=== PATIENT | male | born 1960 ===

== ENCOUNTER 2020-06-15 14:14 | Outpatient (REF) | payer OTHER, SELFPAY | END 2020-06-15 14:15 | disposition home or self-care (01) | LOC: HO.LNP 14:14 | PROVIDERS: Visit Provider Nurse Practitioner Family | DX: Z20.828 Contact with and (suspected) exposure to other viral communicable diseases (principal) | CPT/HCPCS: U0003 ==

== ENCOUNTER 2020-06-27 09:23 | Outpatient (REF) | payer OTHER, SELFPAY | END 2020-06-27 09:24 | disposition home or self-care (01) | LOC: HO.HMGCLDS 09:23 | PROVIDERS: PCP Internal Medicine; Visit Provider Internal Medicine | DX: Z20.828 Contact with and (suspected) exposure to other viral communicable diseases (principal) | CPT/HCPCS: C9803; U0003 ==

== ENCOUNTER 2020-07-15 12:21 | Outpatient (REF) | payer OTHER, SELFPAY ==
--- NOTE | 2020-07-15 12:25 | XR_ITS ---
EXAMINATION: XR CHEST CLINICAL INFORMATION: Short of breath. Exposure the wires. COMPARISON: None TECHNIQUE: 2 views of the chest were obtained. FINDINGS: No significant abnormality is noted involving the heart, lungs, mediastinum, bony thorax or soft tissues. XR/XR chest 2V IMPRESSION: Unremarkable chest examination.
== END 2020-07-15 12:22 | disposition home or self-care (01) ==
LOC: HO.HMGCX 12:21
PROVIDERS: PCP Internal Medicine; Visit Provider Hospitalist
DX: Z20.828 Contact with and (suspected) exposure to other viral communicable diseases (principal)
CPT/HCPCS: 71046; U0003

== ENCOUNTER 2022-10-08 14:17 | Emergency (ER) | payer OTHER, SELFPAY ==
--- NOTE | ~2022-10-08 | XR_ITS ---
EXAMINATION: XR HAND, LEFT CLINICAL INFORMATION: Trauma, bleeding at the left first finger COMPARISON: None TECHNIQUE: PA, lateral, and oblique views of the left hand. FINDINGS: There appears to be a previous amputation of the distal aspect of distal phalanx of the first finger. No acute bony fracture seen. Mild narrowing of the left first MTP joint. There is no opaque foreign body. The remaining metacarpals appear to be intact. The carpus is unremarkable. No erosive process. XR/XR hand LT min 3V IMPRESSION: 1. No acute process. 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 2. Mild narrowing of the left first MTP joint.
[2022-10-08 14:24] VITALS: BP 173/101; PULSE 106; RESP 20; TEMP 37.1; O2SAT 95; BMI 31.7
--- NOTE | 2022-10-08 14:27 | ED.WOUNDLAC ---
HPI - Wound/Laceration General Chief Complaint: Skin/Abscess/Foreign Body Stated Complaint: Thumb lac Related Data Home Medications Medication Instructions Recorded Confirmed albuterol sulfate 2.5 mg/3 mL mg inhalation Q4H PRN wheezing 06/15/20 07/15/20 (0.083 %) solution for nebulization albuterol sulfate 90 mcg/actuation 1 puff inhalation Q4H PRN wheezing 06/15/20 07/15/20 aerosol inhaler amlodipine 5 mg tablet 5 mg PO DAILY 06/15/20 07/15/20 aspirin 81 mg tablet,delayed 81 mg PO DAILY 06/15/20 07/15/20 release evolocumab 140 mg/mL subcutaneous mg subcut 06/15/20 07/15/20 syringe ezetimibe 10 mg tablet 10 mg PO DAILY 06/15/20 07/15/20 flu vac [id number] 36mos up(PF) 60 ml IM 06/15/20 07/15/20 mcg (15 mcg x4)/0.5 mL IM syringe fluticasone furoate 100 0 inh inhalation DIRECTED 06/15/20 07/15/20 mcg/actuation blister powder for inhalation ibuprofen 400 mg tablet 400 mg PO Q8H PRN pain 06/15/20 07/15/20 levothyroxine 150 mcg tablet 150 mcg PO 6XW 06/15/20 07/15/20 lisinopril 5 mg tablet 5 mg PO DAILY 06/15/20 07/15/20 metformin 500 mg tablet 500 mg PO BID 06/15/20 07/15/20 ondansetron 4 mg disintegrating 4 mg PO Q8H PRN nausea 06/15/20 07/15/20 tablet phenazopyridine 100 mg tablet 100 mg PO TID 06/15/20 07/15/20 pramipexole 1.5 mg tablet 1.5 mg PO DAILY 06/15/20 07/15/20 prednisone 20 mg tablet 20 mg PO BID 06/15/20 07/15/20 tamsulosin 0.4 mg capsule 0.4 mg PO DAILY 06/15/20 07/15/20 Previous Rx's Medication Instructions Recorded prednisone 20 mg tablet 20 mg PO .COMPLEX #18 tabs 07/15/20 Allergies Allergy/AdvReac Type Severity Reaction Status Date / Time Zqnqmzd-ENO-MdY Reductase Allergy Unknown INCREASED Unverified 04/21/20 16:54 Inhibitor LFTS [KQLZPAC-SMX-PYR REDUCTASE INHIBITOR] Statin Allergy Unknown Uncoded 08/04/19 00:00 Physical Exam Vital Signs: Vital Signs: Last Vital Signs Temp 98.7 F 10/08/22 14:24 Pulse 106 H 10/08/22 14:24 Resp 20 10/08/22 14:24 BP 173/101 H 10/08/22 14:24 Pulse Ox 95 10/08/22 14:24 O2 Del Method 10/08/22 14:24 BMI result Body Mass Index 31.7 Course Course Course Narrative: RME - Discharge Plan Discharge Prescriptions: No Action aspirin 81 mg tablet,delayed release (DR/EC) 81 mg PO DAILY pramipexole 1.5 mg tablet 1.5 mg PO DAILY Repatha Syringe 140 mg/mL syringe subcut amlodipine 5 mg tablet 5 mg PO DAILY Afluria Qd 2019-(3yr up)(PF) 60 mcg (15 mcg x 4)/0.5 mL syringe IM lisinopril 5 mg tablet 5 mg PO DAILY metformin 500 mg tablet 500 mg PO BID levothyroxine 150 mcg tablet 150 mcg PO 6XW ezetimibe 10 mg tablet 10 mg PO DAILY prednisone 20 mg tablet 20 mg PO BID Arnuity Ellipta 100 mcg/actuation blister with device 0 inh inhalation DIRECTED ondansetron 4 mg tablet,disintegrating 4 mg PO Q8H PRN (Reason: nausea) albuterol sulfate 90 mcg/actuation HFA aerosol inhaler 1 puff inhalation Q4H PRN (Reason: wheezing) albuterol sulfate 2.5 mg /3 mL (0.083 %) solution for nebulization inhalation Q4H PRN (Reason: wheezing) phenazopyridine 100 mg tablet 100 mg PO TID ibuprofen 400 mg tablet 400 mg PO Q8H PRN (Reason: pain) tamsulosin 0.4 mg capsule 0.4 mg PO DAILY prednisone 20 mg tablet 20 mg PO .COMPLEX Qty: 18 0RF Rx Instructions: 20 mg PO 3 p.o. daily for 3 days followed by 2 p.o. daily for 3 days followed by 1 p.o. daily for 3 days;
[2022-10-08] MEDS: Diphth,Pertus(ACell),Tet Adult 0.5 ML SYRINGE IM (15:14)
--- NOTE | 2022-10-08 17:23 | ED_ITS ---
HPI - General Adult General Chief complaint: Skin/Abscess/Foreign Body Stated complaint: Thumb lac Time Seen by Provider: 10/08/22 15:57 Source: patient Mode of arrival: ambulatory Limitations: no limitations History of Present Illness HPI narrative: 61 yold male presents to the ED for left hand laceration near thumb. [place] states he was cutting with a chisel to cut wood and he cut himself by accident and there was plenty of blood. patient states he has complete range of motion of thumb and has feeling. Related Data Home Medications Medication Instructions Recorded Confirmed albuterol sulfate 2.5 mg/3 mL mg inhalation Q4H PRN wheezing 06/15/20 07/15/20 (0.083 %) solution for nebulization albuterol sulfate 90 mcg/actuation 1 puff inhalation Q4H PRN wheezing 06/15/20 07/15/20 aerosol inhaler amlodipine 5 mg tablet 5 mg PO DAILY 06/15/20 07/15/20 aspirin 81 mg tablet,delayed 81 mg PO DAILY 06/15/20 07/15/20 release evolocumab 140 mg/mL subcutaneous mg subcut 06/15/20 07/15/20 syringe ezetimibe 10 mg tablet 10 mg PO DAILY 06/15/20 07/15/20 flu vac [id number] 36mos up(PF) 60 ml IM 06/15/20 07/15/20 mcg (15 mcg x4)/0.5 mL IM syringe fluticasone furoate 100 0 inh inhalation DIRECTED 06/15/20 07/15/20 mcg/actuation blister powder for inhalation ibuprofen 400 mg tablet 400 mg PO Q8H PRN pain 06/15/20 07/15/20 levothyroxine 150 mcg tablet 150 mcg PO 6XW 06/15/20 07/15/20 lisinopril 5 mg tablet 5 mg PO DAILY 06/15/20 07/15/20 metformin 500 mg tablet 500 mg PO BID 06/15/20 07/15/20 ondansetron 4 mg disintegrating 4 mg PO Q8H PRN nausea 06/15/20 07/15/20 tablet phenazopyridine 100 mg tablet 100 mg PO TID 06/15/20 07/15/20 pramipexole 1.5 mg tablet 1.5 mg PO DAILY 06/15/20 07/15/20 prednisone 20 mg tablet 20 mg PO BID 06/15/20 07/15/20 tamsulosin 0.4 mg capsule 0.4 mg PO DAILY 06/15/20 07/15/20 Previous Rx's Medication Instructions Recorded prednisone 20 mg tablet 20 mg PO .COMPLEX #18 tabs 07/15/20 cephalexin 500 mg capsule 500 mg PO QID 7 days #28 caps 10/08/22 Allergies Allergy/AdvReac Type Severity Reaction Status Date / Time Ohrujyv-UBC-CwE Reductase Allergy Unknown INCREASED Unverified 04/21/20 16:54 Inhibitor LFTS [VGQDBSO-PVK-MQE REDUCTASE INHIBITOR] Statin Allergy Unknown Uncoded 08/04/19 00:00 Review of Systems Review of Systems: Left hand laceration Yes all other systems are reviewed and are negative [facility] Social History Social History Advance Directives: No Advance Directives Information Provided: Yes Physical Exam ED Vital Signs: Vital Signs - 24 hr 10/08/22 14:24 Temperature 98.7 F Pulse Rate 106 H Respiratory Rate 20 Blood Pressure 173/101 H Pulse Oximetry 95 Oxygen Delivery Method Room Air BMI result Body Mass Index 31.7 Const General: cooperative, healthy appearing, comfortable, no acute distress, well developed and alert Orientation/consciousness: oriented to person, oriented to place, oriented to time and patient oriented x3 HENMT Head: Yes normal to inspection, Yes No palpable skull fracture present, Yes normocephalic, Yes atraumatic and No abrasion Eyes General: appearance normal, both eyes and all related structures Neck Neck: Yes normal visual inspection, Yes full ROM, Yes no lymphadenopathy, Yes no meningeal signs, Yes trachea midline, Yes supple, No anterior neck swelling and No tender Chest Chest palpation & inspection: normal inspection of the chest and normal p alpation of entire chest wall Resp Effort & Inspection: normal respiratory effort and able to speak in complete sentences Auscultation: clear to auscultation bilaterally Cardio Jugular venous distension: no JVD Heart sounds: S1 normal heart sound present and S2 normal heart sound present GI Inspection: Yes normal to inspection and No abdominal wall ecchymosis Palpation (GI): Soft to palpation, not firm, nontender, no guarding and not rigid General: No CVA tenderness and Yes no CVA tenderness Back/Spine/Pelvis Back: no CVA tenderness, No CVA tenderness and No back tenderness Skin General skin exam: no rashes or lesions noted and elasticity normal Neuro General: oriented to person, oriented to place, oriented to time, patient oriented x3, gait normal, tone normal, moves all extremities, Normal light touch and pain sensation, no meningeal signs, no focal motor deficits, CN's II-XI intact bilaterally, normal sensation to monofilament and deep tendon reflexes 2+ bilaterally Extrem General: Yes normal to inspection and Yes full ROM Hand/finger images: 1. Positive for laceration his active bleeding. Patient has complete range of motion of thumb and feeling. Rest of fingers also complete range of motion and neuro exam intact. All fingers neuro/motor/vascular exam intact. Rest of extremity normal and motor/neuro/vascular exam intact. Negative for tendon or nerve injury. Psych Appearance: grossly normal, well kempt and not disheveled Course Course Course Narrative: Patient has laceration of thumb. X-ray ordered. Tdap ordered. Reevaluation(s) Reevaluation #1: X-ray normal. Wound cleaned with sterile saline and Betadine iodine. Anesthetized with 8 mL of 2% lidocaine. History nylon suture used. Six sutures were placed. Patient will be discharged with antibiotics due to history of diabetes to prevent infection Time: 17:30 Medications Administered Discontinued Medications Generic Name Dose Route Start Last Admin Trade Name Freq PRN Reason Stop Dose Admin Diphtheria/Tetanus/Acell Pertussis 0.5 ml 10/08/22 14:27 10/08/22 15:14 Diphth,Pertus(Acell),Tet Adult 0.5 Ml Syringe IM 10/08/22 14:28 0.5 ml .ONCE ONE Administration Lidocaine HCl 2 ml 10/08/22 16:04 10/08/22 16:13 Lidocaine Hcl 2% 2 Ml Vial INFILTRATI 10/08/22 16:05 2 ml ONCE ONE Administration Lidocaine HCl 2 ml 10/08/22 16:04 10/08/22 16:13 Lidocaine Hcl 2% 2 Ml Vial INFILTRATI 10/08/22 16:05 2 ml ONCE ONE Administration Lidocaine HCl 2 ml 10/08/22 16:04 10/08/22 16:13 Lidocaine Hcl 2% 2 Ml Vial INFILTRATI 10/08/22 16:05 2 ml ONCE ONE Administration Lidocaine HCl 2 ml 10/08/22 16:04 10/08/22 16:13 Lidocaine Hcl 2% 2 Ml Vial INFILTRATI 10/08/22 16:05 2 ml ONCE ONE Administration Lidocaine HCl 2 ml 10/08/22 16:04 10/08/22 16:13 Lidocaine Hcl 2% 2 Ml Vial INFILTRATI 10/08/22 16:05 2 ml ONCE ONE Administration Medical Decision Making Medical Decision Making MDM Narrative: 61-year-old male with left thumb laceration. Negative for signs of tendon or nerve injury. X-ray ordered. Differential Diagnosis Differential Diagnoses: The differential diagnosis associated with the presentation includes (Laceration. Fracture) Independent Interpretation I performed an independent interpretation of an: Plain X-Ray Radiology Impression Discussion of test interpretation with radiology: I have reviewed the radiologist's reading. Prescription Management I considered prescription management with: Antibiotic Chronic Conditions Patient?s care impacted by: Diabetes Discharge Plan Discharge Clinical Impression: Laceration of hand Patient Disposition: Home, Self-Care Instructions: Laceration (ED) Additional Instructions: Keep laceration dried the 1st 48 hours. Return to the ED in 10 days for suture removal. Return to the ED immediately for any pus discharge, foul odor, redness, swelling, fever, chills, inability to move thumb, and inability to move rest of fingers, or any other concerning symptoms. Prescriptions: New cephalexin 500 mg capsule 500 mg PO QID 7 Days Qty: 28 0RF No Action aspirin 81 mg tablet,delayed release (DR/EC) 81 mg PO DAILY pramipexole 1.5 mg tablet 1.5 mg PO DAILY Repatha Syringe 140 mg/mL syringe subcut amlodipine 5 mg tablet 5 mg PO DAILY Afluria Qd 2019-(3yr up)(PF) 60 mcg (15 mcg x 4)/0.5 mL syringe IM lisinopril 5 mg tablet 5 mg PO DAILY metformin 500 mg tablet 500 mg PO BID levothyroxine 150 mcg tablet 150 mcg PO 6XW ezetimibe 10 mg tablet 10 mg PO DAILY prednisone 20 mg tablet 20 mg PO BID Arnuity Ellipta 100 mcg/actuation blister with device 0 inh inhalation DIRECTED ondansetron 4 mg tablet,disintegrating 4 mg PO Q8H PRN (Reason: nausea) albuterol sulfate 90 mcg/actuation HFA aerosol inhaler 1 puff inhalation Q4H PRN (Reason: wheezing) albuterol sulfate 2.5 mg /3 mL (0.083 %) solution for nebulization inhalation Q4H PRN (Reason: wheezing) phenazopyridine 100 mg tablet 100 mg PO TID ibuprofen 400 mg tablet 400 mg PO Q8H PRN (Reason: pain) tamsulosin 0.4 mg capsule 0.4 mg PO DAILY prednisone 20 mg tablet 20 mg PO .COMPLEX Qty: 18 0RF Rx Instructions: 20 mg PO 3 p.o. daily for 3 days followed by 2 p.o. daily for 3 days followed by 1 p.o. daily for 3 days; Stand Alone Forms: Work/School Release Interventions: ED Discharge Assessment Last Done: 10/08/22 17:50 Discharge Date/Time: 10/08/22 17:51 Print Language: Luxembourgish
== END 2022-10-08 17:51 | disposition home or self-care (01) ==
PROVIDERS: Emergency Provider Emergency Medicine; PCP Internal Medicine
DX: S61.412A Laceration without foreign body of left hand, initial encounter (principal); W27.0XXA Contact with workbench tool, initial encounter; Y93.89 Activity, other specified; Y92.9 Unspecified place or not applicable; Y99.9 Unspecified external cause status
CPT/HCPCS: 12001; 73130; 90471; 90715; 99282; 99283; 99284

== ENCOUNTER 2023-03-12 13:02 | Outpatient (AMB) | payer OTHER, SELFPAY ==
--- NOTE | 2023-03-12 13:08 | A.OFFVIS_ITS ---
Intake Vital Signs 03/12/23 13:09 Height 5 ft 9 in Weight 215 lb 8 oz BMI 31.8 BP 122/88 Blood Pressure Location Rt brachial Position Sitting Pulse 92 Pulse Source Pulse Oximeter Pulse Oximetry (%) 97 Oxygen Delivery Method Room Air Intake Visit Reasons: -ENP-NARCOLEPSY - Confirmed Intake Note: Patient presents for new patient evaluation. Patient states I'm not staying awake during the daytime,when Im driving it's a challenge, my memory is poor and I've been feeling lethargic and have no energy at all. Allergies Ughlhtj-VJL-SwJ Reductase Inhibitor [RUUAIPM-NAC-JCI REDUCTASE INHIBITOR] Allergy (Unknown, Unverified 03/12/23 13:13) INCREASED LFTS Statin Allergy (Unknown, Uncoded 03/12/23 13:13) Unknown HPI HPI Comments History of Present Illness Details 62 y/o male patient presents for new in-person visit for sleep consultation. Pt reports difficulty breathing through his nose. He had hx of deviated septum, had surgery twice, and turbinate reduction surgery twice, too. He also evaluated by combat information center officer and treated, but not helpful. He still has difficulty breathing through his nose, his nasal valve collapsed when he breathe. He sleeps on the recliner to breath better. Pt was also diagnosed with FREDY, and tried CPAP three times, but not tolerated. Pt reports difficulty staying sleep, he only can sleep 3 -5 hours with excessive daytime sleepiness. He gained over 45 lb and the symptoms has been worsened over the last year. He states that driving is challenging due to excessive sleepiness, needs energy drink. He can fall asleep very easily. Pt has restless legs syndorme and is on pramipexole 1.5 mg daily. The last ferritine level was 108 (Sep, 2021) Sleep questionnaire: Have you ever been diagnosed with a sleep disorder? No. Have you ever had a sleep study in the past? Yes. Have you ever been treated for a sleep disorder? Yes, CPAP but not tolerated. Do you take medications for a sleep disorder? mirtazapine two weeks ago. Do you snore? Yes. Do you wake up gasping at night? Yes. Do you have episodes of apneas? Yes. If yes, are they witnessed? Yes. Do you have episodes of nocturnal chest pain or dyspnea? Yes. Do you have difficulty initiating sleep? No. Do you have difficulty maintaining sleep? Yes. Do you wake up tired? Yes. Do you have headaches upon awakening? Sometimes. Do you wake up with dry mouth or throat? Yes. Do you have GERD? No. Do you have nocturia? Yes. Do you have nocturnal leg cramps? No. Do you have symptoms of restless legs? Yes. Do you act out your dreams? No. Sleep hygiene questionnaire: What is your usual sleep routine? 6-7 pm taking a nap, for 1-3 hours and wakes up. Do you take naps? Yes. Is your sleep environment cool, dark, and quiet? Yes. Do you exercise? No. Do you take caffeine or other stimulants? If he needs to drive, he drinks energy drink. Do you use electronics in bed? Yes. What is your work schedule? N/A. Hypersomnolence questionnaire: Do you have daytime tiredness or fatigue? Yes. Do you easily fall asleep when inactive? Yes. Have you ever had episodes of sudden weakness? No. Have you ever had episodes of sudden weakness associated with strong emotions? No. PFSH Medical History (Updated 03/12/23 @ 14:06 by Brittny Reilly CNP) History of deviated nasal septum Surgical History (Updated 03/12/23 @ 13:18 by KIRSTIE Koo) H/O elbow surgery H/O sinus surgery History of knee surgery History of placement of ear tubes Hx of shoulder surgery Hx of tonsillectomy S/p bilateral carpal tunnel release Family History Sister Breast cancer Heart disease Kidney disease Father Aneurysm Heart disease Sister Lupus Addisons disease Social History (Updated 03/12/23 @ 13:21 by KIRSTIE Koo) Alcohol intake: current Patient Tobacco Use Status: Never used Tobacco Review of Systems Const All systems reviewed & are unremarkable except as noted in HPI and below ENT Reports Normal hearing present Neuro Reports Normal hearing present Physical Exam Vital Signs: Last Vital Signs Pulse 92 03/12/23 13:09 BP 122/88 03/12/23 13:09 Pulse Ox 97 03/12/23 13:09 Oxygen Delivery Method Room Air 03/12/23 13:09 BMI result Body Mass Index 31.8 Const General: cooperative and tired appearing Nutritional Appearance: overweight Orientation/consciousness: patient oriented x3 Neck Neck: Yes full ROM and Yes supple Resp Effort & Inspection: normal respiratory effort and able to speak in complete sentences Neuro General: patient oriented x3, gait normal and moves all extremities Cranial nerves: Yes Normal facial strength present, Yes Midline tongue present, Yes Symmetric palate elevation present, Yes Normal hearing present, Yes Ability to bilaterally rotate head present and Yes Ability to bilaterally elevate shoulders present Cognition (Neuro): normal cognition Gait exam (Neuro): Normal gait present Motor exam (neuro): 5/5 motor strength present throughout, Pronator motor funct ion not present and no tremor noted Psych Appearance: grossly normal Mental Status: mental status grossly normal Affect: normal affect Assessment & Plan Assessment & Plan (1) Restless legs syndrome: Code(s): G25.81 - Restless legs syndrome (2) Excessive daytime sleepiness: Code(s): G47.19 - Other hypersomnia (3) 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 Will f/u with pt after study to discuss results and appropriate treatment options. Consider to refer for Insp[facility]. Refer patient to ENT for nasal collapse evaluation. Pt to call with any worsening concerns or questions. Consider to refer for [facility]. Orders: Orders RT PSG in-lab sleep study 03/12/23 G25.81 - Restless legs syndrome, G47.19 - Other hypersomnia, G47.33 - Obstructive sleep apnea (adult) (pediatric), I25.10 - Atherosclerotic heart disease of [place] coronary artery without angina pectoris, M95.0 - Acquired deformity of nose, R68.89 - Other general symptoms and signs, Z87.09 - Personal history of other diseases of the respiratory system Referrals Ear/Nose/Throat Referral G25.81 - Restless legs syndrome, G47.19 - Other hypersomnia, G47.33 - Obstructive sleep apnea (adult) (pediatric), R68.89 - Other general symptoms and signs, Z87.09 - Personal history of other diseases of the respiratory system Medications: Discontinued prednisone Discontinued Reason: Patient no longer taking 20 mg PO 3 p.o. daily for 3 days followed by 2 p.o. daily for 3 days followed by 1 p.o. daily for 3 days; 18 tabs 0RF Coding Level of Care Code New Pt Level 4 (87905) Diagnoses Restless legs syndrome G25.81 Excessive daytime sleepiness G47.19 Nasal alar collapse M95.0 Nasal airway abnormality R68.89 FREDY (obstructive sleep apnea) G47.33
[2023-03-12 13:09] VITALS: BP 122/88; PULSE 92; O2SAT 97; BMI 31.8
== END 2023-03-12 14:12 | disposition home or self-care (01) ==
LOC: HO.HSMC 13:02
PROVIDERS: PCP Internal Medicine; Visit Provider Nurse Practitioner Family
DX: G25.81 Restless legs syndrome (principal); G47.19 Other hypersomnia; M95.0 Acquired deformity of nose; R68.89 Other general symptoms and signs; G47.33 Obstructive sleep apnea (adult) (pediatric)
CPT/HCPCS: 99204

== ENCOUNTER → 2023-03-12 13:02 | Outpatient (BNVA) | payer OTHER, SELFPAY | PROVIDERS: PCP Internal Medicine; Visit Provider Nurse Practitioner Family ==

== ENCOUNTER → 2023-04-01 19:30 | Outpatient (REF) | payer OTHER, SELFPAY | LOC: HO.SL 19:30 | PROVIDERS: PCP Internal Medicine; Visit Provider Nurse Practitioner Family | DX: G47.33 Obstructive sleep apnea (adult) (pediatric) (principal); G25.81 Restless legs syndrome; G47.19 Other hypersomnia | CPT/HCPCS: 95810 ==

== ENCOUNTER → 2023-04-01 23:00 | Outpatient (BNV) | payer OTHER, SELFPAY | PROVIDERS: PCP Internal Medicine; Visit Provider Psychiatry & Neurology Neurology | DX: G47.33 Obstructive sleep apnea (adult) (pediatric) (principal) | CPT/HCPCS: 95810 ==

== ENCOUNTER 2023-06-11 09:25 | Outpatient (AMB) | payer OTHER, SELFPAY ==
--- NOTE | 2023-06-11 09:28 | MHC.OFFVIS ---
Intake Vital Signs 06/11/23 09:34 Height 5 ft 9 in Weight 220 lb BMI 32.5 BP 140/80 H Blood Pressure Location Rt brachial Position Sitting Pulse 78 Pulse Source Pulse Oximeter Pulse Oximetry (%) 97 Oxygen Delivery Method Room Air Intake Visit Reasons: 3 mnts f/u for sleep - LVM Intake Note: F/U for sleep, patient is asking to be referred to the [facility] Denture Processor Required: No Allergies Lmeqest-DHI-VzU Reductase Inhibitor [COWDSRT-GJJ-AYT REDUCTASE INHIBITOR] Allergy (Unknown, Unverified 06/11/23 09:29) INCREASED LFTS Statin Allergy (Unknown, Uncoded 06/11/23 09:29) Unknown HPI HPI Comments History of Present Illness Details 62 y/o male patient presents for follow up of sleep study. Pt had a split sleep study done. The baseline portion of the sleep study was significant for a severe degree of sleep apnea. The AHI was 35/hr and oxygen devyn was 81%. Pt was trialed on CPAP 4 and 6 but patient unable to tolerate CPAP titration study and the study was discontinued. Pt reports difficulty breathing through his nose. He had hx of deviated septum, had surgery twice, and turbinate reduction surgery twice, too. He also evaluated by waterproofer helper and treated, but not helpful. He still has difficulty breathing through his nose, his nasal valve collapsed when he breathe. He sleeps on the recliner to breath better. Pt continue to endorse very difficulty staying sleep, and excessive daytime sleepiness. He wakes up almost every 2 hrs. He is not sure he wakes up because of difficulty breathing or other reasons. He is on mirtazapine for sleep. He does not drive anymore due to excessive daytime sleepiness. Pt reports bilateral sciatica problem, tired physical therapy but pain has worsened. [facility] Medical History History of deviated nasal septum Surgical History Hx of tonsillectomy S/p bilateral carpal tunnel release History of knee surgery H/O elbow surgery Hx of shoulder surgery H/O sinus surgery History of placement of ear tubes Family History Sister Breast cancer Heart disease Kidney disease Father Aneurysm Heart disease Sister Lupus Addisons disease Social History (Updated 06/11/23 @ 09:34 by Laila Gu [facility]) Alcohol intake: current Patient Tobacco Use Status: Never used Tobacco Use of substances other than those prescribed or required for medical reasons: No Review of Systems Const All systems reviewed & are unremarkable except as noted in HPI and below ENT Reports Normal hearing present Neuro Reports Normal hearing present Physical Exam Vital Signs: Last Vital Signs Pulse 78 06/11/23 09:34 BP 140/80 H 06/11/23 09:34 Pulse Ox 97 06/11/23 09:34 Oxygen Delivery Method Room Air 06/11/23 09:34 BMI result Body Mass Index 32.5 Const General: cooperative and tired appearing Nutritional Appearance: overweight Orientation/consciousness: patient oriented x3 Neck Neck: Yes full ROM and Yes supple Resp Effort & Inspection: normal respiratory effort and able to speak in complete sentences Neuro General: patient oriented x3, gait normal and moves all extremities Cranial nerves: Yes Normal facial strength present, Yes Midline tongue present, Yes Symmetric palate elevation present, Yes Normal hearing present, Yes Ability to bilaterally rotate head present and Yes Ability to bilaterally elevate shoulders present Cognition (Neuro): normal cognition Gait exam (Neuro): Normal gait present Motor exam (neuro): 5/5 motor strength present throughout, Pronator motor function not present and no tremor noted Psych Appearance: grossly normal Mental Status: mental status grossly normal Affect: normal affect Assessment & Plan Assessment & Plan (1) Restless legs syndrome: Code(s): G25.81 - Restless legs syndrome (2) Excessive daytime sleepiness: Code(s): G47.19 - Other hypersomnia (3) 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 Code(s): G47.33 - Obstructive sleep apnea (adult) (pediatric) Plan Refer patient for [facility] consultation and ENT evaluation. Pt did not tolerate CPAP and having difficulty breathing. Orders: Referrals Ear/Nose/Throat Referral G47.33 - Obstructive sleep apnea (adult) (pediatric), M95.0 - Acquired deformity of nose, Z87.09 - Personal history of other diseases of the respiratory system Coding Level of Care Code Est Pt Level 3 (01220) Diagnoses Restless legs syndrome G25.81 Excessive daytime sleepiness G47.19 Nasal alar collapse M95.0 Nasal airway abnormality R68.89 FREDY (obstructive sleep apnea) G47.33
[2023-06-11 09:34] VITALS: BP 140/80; PULSE 78; O2SAT 97; BMI 32.5
== END 2023-06-11 09:55 | disposition home or self-care (01) ==
PROVIDERS: PCP Internal Medicine; Visit Provider Nurse Practitioner Family
DX: G25.81 Restless legs syndrome (principal); G47.19 Other hypersomnia; M95.0 Acquired deformity of nose; R68.89 Other general symptoms and signs; G47.33 Obstructive sleep apnea (adult) (pediatric)
CPT/HCPCS: 99213

== ENCOUNTER → 2023-06-11 09:25 | Outpatient (BNVA) | payer OTHER, SELFPAY | PROVIDERS: PCP Internal Medicine; Visit Provider Nurse Practitioner Family ==

== ENCOUNTER 2024-06-25 10:48 | Outpatient (AMB) | payer MEDICARE, SELFPAY ==
--- NOTE | 2024-06-25 11:01 | A.OFFVIS_ITS ---
Vital Signs 06/25/24 11:01 Height 5 ft 9 in Intake Visit Reasons: [facility] activation Intake Note: Patient presents for inspire activation Allergies Gnkwwhr-WMR-JoS Reductase Inhibitor [SOIXNMS-PAE-JHF REDUCTASE INHIBITOR] Allergy (Unknown, Unverified 06/25/24 11:02) INCREASED LFTS Statin Allergy (Unknown, Uncoded 06/25/24 11:02) Unknown Medication List - Last Reconciled 06/25/24 by Parisa Carlson MD amlodipine 5 mg PO DAILY aspirin 81 mg PO DAILY cephalexin 500 mg PO QID 7 days cyclobenzaprine 10 mg PO TID evolocumab mg subcut ezetimibe 10 mg PO DAILY flu vac [id number] 36mos up(PF) mL IM fluticasone furoate 100 mcg/actuation 0 inhalations inhalation DIRECTED glipizide 5 mg PO DAILY ibuprofen 400 mg PO Q8H PRN levothyroxine 150 mcg PO 6XW lisinopril 5 mg PO DAILY meloxicam 7.5 mg PO DAILY metformin 500 mg PO BID multivitamin 1 tab PO DAILY ondansetron 4 mg PO Q8H PRN oxycodone-acetaminophen 5-325 mg tabs PO phenazopyridine 100 mg PO TID pramipexole 1.5 mg PO DAILY pramipexole ER 3 mg PO DAILY pregabalin 150 mg PO BEDTIME tamsulosin 0.4 mg PO DAILY HPI Comments Details: 63 y/o male patient comes for [facility]PIRE activation . He had implantation on may 21 202404/2023-The baseline portion of the sleep study was significant for a severe degree of sleep apnea. The AHI was 35/hr and oxygen devyn was 81%. Pt was trialed on CPAP 4 and 6 but patient unable to tolerate CPAP titration study and the study was discontinued. He denies any discomfort now. Post surgery he had some discomfort while yawning. [facility] Medical History History of deviated nasal septum Surgical History (Updated 06/25/24 @ 11:28 by Parisa Carlson MD) S/P insertion of hypoglossal nerve stimulator Hx of tonsillectomy S/p bilateral carpal tunnel release History of knee surgery H/O elbow surgery Hx of shoulder surgery H/O sinus surgery History of placement of ear tubes Family History Sister Breast cancer Heart disease Kidney disease Father Aneurysm Heart disease Sister Lupus Addisons disease Social History Alcohol intake: current Patient Tobacco Use Status: Never used Tobacco Review of Systems ENT Reports Normal hearing present Neuro Reports Normal hearing present Physical Exam Const General: cooperative and tired appearing Nutritional Appearance: overweight Orientation/consciousness: patient oriented x3 Neck Neck: Yes full ROM and Yes supple Resp Effort & Inspection: normal respiratory effort and able to speak in complete sentences Neuro Other: Tongue exam , scars- normal . No evidence of infection General: patient oriented x3, gait normal and moves all extremities Cranial nerves: Yes Normal facial strength present, Yes Midline tongue present, Yes Symmetric palate elevation present, Yes Normal hearing present, Yes Ability to bilaterally rotate head present and Yes Ability to bilaterally elevate shoulders present Cognition (Neuro): normal cognition Gait exam (Neuro): Normal gait present Motor exam (neuro): no tremor noted Psych Appearance: grossly normal Mental Status: mental status grossly normal Affect: normal affect Assessment & Plan Assessment & Plan (1) FREDY (obstructive sleep apnea): Comment: Severe degree of sleep apnea and not tolerated CPAP. Code(s): G47.33 - Obstructive sleep apnea (adult) (pediatric) Category: Medical (2) S/P insertion of hypoglossal nerve stimulator: Comment: INSPIRE 05/21/2024 Code(s): Z96.82 - Presence of neurostimulator Category: Surgical Plan Discussed sleep hygiene in detail Instructions on use of his remote was given with written instructions. Stimulation settings today - Lower limit 0.5 Upper limit 1.5 V functional level 0.7 sensation level 0.5V Start delay 60min pause time 15 minutes Therapy duration 8 hrs Medications: New alirocumab (Praluent Pen) 75 mg subcut Q2W semaglutide (Ozempic) for 4 weeks 0.25 mg subcut QWEEK Discontinued cephalexin Discontinued Reason: Patient no longer taking 500 mg PO QID 7 days 28 caps 0RF Coding Level of Care Code Est Pt Level 3 (58165) [facility] Program cplx 4 or more Diagnoses FREDY (obstructive sleep apnea) G47.33 S/P insertion of hypoglossal nerve stimulator Z96.82
== END 2024-06-25 12:23 | disposition home or self-care (01) ==
PROVIDERS: PCP Internal Medicine; Visit Provider Psychiatry & Neurology Neurology
DX: G47.33 Obstructive sleep apnea (adult) (pediatric) (principal); Z96.82 Presence of neurostimulator
CPT/HCPCS: 95977; 99213

== ENCOUNTER → 2024-06-25 10:48 | Outpatient (BNVA) | payer MEDICARE, SELFPAY | PROVIDERS: PCP Internal Medicine; Visit Provider Psychiatry & Neurology Neurology | DX: Z46.2 Encounter for fitting and adjustment of other devices related to nervous system and special senses (principal); G47.33 Obstructive sleep apnea (adult) (pediatric); Z96.82 Presence of neurostimulator | CPT/HCPCS: 95977; 99212 ==

== ENCOUNTER 2024-08-12 10:47 | Outpatient (AMB) | payer MEDICARE, SELFPAY ==
[2024-08-12 10:52] VITALS: BP 140/82; PULSE 71; O2SAT 97; BMI 31.6
--- NOTE | 2024-08-12 10:52 | A.OFFVIS_ITS ---
Vital Signs 08/12/24 10:52 Height 5 ft 9 in Weight 214 lb BMI 31.6 BP 140/82 H Blood Pressure Location Lt brachial Position Sitting Pulse 71 Pulse Source Pulse Oximeter Pulse Oximetry (%) 97 Oxygen Delivery Method Room Air Intake Visit Reasons: Follow Up [facility] [employer] Farmer Required: No Accompanied by: Self / Same As Patient Allergies Gweghmv-FGM-RnC Reductase Inhibitor [QTQEVXC-IXT-XWK REDUCTASE INHIBITOR] Allergy (Unknown, Verified 08/12/24 10:56) INCREASED LFTS Statin Allergy (Unknown, Uncoded 06/25/24 11:02) Unknown Medication List - Last Reconciled 08/12/24 by Parisa Carlson MD alirocumab (Praluent Pen) 75 mg subcut Q2W amlodipine 5 mg PO DAILY ezetimibe 10 mg PO DAILY flu vac [id number] 36mos up(PF) mL IM levothyroxine 150 mcg PO 6XW lisinopril 5 mg PO DAILY metformin 500 mg PO BID multivitamin 1 tab PO DAILY pramipexole ER 3 mg PO DAILY pramipexole ER 3.75 mg PO BEDTIME pregabalin 150 mg PO BEDTIME semaglutide (Ozempic) 0.25 mg subcut QWEEK Do you need a note to return to daycare/school/sports/work: No HPI Comments Details: 63 y/o male patient comes for follow up.. He had INSPIRE implantation on may 21 2024.He denies any difficulty with INSpire .Usage hrs abour 5 and he was able to increase to 1.3V He wants to shorten the lag time to 30 min 04/2023-The baseline portion of the sleep study was significant for a severe degree of sleep apnea. The AHI was 35/hr and oxygen devyn was 81%. Pt was trialed on CPAP 4 and 6 but patient unable to tolerate CPAP titration study and the study was discontinued. He denies any discomfort now. [facility] Medical History History of deviated nasal septum Surgical History S/P insertion of hypoglossal nerve stimulator Hx of tonsillectomy S/p bilateral carpal tunnel release History of knee surgery H/O elbow surgery Hx of shoulder surgery H/O sinus surgery History of placement of ear tubes Family History Sister Breast cancer Heart disease Kidney disease Father Aneurysm Heart disease Sister Lupus Addisons disease Social History Alcohol intake: current Patient Tobacco Use Status: Never used Tobacco Review of Systems ENT Reports Normal hearing present Neuro Reports Normal hearing present Physical Exam Vital Signs: Last Vital Signs Pulse 71 08/12/24 10:52 BP 140/82 H 08/12/24 10:52 Pulse Ox 97 08/12/24 10:52 Oxygen Delivery Method Room Air 08/12/24 10:52 BMI result Body Mass Index 31.6 Const General: cooperative and tired appearing Nutritional Appearance: overweight Orientation/consciousness: patient oriented x3 Neck Neck: Yes full ROM and Yes supple Resp Effort & Inspection: normal respiratory effort and able to speak in complete sentences Neuro Other: Tongue exam , scars- normal . No evidence of infection General: patient oriented x3, gait normal and moves all extremities Cranial nerves: Yes Normal facial strength present, Yes Midline tongue present, Yes Symmetric palate elevation present, Yes Normal hearing present, Yes Ability to bilaterally rotate head present and Yes Ability to bilaterally elevate shoulders present Cognition (Neuro): normal cognition Gait exam (Neuro): Normal gait present Motor exam (neuro): no tremor noted Psych Appearance: grossly normal Mental Status: mental status grossly normal Affect: normal affect Assessment & Plan Assessment & Plan (1) FREDY (obstructive sleep apnea): Comment: Severe degree of sleep apnea and not tolerated CPAP. Code(s): G47.33 - Obstructive sleep apnea (adult) (pediatric) Category: Medical (2) S/P insertion of hypoglossal nerve stimulator: Comment: INSPIRE 05/21/2024 Code(s): Z96.82 - Presence of neurostimulator Category: Surgical Plan Discussed sleep hygiene in detail Instructions on use of his remote was given with written instructions. Stimulation settings today - Lower limit 1.1- Upper limit 2.1 V functional level 0.7 sensation level 0.5V Start delay 30min pause time 15 minutes Therapy duration 8 hrs Pramipexole dose was increased to 3.75 mg qhs Medications: New pramipexole ER 3.75 mg PO BEDTIME 30 tabs 6RF Coding Level of Care Code Est Pt Level 2 (47622) [facility] Program cplx 4 or more Diagnoses FREDY (obstructive sleep apnea) G47.33 S/P insertion of hypoglossal nerve stimulator Z96.82
== END 2024-08-12 11:44 | disposition home or self-care (01) ==
PROVIDERS: PCP Internal Medicine; Visit Provider Psychiatry & Neurology Neurology
DX: Z45.42 Encounter for adjustment and management of neurostimulator (principal); G47.33 Obstructive sleep apnea (adult) (pediatric); Z96.82 Presence of neurostimulator
CPT/HCPCS: 95977; 99212

== ENCOUNTER → 2024-08-12 10:47 | Outpatient (BNVA) | payer MEDICARE, SELFPAY | PROVIDERS: PCP Internal Medicine; Visit Provider Psychiatry & Neurology Neurology | DX: G47.33 Obstructive sleep apnea (adult) (pediatric) (principal); Z96.82 Presence of neurostimulator | CPT/HCPCS: 95977; 99212 ==

== ENCOUNTER 2024-09-23 10:18 | Outpatient (AMB) | payer MEDICARE, SELFPAY ==
--- NOTE | 2024-09-23 10:21 | A.OFFVIS_ITS ---
Vital Signs 09/23/24 10:22 Height 5 ft 9 in Weight 216 lb BMI 31.9 BP 130/78 Blood Pressure Location Rt brachial Position Sitting Pulse 74 Pulse Source Pulse Oximeter Pulse Oximetry (%) 98 Oxygen Delivery Method Room Air Intake Visit Reasons: 4-6 Wk follow up Intake Note: patient following up FREDY. patient has an inspire implant Allergies Njyfyuu-VUX-HjN Reductase Inhibitor [MVYCGQO-UWT-TQK REDUCTASE INHIBITOR] Allergy (Unknown, Verified 09/23/24 10:27) INCREASED LFTS Statin Allergy (Unknown, Uncoded 09/23/24 10:27) Unknown HPI Comments Details: 63 y/o male patient comes for follow up.. He had INSPIRE implantation on Jun 25 2024 He denies any difficulty with INSpire .He was able to increase to 2.1 but was uncomfortable so decreased to 1.9 Usage hrs 5 hrs He also has knee pain and that is affecting his sleep. 04/2023-The baseline portion of the sleep study was significant for a severe degree of sleep apnea. The AHI was 35/hr and oxygen devyn was 81%. Pt was trialed on CPAP 4 and 6 but patient unable to tolerate CPAP titration study and the study was discontinued. He denies any discomfort now. [facility] Medical History History of deviated nasal septum Surgical History S/P insertion of hypoglossal nerve stimulator Hx of tonsillectomy S/p bilateral carpal tunnel release History of knee surgery H/O elbow surgery Hx of shoulder surgery H/O sinus surgery History of placement of ear tubes Family History Sister Breast cancer Heart disease Kidney disease Father Aneurysm Heart disease Sister Lupus Addisons disease Social History Alcohol intake: current Patient Tobacco Use Status: Never used Tobacco Review of Systems ENT Reports Normal hearing present Neuro Reports Normal hearing present Physical Exam Vital Signs: Last Vital Signs Pulse 74 09/23/24 10:22 BP 130/78 09/23/24 10:22 Pulse Ox 98 09/23/24 10:22 Oxygen Delivery Method Room Air 02/19/25 10:22 BMI result Body Mass Index 31.9 Const General: cooperative and tired appearing Nutritional Appearance: overweight Orientation/consciousness: patient oriented x3 Neck Neck: Yes full ROM and Yes supple Resp Effort & Inspection: normal respiratory effort and able to speak in complete sentences Neuro Other: Tongue exam , scars- normal . No evidence of infection General: patient oriented x3, gait normal and moves all extremities Cranial nerves: Yes Normal facial strength present, Yes Midline tongue present, Yes Symmetric palate elevation present, Yes Normal hearing present, Yes Ability to bilaterally rotate head present and Yes Ability to bilaterally elevate shoulders present Cognition (Neuro): normal cognition Gait exam (Neuro): Normal gait present Motor exam (neuro): no tremor noted Psych Appearance: grossly normal Mental Status: mental status grossly normal Affect: normal affect Assessment & Plan Assessment & Plan (1) FREDY (obstructive sleep apnea): Comment: Severe degree of sleep apnea and not tolerated CPAP. Code(s): G47.33 - Obstructive sleep apnea (adult) (pediatric) Category: Medical (2) S/P insertion of hypoglossal nerve stimulator: Comment: INSPIRE 05/21/2024 Code(s): Z96.82 - Presence of neurostimulator Category: Surgical Plan Discussed sleep hygiene in detail Decrease stim to 1.7 V Instructions on use of his remote was given with written instructions. Stimulation settings today - Lower limit 1.1- Upper limit 2.1 V functional level 0.7 sensation level 0.5V Start delay 30min pause time 15 minutes Therapy duration 8 hrs Pramipexole dose was increased to 3.75 mg qhs Coding Level of Care Code Est Pt Level 4 (15966) [facility] Program cplx 4 or more Diagnoses FREDY (obstructive sleep apnea) G47.33 S/P insertion of hypoglossal nerve stimulator Z96.82
[2024-09-23 10:22] VITALS: BP 130/78; PULSE 74; O2SAT 98; BMI 31.9
--- OUTSIDE RECORDS SUMMARY | 2024-09-23 10:54 | XMS_ITS | Encounter Summary ---
Author Organization [facility] Address [address] [place] [address] Care Team Providers Care Pelletizer Name Role Phone Aidan Dorantes MD Primary Care Provider Unavail able Maximino Campbell MD Primary Care Provider [phone] Aidan Dorantes MD Unavailable Unavailable Aidan Dorantes MD Unavailable Unavailable Eamon Gentile MD Unavailable Unavailable Rahat Matta NP Unavailable [phone] Esther Ramon MD Unavailable [phone] Haley Huang PA-C Unavailable [phone] Aidan Joseph PA-C Unavailable [phone] Reason for Visit * Reason Comments E-prescribe Rx Request Encounter Details Date Type Department Care Team Description 12/20/2014 Refill Adult Medicine [address] [id number] Aidan Dorantes MD E-prescribe Rx Request Social History Tobacco Use Types Packs/Day Years Used Date Smoking Tobacco: Never Smokeless Tobacco: Never Alcohol Use Standard Drinks/Week Comments Yes 0 (1 standard drink = 0.6 oz pur e alcohol) rare Sex Assigned at Date Recorded Not on file Job Start Date Occupation Industry Not on file Not on file Not on file documented as of this encounter Miscellaneous Notes * Telephone Encounter - Mavis Leonardo - 12/20/2014 1:05 PM EDT Patient would like script to be: E-PRESCRIBED/FAXED TO PHARMACY WHEN WAS THE PATIENT'S LAST APPOINTMENT IN ADULT MEDICINE? 11-09-2014 WHEN WAS THE LAST TIME THE PATIENT SAW THEIR PCP? 05-31-2014 Does patient have an upcoming appointment? No-unable to reach left [facility] to call for appointment due to refill request. Appt due next available with dr dorantes (THE MEDICATION REQUESTED IS ON THE MED LIST ABOVE) All of the medications requested were on the CURRENT MEDS list Did you check the Pharmacy information above?: YES Patient wants: 30 -day supply Is this a mail order prescription request ? NO Patients current insurance carrier is: Payor: [employer] / Plan: INDEMNIMeograph $0 Loop App [id number] / Product Type: INDEMNIMeograph documented in this encounter Plan of Treatment Not on file documented as of this encounter Visit Diagnoses Not on filedocumented in this encounter Care Teams Pelletizer Relationship Specialty Start Date End Date Aidan Dorantes MD PCP - General 06/26/14 02/28/20 Maximino Campbell MD [address] [place] [id number] PCP - General Internal Medicine 02/29/20 Aidan Dorantes MD 06/26/14 02/28/20 Aidan Dorantes MD 02/29/20 Eamon Gentile MD Pre Parole Counseling Aide Cardiovascular Disease 05/17/21 Rahat Matta NP Nurse Practitioner Cardiology 11/28/21 Esther Ramon MD [address] [address] Specialist Neurosurgery 06/07/22 Haley Huang PA-C [address] [address] Specialist Neurosurgery 01/11/23 Aidan Joseph PA-C [address] [address] Specialist Neurosurgery 01/11/23 documented as of this encounter
--- OUTSIDE RECORDS SUMMARY | 2024-09-23 10:54 | XMS_ITS | Encounter Summary ---
Author Organization [facility] Address [address] [place] [address] Care Team Providers Care Patient Consumer Marketer Name Role Phone Aidan Dorantes MD Primary Care Provider Unavail able Aidan Dorantes MD Primary Care Provider Unavail able Maximino Campbell MD Primary Care Provider [phone] Aidan Dorantes MD Unavailable Unavailable Aidan Dorantes MD Unavailable Unavailable Eamon Gentile MD Unavailable Unavailable Rahat Matta NP Unavailable [phone] Esther Ramon MD Unavailable [phone] Haley Huang PA-C Unavailable [phone] Aidan Joseph PA-C Unavailable [phone] Encounter Details Date Type Department Care Team Description 06/09/2014 Website Admin Report Medical Records [address] [place] [address] José Miguel Gates MD Social History Tobacco Use Types Packs/Day Years Used Date Smoking Tobacco: Never Smokeless Tobacco: Never Alcohol Use Standard Drinks/Week Comments Yes 0 (1 standard drink = 0.6 oz pur e alcohol) rare Sex Assigned at Date Recorded Not on file Job Start Date Occupation Industry Not on file Not on file Not on file documented as of this encounter Plan of Treatment Not on file documented as of this encounter Visit Diagnoses Not on filedocumented in this encounter Care Teams Patient Consumer Marketer Relationship Specialty Start Date End Date Aidan Dorantes MD PCP - General 09/24/03 06/25/14 Aidan Dorantes MD PCP - General 06/26/14 02/28/20 Maximino Campbell MD [address] [place] [address] PCP - General Internal Medicine 02/29/20 Aidan Doratnes MD 06/26/14 02/28/20 Aidan Dorantes MD 02/29/20 Eamon Gentile MD [address] [place] [address] Turkish Line Attendant Cardiovascular Disease 05/17/21 Rahat Matta NP [address] [place] [address] Nurse Practitioner Cardiology 11/28/21 Esther Ramon MD [address] [address] Specialist Neurosurgery 06/07/22 Haley Huang PA-C [address] [address] Specialist Neurosurgery 01/11/23 Aidan Joseph PA-C [address] [address] Specialist Neurosurgery 01/11/23 documented as of this encounter
--- OUTSIDE RECORDS SUMMARY | 2024-09-23 10:54 | XMS_ITS | Encounter Summary ---
Author Organization [facility] Address [address] [place] [address] Care Team Providers Care Seam Finisher Name Role Phone Aidan Dorantes MD Primary Care Provider Unavail able Maximino Campbell MD Primary Care Provider [phone] Aidan Dorantes MD Unavailable Unavailable Aidan Dorantes MD Unavailable Unavailable Eamon Gentile MD Unavailable Unavailable Rahat Matta NP Unavailable [phone] Esther Ramon MD Unavailable [phone] Haley Huang PA-C Unavailable [phone] Aidan Joseph PA-C Unavailable [phone] Reason for Visit * Reason Onset Date Comments Faxed Order 08/12/2015 Encounter Details Date Type Department Care Team Description 08/12/2015 Telephone Adult Medicine [address] [phone] Aidan Dorantes MD Faxed Order Social History Tobacco Use Types Packs/Day Years [...] encounter Miscellaneous Notes * Telephone Encounter - Leonora Herrera - 08/12/2015 3:06 PM EST Faxed order from [facility] for 's signature Fax to [phone] documented in this encounter Plan of Treatment Not on file documented as of this encounter Visit Diagnoses Not on filedocumented in this encounter Care Teams Seam Finisher Relationship Specialty Start Date End Date Aidan Dorantes MD PCP - General 06/26/14 02/28/20 Maximino Campbell MD [address] [place] [address] PCP - General Internal Medicine 02/29/20 Aidan Dorantes MD 06/26/14 02/28/20 Aidan Dorantes MD 02/29/20 Eamon Gentile MD Soil Technologist Cardiovascular Disease 05/17/21 Rahat Matta NP Nurse Practitioner Cardiology 11/28/21 Esther Ramon MD [address] [address] Specialist Neurosurgery 06/07/22 Haley Huang PA-C [address] [address] Specialist Neurosurgery 01/11/23 Aidan Joseph PA-C [address] [address] Specialist Neurosurgery 01/11/23 documented as of this encounter
--- OUTSIDE RECORDS SUMMARY | 2024-09-23 10:54 | XMS_ITS | Encounter Summary ---
Author Organization [facility] Address [address] [place] [address] Care Team Providers Care Pattern Finisher Name Role Phone Aidan Dorantes MD Primary Care Provider Unavail able Aidan Dorantes MD Primary Care Provider Unavail able Maximino Campbell MD Primary Care Provider [phone] Aidan Dorantes MD Unavailable Unavailable Aidan Dorantes MD Unavailable Unavailable Eamon Gentile MD Unavailable Unavailable Rahat Matta NP Unavailable [phone] Esther Ramon MD Unavailable [phone] Haley Huang PA-C Unavailable [phone] Aidan Joseph PA-C Unavailable [phone] Encounter Details Date Type Department Care Team Description 03/08/2014 Hospital Medical Records [address] [place] [address] Scout Miller Social History Tobacco Use Types Packs/Day Years Used Date Smoking Tobacco: Never Passive Smoke Exposure: Past Smokeless Tobacco: Never Alcohol Use Standard Drinks/Week Comments Not Currently 0 (1 standard drink = 0.6 oz pur e alcohol) rare, 6 pack per year Sex Assigned at Date Recorded Not on file Job Start Date Occupation Industry Not on file Not on file Not on file documented as of this encounter Plan of Treatment Not on file documented as of this encounter Visit Diagnoses Not on filedocumented in this encounter Care Teams Pattern Finisher Relationship Specialty Start Date End Date Aidan Dorantes MD PCP - General 09/24/03 06/25/14 Aidan Dorantes MD PCP - General 06/26/14 02/28/20 Maximino Campbell MD [address] [place] [address] PCP - General Internal Medicine 02/29/20 Aidan Dorantes MD 06/26/14 02/28/20 Aidan Dorantes MD 02/29/20 Eamon Gentile MD [address] [place] [address] Hosted Services Analyst Cardiovascular Disease 05/17/21 Rahat Matta NP [address] [place] [address] Nurse Practitioner Cardiology 11/28/21 Esther Ramon MD [address] [address] Specialist Neurosurgery 06/07/22 Haley Huang PA-C [address] [address] Specialist Neurosurgery 01/11/23 Aidan Joseph PA-C [address] [address] Specialist Neurosurgery 01/11/23 documented as of this encounter
--- OUTSIDE RECORDS SUMMARY | 2024-09-23 10:54 | XMS_ITS | Encounter Summary ---
Author Organization [facility] Address [address] [place] [address] Care Team Providers Care Auxiliary Plant Operator Name Role Phone Aidan Dorantes MD Primary Care Provider Unavail able Maximino Campbell MD Primary Care Provider [phone] Aidan Dorantes MD Unavailable Unavailable Aidan Dorantes MD Unavailable Unavailable Eamon Gentile MD Unavailable Unavailable Rahat Matta NP Unavailable [phone] Esther Ramon MD Unavailable [phone] Haley Huang PA-C Unavailable [phone] Aidan Joseph PA-C Unavailable [phone] Encounter Details Date Type Department Care Team Description 03/07/2015 Fighter Pilot Report Medical Records [address] [place] [address] Debra Guardado MD Social History Tobacco Use Types Packs/Day [...] on filedocumented in this encounter Care Teams Auxiliary Plant Operator Relationship Specialty Start Date End Date Aidan Dorantes MD PCP - General 06/26/14 02/28/20 Maximino Campbell MD [address] [place] [address] [phone] PCP - General Internal Medicine 02/29/20 Aidan Dorantes MD 06/26/14 02/28/20 Aidan Dorantes MD 02/29/20 Eamon Gentile MD Priming Mixture Carrier Cardiovascular Disease 05/17/21 Rahat Matta NP Nurse Practitioner Cardiology 11/28/21 Esther Ramon MD [address] [id number] Specialist Neurosurgery 06/07/22 Haley Huang PA-C [address] [address] Specialist Neurosurgery 01/11/23 Aidan Joseph PA-C [address] [address] Specialist Neurosurgery 01/11/23 documented as of this encounter
--- OUTSIDE RECORDS SUMMARY | 2024-09-23 10:54 | XMS_ITS | Encounter Summary ---
Author Organization [facility] Address [address] [place] [address] Care Team Providers Care Teletype Mechanic Name Role Phone Aidan Dorantes MD Primary Care Provider Unavail able Maximino Campbell MD Primary Care Provider [phone] Aidan Dorantes MD Unavailable Unavailable Aidan Dorantes MD Unavailable Unavailable Eamon Gentile MD Unavailable Unavailable Rahat Matta NP Unavailable [phone] Esther Ramon MD Unavailable [phone] Haley Huang PA-C Unavailable [phone] Aidan Joseph PA-C Unavailable [phone] Encounter Details Date Type Department Care Team Description 03/15/2015 Photolith Operator Report Medical Records [address] [place] [address] Social History Tobacco Use Types Packs/Day Years [...] on filedocumented in this encounter Care Teams Teletype Mechanic Relationship Specialty Start Date End Date Aidan Dorantes MD PCP - General 06/26/14 02/28/20 Maximino Campbell MD [address] [place] [address] PCP - General Internal Medicine 02/29/20 Aidan Dorantes MD 06/26/14 02/28/20 Aidan Dorantes MD 02/29/20 Eamon Gentile MD Granite Sandblaster Apprentice Cardiovascular Disease 05/17/21 Rahat Matta NP Nurse Practitioner Cardiology 11/28/21 Esther Ramon MD [address] [address] Specialist Neurosurgery 06/07/22 Haley Huang PA-C [address] [address] Specialist Neurosurgery 01/11/23 Aidan Joseph PA-C [address] [address] Specialist Neurosurgery 01/11/23 documented as of this encounter
--- OUTSIDE RECORDS SUMMARY | 2024-09-23 10:54 | XMS_ITS | Encounter Summary ---
Author Organization [facility] Address [address] [place] [address] Care Team Providers Care Camera Mechanic Name Role Phone Aidan Dorantes MD Primary Care Provider Unavail able Maximino Campbell MD Primary Care Provider [phone] Aidan Dorantes MD Unavailable Unavailable Aidan Dorantes MD Unavailable Unavailable Eamon Gentile MD Unavailable Unavailable Rahat Matta NP Unavailable Esther Ramon MD Unavailable [phone] Haley Huang PA-C Unavailable [phone] Aidan Joseph PA-C Unavailable [phone] Encounter Details Date Type Department Care Team Description 07/08/2014 Registered Travel Nurse Report Medical Records [address] [place] [address] Social History Tobacco Use Types Packs/Day Years [...] on filedocumented in this encounter Care Teams Camera Mechanic Relationship Specialty Start Date End Date Aidan Dorantes MD PCP - General 06/26/14 02/28/20 Maximino Campbell MD [address] [place] [address] PCP - General Internal Medicine 02/29/20 Aidan Doranets MD 06/26/14 02/28/20 Aidan Dorantes MD 02/29/20 Eamon Gentile MD Ball Warper Tender Cardiovascular Disease 05/17/21 Rahat Matta NP Nurse Practitioner Cardiology 11/28/21 Esther Ramon MD [address] [address] Specialist Neurosurgery 06/07/22 Haley Huang PA-C [address] [address] Specialist Neurosurgery 01/11/23 Aidan Joseph PA-C [address] [address] Specialist Neurosurgery 01/11/23 documented as of this encounter
--- OUTSIDE RECORDS SUMMARY | 2024-09-23 10:54 | XMS_ITS | Encounter Summary ---
Author Organization [facility] Address [address] [place] [address] Care Team Providers Care Customer Success Representative Name Role Phone Aidan Dorantes MD Primary Care Provider Unavail able Maximino Campbell MD Primary Care Provider [phone] Aidan Dorantes MD Unavailable Unavailable Aidan Dorantes MD Unavailable Unavailable Eamon Gentile MD Unavailable Unavailable Rahat Matta NP Unavailable [phone] Esther Ramon MD Unavailable [phone] Haley Huang PA-C Unavailable Aidan Joseph PA-C Unavailable [phone] Encounter Details Date Type Department Care Team Description 10/07/2014 Hospital Medical Records [address] [place] [address] Dommalapati, Jim Social History Tobacco Use Types Packs/Day Years [...] on filedocumented in this encounter Care Teams Customer Success Representative Relationship Specialty Start Date End Date Aidan Dorantes MD PCP - General 06/26/14 02/28/20 Maximino Campbell MD [address] [place] [address] PCP - General Internal Medicine 02/29/20 Aidan Dorantes MD 06/26/14 02/28/20 Aidan Dorantes MD 02/29/20 aEmon Gentile MD Opening Machine Cleaner Cardiovascular Disease 05/17/21 Rahat Matta NP Nurse Practitioner Cardiology 11/28/21 Esther Ramon MD 175 [facility] [address] [place] [address] Specialist Neurosurgery 06/07/22 Haley Huang PA-C 175 [facility] [address] [place] [address] Specialist Neurosurgery 01/11/23 Aidan Joseph PA-C 175 [facility] [address] [place] [address] Specialist Neurosurgery 01/11/23 documented as of this encounter
--- OUTSIDE RECORDS SUMMARY | 2024-09-23 10:54 | XMS_ITS | Encounter Summary ---
Author Organization [facility] Address [address] [place] [address] Care Team Providers Care Benzene Worker Name Role Phone Aidan Dorantes MD Primary Care Provider Unavail able Maximino Campbell MD Primary Care Provider [phone] Aidan Dorantes MD Unavailable Unavailable Aidan Dorantes MD Unavailable Unavailable Eamon Gentile MD Unavailable Unavailable Rahat Matta NP Unavailable Esther Ramon MD Unavailable [phone] Haley Huang PA-C Unavailable [phone] Aidan Joseph PA-C Unavailable Encounter Details Date Type Department Care Team Description 12/11/2019 Telephone Adult Medicine [address] [phone] Kenzie De León FNP [address] [place] [address] [phone] Social History Tobacco Use Types Packs/Day Years [...] encounter Miscellaneous Notes * Telephone Encounter - ZINA Constantino - 12/11/2019 8:49 AM EDT I called patient this morning. He did not answer. I was unable to leave a voice message. I will tryagain later. I did leave a MyChart message with a brief summary of the results and plan. If he calls back and I am not working, have him look at my my chart message. I ordered an EMG and I could sendhim to physical therapy for his neck if he decides. The EMG will be done external at a neurology office. ZINA Constantino documented in this encounter Plan of Treatment Not on file documented as of this encounter Visit Diagnoses Not on filedocumented in this encounter Care Teams Benzene Worker Relationship Specialty Start Date End Date Aidan Dorantes MD PCP - General 06/26/14 02/28/20 Maximino Campbell MD [address] [place] [address] PCP - General Internal Medicine 02/29/20 Aidan Dorantes MD 06/26/14 02/28/20 Aidan Dorantes MD 02/29/20 Eamon Gentile MD Developmental Psychologist Cardiovascular Disease 05/17/21 Rahat Matta NP Nurse Practitioner Cardiology 11/28/21 Esther Ramon MD [address] [address] Specialist Neurosurgery 06/07/22 Haley Huang PA-C [address] [address] Specialist Neurosurgery 01/11/23 Aidan Joseph PA-C [address] [address] Specialist Neurosurgery 01/11/23 documented as of this encounter
--- OUTSIDE RECORDS SUMMARY | 2024-09-23 10:54 | XMS_ITS | Encounter Summary ---
Author Organization [facility] Address [address] [place] [address] Care Team Providers Care Sonogram Technician Name Role Phone Aidan Dorantes MD Primary Care Provider Unavail able Maximino Campbell MD Primary Care Provider [phone] Aidan Dorantes MD Unavailable Unavailable Aidan Dorantes MD Unavailable Unavailable Eamon Gentile MD Unavailable Unavailable Rahat Matta NP Unavailable [phone] Esther Ramon MD Unavailable [phone] Haley Huang PA-C Unavailable [phone] Aidan Joseph PA-C Unavailable Reason for Visit * Reason Comments E-prescribe Rx Request Encounter Details Date Type Department Care Team Description 12/16/2019 Refill Pulmonology [address] [place], [place] [phone] Arturo Cantor MD 175 [facility] [address] [place] [address] E-prescribe Rx Request Social History Tobacco Use [...] documented as of this encounter Visit Diagnoses Diagnosis FREDY on CPAP Obstructive sleep apnea (adult) (pediatric) PND (post-nasal drip) Postnasal drip History of bronchitis Personal history of other diseases of respiratory system Scarring of lung Abnormality of lung on CXR documented in this encounter Care Teams Sonogram Technician Relationship Specialty Start Date End Date Aidan Dorantes MD PCP - General 06/26/14 02/28/20 Maximino Campbell MD [address] [place] [address] PCP - General Internal Medicine 02/29/20 Aidan Dorantes MD 06/26/14 02/28/20 Aidan Dorantes MD 02/29/20 Eamon Gentile MD Outside Plant Field Engineer Cardiovascular Disease 05/17/21 Rahat Matta NP Nurse Practitioner Cardiology 11/28/21 Esther Ramon MD [address] [address] Specialist Neurosurgery 06/07/22 Haley Huang PA-C [address] [address] Specialist Neurosurgery 01/11/23 Aidan Joseph PA-C [address] [address] Specialist Neurosurgery 01/11/23 documented as of this encounter
--- OUTSIDE RECORDS SUMMARY | 2024-09-23 10:54 | XMS_ITS | Encounter Summary ---
Author Organization [facility] Address [address] [place] [address] Care Team Providers Care Television Repair Teacher Name Role Phone Aidan Dorantes MD Primary Care Provider Unavail able Maximino Campbell MD Primary Care Provider [phone] Aidan Dorantes MD Unavailable Unavailable Aidan Dorantes MD Unavailable Unavailable Eamon Gentile MD Unavailable Unavailable Rahat Matta NP Unavailable [phone] Esther Ramon MD Unavailable [phone] Haley Huang PA-C Unavailable [phone] Aidan Joseph PA-C Unavailable [phone] Reason for Visit * Reason Onset Date Comments APPOINTMENT 07/09/2014 Encounter Details Date Type Department Care Team Description 07/09/2014 Telephone Adult [address] [phone] Aidan Dorantes MD APPOINTMENT Social History Tobacco Use Types Packs/Day Years [...] encounter Miscellaneous Notes * Telephone Encounter - Adriana Mejia - 07/09/2014 8:56 AM EST LMOM for patient to call [facility] - Needs 6 month (November) Thyroid f/u with Aidan Dorantes. documented in this encounter Plan of Treatment Not on file documented as of this encounter Visit Diagnoses Not on filedocumented in this encounter Care Teams Television Repair Teacher Relationship Specialty Start Date End Date Aidan Dorantes MD PCP - General 06/26/14 02/28/20 Maximino Campbell MD [address] [place] [address] PCP - General Internal Medicine 02/29/20 Aidan Dorantes MD 06/26/14 02/28/20 Aidan Dorantes MD 02/29/[address] Cutter Cardiovascular Disease 05/17/21 Rahat Matta NP Nurse Practitioner Cardiology 11/28/21 Esther Ramon MD [address] [address] Specialist Neurosurgery 06/07/22 Haley Huang PA-C [address] [address] Specialist Neurosurgery 01/11/23 Aidan Joseph PA-C [address] [address] Specialist Neurosurgery 01/11/23 documented as of this encounter
--- OUTSIDE RECORDS SUMMARY | 2024-09-23 10:54 | XMS_ITS | Encounter Summary ---
Author Organization [facility] Address [address] [place] [address] Care Team Providers Care Health Sanitarian Name Role Phone Aidan Dorantes MD Primary Care Provider Unavail able Maximino Campbell MD Primary Care Provider [phone] Aidan Dorantes MD Unavailable Unavailable Aidan Dorantes MD Unavailable Unavailable Eamon Gentile MD Unavailable Unavailable Rahat Matta NP Unavailable [phone] Esther Ramon MD Unavailable [phone] Haley Huang PA-C Unavailable [phone] Aidan Joseph PA-C Unavailable [phone] Encounter Details Date Type Department Care Team Description 05/24/2015 Industrial Relations Manager Report Medical Records [address] [place] [id number] Social History Tobacco Use Types Packs/Day Years [...] on filedocumented in this encounter Care Teams Health Sanitarian Relationship Specialty Start Date End Date Aidan Dorantes MD PCP - General 06/26/14 02/28/20 Maximino Campbell MD [address] [place] [address] PCP - General Internal Medicine 02/29/20 Aidan Dorantes MD 06/26/14 02/28/20 Aidan Dorantes MD 02/29/20 Eamon Gentile MD Sexual Health Physician Cardiovascular Disease 05/17/21 Rahat Matta NP Nurse Practitioner Cardiology 11/28/21 Esther Ramon MD [address] [address] Specialist Neurosurgery 06/07/22 Haley Huang PA-C [address] [address] Specialist Neurosurgery 01/11/23 Aidan Joseph PA-C [address] [address] Specialist Neurosurgery 01/11/23 documented as of this encounter
--- OUTSIDE RECORDS SUMMARY | 2024-09-23 10:54 | XMS_ITS | Encounter Summary ---
Author Organization [facility] Address [address] [place] [address] Care Team Providers Care Certified Green Building Engineer Name Role Phone Aidan Dorantes MD Primary Care Provider Unavail able Maximino Campbell MD Primary Care Provider [phone] Aidan Dorantes MD Unavailable Unavailable Aidan Dorantes MD Unavailable Unavailable Eamon Gentile MD Unavailable Unavailable Rahat Matta NP Unavailable [phone] Esther Ramon MD Unavailable [phone] Haley Huang PA-C Unavailable [phone] Aidan Joseph PA-C Unavailable [phone] Encounter Details Date Type Department Care Team Description 2014 Model Making Supervisor Report Medical Records [address] [place] [address] Debra Guardado MD Social History Tobacco Use [...] on filedocumented in this encounter Care Teams Certified Green Building Engineer Relationship Specialty Start Date End Date Aidan Dorantes MD PCP - General 06/26/14 02/28/20 Maximino Campbell MD [address] [place] [address] [id number] PCP - General Internal Medicine 02/29/20 Aidan Dorantes MD 06/26/14 02/28/20 Aidan Dorantes MD 02/29/20 Eamon Gentile MD Steam Table Worker Cardiovascular Disease 05/17/21 Rahat Matta NP Nurse Practitioner Cardiology 11/28/21 Esther Ramon MD [address] [id number] Specialist Neurosurgery 06/07/22 Haley Huang PA-C [address] [address] Specialist Neurosurgery 01/11/23 Aidan Joseph PA-C [address] [address] Specialist Neurosurgery 01/11/23 documented as of this encounter
--- OUTSIDE RECORDS SUMMARY | 2024-09-23 10:54 | XMS_ITS | Encounter Summary ---
Author Organization [facility] Address [address] [place] [address] Care Team Providers Care Train Controller Name Role Phone Aidan Dorantes MD Primary Care Provider Unavail able Maximino Campbell MD Primary Care Provider [phone] Aidan Dorantes MD Unavailable Unavailable Aidan Dorantes MD Unavailable Unavailable Eamon Gentile MD Unavailable Unavailable Rahat Matta NP Unavailable [phone] Esther Ramon MD Unavailable [phone] Haley Huang PA-C Unavailable [phone] Aidan Joseph PA-C Unavailable [phone] Encounter Details Date Type Department Care Team Description 10/20/2014 Labor Relations Manager Report Medical Records [address] [place] [id number] Debra Guardado MD Social History Tobacco Use [...] on filedocumented in this encounter Care Teams Train Controller Relationship Specialty Start Date End Date Aidan Dorantes MD PCP - General 06/26/14 02/28/20 Maximino Campbell MD [address] [place] [address] [phone] PCP - General Internal Medicine 02/29/20 Aidan Dorantes MD 06/26/14 02/28/20 Aidan Dorantes MD 02/29/20 Eamon Gentile MD Aircraft Maintenance Technician Cardiovascular Disease 05/17/21 Rahat Matta NP Nurse Practitioner Cardiology 11/28/21 Esther Ramon MD [address] [id number] Specialist Neurosurgery 06/07/22 Haley Huang PA-C [address] [address] Specialist Neurosurgery 01/11/23 Aidan Joseph PA-C [address] [address] Specialist Neurosurgery 01/11/23 documented as of this encounter
--- OUTSIDE RECORDS SUMMARY | 2024-09-23 10:54 | XMS_ITS | Encounter Summary ---
Author Organization [facility] Address [address] [place] [address] Care Team Providers Care Hydration Plant Operator Name Role Phone Aidan Dorantes MD Primary Care Provider Unavail able Maximino Campbell MD Primary Care Provider [phone] Aidan Dorantes MD Unavailable Unavailable Aidan Dorantes MD Unavailable Unavailable Eamon Gentile MD Unavailable Unavailable Rahat Matta NP Unavailable [phone] Esther Ramon MD Unavailable [phone] Haley Huang PA-C Unavailable [phone] Aidan Joseph PA-C Unavailable [phone] Encounter Details Date Type Department Care Team Description 10/27/2015 Release of Information Medical Records [address] [place] [address] Abstract, Provider Social History Tobacco Use Types Packs/Day Years [...] on filedocumented in this encounter Care Teams Hydration Plant Operator Relationship Specialty Start Date End Date Aidan Dorantes MD PCP - General 06/26/14 02/28/20 Maximino Campbell MD [address] [place] [address] PCP - General Internal Medicine 02/29/20 Aidan Dorantes MD 06/26/14 02/28/20 Aidan Dorantes MD 02/29/20 Eamon Gentile MD Phlebotomy Instructor Cardiovascular Disease 05/17/21 Rahat Matta NP Nurse Practitioner Cardiology 11/28/21 Esther Ramon MD [address] [id number] Specialist Neurosurgery 06/07/22 Haley Huang PA-C [address] [address] Specialist Neurosurgery 01/11/23 Aidan Joseph PA-C [address] [address] Specialist Neurosurgery 01/11/23 documented as of this encounter
--- OUTSIDE RECORDS SUMMARY | 2024-09-23 10:54 | XMS_ITS | Encounter Summary ---
Author Organization [facility] Address [address] [place] [address] Care Team Providers Care Package Handler Name Role Phone Aidan Dorantes MD Primary Care Provider Unavail able Aidan Dorantes MD Primary Care Provider Unavail able Maximino Campbell MD Primary Care Provider [phone] Aidan Dorantes MD Unavailable Unavailable Aidan Dorantes MD Unavailable Unavailable Eamon Gentile MD Unavailable Unavailable Rahat Matta NP Unavailable [phone] Esther Ramon MD Unavailable [phone] Haley Huang PA-C Unavailable [phone] Aidan Joseph PA-C Unavailable [phone] Encounter Details Date Type Department Care Team Description 05/27/2014 Machine Cell Tuber Report Medical Records [address] [place] [address] Social History Tobacco Use Types Packs/Day Years [...] on filedocumented in this encounter Care Teams Package Handler Relationship Specialty Start Date End Date Aidan Dorantes MD PCP - General 09/24/03 06/25/14 Aidan Dorantes MD PCP - General 06/26/14 02/28/20 Maximino Campbell MD [address] [place] [address] PCP - General Internal Medicine 02/29/20 Aidan Dorantes MD 06/26/14 02/28/20 Aidan Dorantes MD 02/29/20 Eamon Gentile MD [address] [place] [address] Title Processor Cardiovascular Disease 05/17/21 Rahat Matta NP [address] [place] [address] Nurse Practitioner Cardiology 11/28/21 Esther Ramon MD [address] [address] Specialist Neurosurgery 06/07/22 Haley Huang PA-C [address] [address] Specialist Neurosurgery 01/11/23 Aidan Joseph PA-C [address] [address] Specialist Neurosurgery 01/11/23 documented as of this encounter
--- OUTSIDE RECORDS SUMMARY | 2024-09-23 10:54 | XMS_ITS | Encounter Summary ---
Author Organization [facility] Address [address] [place] [address] Care Team Providers Care Student Union Consultant Name Role Phone Aidan Dorantes MD Primary Care Provider Unavail able Maximino Campbell MD Primary Care Provider [phone] Aidan Dorantes MD Unavailable Unavailable Aidan Dorantes MD Unavailable Unavailable Eamon Gentile MD Unavailable Unavailable aRhat Matta NP Unavailable [phone] Esther Ramon MD Unavailable [phone] Haley Huang PA-C Unavailable [phone] Aidan Joseph PA-C Unavailable [phone] Encounter Details Date Type Department Care Team Description 06/23/2015 Welding Process Specialist Report Medical Records [address] [place] [id number] Debra Guardado MD Social History Tobacco Use [...] on filedocumented in this encounter Care Teams Student Union Consultant Relationship Specialty Start Date End Date Aidan Dorantes MD PCP - General 06/26/14 02/28/20 Maximino Campbell MD [address] [place] [address] [phone] PCP - General Internal Medicine 02/29/20 Aidan Dorantes MD 06/26/14 02/28/20 Aidan Dorantes MD 02/29/[address] Manager Cardiovascular Disease 05/17/21 Rahat Matta NP Nurse Practitioner Cardiology 11/28/21 Esther Ramon MD [address] [phone] Specialist Neurosurgery 06/07/22 Haley Huang PA-C [address] [address] Specialist Neurosurgery 01/11/23 Aidan Joseph PA-C [address] [address] Specialist Neurosurgery 01/11/23 documented as of this encounter
--- OUTSIDE RECORDS SUMMARY | 2024-09-23 10:54 | XMS_ITS | Encounter Summary ---
Author Organization [facility] Address [address] [place] [address] Care Team Providers Care Mold Stacker Name Role Phone Aidan Dorantes MD Primary Care Provider Unavail able Maximino Campbell MD Primary Care Provider [phone] Aidan Dorantes MD Unavailable Unavailable Aidan Dorantes MD Unavailable Unavailable Eamon Gentile MD Unavailable Unavailable Rahat Matta NP Unavailable [phone] Esther Ramon MD Unavailable [phone] Haley Huang PA-C Unavailable [phone] Aidan Joseph PA-C Unavailable Encounter Details Date Type Department Care Team Description 07/08/2015 Media Technician Report Medical Records [address] [place] [address] Abstract, Provider Social History Tobacco Use Types [...] on filedocumented in this encounter Care Teams Mold Stacker Relationship Specialty Start Date End Date Aidan Dorantes MD PCP - General 06/26/14 02/28/20 Maximino Campbell MD [address] [place] [address] [phone] PCP - General Internal Medicine 02/29/20 Aidan Dorantes MD 06/26/14 02/28/20 Aidan Dorantes MD 02/29/20 Eamon Gentile MD Physical Medicine Specialist Cardiovascular Disease 05/17/21 Rahat Matta NP Nurse Practitioner Cardiology 11/28/21 Esther Ramon MD [address] [address] Specialist Neurosurgery 06/07/22 aHley Huang PA-C [address] [address] Specialist Neurosurgery 01/11/23 Aidan Joseph PA-C [address] [address] Specialist Neurosurgery 01/11/23 documented as of this encounter
--- OUTSIDE RECORDS SUMMARY | 2024-09-23 10:54 | XMS_ITS | Encounter Summary ---
Author Organization [facility] Address [address] [place] [address] Care Team Providers Care Sugarcane Planter Name Role Phone Aidan Dorantes MD Primary Care Provider Unavail able Maximino Campbell MD Primary Care Provider Aidan Dorantes MD Unavailable Unavailable Aidan Dorantes MD Unavailable Unavailable Eamon Gentile MD Unavailable Unavailable Rahat Matta NP Unavailable Esther Ramon MD Unavailable [phone] Haley Huang-C Unavailable [phone] Aidan Joseph PA-C Unavailable Reason for Referral * Radiology Services (Routine) - Closed Specialty Diagnoses / Procedures Referred By Contolivier t Referred To Contact Radiology Diagnoses Cervical stenosis of spine Procedures MRI OF CERVICAL SPINE NO CONTRAST Delilah Larson MD [address] [place] [address] [place] [address] Mri/[address] [address] Referral ID Status Reason Start Date Expiration Date Visits Re quested Visits Authorized [id number] Closed 12/24/2019 06/20/2020 1 1 Encounter Details Date Type Department Care Team Description 12/24/2019 Telephone Physiatry - [address] [phone] Delilah Larson MD [address] [place] [address] [place] [address] Social History Tobacco Use Types Packs/Day Years [...] encounter Miscellaneous Notes * Telephone Encounter - Delilah Larson MD - 12/24/2019 1:36 PM EDT Ordered thanks * Telephone Encounter - Flower Henderson M.A. - 12/24/2019 1:32 PM EDT I spoke with Estivenwendy and she said that it does not have a time frame. You can reorder it now. * Telephone Encounter - Delilah Larson MD - 12/24/2019 1:16 PM EDT I need to reorder the MRI cspine that was denied by insurance. Can you find out if the denial had put a date to when I can reorder? It was an order from Radha De León NP. thanks documented in this encounter Plan of Treatment Not on file documented as of this encounter Results * MRI OF CERVICAL SPINE NO CONTRAST (01/05/2020 9:00 AM EDT) 01/05/2020 2:20 PM EDT Impressions [facility] - 01/05/2020 2:30 PM EDT IMPRESSION: Multilevel cervical spondylosis as detailed in the body of the report most severely involving the C5-6 and C6-7 levels. Narrative [facility] - 01/05/2020 2:30 PM EDT NONCONTRAST CERVICAL SPINE MRI: HISTORY: Neck pain with radicular symptoms, spinal stenosis COMPARISON: 12/07/2019 cervical spine series TECHNIQUE: Multiplanar, multisequence scans were obtained through the cervical spine without intravenous contrast using Department protocol 1.5 Cecilia magnet. Cervicomedullary junction appears normal. ??Cervical vertebral bodies are normal in height and signal intensity. ??Degenerative disc space narrowing C4-5 through C7-T1 levels. ??Through Cervical spinal cord appears normal. ??No extraspinal pathology is identified. C2-3: Bilateral facet arthropathy with mild bilateral foraminal stenosis left greater than right. ??No central stenosis. C3-4: Uncovertebral spurring and severe facet arthropathy causing severe left foraminal narrowing. ??Mild right neural foraminal stenosis. ??Small midline disc protrusion effacing the anterior thecal sac without cord deformity. ??No central stenosis. C4-5: Broad-based midline osteophytic ridge effacing the anterior thecal sac without cord deformity. ??Bilateral lateral recess narrowing. ??Uncovertebral spurring and facet hypertrophy causing moderate right and severe left foraminal stenosis. ??Mild central stenosis. C5-6: Broad-based osteophytic ridge effacing the anterior thecal sac causing mild deformity of the anterior cord surface with mild central stenosis. ??Bilateral uncovertebral spurring causing moderate bilateral foraminal stenosis right greater than left. C6-7: Midline osteophytic ridge effacing the anterior thecal sac causing slight deformity of the anterior cord surface. ??No significant central stenosis. ??Uncovertebral spurring and facet hypertrophy causing severe right and moderate left foraminal stenosis. C7-T1: Small midline disc protrusion without mass effect on adjacent neural structures. ?? Moderate bilateral foraminal stenosis. Procedure Note Nayan Cruz MD - 01/05/2020 NONCONTRAST CERVICAL SPINE MRI: HISTORY: Neck pain with radicular symptoms, spinal stenosis COMPARISON: 12/07/2019 cervical spine series TECHNIQUE: Multiplanar, multisequence scans were obtained through thecervical spine without intravenous contrast using Department protocol 1.5 Cecilia magnet. Cervicomedullary junction appears normal. Cervical vertebral bodies arenormal in height and signal intensity. Degenerative disc space narrowing C4-5 through C7-S6mxylwm. Through Cervical spinal cord appears normal. No extraspinal pathology isidentified. C2-3: Bilateral facet arthropathy with mild bilateral foraminal stenosisleft greater than right. No central stenosis. C3-4: Uncovertebral spurring and severe facet arthropathy causing severeleft foraminal narrowing. Mild right neural foraminal stenosis. Small midline discprotrusion effacing the anterior thecal sac without cord deformity. No central stenosis. C4-5: Broad-based midline osteophytic ridge effacing the anterior thecalsac without cord deformity. Bilateral lateral recess narrowing. Uncovertebral spurringand facet hypertrophy causing moderate right and severe left foraminal stenosis. Mild centralstenosis. C5-6: Broad-based osteophytic ridge effacing the anterior thecal saccausing mild deformity of the anterior cord surface with mild central stenosis. Bilateraluncovertebral spurring causing moderate bilateral foraminal stenosis right greater than left. C6-7: Midline osteophytic ridge effacing the anterior thecal sac causingslight deformity of the anterior cord surface. No significant central stenosis.Uncovertebral spurring and facet hypertrophy causing severe right and moderate left foraminal stenosis. C7-T1: Small midline disc protrusion without mass effect on adjacentneural structures. Moderate bilateral foraminal stenosis. IMPRESSION IMPRESSION: Multilevel cervical spondylosis as detailed in the body of thereport most severely involving the C5-6 and C6-7 levels. Delilah Larson MD MRI [facility] OTHER EXTERNAL documented in this encounter Visit Diagnoses Diagnosis Cervical stenosis of spine- Primary Spinal stenosis in cervical region Cervical radiculitis Brachial neuritis or radiculitis nos Cervical stenosis of spine Spinal stenosis in cervical region documented in this encounter Care Teams Sugarcane Planter Relationship Specialty Start Date End Date Aidan Dorantes MD PCP - General 06/26/14 02/28/20 Maximino Campbell MD [address] [place] [address] PCP - General Internal Medicine 02/29/20 Aidan Dorantes MD 06/26/14 02/28/20 Aidan Dorantes MD 02/29/20 Eamon Gentile MD Surgery Teacher Cardiovascular Disease 05/17/21 Rahat Matta NP Nurse Practitioner Cardiology 11/28/21 Esther Ramon MD [address] [address] Specialist Neurosurgery 06/07/22 Haley Huang PA-C [address] [address] Specialist Neurosurgery 01/11/23 Aidan Joseph PA-C [address] [address] Specialist Neurosurgery 01/11/23 documented as of this encounter
--- OUTSIDE RECORDS SUMMARY | 2024-09-23 10:54 | XMS_ITS | Encounter Summary ---
Author Organization [facility] Address [address] [place] [address] Care Team Providers Care Hand Silvering Supervisor Name Role Phone Aidan Dorantes MD Primary Care Provider Unavail able Maximino Campbell MD Primary Care Provider [phone] Aidan Dorantes MD Unavailable Unavailable Aidan Dorantes MD Unavailable Unavailable Eamon Gentile MD Unavailable Unavailable Rahat Matta NP Unavailable [phone] Esther Ramon MD Unavailable [phone] Haley Huang PA-C Unavailable Aidan Joseph PA-C Unavailable Encounter Details Date Type Department Care Team Description 11/16/2019 Pt. Non Urgent Medic al Question Medicine/Pediatrics - [address] [id number] Orlando Miranda NP Social History Tobacco Use Types Packs/Day Years Used Date Smoking Tobacco: Never Smokeless Tobacco: Never Alcohol Use Standard Drinks/Week Comments Yes 0 (1 standard drink = 0.6 oz pur e alcohol) rare, 6 pack per year Sex Assigned at Date Recorded Not on file Job Start Date Occupation Industry Not on file Not on file Not on file documented as of this encounter Progress Notes * Orlando Miranda NP - 11/16/2019 12:09 PM EDT Called patient. Discussed symptoms. Letter written. documented in this encounter Miscellaneous Notes * Telephone Encounter - Domitila Tony M.A. - 11/16/2019 11:16 AM EDTFrom: Quentin Grossman To: Orlando Miranda NP Sent: 11/16/2019 8:07 AM EDT Subject: Doctors note & Information This is Javiantonieta Chauncey I visited you in [place] on 11/02/19 just to let you know my symptoms are still the same dry coughing, wheezing, no energy not getting any worse or better still using inhaler and tylenol no temp. 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 Question we had this conversation about how long to wait before calling to get checked again if it continues it has been about 2 weeks from last visit and 2 weeks before that was seen at [facility] 10/18/19 do I continue waiting this out from home? documented in this encounter Plan of Treatment Not on file documented as of this encounter Visit Diagnoses Not on filedocumented in this encounter Care Teams Hand Silvering Supervisor Relationship Specialty Start Date End Date Aidan Dorantes MD PCP - General 06/26/14 02/28/20 Maximino Campbell MD [address] [place] [address] PCP - General Internal Medicine 02/29/20 Aidan Dorantes MD 06/26/14 02/28/20 Aidan Dorantes MD 02/29/20 Eamon Gentile MD Knife Sharpener Cardiovascular Disease 05/17/21 Rahat Matta NP Nurse Practitioner Cardiology 11/28/21 Esther Ramon MD 175 [facility] [address] [place] [address] Specialist Neurosurgery 06/07/22 Haley Huang PA-C [address] [address] Specialist Neurosurgery 01/11/23 Aidan Joseph PA-C 175 [facility] [address] [place] [address] Specialist Neurosurgery 01/11/23 documented as of this encounter
--- OUTSIDE RECORDS SUMMARY | 2024-09-23 10:55 | XMS_ITS | Encounter Summary ---
Author Organization [facility] Address [address] [place] [address] Care Team Providers Care Java Manager Name Role Phone Aidan Dorantes MD Primary Care Provider Unavail able Maximino Campbell MD Primary Care Provider [phone] Aidan Dorantes MD Unavailable Unavailable Aidan Dorantes MD Unavailable Unavailable Eamon Gentile MD Unavailable Unavailable Rahat Matta NP Unavailable [phone] Esther Ramon MD Unavailable [phone] Haley Huang PA-C Unavailable [phone] Aidan Joseph PA-C Unavailable [phone] Encounter Details Date Type Department Care Team Description 09/27/2018 Pt. Non Urgent Medic al Question Adult Medicine [address] [address] Aidan Dorantes MD Social History Tobacco Use Types Packs/Day [...] as of this encounter Progress Notes * Michelle Morrison PA-C - 09/29/2018 9:46 AM EST Addressed at visit today. Michelle Morrison PA-C * Bree Munson M.A. - 09/29/2018 7:45 AM ESTFrom: Quentin Grossman To: Aidan Dorantes MD Sent: 09/27/2018 9:23 AM EST Subject: Levothyroxine Dosage Dr. Dorantes will you check my TSH levels on record I'm all over the chart and I gained a lot of wait and feel terrible. My dosage went from 150 to 175 then back to 150. I'm coming in to see Dr. Morrison 09/29/18 @ 08:30 am for prescription refills could you order up blood work to see what is going on. Please let me know what you will be doing it's hard to get appointment with you but I'll try again. Quentin Grossman documented in this encounter Plan of Treatment Not on file documented as of this encounter Visit Diagnoses Not on filedocumented in this encounter Care Teams Java Manager Relationship Specialty Start Date End Date Aidan Dorantes MD PCP - General 06/26/14 02/28/20 Maximino Campbell MD [address] [place] [address] PCP - General Internal Medicine 02/29/20 Aidan Dorantes MD 06/26/14 02/28/20 Aidan Dorantes MD 02/29/20 Eamon Gentile MD Civil Preparedness Coordinator Cardiovascular Disease 05/17/21 Rahat Matta NP Nurse Practitioner Cardiology 11/28/21 Esther Ramon MD [address] [address] Specialist Neurosurgery 06/07/22 Haley Huang PA-C [address] [address] Specialist Neurosurgery 01/11/23 Aidan Joseph PA-C [address] [address] Specialist Neurosurgery 01/11/23 documented as of this encounter
--- OUTSIDE RECORDS SUMMARY | 2024-09-23 10:55 | XMS_ITS | Encounter Summary ---
Author Organization [facility] Address [address] [place] [address] Care Team Providers Care Wind Farm Operations Manager Name Role Phone Maximino Campbell MD Primary Care Provider [phone] Aidan Dorantes MD Unavailable Unavailable Eamon Gentile MD Unavailable Unavailable Rahat Matta NP Unavailable [phone] Esther Ramon MD Unavailable [phone] Haley Huang PA-C Unavailable [phone] Aidan JosephC Unavailable Reason for Visit * Reason Onset Date Comments Medication 09/11/2023 Encounter Details Date Type Department Care Team Description 09/11/2023 Telephone Adult Medicine [address] [phone] Maixmino Campbell MD [address] [place] [address] [phone] Medication Social History Tobacco Use Types Packs/Day Years [...] encounter Miscellaneous Notes * Telephone Encounter - Marcos Barragan - 09/11/2023 11:46 AM EST Estelita from [employer] is calling to ask if we can send the remainder of this medicationto [facility]. Their fax number is [phone]. documented in this encounter Plan of Treatment Not on file documented as of this encounter Visit Diagnoses Not on filedocumented in this encounter Care Teams Wind Farm Operations Manager Relationship Specialty Start Date End Date Maximino Campbell MD [address] [place] [address] PCP - General Internal Medicine 02/29/20 Aidan Dorantes MD [address] [place] [address] 02/29/20 Eamon Gentile MD [address] [place], [place] [phone] Licensed Nuclear Operator Cardiovascular Disease 05/17/21 Rahat Matta NP [address] [place] [address] Nurse Practitioner Cardiology 11/28/21 Esther Ramon MD [address] [address] Specialist Neurosurgery 06/07/22 Haley Huang PA-C [address] [address] Specialist Neurosurgery 01/11/23 Aidan Joseph PA-C [address] [address] Specialist Neurosurgery 01/11/23 documented as of this encounter
--- OUTSIDE RECORDS SUMMARY | 2024-09-23 10:55 | XMS_ITS | Encounter Summary ---
Author Organization [facility] Address [address] [place] [address] Care Team Providers Care Octave Board Assembler Name Role Phone Maximino Campbell MD Primary Care Provider [phone] Aidan Dorantes MD Unavailable Unavailable Eamon Gentile MD Unavailable Unavailable Rahat Matta NP Unavailable [phone] Esther Ramon MD Unavailable [phone] Haley Huang PA-C Unavailable [phone] Aidan Joseph PA-C Unavailable [phone] Encounter Details Date Type Department Care Team Description 09/02/2023 [facility] Medical Records [address] [place] [address] Social History Tobacco Use Types Packs/Day Years [...] on file documented as of this encounter Procedures Procedure Name Priority Date/Time Associated Diagnosis Comments OUTSIDE EKG Routine 09/03/2023 OUTSIDE LAB Routine 09/03/[address] Routine 09/02/[address] Routine 09/02/2023 OUTSIDE PLAIN FILM Routine 09/02/2023 documented in this encounter Results * OUTSIDE LAB (09/03/2023) Provider Abstract LAB * OUTSIDE EKG (09/03/2023) Provider Abstract CARDIOLOGY * OUTSIDE CT (09/02/2023) Provider Abstract RADIOLOGY * OUTSIDE CT (09/02/2023) Provider Abstract RADIOLOGY * OUTSIDE PLAIN FILM (09/02/2023) Provider Abstract RADIOLOGY documented in this encounter Visit Diagnoses Not on filedocumented in this encounter Care Teams Octave Board Assembler Relationship Specialty Start Date End Date Maximino Campbell MD [address] [place] [address] PCP - General Internal Medicine 02/29/20 Aidan Dorantes MD [address] [place] [address] 02/29/20 Eamon Gentile MD [address] [place], [place] [phone] Prosthetics Assistant Cardiovascular Disease 05/17/21 Rahat Matta NP [address] [place] [address] Nurse Practitioner Cardiology 11/28/21 Esther Ramon MD [address] [address] Specialist Neurosurgery 06/07/22 Haley Huang PA-C [address] [address] Specialist Neurosurgery 01/11/23 Aidan Joseph PA-C [address] [address] Specialist Neurosurgery 01/11/23 documented as of this encounter
--- OUTSIDE RECORDS SUMMARY | 2024-09-23 10:55 | XMS_ITS | Encounter Summary ---
Author Organization [facility] Address [address] [place] [address] Care Team Providers Care Lithoplate Maker Name Role Phone Maximino Campbell MD Primary Care Provider [phone] Aidan Dorantes MD Unavailable Unavailable Eamon Gentile MD Unavailable Unavailable Rahat Matta NP Unavailable [phone] Esther Ramon MD Unavailable [phone] Haley Huang PA-C Unavailable [phone] Aidan JosephC Unavailable Encounter Details Date Type Department Care Team Description 08/23/2021 Pt. Non Urgent Medical Question Adult Medicine [address] [phone] Maximino Campbell MD [address] [place] [address] [phone] Social History Tobacco Use Types Packs/Day Years [...] on filedocumented in this encounter Care Teams Lithoplate Maker Relationship Specialty Start Date End Date Maximino Campbell MD [address] [place] [address] [phone] PCP - General Internal Medicine 02/29/20 Aidan Dorantes MD [address] [place] [address] 02/29/20 Eamon Gentile MD [address] [place] [address] Clerical Assistant Cardiovascular Disease 05/17/21 Rahat Matta NP [address] [place] [address] Nurse Practitioner Cardiology 11/28/21 Esther Ramon MD [address] [address] Specialist Neurosurgery 06/07/22 Haley Huang PA-C [address] [address] Specialist Neurosurgery 01/11/23 Aidan Joseph PA-C [address] [address] Specialist Neurosurgery 01/11/23 documented as of this encounter
--- OUTSIDE RECORDS SUMMARY | 2024-09-23 10:55 | XMS_ITS | Encounter Summary ---
Author Organization [facility] Address [address] [place] [address] Care Team Providers Care Cheese Cook Name Role Phone Maximino Campbell MD Primary Care Provider [phone] Aidan Dorantes MD Unavailable Unavailable Eamon Gentile MD Unavailable Unavailable Rahat Matta NP Unavailable [phone] Esther Ramon MD Unavailable [phone] Haley HuangC Unavailable [phone] Aidan Joseph PA-C Unavailable [phone] Encounter Details Date Type Department Care Team Description 09/02/2023 Pt. Non Urgent Medical Question Cardio [facility] [address] [facility] [address] [place] [address] Rahat Matta NP [address] [place] [address] [phone] Social History Tobacco Use Types Packs/Day Years [...] on filedocumented in this encounter Care Teams Cheese Cook Relationship Specialty Start Date End Date Maximino Campbell MD [address] [place] [address] PCP - General Internal Medicine 02/29/20 Aidan Dorantes MD [address] [place] [address] 02/29/20 Eamon Gentile MD [address] [place] [address] Oyster Opener Cardiovascular Disease 05/17/21 Rahat Matta NP [address] [place] [address] Nurse Practitioner Cardiology 11/28/21 Esther Ramon MD [address] [address] Specialist Neurosurgery 06/07/22 Haley Huang PA-C [address] [address] Specialist Neurosurgery 01/11/23 Aidan Joseph PA-C [address] [address] Specialist Neurosurgery 01/11/23 documented as of this encounter
--- OUTSIDE RECORDS SUMMARY | 2024-09-23 10:55 | XMS_ITS | Encounter Summary ---
Author Organization [facility] Address [address] [place] [address] Care Team Providers Care Ball Assembler Name Role Phone Maximino Campbell MD Primary Care Provider [phone] Aidan Dorantes MD Unavailable Unavailable Eamon Gentile MD Unavailable Unavailable Rahat Matta NP Unavailable [phone] Esther Ramon MD Unavailable [phone] Haley Huang PA-C Unavailable [phone] Aidan Joseph PA-C Unavailable [phone] Encounter Details Date Type Department Care Team Description 04/25/2021 Hospital Medical Records [address] [place] [address] Social History Tobacco Use Types Packs/Day Years [...] on filedocumented in this encounter Care Teams Ball Assembler Relationship Specialty Start Date End Date Maximino Campbell MD [address] [place] [address] PCP - General Internal Medicine 02/29/20 Aidan Dorantes MD [address] [place] [address] 02/29/20 Eamon Gentile MD [address] [place] [address] Casing Tier Cardiovascular Disease 05/17/21 Rahat Matta NP [address] [place] [address] Nurse Practitioner Cardiology 11/28/21 Esther Ramon MD [address] [address] Specialist Neurosurgery 06/07/22 Haley Huang PA-C [address] [address] Specialist Neurosurgery 01/11/23 Aidan Joseph PA-C [address] [address] Specialist Neurosurgery 01/11/23 documented as of this encounter
--- OUTSIDE RECORDS SUMMARY | 2024-09-23 10:55 | XMS_ITS | Encounter Summary ---
Author Organization [facility] Address [address] [place] [address] Care Team Providers Care Coring Machine Operator Name Role Phone Maximino Campbell MD Primary Care Provider [phone] Aidan Dorantes MD Unavailable Unavailable Eamon Gentile MD Unavailable Unavailable Rahat Matta NP Unavailable [phone] Esther Ramon MD Unavailable [phone] Haley Huang PA-C Unavailable Aidan Joseph PA-C Unavailable [phone] Reason for Visit * Reason Onset Date Comments Medication 12/19/2023 Encounter Details Date Type Department Care Team Description 12/19/2023 Refill Gastroenterology - [place] 175 [facility] [address] [place] [address] Nehemias Carbajal MD 175 [facility] [address] [place], [place] [phone] Medication Social History Tobacco Use Types Packs/Day [...] on filedocumented in this encounter Care Teams Coring Machine Operator Relationship Specialty Start Date End Date Maximino Campbell MD [address] [place] [address] PCP - General Internal Medicine 02/29/20 Aidan Dorantes MD [address] [place] [address] 02/29/20 Eamon Gentile MD [address] [place] [address] Fountain Clerk Cardiovascular Disease 05/17/21 Rahat Matta NP [address] [place] [address] Nurse Practitioner Cardiology 11/28/21 Esther Ramon MD [address] [address] Specialist Neurosurgery 06/07/22 Haley Huang PA-C [address] [address] Specialist Neurosurgery 01/11/23 Aidan Joseph PA-C [address] [address] Specialist Neurosurgery 01/11/23 documented as of this encounter
--- OUTSIDE RECORDS SUMMARY | 2024-09-23 10:55 | XMS_ITS | Encounter Summary ---
Author Organization [facility] Address [address] [place] [address] Care Team Providers Care Cashier Checker Name Role Phone Aidan Dorantes MD Primary Care Provider Unavail able Maximino Campbell MD Primary Care Provider [phone] Aidan Dorantes MD Unavailable Unavailable Aidan Dorantes MD Unavailable Unavailable Eamon Gentile MD Unavailable Unavailable Rahat Matta NP Unavailable Esther Ramon MD Unavailable [phone] Haley Huang PA-C Unavailable Aidan Joseph PA-C Unavailable Encounter Details Date Type Department Care Team Description 10/02/2018 Pt. Non Urgent Medical Question Adult Medicine [address] [phone] Michelle Morrison PA-C [address] [place] [address] [id number] Social History Tobacco Use Types Packs/Day Years [...] Progress Notes * Michelle Morrison PA-C - 10/08/2018 3:42 PM EST I called patient's pharmacy and spoke with pharmacist; he has only been filling lisinopril 5 mg daily, prescribed exclusively by cardiology. ?? It is unclear why lisinopril 2.5 mg daily has been prescribed by adult medicine. ?? Therefore, I canceled all 2.5 mg tablets and patient should continue with lisinopril 5 mg daily, asdirected by cardiology team. ?? Michelle Morrison PA-C * Michelle Morrison PA-C - 10/07/2018 10:53 AM EST Lets get office notes from Dr. Starr and ask patient if he is taking BOTH prescriptions of Lisinopril. Given the number of refills he was given by cardiology - he should have plenty of refills - and it should not be prescribed by adult medicine. Michelle Morrison PA-C * Michelle Morrison PA-C - 10/02/2018 8:21 AM EST Images from the original note were not included. Looking at the chart - It appears patient has never been prescribed Lisinopril 5 mg daily. Michelle Morrison PA-C * Bree Munson M.A. - 10/02/2018 7:38 AM ESTFrom: Quentin Grossman To: Michelle Morrison PA-C Sent: 10/02/2018 5:40 AM EST Subject: Why changed Lisinopril medication strength ? I picked up my medications at [facility] on [address] and the Lisinopril was reduced to 2.5 from 5mg did you reduce the strength. I told the pharmacy to hold on and I would check to see if you reduced it, if you didn't could you call in for 5mg or if you did reduce Lisinopril please let me know and why. I'm going to wait for your answer before I go back and sweet pickled fruit maker medication. Javi Grossman documented in this encounter Plan of Treatment Not on file documented as of this encounter Visit Diagnoses Not on filedocumented in this encounter Care Teams Cashier Checker Relationship Specialty Start Date End Date Aidan Dorantes MD PCP - General 06/26/14 02/28/20 Maximino Campbell MD [address] [place] [address] PCP - General Internal Medicine 02/29/20 Aidan Dorantes MD 06/26/14 02/28/20 Aidan Dorantes MD 02/29/20 Eamon Gentile MD Brine Tank Separator Operator Cardiovascular Disease 05/17/21 Rahat Matta NP Nurse Practitioner Cardiology 11/28/21 Esther Ramon MD [address] [address] Specialist Neurosurgery 06/07/22 Haley Huang PA-C [address] [address] Specialist Neurosurgery 01/11/23 Aidan Joseph PA-C [address] [address] Specialist Neurosurgery 01/11/23 documented as of this encounter
--- OUTSIDE RECORDS SUMMARY | 2024-09-23 10:55 | XMS_ITS | Encounter Summary ---
Author Organization [facility] Address [address] [place] [address] Care Team Providers Care Web Site Designer Name Role Phone Aidan Dorantes MD Primary Care Provider Unavail able Maximino Campbell MD Primary Care Provider Aidan Dorantes MD Unavailable Unavailable Aidan Dorantes MD Unavailable Unavailable Eamon Gentile MD Unavailable Unavailable Rahat Matta NP Unavailable [phone] Esther Ramon MD Unavailable [phone] Haley Huang PA-C Unavailable [phone] Aidan Joseph PA-C Unavailable Encounter Details Date Type Department Care Team Description 07/31/2018 Brand Ambassador Promotional Model Report Medical Records [address] [place] [address] Scout Miller Social History Tobacco Use Types [...] on filedocumented in this encounter Care Teams Web Site Designer Relationship Specialty Start Date End Date Aidan Dorantes MD PCP - General 06/26/14 02/28/20 Maximino Campbell MD [address] [place] [address] [phone] PCP - General Internal Medicine 02/29/20 Aidan Dorantes MD 06/26/14 02/28/20 Aidan Dorantes MD 02/29/20 Eamon Gentile MD Dye Worker Cardiovascular Disease 05/17/21 Rahat Matta NP Nurse Practitioner Cardiology 11/28/21 Esther Ramon MD [address] [phone] Specialist Neurosurgery 06/07/22 Haley Huang PA-C [address] [address] Specialist Neurosurgery 01/11/23 Aidan Joseph PA-C 175 [facility] [address] [place] [address] Specialist Neurosurgery 01/11/23 documented as of this encounter
--- OUTSIDE RECORDS SUMMARY | 2024-09-23 10:55 | XMS_ITS | Data Portability ---
Author Organization [place] [facility] Address [address] [place] [address] Assessment Encounter Date Assessment Date Assessment LastModified by Organization Details LastModified Time 05/29/2024 05/29/2024 Patient is healing well from his inspire placement. His wound looks appropriate, clean, dry, intact. Shaving with electric razor is recommended for another few weeks. He will follow-up with sleep center for his activation and follow-up with us as needed [email or web address] Not available 05/29/2024 10:18:02 Plan of Treatment Reminders Order Date Submit Date Provider Last Modified By Organization Details Last Modified Time Details Appointments None record ed. Lab None record ed. Referral plasti c lisao n referr al 2023 024 [email or web address] Benito Verma MD M[facility], [address] [place] [address], [place], [address], 4 10:26:05 Procedures None record ed. Surgeries None record ed. Imaging CT, sinuse s, w/o contra st 2023 024 [email or web address] [facility], [address] [facility], [place], [address], 4 12:43:13 Medication Orders None record ed. Patient TargetsNo targets recorded. Patient InstructionsNo instructions recorded. 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 [facility] [address], [address], 12/20/2023 12:43:12 12/26/19 24 12/19/2023 CT, sinus es, w/o contr ast No observ ation record ed. [facility] [place] [address], [place], [address], 12/26/2023 07:48:55 03/25/20 24 04/01/2023 imagi ng/di agnos tic resul t No observ ation record ed. [email or web address] Not Available 05:01:25 03/25/20 24 04/01/2023 imagi ng/di agnos tic resul t No observ ation record ed. [email or web address] Not Available 05:01:32 Result Notes None recorded. Problems Name Problem SNOMED Code Status Onset Date Resolution Date Notes Provider Name and Address Organization Details Recorded Time Nasal congestio n 89622470 Active 2022 Nasal congestion ; Note: Date Diagnosed: 07/19/2023 9:31 AM (R09.81) Not Available [facility] 4 02:59:45 Body mass index 30+ - obesity 463984794 Active 2022 Body mass index [BMI] 31.0-31.9, adult; Note: Date Diagnosed: 07/22/2023 6:26 AM (Z68.31) MITA CAMARA MD [address] [place] [address], [place], [address] , [place] - [facility] 4 13:17:06 Obstructi ve sleep apnea syndrome 70775727 Active 2022 Obstructiv e sleep apnea (adult) (pediatric ); Note: Date Diagnosed: 07/19/2023 9:31 AM (G47.33) MITA CAMARA MD [address] [place] [address], [place], [address] , [facility] - [facility] 4 13:17:10 Obesity 473140375 Active 2022 Other obesity; Note: Date Diagnosed: 07/19/2023 9:31 AM (E66.8) Not Available [facility] 4 02:59:44 Disorder of smell 815237127 Active 2022 Other disturbanc es of smell and taste; Note: Date Diagnosed: 07/19/2023 9:31 AM (R43.8) Not Available [facility] 4 02:59:48 Disorder of taste 347920479 Active 2022 Other disturbanc es of smell and taste; Note: Date Diagnosed: 07/19/2023 9:31 AM (R43.8) Not Available [facility] 4 02:59:48 Loss of sense of smell 79975979 Active 2023 KEAGAN ARTIS MD [address] [place] [address],[place] [address], [place], [address] , [facility] - [facility] 4 09:08:59 Chronic rhinitis 90836759 Active 2023 KEAGAN ARTIS MD [address] [place] [address],[place] [address], [place], [address] , [facility] - [facility] [place] 4 09:09:05 Disorder of the nose 25697448 Active 2023 KEAGAN ARTIS MD [address] [place] [address],[place] [address], [place], [address] , [facility] - [facility] [place] 4 09:09:24 Problem Notes None recorded. Procedures Surgical History Date Name Laterality Status Provider Name and Address Organization Details Recorded Time 05/21/20 24 Opn mpltj hpglsl nstm josefina pg completed MITA CAMARA MD [address] [facility],[place] [address], [place], [address], [facility] - [facility] [place] 05/21/2024 13:20:04 operation on nasal turbinate completed Jing Corcoran [place] - [facility] 12/20/2023 08:41:18 open reduction of nasal fracture completed Jing Corcoran [place] [facility] 12/20/2023 08:41:28 nasal septoplasty completed Jing Corcoran [place] [facility] 12/20/2023 08:41:37 Carpal tunnel surgery completed Jing Corcoran [place] - [facility] 12/20/2023 08:41:44 Remove tonsils and adenoids completed Jing Corcoran [place] [facility] 12/20/2023 08:41:53 procedure on shoulder completed Jing Corcoran [place] - [facility] 12/20/2023 08:42:08 procedure on elbow completed Jing Corcoran [place] - [facility] 12/20/2023 08:42:17 Imaging Results Imaging Date Name Status LastModified by [facility] Details LastModified Time 12/20/2023 CT, sinuses, w/o contrast completed [facility] [address], [address], 12/20/2023 12:43:12 12/19/2023 CT, sinuses, w/o contrast completed [facility] [address], [address], 12/26/2023 07:48:55 04/01/2023 imaging/diagn ostic result completed Information not available 03/25/2024 05:01:25 04/01/2023 imaging/diagn ostic result completed Information not available 03/25/2024 05:01:32 Procedure Notes None recorded. Medical Equipment None Reported. Allergies Allergen ID Allergen Name Allergen Category Reaction Reaction Severity Criticality Documentation Date Start Date Code Code System Note Provider Name and Address Organization Details Recorded Time 487141 Product containin g 3-hydroxy -3-methyl glutaryl- coenzyme A reductase inhibitor (product) medicatio n other Not available Not available 12/17/2023 41934 009 SNOMED React ion: Unkno wn; Not Available [facility] 01:25:24 Medications Name Sig Start Date Stop Date Status Note LastModified by Organization Details LastModified Time metformin 500 mg tablet TAKE 1 TABLET BY MOUTH TWICE A DAY WITH MEALS active Not Available Not Available No t Available doxycycli ne hyclate 100 mg capsule by mouth 12/19 completed Not Available Not Available Not Available prednison e 20 mg tablet 12/19 completed Not Available Not Available Not Available Lantus U-100 Insulin 100 unit/mL subcutane ous solution active Not Available Not Available Not Available amlodipin e 5 mg tablet TAKE 1 TABLET BY MOUTH TWICE A DAY active Not Available Not Available No t Available meloxicam 7.5 mg tablet active Medicati on ID: [id number] B rand Name: meloxica m Send Method: E-Prescr ibed Sub s Allowed: subs OK Medic ationGen ericName : meloxica m Not Available Not Available Not Available oxycodone -acetamin ophen 5 mg-325 mg tablet active Medicati on ID: [id number] B rand Name: oxycodon e-acetam inophen Send Method: E-Prescr ibed Sub s Allowed: subs OK Medic ationGen ericName : oxycodon e-acetam inophen Not Available Not Available Not Available benzonata te 100 mg capsule 12/19 completed Not Available Not Available Not Available cephalexi n 500 mg capsule TAKE 1 CAPSULE BY MOUTH EVERY 6 HOURS FOR 7 DAYS active Not Available Not Available No t Available clotrimaz ole-betam ethasone 1 %-0.05 % topical cream 12/19 completed Not Available Not Available Not Available levothyro xine 150 mcg tablet TAKE 1 TABLET BY MOUTH EVERY DAY active Not Available Not Available No t Available gabapenti n 300 mg capsule TAKE 1 CAPSULE BY MOUTH TWICE A DAY active Not Available Not Available No t Available lisinopri l 5 mg tablet TAKE 1 TABLET BY MOUTH EVERY DAY active Not Available Not Available No t Available mirtazapi ne 15 mg tablet active Medicati on ID: [id number] B rand Name: mirtazap ine Send Method: E-Prescr ibed Sub s Allowed: subs OK Medic ationGen ericName : mirtazap ine Not Available Not Available Not Available albuterol sulfate HFA 90 mcg/actua tion aerosol inhaler active Not Available Not Available Not Available fluticaso ne propionat e 50 mcg/actua tion nasal spray,wil pension 2 puff once a day 2023 active Medicati on ID: [id number] D uration Value: 30 Brand Name: fluticas one propiona te Send Method: E-Prescr ibed Sub s Allowed: subs OK Medic ationGen ericName : fluticas one propiona te Not Available Not Available Not Available pramipexo le 1.5 mg tablet TAKE 1 TABLET BY MOUTH TWICE A DAY active Not Available Not Available No t Available glipizide 5 mg tablet 12/19 completed Medicati on ID: [id number] B rand Name: glipizid e Send Method: E-Prescr ibed Sub s Allowed: subs OK Medic ationGen ericName : glipizid e Medica tion ID: [id number] B rand Name: glipizid e Send Method: E-Prescr ibed Sub s Allowed: subs OK Medic ationGen ericName : glipizid e Not Available Not Available Not Available naproxen 500 mg tablet active Not Available Not Available Not Available oxycodone 5 mg tablet TAKE 1 TABLET EVERY 4 HOURS BY ORAL ROUTE NEEDED FOR 5 DAYS, FOR MOD PAIN. active Not Available Not Available No t Available ezetimibe 10 mg tablet TAKE 1 TABLET BY MOUTH EVERY DAY active Not Available Not Available No t Available pregabali n 150 mg capsule TAKE 1 CAPSULE BY MOUTH TWICE A DAY active Not Available Not Available No t Available pramipexo le ER 3 mg tablet,ex tended release 24 hr active Medicati on ID: [id number] B rand Name: pramipex ole Send Method: E-Prescr ibed Sub s Allowed: subs OK Medic ationGen ericName : pramipex ole Not Available Not Available Not Available Praluent Pen 75 mg/mL subcutane ous pen injector INJECT 1 ML INTO THE SKIN EVERY 14 DAYS active Not Available Not Available No t Available Ozempic 0.25 mg or 0.5 mg (2 mg/3 mL) subcutane ous pen injector INJECT 0.25MG INTO THE SKIN ONE TIME PER WEEK active Not Available Not Available No t Available Vitals Date Recorded Body height Body mass index (BMI) Body weight Provider Name and Address Organization Details Last Updated DateTime 05/29/2024 175.26 cm 31 kg/m2 66330.4 g Meg Zarate [place] - [facility] [place] 05/29/2024 10:02:06 Social History None recorded. Functional Status None recorded. Mental Status None recorded. Family History Nothing Reported. Medical History Condition Response High Cholesterol Y Past Encounters Encounter ID Performer Location Encounter Start Date Encounter Closed Date Diagnosis/Indication Diagnosis SNOMED-CT Code Diagnosis ICD10 Code Diagnosis Note [id number] KEAGAN ARTIS MD [facility] [address] [address] 12/20/2023 08:18:13 12/20/2023 09:15:36 Loss of sense of smell 78102857 R43.0 No significan t sinus disease Post antrostomy /septo and turb reduction Chronic rhinitis 3440084 6 J31.0 Disorder of the nose 894 [address] Verma for nasal valve procedure. Neg [place] scan [id number] MITA CAMARA MD [facility] [address] [address] 05/29/2024 09:24:56 05/29/2024 10:16:13 Obstructive sleep apnea syndrome 90811470 G47.33 Health Concerns Section Related Observation LastModified by Organization Detai ls LastModified Time None Recorded Concern Status LastModified by Organization Details LastModified Time None Recorded Advance Directives Directive None Recorded Payers Encounter Date Sequence Insurance Name Policy Number Policy Mistry Covered Member ID Mistry Member ID Guarantor Name 12/20/2023 1 [facility] [id number] Quentin Grossman [id number] Quentin Grossman 05/29/2024 2 [place] [id number] Quentin Grossman Jr [id number] Quentin Grossman 05/29/2024 1 [place] [employer] Quentin Grossman Jr [id number] Quentin Grossman Notes Date Note Type Note Provider Name and Address Organization Details Recorded Time text/html Multiple nasal surgeries. Still notes alar collapse and naso obstruction. Difficulty tolerating Breathe Right strips Has poor dentition and doesn't think he can tolerate mandibular device for FREDY--Saw Dr Foley for DISEReports chronic ear disease and long hx of loss of smell/taste. 2 weeks of doxycycline and trial of FP nasal. No change in sense of smell KEAGAN HERNANDEZ MD [address] [facility],[place] [address], [place], [address], [facility] - [facility] [place] 12/20/2023 12:43:28 4 text/html Patient of Dr HernandezOSASplit night [facility] [place] 04/01/23BMI 31AHI 34.7central & mixed - non recordedCPAP trial - intolerant of mask and CPAP 05/21/24 INSPIRE placementfeels some right face tenderness MITA CAMARA MD [address] [facility],[place] [address], [place], [address], [facility] - [facility] 05/29/2024 10:18:30
--- OUTSIDE RECORDS SUMMARY | 2024-09-23 10:55 | XMS_ITS | Encounter Summary ---
Author Organization [facility] Address [address] [place] [address] Care Team Providers Care Car Whacker Name Role Phone Maximino Campbell MD Primary Care Provider [phone] Aidan Dorantes MD Unavailable Unavailable Eamon Gentile MD Unavailable Unavailable Rahat Matta NP Unavailable [phone] Esther Ramon MD Unavailable [phone] Haley Huang-C Unavailable [phone] Aidan Joseph PA-C Unavailable Encounter Details Date Type Department Care Team Description 02/11/2024 Pt. Non Urgent Medical Question Cardio [facility] [address] [facility] [address] [place] [address] Rahat Matta NP [address] [place] [address] [phone] Social History Tobacco Use Types Packs/Day Years [...] on filedocumented in this encounter Care Teams Car Whacker Relationship Specialty Start Date End Date Maximino Campbell MD [address] [place] [address] PCP - General Internal Medicine 02/29/20 Aidan Dorantes MD [address] [place] [address] 02/29/20 Eamon Gentile MD [address] [place] [address] Blood Bank Technologist Cardiovascular Disease 05/17/21 Rahat Matta NP [address] [place] [address] Nurse Practitioner Cardiology 11/28/21 Esther Ramon MD [address] [address] Specialist Neurosurgery 06/07/22 Haley Huang PA-C [address] [address] Specialist Neurosurgery 01/11/23 Aidan Joseph PA-C [address] [address] Specialist Neurosurgery 01/11/23 documented as of this encounter
--- OUTSIDE RECORDS SUMMARY | 2024-09-23 10:55 | XMS_ITS | Encounter Summary ---
Author Organization [facility] Address [address] [place] [address] Care Team Providers Care Medicine Man Name Role Phone Maximino Campbell MD Primary Care Provider [phone] Aidan Dorantes MD Unavailable Unavailable Eamon Gentile MD Unavailable Unavailable Rahat Matta NP Unavailable [phone] Esther Ramon MD Unavailable [phone] Haley Huang PA-C Unavailable [phone] Aidan Joseph PA-C Unavailable Encounter Details Date Type Department Care Team Description 04/17/2023 SCAN Medical Records [address] [place] [address] Abstract, Provider Social History Tobacco Use Types [...] Name Priority Date/Time Associated Diagnosis Comments OUTSIDE CT Routine 04/17/2023 documented in this encounter Results * OUTSIDE CT (04/17/2023) Provider Default RADIOLOGY documented in this encounter Visit Diagnoses Not on filedocumented in this encounter Care Teams Medicine Man Relationship Specialty Start Date End Date Maximino Campbell MD [address] [place] [address] PCP - General Internal Medicine 02/29/20 Aidan Dorantes MD [address] [place] [address] 02/29/20 Eamon Gentile MD [address] [place] [address] Internal Combustion Engineer Cardiovascular Disease 05/17/21 Rahat Matta NP [address] [place] [address] Nurse Practitioner Cardiology 11/28/21 Esther Ramon MD [address] [address] Specialist Neurosurgery 06/07/22 Haley Huang PA-C [address] [address] Specialist Neurosurgery 01/11/23 Aidan Joseph PA-C [address] [address] Specialist Neurosurgery 01/11/23 documented as of this encounter
--- OUTSIDE RECORDS SUMMARY | 2024-09-23 10:55 | XMS_ITS | Encounter Summary ---
Author Organization [facility] Address [address] [place] [address] Care Team Providers Care Art Therapy Specialist Name Role Phone Maximino Campbell MD Primary Care Provider [phone] Aidan Dorantes MD Unavailable Unavailable Eamon Gentile MD Unavailable Unavailable Rahat Matta NP Unavailable [phone] Esther Ramon MD Unavailable [phone] Haley Huang PA-C Unavailable Aidan Joseph PA-C Unavailable Encounter Details Date Type Department Care Team Description 05/14/2023 Orders Only [facility] Neurosurgery [place] [employer] [address] [phone] Aidan Joseph PA-C [address] [id number] Bilateral sacroiliitis (HCC) Social History Tobacco Use Types Packs/Day Years Used Date Smoking Tobacco: Never Passive Smoke Exposure: Past Smokeless Tobacco: Never Alcohol Use Standard Drinks/Week Comments Not Currently 0 (1 standard drink = 0.6 oz pur e alcohol) rare, 6 pack per year Sex Assigned at Date Recorded Not on file Job Start Date Occupation Industry Not on file Not on file Not on file COVID-19 Exposure Response Date Recorded In the last 10 days, have yo u been in contact with someone who was confirmed or suspected to have Coronavirus/COVID-19? No / Unsure 05/13/2023 10:26 AM EDT documented as of this encounter Plan of Treatment Not on file documented as of this encounter Procedures Procedure Name Priority Date/Time Associated Diagnosis Comments UT INJECT SI JOINT ARTHRGRPHY&/ANES/STEROID W/KEYSHAWN Routine 05/14/2023 Bilateral sacroiliitis (HCC) documented in this encounter Results * UT INJECT SI JOINT ARTHRGRPHY&/ANES/STEROID W/KEYSHAWN (05/14/2023) 05/14/2023 Aidan Joseph PA-C PERFORMABLES documented in this encounter Visit Diagnoses Diagnosis Bilateral sacroiliitis (HCC) documented in this encounter Care Teams Art Therapy Specialist Relationship Specialty Start Date End Date Maximino Campbell MD [address] [place] [address] PCP - General Internal Medicine 02/29/20 Aidan Dorantes MD [address] [place] [address] 02/29/20 Eamon Gentile MD [address] [place] [address] Ballast Cleaning Machine Operator Cardiovascular Disease 05/17/21 Rahat Matta NP [address] [place] [address] Nurse Practitioner Cardiology 11/28/21 Esther Ramon MD [address] [address] Specialist Neurosurgery 06/07/22 Haley Huang PA-C [address] [address] Specialist Neurosurgery 01/11/23 Aidan Joseph PA-C [address] [address] Specialist Neurosurgery 01/11/23 documented as of this encounter
--- OUTSIDE RECORDS SUMMARY | 2024-09-23 10:55 | XMS_ITS | Encounter Summary ---
Author Organization [facility] Address [address] [place] [address] Care Team Providers Care First Beater Name Role Phone Aidan Dorantes MD Primary Care Provider Unavail able Maximino Campbell MD Primary Care Provider [phone] Aidan Dorantes MD Unavailable Unavailable Aidan Dorantes MD Unavailable Unavailable Eamon Gentile MD Unavailable Unavailable Rahat Matta NP Unavailable Esther Ramon MD Unavailable [phone] Haley Huang PA-C Unavailable [phone] Aidan Joseph PA-C Unavailable [phone] Encounter Details Date Type Department Care Team Description 07/25/2016 Electric Range Servicer Report Medical Records [address] [place] [address] Eamon Gentile MD Social History Tobacco Use Types Packs/Day [...] on filedocumented in this encounter Care Teams First Beater Relationship Specialty Start Date End Date Aidan Dorantes MD PCP - General 06/26/14 02/28/20 Maximino Campbell MD [address] [place] [address] [phone] PCP - General Internal Medicine 02/29/20 Aidan Dorantes MD 06/26/14 02/28/20 Aidan Dorantes MD 02/29/20 Eamon Gentile MD Licensed Direct Entry Midwife Cardiovascular Disease 05/17/21 Rahat Matta NP Nurse Practitioner Cardiology 11/28/21 Esther Ramon MD 175 [facility] [address] [place] [address] [phone] Specialist Neurosurgery 06/07/22 Haley Huang PA-C [address] [address] Specialist Neurosurgery 01/11/23 Aidan Joseph PA-C 175 [facility] [address] [place] [address] Specialist Neurosurgery 01/11/23 documented as of this encounter
--- OUTSIDE RECORDS SUMMARY | 2024-09-23 10:55 | XMS_ITS | Encounter Summary ---
Author Organization [facility] Address [address] [place] [address] Care Team Providers Care Principal Consulting Engineer Name Role Phone Aidan Dorantes MD Primary Care Provider Unavail able Maximino Campbell MD Primary Care Provider [phone] Aidan Dorantes MD Unavailable Unavailable Aidan Dorantes MD Unavailable Unavailable Eamon Gentile MD Unavailable Unavailable Rahat Matta NP Unavailable [phone] Esther Ramon MD Unavailable [phone] Haley Huang PA-C Unavailable [phone] Aidan Joseph PA-C Unavailable [phone] Reason for Visit * Reason Onset Date Comments medication problems 09/29/2018 Encounter Details Date Type Department Care Team Description 09/29/[address] [phone] Aidan Dorantes MD medication problems Social History Tobacco Use Types Packs/Day Years [...] encounter Miscellaneous Notes * Telephone Encounter - Michelle Morrison PA-C - 09/29/2018 4:14 PM EST Call to patient - see TSH result note. Michelle Morrison PA-C * Telephone Encounter - Domitila Toyn M.A. - 09/29/2018 3:51 PM EST Arcenio Martinez was seen today. We filled levothyroxine 150 mcg tab. Pt states he is suppose to be on 175 mcg. Ishow that on 11/24/17 we changed him to the 150 mcg. What do you want the pt on? * Telephone Encounter - Carrie Moore - 09/29/2018 3:46 PM EST What is the name of the medication patient is having a problem with?: levothyroxine (SYNTHROID, LEVOTHROID) 150 MCG tablet What is the problem?: patient requests new rx: Pt says dose for levothyroxine is 175 mg, requests refills for 175 mg Is the patient calling about the problem? NO If the patient is not the caller who is[facility] Is this a NEW medication?: NO How long has the patient been taking this medication? months Who prescribed this medication for the patient? Aidan Dorantes Who is patients PCP?: Aidan Dorantes Payor: JOAN/ZEHRAO POS / Plan: PPO $0 [place] [id number] / Product Type: PPO [id number] documented in this encounter Plan of Treatment Not on file documented as of this encounter Visit Diagnoses Not on filedocumented in this encounter Care Teams Principal Consulting Engineer Relationship Specialty Start Date End Date Aidan Dorantes MD PCP - General 06/26/14 02/28/20 Maximino Campbell MD [address] [place] [address] PCP - General Internal Medicine 02/29/20 Aidan Dorantes MD 06/26/14 02/28/20 Aidan Dorantes MD 02/29/20 Eamon Gentile MD Sand Slinger Operator Cardiovascular Disease 05/17/21 Rahat Matta NP Nurse Practitioner Cardiology 11/28/21 Esther Ramon MD [address] [address] Specialist Neurosurgery 06/07/22 Haley Huang PA-C [address] [address] Specialist Neurosurgery 01/11/23 Aidan Joseph PA-C [address] [address] Specialist Neurosurgery 01/11/23 documented as of this encounter
--- OUTSIDE RECORDS SUMMARY | 2024-09-23 10:55 | XMS_ITS | Encounter Summary ---
Author Organization [facility] Address [address] [place] [address] Care Team Providers Care Senior Business Architect Name Role Phone Aidan Dorantes MD Primary Care Provider Unavail able Maxmiino Campbell MD Primary Care Provider [phone] Aidan Dorantes MD Unavailable Unavailable Aidan Dorantes MD Unavailable Unavailable Eamon Gentile MD Unavailable Unavailable Rahat Matta NP Unavailable [phone] Esther Ramon MD Unavailable [phone] Haley Huang PA-C Unavailable [phone] Aidan Joseph PA-C Unavailable [phone] Encounter Details Date Type Department Care Team Description 07/25/2016 Orders Only Adult Medicine [address] [phone] Aidan Dorantes MD Abnormal EKG (Primary Dx) Social History Tobacco Use Types Packs/Day Years [...] as of this encounter Visit Diagnoses Diagnosis Abnormal EKG- Primary Nonspecific abnormal electrocardiogram (ECG) (EKG) documented in this encounter Care Teams Senior Business Architect Relationship Specialty Start Date End Date Aidan Dorantes MD PCP - General 06/26/14 02/28/20 Maxmiino Campbell MD [address] [place] [address] PCP - General Internal Medicine 02/29/20 Aidan Dorantes MD 06/26/14 02/28/20 Aidan Dorantes MD 02/29/20 Eamon Gentile MD Barn Operator Cardiovascular Disease 05/17/21 Rahat Matta NP Nurse Practitioner Cardiology 11/28/21 Esther Ramon MD [address] [address] Specialist Neurosurgery 06/07/22 Haley Huang PA-C [address] [address] Specialist Neurosurgery 01/11/23 Aidan Joseph PA-C [address] [address] Specialist Neurosurgery 01/11/23 documented as of this encounter
--- OUTSIDE RECORDS SUMMARY | 2024-09-23 10:55 | XMS_ITS | Encounter Summary ---
Author Organization [facility] Address [address] [place] [address] Care Team Providers Care Concrete Hopper Operator Name Role Phone Maximino Campbell MD Primary Care Provider [phone] Aidan Dorantes MD Unavailable Unavailable Eamon Gentile MD Unavailable Unavailable Rahat Matta NP Unavailable [phone] Esther Ramon MD Unavailable [phone] Haley HuangC Unavailable [phone] Aidan Joseph PA-C Unavailable [phone] Encounter Details Date Type Department Care Team Description 05/01/2021 Hospital Medical Records [address] [place] [address] Cr Griffiths Social History Tobacco Use Types Packs/Day Years [...] on filedocumented in this encounter Care Teams Concrete Hopper Operator Relationship Specialty Start Date End Date Maximino Campbell MD [address] [place] [address] PCP - General Internal Medicine 02/29/20 Aidan Dorantes MD [address] [place], [place] [phone] 02/29/20 Eamon Gentile MD [address] [place] [address] Word Processor Cardiovascular Disease 05/17/21 Rahat Matta NP [address] [place] [address] Nurse Practitioner Cardiology 11/28/21 Esther Ramon MD [address] [address] Specialist Neurosurgery 06/07/22 Haley Huang PA-C [address] [address] Specialist Neurosurgery 01/11/23 Aidan Joseph PA-C [address] [address] Specialist Neurosurgery 01/11/23 documented as of this encounter
--- OUTSIDE RECORDS SUMMARY | 2024-09-23 10:55 | XMS_ITS | Encounter Summary ---
Author Organization [facility] Address [address] [place] [address] Care Team Providers Care Home Health Nurse Name Role Phone Maximino Campbell MD Primary Care Provider [phone] Aidan Dorantes MD Unavailable Unavailable Eamon Gentile MD Unavailable Unavailable Rahat Matta NP Unavailable [phone] Esther Ramon MD Unavailable [phone] Haley Huang-C Unavailable [phone] Aidan JosephC Unavailable Encounter Details Date Type Department Care Team Description 03/24/2024 Pt. Non Urgent Medical Question Adult Medicine [address] [phone] Maximino Campbell MD [address] [place] [address] [phone] Social History Tobacco Use Types Packs/Day Years [...] encounter Miscellaneous Notes * Telephone Encounter - Irasema Schultz L.P.N. - 03/24/2024 1:00 PM EDTFrom: Quentin Arcos Chauncey To: Isrrael Campbell Sent: 03/24/2024 12:37 PM EDT Subject: Ozempic I just talked to the insurance company about the cost of Ozempic and it was a lot of red tape so the cost I'm paying is good they said I would pear picker the 500 dollar bill every time we'll see how that turns out. Parminder Grossman documented in this encounter Plan of Treatment Not on file documented as of this encounter Visit Diagnoses Not on filedocumented in this encounter Care Teams Home Health Nurse Relationship Specialty Start Date End Date Maximino Campbell MD [address] [place] [address] PCP - General Internal Medicine 02/29/20 Aidan Dorantes MD [address] [place] [address] 02/29/20 Eamon Gentile MD [address] [place], [place] [phone] Training Engineer Cardiovascular Disease 05/17/21 Rahat Matta NP [address] [place] [address] Nurse Practitioner Cardiology 11/28/21 Esther Ramon MD [address] [address] Specialist Neurosurgery 06/07/22 Haley Huang PA-C [address] [address] Specialist Neurosurgery 01/11/23 Aidan Joseph PA-C [address] [address] Specialist Neurosurgery 01/11/23 documented as of this encounter
--- OUTSIDE RECORDS SUMMARY | 2024-09-23 10:55 | XMS_ITS | Encounter Summary ---
Author Organization [facility] Address [address] [place] [address] Care Team Providers Care Telephone Triage Nurse Name Role Phone Maximino Campbell MD Primary Care Provider [phone] Aidan Dorantes MD Unavailable Unavailable Eamon Gentile MD Unavailable Unavailable Rahat Matta NP Unavailable [phone] Esther Ramon MD Unavailable [phone] Haley HuangC Unavailable [phone] Aidan JosephC Unavailable [phone] Encounter Details Date Type Department Care Team Description 06/15/2020 Urban Anthropologist Report Medical Records [address] [place] [address] Abstract, Provider Social History Tobacco Use Types [...] on filedocumented in this encounter Care Teams Telephone Triage Nurse Relationship Specialty Start Date End Date Maximino Campbell MD [address] [place] [address] [phone] PCP - General Internal Medicine 02/29/20 Aidan Dorantes MD [address] [place] [address] 02/29/20 Eamon Gentile MD [address] [place] [address] Director Human Services Cardiovascular Disease 05/17/21 Rahat Matta NP [address] [place] [address] Nurse Practitioner Cardiology 11/28/21 Esther Ramon MD [address] [address] Specialist Neurosurgery 06/07/22 Haley Huang PA-C [address] [address] Specialist Neurosurgery 01/11/23 Aidan Joseph PA-C [address] [address] Specialist Neurosurgery 01/11/23 documented as of this encounter
--- OUTSIDE RECORDS SUMMARY | 2024-09-23 10:55 | XMS_ITS | Encounter Summary ---
Author Organization [facility] Address [address] [place] [address] Care Team Providers Care Repair Electric Motor Assembler Name Role Phone Aidan Dorantes MD Primary Care Provider Unavail able Maximino Campbell MD Primary Care Provider [phone] Aidan Dorantes MD Unavailable Unavailable Aidan Dorantes MD Unavailable Unavailable Eamon Gentile MD Unavailable Unavailable Rahat Matta NP Unavailable [phone] Esther Ramon MD Unavailable [phone] Haley Huang PA-C Unavailable [phone] Aidan Joseph PA-C Unavailable Encounter Details Date Type Department Care Team Description 07/26/2016 SCAN Medical Records [address] [place] [address] Abstract, Provider Social History Tobacco Use Types [...] on filedocumented in this encounter Care Teams Repair Electric Motor Assembler Relationship Specialty Start Date End Date Aidan Dorantes MD PCP - General 06/26/14 02/28/20 Maximino Campbell MD [address] [place] [address] [phone] PCP - General Internal Medicine 02/29/20 Aidan Dorantes MD 06/26/14 02/28/20 Aidan Dorantes MD 02/29/20 Eamon Gentile MD Internal Salesperson Cardiovascular Disease 05/17/21 Rahat Matta NP Nurse Practitioner Cardiology 11/28/21 Esther Ramon MD [address] [phone] Specialist Neurosurgery 06/07/22 Haley Huang PA-C [address] [address] Specialist Neurosurgery 01/11/23 Aidan Joseph PA-C [address] [address] Specialist Neurosurgery 01/11/23 documented as of this encounter
--- OUTSIDE RECORDS SUMMARY | 2024-09-23 10:55 | XMS_ITS | Encounter Summary ---
Author Organization [facility] Address [address] [place] [address] Care Team Providers Care Family Practitioner Name Role Phone Maximino Campbell MD Primary Care Provider [phone] Aidan Dorantes MD Unavailable Unavailable Eamon Gentile MD Unavailable Unavailable Rahat Matta NP Unavailable [phone] Esther Ramon MD Unavailable [phone] Haley Huang-C Unavailable Aidan Joseph PA-C Unavailable Encounter Details Date Type Department Care Team Description 02/27/2021 Pt. Non Urgent Medical Question Adult Medicine [address] [phone] Maximino Campbell MD [address] [place] [address] [phone] Social History Tobacco Use Types Packs/Day Years [...] as of this encounter Progress Notes * Carmella Vargas M.A. - 02/27/2021 10:09 AM EDT Roni msg sent documented in this encounter Miscellaneous Notes * Telephone Encounter - Carmella Vargas M.A. - 02/27/2021 9:58 AM EDTFrom: Quentin Grossman To: Isrrael Adrian Sent: 02/27/2021 5:26 AM EDT Subject: Renew medication Need appointment to get my medications refilled for [facility] MATILDA documented in this encounter Plan of Treatment Not on file documented as of this encounter Visit Diagnoses Not on filedocumented in this encounter Care Teams Family Practitioner Relationship Specialty Start Date End Date Maximino Campbell MD [address] [place] [address] PCP - General Internal Medicine 02/29/20 Aidan Dorantes MD [address] [place] [address] 02/29/20 Eamon Gentile MD [address] [place], [place] [phone] Refrigerator Cabinetmaker Cardiovascular Disease 05/17/21 Rahat Matta NP [address] [place] [address] Nurse Practitioner Cardiology 11/28/21 Esther Ramon MD [address] [address] Specialist Neurosurgery 06/07/22 Haley Huang PA-C [address] [address] Specialist Neurosurgery 01/11/23 Aidan Joseph PA-C [address] [address] Specialist Neurosurgery 01/11/23 documented as of this encounter
--- OUTSIDE RECORDS SUMMARY | 2024-09-23 10:55 | XMS_ITS | Encounter Summary ---
Author Organization [facility] Address [address] [place] [address] Care Team Providers Care Book Salesman Name Role Phone Aidan Dorantes MD Primary Care Provider Unavail able Maximino Campbell MD Primary Care Provider [phone] Aidan Dorantes MD Unavailable Unavailable Aidan Dorantes MD Unavailable Unavailable Eamon Gentile MD Unavailable Unavailable Rahat Matta NP Unavailable [phone] Esther Ramon MD Unavailable [phone] Haley Huang PA-C Unavailable [phone] Aidan Joseph PA-C Unavailable [phone] Encounter Details Date Type Department Care Team Description 10/06/2019 Cork Slabs Sawyer Report Medical Records [address] [place] [address] Eamon Gentile MD Social History Tobacco Use [...] on filedocumented in this encounter Care Teams Book Salesman Relationship Specialty Start Date End Date Aidan Dorantes MD PCP - General 06/26/14 02/28/20 Maximino Campbell MD [address] [place] [address] [phone] PCP - General Internal Medicine 02/29/20 Aidan Dorantes MD 06/26/14 02/28/20 Aidan Dorantes MD 02/29/20 Eamon Gentile MD Title Examiner Cardiovascular Disease 05/17/21 Rahat Matta NP Nurse Practitioner Cardiology 11/28/21 Esther Ramon MD 175 [facility] [address] [place] [address] [phone] Specialist Neurosurgery 06/07/22 Haley Huang PA-C [address] [address] Specialist Neurosurgery 01/11/23 Aidan Joseph PA-C 175 [facility] [address] [place] [address] Specialist Neurosurgery 01/11/23 documented as of this encounter
--- OUTSIDE RECORDS SUMMARY | 2024-09-23 10:55 | XMS_ITS | Encounter Summary ---
Author Organization [facility] Address [address] [place] [address] Care Team Providers Care Prefitter Doors Name Role Phone Maximino Campbell MD Primary Care Provider [phone] Aidan Dorantes MD Unavailable Unavailable Eamon Gentile MD Unavailable Unavailable Rahat Matta NP Unavailable [phone] Esther Ramon MD Unavailable [phone] Haley Huang PA-C Unavailable [phone] Aidan Joseph PA-C Unavailable [phone] Encounter Details Date Type Department Care Team Description 10/08/2023 SCAN Medical Records [address] [place] [address] [facility] Social History Tobacco Use Types Packs/Day Years [...] on filedocumented in this encounter Care Teams Prefitter Doors Relationship Specialty Start Date End Date Maximino Campbell MD [address] [place] [address] [phone] PCP - General Internal Medicine 02/29/20 Aidan Dorantes MD [address] [place], [place] [phone] 02/29/20 Eamon Gentile MD [address] [place] [address] Glove Machine Operator Cardiovascular Disease 05/17/21 Rahat Matta NP [address] [place] [address] Nurse Practitioner Cardiology 11/28/21 Esther Ramon MD [address] [address] Specialist Neurosurgery 06/07/22 Haley Huang PA-C [address] [address] Specialist Neurosurgery 01/11/23 Aidan Joseph PA-C [address] [address] Specialist Neurosurgery 01/11/23 documented as of this encounter
--- OUTSIDE RECORDS SUMMARY | 2024-09-23 10:55 | XMS_ITS | Encounter Summary ---
Author Organization [facility] Address [address] [place] [address] Care Team Providers Care Radiographer Cardiac Catheterization Name Role Phone Aidan Dorantes MD Primary Care Provider Unavail able Aidan Dorantes MD Primary Care Provider Unavail able Maximino Campbell MD Primary Care Provider [phone] Aidan Dorantes MD Unavailable Unavailable Aidan Dorantes MD Unavailable Unavailable Eamon Gentile MD Unavailable Unavailable Rahat Matta NP Unavailable [phone] Esther Ramon MD Unavailable [phone] Haley Huang PA-C Unavailable [phone] Aidan Joseph PA-C Unavailable [phone] Encounter Details Date Type Department Care Team Description 10/22/2006 Hospital Medical Records [address] [place] [address] Dean Arnold Social History Tobacco Use Types Packs/Day Years [...] on filedocumented in this encounter Care Teams Radiographer Cardiac Catheterization Relationship Specialty Start Date End Date Aidan Dorantes MD PCP - General 09/24/03 06/25/14 Aidan Dorantes MD PCP - General 06/26/14 02/28/20 Maximino Campbell MD [address] [place] [address] PCP - General Internal Medicine 02/29/20 Aidan Dorantes MD 06/26/14 02/28/20 Aidan Dorantes MD 02/29/20 Eamon Gentile MD [address] [place] [address] Knit Goods Press Hand Cardiovascular Disease 05/17/21 Rahat Matta NP [address] [place] [address] Nurse Practitioner Cardiology 11/28/21 Esther Ramon MD [address] [address] Specialist Neurosurgery 06/07/22 Haley Huang PA-C [address] [address] Specialist Neurosurgery 01/11/23 Aidan Joseph PA-C [address] [address] Specialist Neurosurgery 01/11/23 documented as of this encounter
--- OUTSIDE RECORDS SUMMARY | 2024-09-23 10:55 | XMS_ITS | Encounter Summary ---
Author Organization [facility] Address [address] [place] [address] Care Team Providers Care Correctional Sergeant Name Role Phone Maximino Campbell MD Primary Care Provider [phone] Aidan Dorantes MD Unavailable Unavailable Eamon Gentile MD Unavailable Unavailable Rahat Matta NP Unavailable [phone] Esther Ramon MD Unavailable [phone] Haley HuangC Unavailable Aidan Joseph PA-C Unavailable [phone] Reason for Visit * Reason Onset Date Comments DME Request 09/09/2020 Encounter Details Date Type Department Care Team Description 09/09/2020 Telephone Pulmonology [facility] [address] [facility] [address] [place] [address] Padmini Heard FNP [address] [place], [place] [id number] DME Request Social History Tobacco Use Types Packs/Day [...] Exposure Response Date Recorded In the last month, have you been in contact with someone who was confirmed or suspected to have Coronavirus / COVID-19? Unable to assess 09/09/2020 8:20 AM EST documented as of this encounter Miscellaneous Notes * Telephone Encounter - Apple Harper [place] - 09/13/2020 8:58 AM EST Spoke to the patient financial representative at [facility] and the will add the patient to [facility] now, also wanted me toinform you that the patient hasnt received any supplies since his original order in 2018. * Telephone Encounter - ZINA Tapia - 09/09/2020 9:54 AM EST Need to be linked for today's visit to his machine. Please call DME. documented in this encounter Plan of Treatment Not on file documented as of this encounter Visit Diagnoses Not on filedocumented in this encounter Care Teams Correctional Sergeant Relationship Specialty Start Date End Date Maximino Campbell MD [address] [place] [address] PCP - General Internal Medicine 02/29/20 Aidan Dorantes MD [address] [place] [address] 02/29/20 Eamon Gentile MD [address] [place], [place] [phone] Corn Shredder Cardiovascular Disease 05/17/21 Rahat Matta NP [address] [place] [address] Nurse Practitioner Cardiology 11/28/21 Esther Ramon MD [address] [address] Specialist Neurosurgery 06/07/22 Haley Huang PA-C [address] [address] Specialist Neurosurgery 01/11/23 Aidan Joseph PA-C [address] [address] Specialist Neurosurgery 01/11/23 documented as of this encounter
--- OUTSIDE RECORDS SUMMARY | 2024-09-23 10:55 | XMS_ITS | Encounter Summary ---
Author Organization [facility] Address [address] [place] [address] Care Team Providers Care Acid Maker Name Role Phone Maximino Campbell MD Primary Care Provider [phone] Aidan Dorantes MD Unavailable Unavailable Eamon Gentile MD Unavailable Unavailable Rahat Matta NP Unavailable [phone] Esther Ramon MD Unavailable [phone] Haley Huang PA-C Unavailable [phone] Aidan Joseph PA-C Unavailable [phone] Encounter Details Date Type Department Care Team Description 04/18/2023 Pt. Non Urgent Medical Question Cardio PVC [facility] [address] [facility] [address] [place] [address] Rahat Matta NP [address] [place] [address] [phone] Social History Tobacco Use Types Packs/Day Years [...] encounter Miscellaneous Notes * Telephone Encounter - Samanta Waite C.M.A. - 04/18/2023 11:42 AM EDTFrom: Quentin Arcos Chauncey To: Wally Matta Sent: 04/18/2023 11:40 AM EDT Subject: CT CORONARY CALCIUM SCORE WITHOUT IV CONTRAST How are the results on the CT? Quentin Grossman documented in this encounter Plan of Treatment Not on file documented as of this encounter Visit Diagnoses Not on filedocumented in this encounter Care Teams Acid Maker Relationship Specialty Start Date End Date Maximino Campbell MD [address] [place] [address] PCP - General Internal Medicine 02/29/20 Aidan Dorantes MD [address] [place] [address] 02/29/20 Eamon Gentile MD [address] [place] [address] Cost Report Clerk Cardiovascular Disease 05/17/21 Rahat Matta NP [address] [place] [address] Nurse Practitioner Cardiology 11/28/21 Esther Ramon MD [address] [address] Specialist Neurosurgery 06/07/22 Haley Huang PA-C [address] [address] Specialist Neurosurgery 01/11/23 Aidan Joseph PA-C [address] [address] Specialist Neurosurgery 01/11/23 documented as of this encounter
--- OUTSIDE RECORDS SUMMARY | 2024-09-23 10:55 | XMS_ITS | Encounter Summary ---
Author Organization [facility] Address [address] [place] [address] Care Team Providers Care Sales Superintendent Name Role Phone Maximino Campbell MD Primary Care Provider [phone] Aidan Dorantes MD Unavailable Unavailable Eamon Gentile MD Unavailable Unavailable Rahat Matta NP Unavailable [phone] Esther Ramon MD Unavailable [phone] Haley Huang-C Unavailable Aidan Joseph PA-C Unavailable Encounter Details Date Type Department Care Team Description 01/08/2024 Orders Only Medical Records [address] [place] [address] Nehemias Carbajal MD [address] [place] [address] [address] [place] [address] Social History Tobacco Use Types Packs/Day Years [...] Name Priority Date/Time Associated Diagnosis Comments OUTSIDE COLONOSCOPY Routine 01/02/2024 documented in this encounter Results * OUTSIDE COLONOSCOPY (01/02/2024) Nehemias Carbajal MD RADIOLOGY documented in this encounter Visit Diagnoses Not on filedocumented in this encounter Care Teams Sales Superintendent Relationship Specialty Start Date End Date Maximino Campbell MD [address] [place] [address] PCP - General Internal Medicine 02/29/20 Aidan Dorantes MD [address] [place] [address] 02/29/20 Eamon Gentile MD [address] [place], [place] [phone] Pipe Threader Cardiovascular Disease 05/17/21 Rahat Matta NP [address] [place] [address] Nurse Practitioner Cardiology 11/28/21 Esther Ramon MD [address] [address] Specialist Neurosurgery 06/07/22 Haley Huang PA-C [address] [address] Specialist Neurosurgery 01/11/23 Aidan Joseph PA-C [address] [address] Specialist Neurosurgery 01/11/23 documented as of this encounter
--- OUTSIDE RECORDS SUMMARY | 2024-09-23 10:55 | XMS_ITS | Encounter Summary ---
Author Organization [facility] Address [address] [place] [address] Care Team Providers Care Car Repair Supervisor Name Role Phone Maximino Campbell MD Primary Care Provider [phone] Aidan Dorantes MD Unavailable Unavailable Eamon Gentile MD Unavailable Unavailable Rahat Matta NP Unavailable [phone] Esther Ramon MD Unavailable [phone] Haley Huang PA-C Unavailable [phone] Aidan Joseph PA-C Unavailable [phone] Encounter Details Date Type Department Care Team Description 10/13/2020 Old Medical Records Medical Records [address] [place] [address] Abstract, Provider Social History Tobacco Use Types [...] or suspected to have Coronavirus / COVID-19? No / Unsure 10/12/2020 11:00 AM EST documented as of this encounter Plan of Treatment Not on file documented as of this encounter Visit Diagnoses Not on filedocumented in this encounter Care Teams Car Repair Supervisor Relationship Specialty Start Date End Date Maximino Campbell MD [address] [place] [address] PCP - General Internal Medicine 02/29/20 Aidan Dorantes MD [address] [place] [address] 02/29/20 Eaomn Gentile MD [address] [place] [address] Long Distance Operator Cardiovascular Disease 05/17/21 Rahat Matta NP [address] [place] [address] Nurse Practitioner Cardiology 11/28/21 Esther Ramon MD [address] [address] Specialist Neurosurgery 06/07/22 Haley Huang PA-C [address] [address] Specialist Neurosurgery 01/11/23 Aidan Joseph PA-C [address] [address] Specialist Neurosurgery 01/11/23 documented as of this encounter
--- OUTSIDE RECORDS SUMMARY | 2024-09-23 10:55 | XMS_ITS | Encounter Summary ---
Author Organization [facility] Address [address] [place] [address] Care Team Providers Care Advertising Space Clerk Name Role Phone Maximino Campbell MD Primary Care Provider [phone] Aidan Dorantes MD Unavailable Unavailable Eamon Gentile MD Unavailable Unavailable Rahat Matta NP Unavailable [phone] Esther Ramon MD Unavailable [phone] Haley Huang-C Unavailable Aidan Joseph PA-C Unavailable Encounter Details Date Type Department Care Team Description 08/22/2023 Pt. Non Urgent Medical Question Cardio PVC [facility] [address] [facility] [address] [place] [address] Rahat Matta NP [address] [place], [place] [phone] Social History Tobacco Use Types Packs/Day Years [...] encounter Miscellaneous Notes * Telephone Encounter - Melia Guajardojohn - 08/23/2023 1:49 PM EST Carotid Duplex report scanned into the chart, routed to PCP in Epic. I do not see where there is anMRI in the wrong place. Do you have the DOS so I can find it? Thanks. documented in this encounter Plan of Treatment Not on file documented as of this encounter Visit Diagnoses Not on filedocumented in this encounter Care Teams Advertising Space Clerk Relationship Specialty Start Date End Date Maximino Campbell MD [address] [place] [address] PCP - General Internal Medicine 02/29/20 Aidan Dorantes MD [address] [place] [address] 02/29/20 Eamon Gentile MD [address] [place] [address] Entertainer & Comic Cardiovascular Disease 05/17/21 Rahat Matta NP [address] [place] [address] Nurse Practitioner Cardiology 11/28/21 Esther Ramon MD [address] [address] Specialist Neurosurgery 06/07/22 Haley Huang PA-C [address] [address] Specialist Neurosurgery 01/11/23 Aidan Joseph PA-C [address] [address] Specialist Neurosurgery 01/11/23 documented as of this encounter
--- OUTSIDE RECORDS SUMMARY | 2024-09-23 10:55 | XMS_ITS | Encounter Summary ---
Author Organization [facility] Address [address] [place] [address] Care Team Providers Care Business Dean Name Role Phone Aidan Dorantes MD Primary Care Provider Unavail able Maximino Campbell MD Primary Care Provider [phone] Aidan Dorantes MD Unavailable Unavailable Aidan Dorantes MD Unavailable Unavailable Eamon Gentile MD Unavailable Unavailable Rahat Matta NP Unavailable [phone] Esther Ramon MD Unavailable [phone] Haley Huang PA-C Unavailable [phone] Aidan Joseph PA-C Unavailable Encounter Details Date Type Department Care Team Description 10/03/2016 Historic Sites Supervisor Report Medical Records [address] [place] [address] Abstract, Provider Social History Tobacco Use Types [...] on filedocumented in this encounter Care Teams Business Dean Relationship Specialty Start Date End Date Aidan Dorantes MD PCP - General 06/26/14 02/28/20 Maximino Campbell MD [address] [place] [phone] PCP - General Internal Medicine 02/29/20 Aidan Dorantes MD 06/26/14 02/28/20 Aidan Dorantes MD 02/29/20 Eamon Gentile MD Environmental Studies Department Chair Cardiovascular Disease 05/17/21 Rahat Matta NP Nurse Practitioner Cardiology 11/28/21 Esther Ramon MD [address] [phone] Specialist Neurosurgery 06/07/22 Haley Huang PA-C [address] [address] Specialist Neurosurgery 01/11/23 Aidan Joseph PA-C [address] [address] Specialist Neurosurgery 01/11/23 documented as of this encounter
--- OUTSIDE RECORDS SUMMARY | 2024-09-23 10:55 | XMS_ITS | Encounter Summary ---
Author Organization [facility] Address [address] [place] [address] Care Team Providers Care Tire Assembler Name Role Phone Aidan Dorantes MD Primary Care Provider Unavail able Aidan Dorantes MD Primary Care Provider Unavail able Maximino Campbell MD Primary Care Provider [phone] Aidan Dorantes MD Unavailable Unavailable Aidna Dorantes MD Unavailable Unavailable Eamon Gentile MD Unavailable Unavailable Rahat Matta NP Unavailable [phone] Esther Ramon MD Unavailable [phone] Haley Huang PA-C Unavailable [phone] Aidan Joseph PA-C Unavailable [phone] Encounter Details Date Type Department Care Team Description 06/11/2013 Supervisor Of Guidance And Testing Report Medical Records [address] [place] [address] José Miguel Gates MD Social History Tobacco [...] on filedocumented in this encounter Care Teams Tire Assembler Relationship Specialty Start Date End Date Aidan Dorantes MD PCP - General 09/24/03 06/25/14 Aidan Dorantes MD PCP - General 06/26/14 02/28/20 Maximino Campbell MD [address] [place] [address] PCP - General Internal Medicine 02/29/20 Aidan Dorantes MD 06/26/14 02/28/20 Aidan Dorantes MD 02/29/20 Eamon Gentile MD [address] [place] [address] Handbag Stitcher Cardiovascular Disease 05/17/21 Rahat Matta NP [address] [place] [address] Nurse Practitioner Cardiology 11/28/21 Esther Ramon MD [address] [address] Specialist Neurosurgery 06/07/22 Haley Huang PA-C [address] [address] Specialist Neurosurgery 01/11/23 Aidan Joseph PA-C [address] [address] Specialist Neurosurgery 01/11/23 documented as of this encounter
--- OUTSIDE RECORDS SUMMARY | 2024-09-23 10:55 | XMS_ITS | Encounter Summary ---
Author Organization [facility] Address [address] [place] [address] Care Team Providers Care Electronics Tester Name Role Phone Aidan Dorantes MD Primary Care Provider Unavail able Maximino Campbell MD Primary Care Provider [phone] Aidan Dorantes MD Unavailable Unavailable Aidan Dorantes MD Unavailable Unavailable Eamon Gentile MD Unavailable Unavailable Rahat Matta NP Unavailable [phone] Esther Ramon MD Unavailable [phone] Haley Huang PA-C Unavailable [phone] Aidan Joseph PA-C Unavailable [phone] Encounter Details Date Type Department Care Team Description 08/17/2019 Programs Director Report Medical Records [address] [place] [address] Social History Tobacco Use Types Packs/Day Years [...] on filedocumented in this encounter Care Teams Electronics Tester Relationship Specialty Start Date End Date Aidan Dorantes MD PCP - General 06/26/14 02/28/20 Maximino Campbell MD [address] [place] [address] PCP - General Internal Medicine 02/29/20 Aidan Dorantes MD 06/26/14 02/28/20 Aidan Dorantes MD 02/29/20 Eamon Gentile MD Structural Steel Erection Supervisor Cardiovascular Disease 05/17/21 Rahat Matta NP Nurse Practitioner Cardiology 11/28/21 Esther Ramon MD [address] [phone] Specialist Neurosurgery 06/07/22 Haley Huang PA-C [address] [address] Specialist Neurosurgery 01/11/23 Aidan Joseph PA-C [address] [address] Specialist Neurosurgery 01/11/23 documented as of this encounter
--- OUTSIDE RECORDS SUMMARY | 2024-09-23 10:55 | XMS_ITS | Encounter Summary ---
Author Organization [facility] Address [address] [place] [address] Care Team Providers Care Jumpbasting Lining Baster Name Role Phone Maximino Campbell MD Primary Care Provider [phone] Aidan Dorantes MD Unavailable Unavailable Eamon Gentile MD Unavailable Unavailable Rahat Matta NP Unavailable [phone] Esther Ramon MD Unavailable [phone] Haley Huang PA-C Unavailable [phone] Aidan Joseph PA-C Unavailable [phone] Encounter Details Date Type Department Care Team Description 10/07/2020 Old Medical Records Medical Records [address] [place] [address] Abstract, Provider Social History Tobacco Use Types [...] on filedocumented in this encounter Care Teams Jumpbasting Lining Baster Relationship Specialty Start Date End Date Maximino Campbell MD [address] [place] [address] [phone] PCP - General Internal Medicine 02/29/20 Aidan Dorantes MD [address] [place] [address] 02/29/20 Eamon Gentile MD [address] [place] [address] Mammal Control Agent Cardiovascular Disease 05/17/21 Rahat Matta NP [address] [place] [address] Nurse Practitioner Cardiology 11/28/21 Esther Ramon MD [address] [address] Specialist Neurosurgery 06/07/22 Haley Huang PA-C [address] [address] Specialist Neurosurgery 01/11/23 Aidan Joseph PA-C [address] [address] Specialist Neurosurgery 01/11/23 documented as of this encounter
--- OUTSIDE RECORDS SUMMARY | 2024-09-23 10:55 | XMS_ITS | Encounter Summary ---
Author Organization [facility] Address [address] [place] [address] Care Team Providers Care Senior Java Ui Developer Name Role Phone Maximino Campbell MD Primary Care Provider [phone] Aidan Dorantes MD Unavailable Unavailable Eamon Gentile MD Unavailable Unavailable Rahat Matta NP Unavailable [phone] Esther Ramon MD Unavailable [phone] Haley Huang PA-C Unavailable [phone] Aidan Joseph PA-C Unavailable Reason for Visit * Reason Comments E-prescribe Rx Request Encounter Details Date Type Department Care Team Description 10/22/2023 Refill Endocrinology - [address] [phone] Gaviota Valles PA-C [address] [place] [address] [phone] E-prescribe Rx Request Social History Tobacco Use [...] encounter Miscellaneous Notes * Telephone Encounter - Gaviota Valles PA-C - 10/23/2023 2:17 PM EDT Medication was discontinued 2 months ago by primary care * Telephone Encounter - Nicki Langley M.A. - 10/22/2023 9:35 AM EDT Gen 05/13/23 Lab Results Component Value Date HGBA1C 6.6 05/10/2023 MALBUR 29.6 10/29/2022 MALBCR 25.9 10/29/2022 CHOL 268 10/29/2022 LDL TNP 10/29/2022 HDL 40 10/29/2022 TRIG 730 10/29/2022 GLU 124 05/13/2023 CREAT 1.14 05/08/2023 documented in this encounter Plan of Treatment Not on file documented as of this encounter Visit Diagnoses Diagnosis Type 2 diabetes mellitus with diabetic nephropathy, without long-term current use of insulin (HCC) documented in this encounter Care Teams Senior Java Ui Developer Relationship Specialty Start Date End Date Maximino Campbell MD [address] [place] [address] PCP - General Internal Medicine 02/29/20 Aidan Dorantes MD [address] [place] [address] 02/29/20 Eamon Gentile MD [address] [place], [place] [phone] Psych Specialist Cardiovascular Disease 05/17/21 Rahat Matta NP [address] [place] [address] Nurse Practitioner Cardiology 11/28/21 Esther Ramon MD [address] [address] Specialist Neurosurgery 06/07/22 Haley Huang PA-C [address] [address] Specialist Neurosurgery 01/11/23 Aidan Joseph PA-C [address] [place] [address] Specialist Neurosurgery 01/11/23 documented as of this encounter
--- OUTSIDE RECORDS SUMMARY | 2024-09-23 10:55 | XMS_ITS | Encounter Summary ---
Author Organization [facility] Address [address] [place] [address] Care Team Providers Care Emr Specialist Name Role Phone Maximino Campbell MD Primary Care Provider [phone] Aidan Dorantes MD Unavailable Unavailable Eamon Gentile MD Unavailable Unavailable Rahat Matta NP Unavailable [phone] Esther Ramon MD Unavailable [phone] Haley Huang PA-C Unavailable Aidan Joseph PA-C Unavailable [phone] Encounter Details Date Type Department Care Team Description 04/30/2023 [facility] Medical [facility] Neurosurgery [place] [address] [address] Aidan Joseph PA-C [address] [phone] Social History Tobacco Use Types Packs/Day Years [...] on filedocumented in this encounter Care Teams Emr Specialist Relationship Specialty Start Date End Date Maximino Campbell MD [address] [place] [address] [place] [address] PCP - General Internal Medicine 02/29/20 Aidan Dorantes MD [address] [place] [address] 02/29/20 Eamon Gentile MD [address] [place] [address] Chief Of Staff Cardiovascular Disease 05/17/21 Rahat Matta NP [address] [place] [address] Nurse Practitioner Cardiology 11/28/21 Esther Ramon MD [address] [address] Specialist Neurosurgery 06/07/22 Haley Huang PA-C [address] [address] Specialist Neurosurgery 01/11/23 Aidan Joseph PA-C [address] [address] Specialist Neurosurgery 01/11/23 documented as of this encounter
--- OUTSIDE RECORDS SUMMARY | 2024-09-23 10:55 | XMS_ITS | Encounter Summary ---
Author Organization [facility] Address [address] [place] [address] Care Team Providers Care Lapidary Apprentice Name Role Phone Maximino Campbell MD Primary Care Provider [phone] Aidan Dorantes MD Unavailable Unavailable Eamon Gentile MD Unavailable Unavailable Rahat Matta NP Unavailable [phone] Esther Ramon MD Unavailable [phone] Haley Huang PA-C Unavailable [phone] Aidan JosephC Unavailable [phone] Encounter Details Date Type Department Care Team Description 02/08/2021 Pt. Non Urgent Medical Question Adult Medicine [address] [phone] Maximino Campbell MD [address] [place] [address] [phone] Social History Tobacco Use Types Packs/Day Years [...] on filedocumented in this encounter Care Teams Lapidary Apprentice Relationship Specialty Start Date End Date Maximino Campbell MD [address] [place] [address] [phone] PCP - General Internal Medicine 02/29/20 Aidan Dorantes MD [address] [place] [address] 02/29/20 Eamon Gentile MD [address] [place] [address] Reliability Engineer Cardiovascular Disease 05/17/21 Rahat Matta NP [address] [place] [address] Nurse Practitioner Cardiology 11/28/21 Esther Ramon MD [address] [address] Specialist Neurosurgery 06/07/22 Haley Huang PA-C [address] [address] Specialist Neurosurgery 01/11/23 Aidan Joseph PA-C [address] [address] Specialist Neurosurgery 01/11/23 documented as of this encounter
--- OUTSIDE RECORDS SUMMARY | 2024-09-23 10:55 | XMS_ITS | Encounter Summary ---
Author Organization [facility] Address [address] [place] [address] Care Team Providers Care Industrial Economics Teacher Name Role Phone Maximino Campbell MD Primary Care Provider [phone] Aidan Dorantes MD Unavailable Unavailable Eamon Gentile MD Unavailable Unavailable Rahat Matta NP Unavailable [phone] Esther Ramon MD Unavailable [phone] Haley Huang-C Unavailable [phone] Aidan Joseph PA-C Unavailable Encounter Details Date Type Department Care Team Description 08/10/2020 Pt. Non Urgent Medical Question Adult Medicine [address] [id number] Maximino Campbell MD [address] [place] [address] [id number] Social History Tobacco Use Types Packs/Day Years [...] have Coronavirus / COVID-19? No / Unsure 08/04/2020 3:23 PM EST documented as of this encounter Plan of Treatment Not on file documented as of this encounter Visit Diagnoses Not on filedocumented in this encounter Care Teams Industrial Economics Teacher Relationship Specialty Start Date End Date Maximino Campbell MD [address] [place] [address] PCP - General Internal Medicine 02/29/20 Aidan Dorantes MD [address] [place] [address] 02/29/20 Eamon Gentile MD [address] [place] [address] Cash Application Representative Cardiovascular Disease 05/17/21 Rahat Matta NP [address] [place] [address] Nurse Practitioner Cardiology 11/28/21 Esther Ramon MD [address] [address] Specialist Neurosurgery 06/07/22 Haley Huang PA-C [address] [address] Specialist Neurosurgery 01/11/23 Aidan Joseph PA-C [address] [address] Specialist Neurosurgery 01/11/23 documented as of this encounter
--- OUTSIDE RECORDS SUMMARY | 2024-09-23 10:55 | XMS_ITS | Encounter Summary ---
Author Organization [facility] Address [address] [place] [address] Care Team Providers Care Horticulture Professor Name Role Phone Maximino Campbell MD Primary Care Provider [phone] Aidan Dorantes MD Unavailable Unavailable Eamon Gentile MD Unavailable Unavailable Rahat Matta NP Unavailable [phone] Esther Ramon MD Unavailable [phone] Haley Huang PA-C Unavailable Aidan Joseph PA-C Unavailable Encounter Details Date Type Department Care Team Description 07/04/2023 Incoming Correspondence [facility] Neurosurgery [place] [address] [address] Aiadn Joseph PA-C [address] [address] Social History Tobacco Use Types Packs/Day Years [...] on filedocumented in this encounter Care Teams Horticulture Professor Relationship Specialty Start Date End Date Maximino Campbell MD [address] [place] [address] PCP - General Internal Medicine 02/29/20 Aidan Dorantes MD [address] [place] [address] 02/29/20 Eamon Gentile MD [address] [place] [address] Home School Coordinator Cardiovascular Disease 05/17/21 Rahat Matta NP [address] [place] [address] Nurse Practitioner Cardiology 11/28/21 Esther Ramon MD [address] [address] Specialist Neurosurgery 06/07/22 Haley Huang PA-C [address] [address] Specialist Neurosurgery 01/11/23 Aidan Joseph PA-C [address] [address] Specialist Neurosurgery 01/11/23 documented as of this encounter
--- OUTSIDE RECORDS SUMMARY | 2024-09-23 10:55 | XMS_ITS | Encounter Summary ---
Author Organization [facility] Address [address] [place] [address] Care Team Providers Care Leadite Heater Name Role Phone Aidan Dorantes MD Primary Care Provider Unavail able Maximino Campbell MD Primary Care Provider [phone] Aidan Dorantes MD Unavailable Unavailable Aidan Dorantes MD Unavailable Unavailable Eamon Gentile MD Unavailable Unavailable Rahat Matta NP Unavailable [phone] Esther Ramon MD Unavailable [phone] Haley Huang PA-C Unavailable Aidan Joseph PA-C Unavailable [phone] Reason for Visit * Reason Onset Date Comments Prior Authorization 08/03/2016 Encounter Details Date Type Department Care Team Description 08/03/2016 Telephone Cardiology - [address] [phone] Aidan Dorantes MD Prior Authorization Social History Tobacco Use Types Packs/Day Years [...] encounter Miscellaneous Notes * Telephone Encounter - Amelie Stevens - 08/03/2016 3:41 PM EST Echo booked for 08/24/16. * Telephone Encounter - Susy Reyez - 08/03/2016 3:15 PM EST Called [facility]- spoke with Alba Garland - no auth required * Telephone Encounter - Amelie Stevens - 08/03/2016 2:58 PM EST Does the echocardiogram require pre-auth? Thank you documented in this encounter Plan of Treatment Not on file documented as of this encounter Visit Diagnoses Not on filedocumented in this encounter Care Teams Leadite Heater Relationship Specialty Start Date End Date Aidan Dorantes MD PCP - General 06/26/14 02/28/20 Maximino Campbell MD [address] [place] [address] PCP - General Internal Medicine 02/29/20 Aidan Dorantes MD 06/26/14 02/28/20 Aidan Dorantes MD 02/29/20 Eamon Gentile MD [employer] Scientific Aid Cardiovascular Disease 05/17/21 Rahat Matta NP Nurse Practitioner Cardiology 11/28/21 Esther Ramon MD [address] [address] Specialist Neurosurgery 06/07/22 Haley Huang PA-C [address] [address] Specialist Neurosurgery 01/11/23 Aidan Joseph PA-C [address] [address] Specialist Neurosurgery 01/11/23 documented as of this encounter
--- OUTSIDE RECORDS SUMMARY | 2024-09-23 10:55 | XMS_ITS | Encounter Summary ---
Author Organization [facility] Address [address] [place] [address] Care Team Providers Care Inside Sales Advisor Name Role Phone Maximino Campbell MD Primary Care Provider [phone] Aidan Dorantes MD Unavailable Unavailable Eamon Gentile MD Unavailable Unavailable Rahat Matta NP Unavailable Esther Ramon MD Unavailable [phone] Haley Huang-C Unavailable [phone] Aidan Joseph PA-C Unavailable [phone] Encounter Details Date Type Department Care Team Description 06/11/2023 Automobile Carpets Molder Report Medical Records [address] [place] [address] Brittny Reilly NP Social History Tobacco Use Types Packs/Day [...] on filedocumented in this encounter Care Teams Inside Sales Advisor Relationship Specialty Start Date End Date Maximino Campbell MD [address] [place] [address] PCP - General Internal Medicine 02/29/20 Aidan Dorantes MD [address] [place] [address] 02/29/20 Eamon Gentile MD [address] [place] [address] Learning Center Coordinator Cardiovascular Disease 05/17/21 Rahat Matta NP [address] [place] [address] Nurse Practitioner Cardiology 11/28/21 Esther Ramon MD [address] [address] Specialist Neurosurgery 06/07/22 Haley Huang PA-C [address] [address] Specialist Neurosurgery 01/11/23 Aidan Joseph PA-C [address] [address] Specialist Neurosurgery 01/11/23 documented as of this encounter
--- OUTSIDE RECORDS SUMMARY | 2024-09-23 10:55 | XMS_ITS | Encounter Summary ---
Author Organization [facility] Address [address] [place] [address] Care Team Providers Care Talent Sourcer Name Role Phone Maximino Campbell MD Primary Care Provider [phone] Aidan Dorantes MD Unavailable Unavailable Eamon Gentile MD Unavailable Unavailable Rahat Matta NP Unavailable [phone] Esther Ramon MD Unavailable [phone] Haley HuangC Unavailable [phone] Aidan Joseph PA-C Unavailable [phone] Encounter Details Date Type Department Care Team Description 07/19/2023 Lining Caser Report Medical Records [address] [place] [address] Keagan Hidalgo MD Social History Tobacco Use Types Packs/Day [...] on filedocumented in this encounter Care Teams Talent Sourcer Relationship Specialty Start Date End Date Maximino Campbell MD [address] [place] [address] PCP - General Internal Medicine 02/29/20 Aidna Dorantes MD [address] [place], [place] [id number] 02/29/20 Eamon Gentile MD [address] [place] [address] Mail Distributor Cardiovascular Disease 05/17/21 Rahat Matta NP [address] [place] [address] Nurse Practitioner Cardiology 11/28/21 Esther Ramon MD [address] [address] Specialist Neurosurgery 06/07/22 Haley Huang PA-C [address] [address] Specialist Neurosurgery 01/11/23 Aidan Joseph PA-C [address] [address] Specialist Neurosurgery 01/11/23 documented as of this encounter
--- OUTSIDE RECORDS SUMMARY | 2024-09-23 10:56 | XMS_ITS | Encounter Summary ---
Author Organization [facility] Address [address] [place] [address] Care Team Providers Care Electricity Trader Name Role Phone Maximino Campbell MD Primary Care Provider [phone] Aidan Dorantes MD Unavailable Unavailable Eamon Gentile MD Unavailable Unavailable Rahat Matta NP Unavailable [phone] Esther Ramon MD Unavailable [phone] Haley Huang PA-C Unavailable Adian Joseph PA-C Unavailable Encounter Details Date Type Department Care Team Description 06/02/2024 [facility] 175 [facility] [address] [place] [address] Marvin Quan MD 175 [facility] [address] [place] [address] Social History Tobacco Use Types Packs/Day Years [...] on filedocumented in this encounter Care Teams Electricity Trader Relationship Specialty Start Date End Date Maximino Campbell MD [address] [place] [address] PCP - General Internal Medicine 02/29/20 Aidan Dorantes MD [address] [place] [address] 02/29/20 Eamon Gentile MD [address] [place] [address] Can Inspector Cardiovascular Disease 05/17/21 Rahat Matta NP [address] [place] [address] Nurse Practitioner Cardiology 11/28/21 Esther Ramon MD [address] [address] Specialist Neurosurgery 06/07/22 Haley Huang PA-C [address] [address] Specialist Neurosurgery 01/11/23 Aidan Joseph PA-C [address] [address] Specialist Neurosurgery 01/11/23 documented as of this encounter
--- OUTSIDE RECORDS SUMMARY | 2024-09-23 10:56 | XMS_ITS | Clinical Summary ---
Author Organization [address] [place] [address] Address [address] [place] [address] Phone Care Team Providers Care Steam Trap Man Name Role Phone Maximino Campbell MD Primary Care Provider [phone] Allergies Active Allergy Reactions Criticality Noted Date Comments Yryjmnq-Hbc-Yab Reductase Inhibitors 10/03/2015 Elevated LFTs Medications alirocumab (Praluent Pen) 75 mg/mL pen injector Inject 1 mL into the skin every 14 days. Active amLODIPine (NORVASC) 5 mg tablet Take 1 Tablet by mouth 2 times daily. Active levothyroxine (SYNTHROID, LEVOTHROID) 150 mcg tablet Take 1 tablet (150 mcg total) by mouth 5 (five) times a week. Active lisinopriL (PRINIVIL,ZEST RIL) 5 mg tablet Take 1 Tablet by mouth daily. Active metFORMIN (GLUCOPHAGE) 500 mg tablet Take 1 Tablet by mouth 2 times daily (with meals). Active pregabalin (LYRICA) 150 mg capsule Take 1 capsule (150 mg total) by mouth at bedtime. Active semaglutide (Ozempic) 0.25 mg or 0.5 mg(2 mg/1.5 mL) injection pen 0.25 mg every 7 (seven) days. Active pramipexole (MIRAPEX) 1.5 mg tablet Take 3.5 mg by mouth at bedtime. Take 1 Tablet by mouth 2 times daily for 360 days 025 Active ezetimibe (ZETIA) 10 mg tablet Take 1 tablet (10 mg total) by mouth 1 (one) time each day. 90 tablet 1 09/02/19 25 Active aspirin 81 mg EC tablet Take 1 tablet (81 mg total) by mouth 1 (one) time each day. Active ASPIRIN ORAL Take 81 mg by mouth daily. 025 Discontinued MULTIVITAMIN ORAL Take by mouth daily. 025 Discontinued ezetimibe (ZETIA) 10 mg tablet Take 1 Tablet by mouth daily. 025 Discontinued(Re order) Active Problems Problem Noted Date Diagnosed Date Stress fracture of left tibia 08/07/2024 Acute medial meniscus tear of left knee 08/07/19 25 Arthritis of left knee 08/07/2024 Known medical problems 05/12/2024 Overview (05/12/2024): AAA family hx Bilateral sacroiliitis 04/30/2023 Overview (05/12/2024): Last Assessment & Plan: Mr. Grossman went for SI joint injections in January. At his February appointment with Dr. Ramon, he indicated that he had good pain relief. Sometime over the summer, his pain returned. He is having a very difficult time with bilateral low back pain and radiation down the posterior proximal thighs. He also has some pain translating to the front of the pelvis. All the provocative tests were positive. We will send him for bilateral SI joint injections as well as physical therapy for the SI joints and I have given him a prescription for an SI belt. He will follow-up with us at the conclusion of the physical therapy if things have not improved. Low back pain due to bilateral sciatica 06/07/20 Overview (05/12/2024): Last Assessment & Plan: Mr. Grossman underwent bilateral SI joint injections through [facility] on 01/24/2023 and since then, has had relief of the symptoms radiating down his thighs. He still has transverse lumbosacral pain when leaning back and putting pressure on it with certain movements at work and activity. Review of the lumbar spine MRI at [facility] from 06/13/2022 shows very mild degenerative disc changes with mild desiccation at L3- 4 and L4-5 with facet arthropathy leading to mild central stenosis at L3-4. There is nothing here for which I would recommend surgery and we have agreed that he will continue his home exercise program including swimming and core strengthening with an additional focus towards weight loss at the abdomen. His exam was normal except that he prefers to stand. Thoracic compression fracture, closed, initial e ncounter 05/04/2022 Overview (05/12/2024): 04/26 fell, compression fx T 8, 9, 10 Last Assessment & Plan: I reviewed this in detail with Mr. Grossman and believe he is symptomatic from the low thoracic compression fractures. This causes pain radiating around his ribs and prevents him from taking full deep breaths. His injury was 2 months ago and if this persists, he is at risk for pneumonia. I am going to send him for a thoracic MRI to see if these are still acute and if they have progressed. We discussed the details, risks, benefits and anticipated postoperative course of T8, 9, 10 kyphoplasties and a brochure was given. He would like to proceed if he is deemed a good candidate based on the MRI. Carotid stenosis, bilateral 12/21/2021 Bradycardia 12/21/2021 CTS (carpal tunnel syndrome) 05/01/2021 Overview (05/12/2024): Right Cervical spondylolysis 12/11/2019 DDD (degenerative disc disease), lumbar 12/11/19 CPAP (continuous positive airway pressure) depen dence 08/20/2019 Nephrolithiasis 07/17/2019 Microalbuminuria 09/29/2018 FREDY on CPAP 10/29/2017 Overview (05/12/2024): [facility] Home Sleep Apnea Test: Date 10/06/2014; Wt 195#; BMI 29; AHI 11, Unclassified apneas 0; Obstructive apneas 9; Central apneas 0; Mixed apneas 0; hypopneas 49; average oxygen saturation 93% (lowest 88% without saturations <88% for 5% or more of study) - Obstructive Sleep Apnea - mild; mostly hypopneas; without sleep related hypoventilation by 2018 home sleep apnea test. Hypertension 09/17/2017 Obesity (BMI 30.0-34.9) 12/10/2016 Carotid stenosis 07/17/2016 Overview (05/12/2024): 50-69%, 07/17/2016 Type II diabetes mellitus with renal manifestati ons 06/29/2016 Depression 01/11/2014 Insomnia 01/11/2014 Fatty liver disease, nonalcoholic 04/07/2013 Mixed hyperlipidemia 02/08/2011 Diverticulitis of colon without hemorrhage 01/20 Overview (05/12/2024): Identified on CT scan examination. Hemorrhage of gastrointestinal tract 01/21/2008 Overview (05/12/2024): History of small volume rectal bleeding. Negative colonoscopy 03/06/2006, performed by Dr. Michael Salgado. IMO update IBS (irritable bowel syndrome) 01/02/2008 Restless legs syndrome (RLS) 12/20/2007 Hypothyroidism 07/06/2005 Encounters Date Type Department Care Team Description 08/07/2024 11:30 AM EST Consult Orthopedic Surgery - [place] [address] [place] [phone] Marvin Quan MD Stress fracture of left tibia with delayed healing, subsequent encounter (Primary Dx); Acute medial meniscus tear of left knee, subsequent encounter; Arthritis of left knee 07/06/2024 Telephone Adult Medicine [address] [phone] Maximino Campbell MD Forms/questionnaires from Last 3 Months Immunizations Name Administration Dates Next Due Influenza Quadravalent, MDCK , 0.5ml, preservative free (Flucelvax) 6mo and older 05/04/2022 Influenza trivalent, with pr eservative (Fluzone; Afluria) 6mo and older 08/11/2021,04/14/2020,05/18/2019,07/19 Pneumococcal polysaccharide 23 valent (Pneumovax 23) 2yo and older 11/15/2016 Td Tetanus diptheria (Tdvax) 7yo and older 09/07/2017 Tdap Tetanus diptheria acell ular pertussis (Boostrix; Adacel) 7yo and older 06/11/2007 Surgical History Surgery Date Site/Laterality Comments TONSILLECTOMY PROCEDURE: HISTORICAL TONSILLECTOMY OTHER SURGICAL HISTORY PROCEDURE: WI HEMORRHOIDECTOMY NTRNL & XTRNL 1 COLUMN/GROUP SINUS SURGERY PROCEDURE: WI UNLISTED PROCEDURE ACCESSORY SINUSES; COMMENT: times three CARPAL TUNNEL RELEASE 2005 PROCEDURE: HISTORICAL CARPAL TUNNEL REL; COMMENT: bilateral TYMPANOSTOMY TUBE PLACEMENT PROCEDURE: HISTORICAL PE TUBES COLONOSCOPY 10/03/2015 PROCEDURE: HISTORICAL COLONOSCOPY; COMMENT: 1 cm polyp and 3 small polyps-> tub. adenomas UPPER GASTROINTESTINAL ENDOSCOPY 07/12/2009 PROCEDURE: WI UPPER GI ENDOSCOPY PERFORMED; COMMENT: SB biopsy: Normal. Gastric biopsy mijnimal reactive changes (Hpylori-) COLONOSCOPY 03/06/2006 PROCEDURE: HISTORICAL COLONOSCOPY; COMMENT: Negative examination, [facility]ONOSCOPY 02/11/2019 PROCEDURE: HISTORICAL COLONOSCOPY; COMMENT: no polyps. OTHER SURGICAL HISTORY PROCEDURE: HISTORY OTHER; COMMENT: right elbow surgery, ulnar transposition, chronic neuropathy; multiple surgeries SHOULDER SURGERY 2007 PROCEDURE: HISTORICAL SHOULDER SURGERY KNEE SURGERY PROCEDURE: HISTORICAL KNEE SURGERY; COMMENT: x2, most recent 2017 THROAT SURGERY N/A Medical History Medical History Date Comments Other and unspecified hyperlipidemia DX:Other and unspecified hyperlipidemia Unspecified hypothyroidism DX:Un specified hypothyroidism Restless legs syndrome (RLS) 12/20/2007 DX: Restless legs syndrome (RLS) Diverticulosis of colon (wit hout mention of hemorrhage) 01/21/2008 DX:Diverticulosis of colon ( without mention of hemorrhage); COMMENT: Identified on CT scan examination. Hemorrhage of gastrointestin al tract, unspecified 01/21/2008 DX:Hemorrhage of gastrointes tinal tract, unspecified; COMMENT: History of small volume rectal bleeding. Negative colonoscopy 03/06/2006, performed by Dr. Michael Salgado. Historical Medical DX 11/12/2011 DX:AAA fam richelle hx Insomnia 01/11/2014 DX:Insomnia DM w/o complication type II, uncontrolled 06/29/2016 DX:DM w/o complication type II, uncontrolled Obese 12/10/2016 DX:Obese Hypertension 09/17/2017 DX:Hypertension History of colon polyps 10/12/2015 DX:Histo ry of colon polyps; COMMENT: Colonoscopy 10/03/15 -tubular adenomas Negative colonoscopy 02/11/2019, no colon cancer screening needed for 5 years. Sleep apnea Arthritis Family History Medical History Relation Name Comments Hyperlipidemia Father in f all Heart attack Mother 2010, kidney failure, breast cancer, DM, cholesterol Colon cancer Neg Hx Relation Name Status Comments Father (Age 80) Mother (Age 78) Social History Tobacco Use Types Packs/Day Years Used Date Smoking Tobacco: Never Smokeless Tobacco: Never Alcohol Use Standard Drinks/Week Comments Not Currently 0 (1 standard drink = 0.6 oz pur e alcohol) Sex and Gender Information Value Date Recorded Sex Assigned at Male 07/20/2024 10:34 AM EST Legal Sex Male 6:46 AM EST Gender Identity Male 07/20/2024 10:34 AM EST Sexual Orientation Not on file Obstetrics History Last Filed Vital Signs Vital Sign Reading Time Taken Comments Blood Pressure 126/74 06/22/2024 11:11 AM EST Pulse 76 06/22/2024 11:11 AM EST Temperature - - Respiratory Rate 16 06/22/2024 11:11 AM EST Oxygen Saturation - - Inhaled Oxygen Concentration - - Weight 97.5 kg (215 lb) 09/17/2024 12:00 PM EST Height 175.3 cm (5' 9 ) 09/17/2024 12:00 PM EST Body Mass Index 31.75 09/17/2024 12:00 PM EST Plan of Treatment Upcoming Encounters Date Type Department Care Team (Late st Contact Info) Description 10/06/2024 10:00 AM EST Consult Adult Medicine [address] [phone] Maximino Campbell MD [address] [place] [address] 10/22/2024 9:30 AM EDT Hospital Encounter [facility] [place] [address] [place] [phone] Marvin Quan MD [address] [place] [address] 10/22/2024 9:30 AM EDT - 10/22/2024 11:[address] [facility] OR [address] [place] [phone] Marvin Quan MD [address] [address] ARTHROSCOPY LEFT KNEE,percutaneous injection of the proximal medial tibia stress fracture under fluoroscopic guidance. [58640 (CPT??) +1 more] 10/29/2024 10:30 AM EDT Evaluation Outpatient Rehabilitation [address] [phone] Rivas Hook, PT 11/06/2024 11:30 AM EDT Office Visit Orthopedic Surgery - [place] [address] [phone] Kenzie Conner PA [address] [address] 12/16/2024 9:45 AM EDT Office Visit Adult Medicine [address] [phone] Maximino Campbell MD [address] [place] [address] 02/24/2025 9:00 AM EDT Office Visit Adult Medicine [address] [phone] Maximino Campbell MD [address] [place] [address] Scheduled Procedures Name Priority Associated Diagnoses Date/Ti me ARTHROSCOPY KNEE Stress fracture of left tibia with delayed healing, subsequent encounter Acute medial meniscus tear of left knee, subsequent encounter Arthritis of left knee 10/22/2024 9:30 AM EDT Health Maintenance Due Date Last Done Comments Diabetes: Annual Retina Eye Exam 12/22/1970 Pneumococcal Vaccine: 50+ Years (2 of 2 - PCV) 11/15/2017 11/15/2016 Pneumococcal Vaccine: Pediatrics (0 to 5 Years) and At-Risk Patients (6 to 64 Years) (2 of 2 - PCV) 11/15/2017 11/15/2016 RSV Immunization Patients 60+ Years Old (1 - Risk 60-74 years 1-dose series) 2019 HIV Screening 07/14/2022 Medicare Annual Wellness Visit 07/14/2022 Social Influencers of Health Screening 07/14/2022 COVID-19 Vaccine (4 - season) 2024 08/11/2021, 11/21/2020, 10/24/2020 Influenza Vaccine (#1) 2024 , 08/11/2021, 04/14/2020, Additional history exists Diabetes: Annual Foot Exam 05/13/2024 05/13/2023 Zoster Vaccines (2 of 2) 05/26/2024 03/31/2024 Diabetes: Blood Sugar Control Test (HGBA1C) 10/11/2024 04/13/2024, 04/13/2024 Depression Screening 04/13/2025 04/13/2024 Diabetes: Annual Urine Albumin-Creatinine Ratio (uACR) 04/13/2025 04/13/2024 Diabetes: Annual GFR (Glomerular Filtration Rate) 04/13/2025 04/13/2024, 04/13/2024 Hypertension/CHF/CAD Annual BMP Blood Test 04/13/2025 04/13/2024, 04/13/2024 Colorectal Cancer Screening: Colonoscopy 01/01/2029 01/02/2024 Cholesterol Screening (Lipid Panel) 04/13/2029 04/13/2024, 04/13/2024 DTaP,Tdap,and Td Vaccines (5 - Td or Tdap) 10/08/2032 10/08/2022, 06/05/2021, 09/07/2017, Additional history exists Hepatitis C Screening Completed 07/12/2009 HIB Vaccines Aged Out No longer eligi ble based on patient's age to complete this topic HPV Vaccines Aged Out No longer eligi ble based on patient's age to complete this topic Hepatitis A Vaccines Aged Out No long er eligible based on patient's age to complete this topic Hepatitis B Vaccines Aged Out No long er eligible based on patient's age to complete this topic IPV Vaccines Aged Out No longer eligi ble based on patient's age to complete this topic MMR Vaccines Aged Out No longer eligi ble based on patient's age to complete this topic Meningococcal ACWY Vaccine Aged Out N o longer eligible based on patient's age to complete this topic Meningococcal B Vacine Aged Out No lo nger eligible based on patient's age to complete this topic RSV Immunization Patients Under 20 months Aged Out No longer eligible based on patient's age to complete this topic Varicella Vaccines Aged Out No longer eligible based on patient's age to complete this topic Medical Devices Implanted Type Area Insulation Power Unit Tender Device Identifier Shelf Expiration Date Model / Serial / Lot Implants Implants N/A: Throat Procedures Procedure Name Priority Date/Time Associated Diagnosis Comments MR KNEE WO CONTRAST LEFT Routine 08/07/2024 3:14 PM EST EXTERNAL MRI REPORT Routine 07/20/2024 1 :45 PM EST DEPRESSION SCREENING Routine 04/13/2024 URINE ALBUMIN CREATININE RATIO Routine 04/13/2024 ANNUAL BMP BLOOD TEST Routine 04/13/2024 HEMOGLOBIN A1C Routine 04/13/2024 LIPID PANEL Routine 04/13/2024 COLONOSCOPY Routine 01/02/2024 DIABETES FOOT EXAM Routine 05/13/2023 HEPATITIS C SCREENING Routine 07/12/2009 from Last 3 Months or Most Recently Relevant to Health Maintenance Results * MR Knee wo Contrast Left (08/07/2024 3:14 PM EST) Anatomical Region Laterality Modality Lower Extremities, Knee Left Magnetic Resonance Historical Provider IMG MRI PROCEDURES Final Result * External MRI Report (07/20/2024 1:45 PM EST) Anatomical Region Laterality Modality Magnetic Resonan ce Historical Provider IMG MRI PROCEDURES Final Result * Urine Albumin Creatinine Ratio (04/13/2024) Urine Albumin Creatinine Ratio abstracted Historical Provider HEALTH MAINTENANCE Final Result * Annual BMP Blood Test (04/13/2024) Pathologist [facility] Annual BMP Blood Test abstracted Result [facility] Provider HEALTH MAINTENANCE Final Result * Depression Screening (04/13/2024) [facility] Depression Screening abstracted Result [facility] Provider HEALTH MAINTENANCE Final Result * Hemoglobin A1c (04/13/2024) [facility] Hemoglobin A1C 6.4 <=6.5 % Blood Venous blood specimen / Unknown Result [facility] Provider LAB BLOOD ORDERABLES Yun l Result * (ABNORMAL) Lipid panel (04/13/2024) [facility] LDL/HDL Ratio 3 0 - 4 Triglycerides 258(A) 0 - 150 mg/dL Cholesterol 141 0 - 200 mg/dL HDL 51 >=40 mg/dL LDL Cholesterol 39 0 - 100 mg/dL Blood Venous blood specimen / Unknown Result [facility] Provider LAB BLOOD ORDERABLES Yun l Result * Colonoscopy (01/02/2024) [facility] Colonoscopy no interpretation abstracted Anatomical Region Laterality Modality Other Result [facility] Provider HEALTH MAINTENANCE Final Result * Diabetes Foot Exam (05/13/2023) [facility] Diabetes: Annual Foot Exam abstracted Result [facility] Provider HEALTH MAINTENANCE Final Result * Hepatitis C Screening (07/12/2009) [facility] Hepatitis C Screening abstracted Result [facility] Provider HEALTH MAINTENANCE Final Result from Last 3 Months or Most Recently Relevant to Health Maintenance Insurance [facility] MEDICARE Care Teams Steam Trap Man Relationship Specialty Start Date End Date Maximino Campbell MD [address] [place] [address] PCP - General Internal Medicine 02/29/20
--- OUTSIDE RECORDS SUMMARY | 2024-09-23 10:56 | XMS_ITS | Encounter Summary ---
Author Organization [facility] Address [address] [place] [address] Care Team Providers Care Cellophaner Name Role Phone Aidan Dorantes MD Primary Care Provider Unavail able Maximino Campbell MD Primary Care Provider [phone] Aidan Dorantes MD Unavailable Unavailable Aidan Dorantes MD Unavailable Unavailable Eamon Gentile MD Unavailable Unavailable Rahat Matta NP Unavailable [phone] Esther Ramon MD Unavailable [phone] Haley Huang PA-C Unavailable [phone] Aidan Joseph PA-C Unavailable [phone] Encounter Details Date Type Department Care Team Description 06/30/2019 Hospital Medical Records [address] [place] [phone] Liliana Calderon Social History Tobacco Use Types Packs/Day Years [...] on filedocumented in this encounter Care Teams Cellophaner Relationship Specialty Start Date End Date Aidan Dorantes MD PCP - General 06/26/14 02/28/20 Maximino Campbell MD [address] [place] [address] PCP - General Internal Medicine 02/29/20 Aidan Dorantes MD 06/26/14 02/28/20 Aidan Dorantes MD 02/29/20 Eamon Gentile MD Dishroom Attendant Cardiovascular Disease 05/17/21 Rahat Matta NP Nurse Practitioner Cardiology 11/28/21 Esther Ramon MD 175 [facility] [address] [place] [address] Specialist Neurosurgery 06/07/22 Haley Huang PA-C [address] [address] Specialist Neurosurgery 01/11/23 Aidan Joseph PA-C 175 [facility] [address] [place] [address] Specialist Neurosurgery 01/11/23 documented as of this encounter
--- OUTSIDE RECORDS SUMMARY | 2024-09-23 10:56 | XMS_ITS | Encounter Summary ---
Author Organization [facility] Address [address] [place] [address] Care Team Providers Care Bank Secrecy Act Officer Name Role Phone Aidan Dorantes MD Primary Care Provider Unavail able Maximino Campbell MD Primary Care Provider [phone] Aidan Dorantes MD Unavailable Unavailable Adian Doratnes MD Unavailable Unavailable Eamon Gentile MD Unavailable Unavailable Rahat Matta NP Unavailable Esther Ramon MD Unavailable [phone] Haley Huang PA-C Unavailable [phone] Aidan Joseph PA-C Unavailable Encounter Details Date Type Department Care Team Description 03/13/2019 Orders Only Adult Medicine [facility] [address] [place] [phone] Michelle Morrison PA-C [address] [place] [address] [phone] Type 2 diabetes mellitus with microalbuminuria, without long-term current use of insulin (HCC) (Primary Dx); Essential hypertension Social History Tobacco Use Types Packs/Day Years [...] documented as of this encounter Results * BASIC METABOLIC PANEL (03/13/2019 10:14 AM EDT) GLUCOSE 94 70 - 100 mg/dL 03/13/2019 2:10 PM EDT [facility] Comment:Reference range appl icable to fasting specimens only Blood Urea Nitrogen 13 5 - 25 mg/dL 03/13/2019 2:10 PM EDT [facility] CREAT 1.07 0.7 - 1.3 mg/dL 03/13/2019 2:10 PM EDT [facility] GLOMERULAR FILTRATION RATE > 60 03/13/2019 2:10 PM EDT [facility] Comment: If patient is -Angolan, multiply result by 1.21 Chronic Kidney Disease: < 60 ml/min/1.73 square meters Kidney Failure: < 15 ml/min/1.73 square meters NA 140 133 - 145 mmol/L 03/13/2019 2:10 PM EDT [facility] K 4.5 3.5 - 5.5 mmol/L 03/13/2019 2:10 PM EDT [facility] 107 96 - 110 mmol/L 03/13/2019 2:10 PM EDT [facility] CARBON DIOXIDE (CO2) 27 21 - 32 mmol/L 03/13/2019 2:10 PM EDT [facility] ANION GAP 6 3 - 11 03/13/2019 2:10 PM EDT [facility] CALCIUM 9.2 8.5 - 10.5 mg/dL 03/13/2019 2:10 PM EDT [facility] 03/13/2019 10:1 4 AM EDT 03/13/2019 10:14 AM EDT Michelle Morrison PA-C LAB [facility] * HEMOGLOBIN A1C (03/13/2019 10:14 AM EDT) GLYCATED HEMOGLOBIN A1C 5.9 <6.5 % 03/13/2019 4:11 PM EDT [facility] ESTIMATED AVERAGE GLUCOSE 123 mg/dL 03/13/2019 4:11 PM EDT [facility] 03/13/2019 10:1 4 AM EDT 03/13/2019 10:14 AM EDT Michelle Morrison PA-C LAB [facility] documented in this encounter Visit Diagnoses Diagnosis Type 2 diabetes mellitus with microalbuminuria, without long-term current use of insulin (HCC)- Primary Essential hypertension Unspecified essential hypertension documented in this encounter Care Teams Bank Secrecy Act Officer Relationship Specialty Start Date End Date Aidan Dorantes MD PCP - General 06/26/14 02/28/20 Maximino Campbell MD [address] [place] [phone] PCP - General Internal Medicine 02/29/20 Aidan Dorantes MD 06/26/14 02/28/20 Aidan Dorantes MD 02/29/20 Eamon Gentile MD Sous Chef Cardiovascular Disease 05/17/21 Rahat Matta NP Nurse Practitioner Cardiology 11/28/21 Esther Ramon MD [address] [address] Specialist Neurosurgery 06/07/22 Haley Huang PA-C [address] [address] Specialist Neurosurgery 01/11/23 Aidan Joseph PA-C [address] [address] Specialist Neurosurgery 01/11/23 documented as of this encounter
--- OUTSIDE RECORDS SUMMARY | 2024-09-23 10:56 | XMS_ITS | Encounter Summary ---
Author Organization [facility] Address [address] [place] [address] Care Team Providers Care Swamper Name Role Phone Maximino Campbell MD Primary Care Provider [phone] Aidan Dorantes MD Unavailable Unavailable Eamon Gentile MD Unavailable Unavailable Rahat Matta NP Unavailable [phone] Esther Ramon MD Unavailable [phone] Haley Huang PA-C Unavailable [phone] Aidan Joseph PA-C Unavailable [phone] Encounter Details Date Type Department Care Team Description 01/25/2023 SCAN [facility] Medical [facility] Neurosurgery [place] [address] [address] Haley Huang PA-C [address] [phone] Social History Tobacco Use Types Packs/Day Years [...] suspected to have Coronavirus/COVID-19? No / Unsure 01/04/2023 2:50 PM EDT documented as of this encounter Plan of Treatment Not on file documented as of this encounter Visit Diagnoses Not on filedocumented in this encounter Care Teams Swamper Relationship Specialty Start Date End Date Maximino Campbell MD [address] [place] [phone] PCP - General Internal Medicine 02/29/20 Aidan Dorantes MD [address] [place] [address] 02/29/20 Eamon Gentile MD [address] [place] [address] Bacon Slicer Cardiovascular Disease 05/17/21 Rahat Matta NP [address] [place] [phone] Nurse Practitioner Cardiology 11/28/21 Esther Ramon MD [address] [address] Specialist Neurosurgery 06/07/22 Haley Huang PA-C [address] [address] Specialist Neurosurgery 01/11/23 Aidan Joseph PA-C [address] [address] Specialist Neurosurgery 01/11/23 documented as of this encounter
--- OUTSIDE RECORDS SUMMARY | 2024-09-23 10:56 | XMS_ITS | Encounter Summary ---
Author Organization [facility] Address [address] [place] [address] Care Team Providers Care Enterprise Systems Administrator Name Role Phone Maximino Campbell MD Primary Care Provider [phone] Aidan Dorantes MD Unavailable Unavailable Eamon Gentile MD Unavailable Unavailable Rahat Matta NP Unavailable [phone] Esther Ramon MD Unavailable [phone] Haley Huang PA-C Unavailable Aidan JosephC Unavailable Encounter Details Date Type Department Care Team Description 06/01/2024 Pt. Non Urgent Medical Question Adult Medicine [address] [phone] Maximino Campbell MD [address] [place] [address] [id number] Social History Tobacco Use Types Packs/Day Years [...] Telephone Encounter - Irasema Schultz L.P.N. - 06/01/2024 1:28 PM EDTFrom: Quentin Arcos Chauncey To: Isrrael Campbell Sent: 06/01/2024 12:17 PM EDT Subject: Diabetic Shoes & inserts Dr Campbell I went to see Dr Taurus Gonzalez for my feet and he wrote up a script for shoes & inserts. I need a note from you to [facility] located [address] [place] [address] saying you did a [facility] for my diabetes. I last seen you on May.26 they need a note from my primary (you) stating you seen me abou t diabetes. In the notes when I last seen you is what they wantbut you need to sign and send them so I can get the shoes. [facility] saidthey will be contacting you for the information they need just giving you a heads up. Quentin (Yumikop) Chauncey documented in this encounter Plan of Treatment Not on file documented as of this encounter Visit Diagnoses Not on filedocumented in this encounter Care Teams Enterprise Systems Administrator Relationship Specialty Start Date End Date Maximino Campbell MD [address] [place] [address] PCP - General Internal Medicine 02/29/20 Aidan Dorantes MD [address] [place] [address] 02/29/20 Eamon Gentile MD [address] [place] [address] Health Promotion Manager Cardiovascular Disease 05/17/21 Rahat Matta NP [address] [place] [address] Nurse Practitioner Cardiology 11/28/21 Esther Ramon MD [address] [place] [address] Specialist Neurosurgery 06/07/22 Haley Huang PA-C [address] [address] Specialist Neurosurgery 01/11/23 Aidan Joseph PA-C [address] [address] Specialist Neurosurgery 01/11/23 documented as of this encounter
--- OUTSIDE RECORDS SUMMARY | 2024-09-23 10:56 | XMS_ITS | Encounter Summary ---
Author Organization [facility] Address [address] [place] [address] Care Team Providers Care Inshore Undersea Warfare Officer Name Role Phone Maximino Campbell MD Primary Care Provider [phone] Aidan Dorantes MD Unavailable Unavailable Eamon Gentile MD Unavailable Unavailable Rahat Matta NP Unavailable [phone] Esther Ramon MD Unavailable [phone] Haley Huang PA-C Unavailable [phone] Aidan Joseph-C Unavailable Reason for Visit * Reason Onset Date Comments sleeping problems 11/28/2022 Hallucination 11/28/2022 Encounter Details Date Type Department Care Team Description 11/28/2022 Telephone Adult [address] [address] Maximino Campbell MD [address] [place] [address] sleeping problems; Hallucination Social History Tobacco Use Types Packs/Day Years [...] suspected to have Coronavirus/COVID-19? No / Unsure 11/16/2022 10:33 AM EDT documented as of this encounter Miscellaneous Notes * Telephone Encounter - Shirley Recinos R.N. - 11/28/2022 3:40 PM EDT I left a message for the patient to return my call. * Telephone Encounter - Trent Mahoney - 11/28/2022 3:23 PM EDT Symptoms patient is presenting: Sleeping problem, sleep walking, hallucination For ALL patients calling to schedule any appointment (routine, sick visit, follow up, consult, etc.) in the outpatient setting please ask the following questions: ?? Do you have fever of higher than 101, sore throat with difficulty swallowing or severe shortnessof breath? NO If YES to any of these above symptoms, send a message to triage and do not book. Red dot. If no, an audio or video visit should be booked. ?? Have you had close contact with someone with Coronavirus in the last 14 days? NO ?? Have you traveled abroad? NO ?? Have you traveled recently to another state outside of [place], [place], [place], [place], [place], [place], [place]? NO o If yes, did you quarantine for 14 days or have a negative covid test? NO If yes to any of the above, patient is not to be scheduled in office until after 14 day quarantine or negative covid test. If pain or injury related was it due to an accident at work or from a motor vehicle accident? NO If yes, gather 3rd libertarian insurance information Date of accident/Injury: How long has patient had these symptoms?: 6 month PCP: Maximino Campbell Payor: [employer] / Plan: HMO $30 CLAY 1500 / Product Type: HMO [id number] documented in this encounter Plan of Treatment Not on file documented as of this encounter Visit Diagnoses Not on filedocumented in this encounter Care Teams Inshore Undersea Warfare Officer Relationship Specialty Start Date End Date Maximino Campbell MD [address] [place] [address] PCP - General Internal Medicine 02/29/20 Aidan Dorantes MD [address] [place] [address] 02/29/20 Eamon Gentile MD [address] [place] [address] Brand Engineer Cardiovascular Disease 05/17/21 Rahat Matta NP [address] [place] [address] Nurse Practitioner Cardiology 11/28/21 Esther Ramon MD [address] [address] Specialist Neurosurgery 06/07/22 Haley Huang PA-C [address] [place] [address] Specialist Neurosurgery 01/11/23 Aidan Joseph PA-C [address] [place] [address] Specialist Neurosurgery 01/11/23 documented as of this encounter
--- OUTSIDE RECORDS SUMMARY | 2024-09-23 10:56 | XMS_ITS | Encounter Summary ---
Author Organization [facility] Address [address] [place] [address] Care Team Providers Care Technology Intern Name Role Phone Maximino Campbell MD Primary Care Provider Aidan Dorantes MD Unavailable Unavailable Eamon Gentile MD Unavailable Unavailable Rahat Matta NP Unavailable [phone] Esther Ramon MD Unavailable [phone] Haley Huang-C Unavailable [phone] Aidan Joseph PA-C Unavailable [phone] Encounter Details Date Type Department Care Team Description 10/02/2021 Hospital Medical Records [address] [place] [address] Delroy Tom MD Social History Tobacco Use Types Packs/Day [...] have Coronavirus / COVID-19? No / Unsure 10/02/2021 12:39 PM EST documented as of this encounter Plan of Treatment Not on file documented as of this encounter Procedures Procedure Name Priority Date/Time Associated Diagnosis Comments OUTSIDE LAB Routine 10/03/2021 OUTSIDE LAB Routine 10/03/2021 OUTSIDE EKG Routine 10/02/2021 OUTSIDE MRI/MRA Routine 10/02/[address] Routine 10/02/2021 documented in this encounter Results * OUTSIDE LAB (10/03/2021) Provider Default LAB * OUTSIDE LAB (10/03/2021) Provider Default LAB * OUTSIDE CT (10/02/2021) Provider Default RADIOLOGY * OUTSIDE MRI/MRA (10/02/2021) Provider Default RADIOLOGY * OUTSIDE EKG (10/02/2021) Provider Default CARDIOLOGY documented in this encounter Visit Diagnoses Not on filedocumented in this encounter Care Teams Technology Intern Relationship Specialty Start Date End Date Maximino Campbell MD [address] [place] [address] PCP - General Internal Medicine 02/29/20 Aidan Dorantes MD [address] [place] [address] 02/29/20 Eamon Gentile MD [address] [place], [place] [phone] Head Bucker Cardiovascular Disease 05/17/21 Rahat Matta NP [address] [place] [address] Nurse Practitioner Cardiology 11/28/21 Esther Ramon MD [address] [address] Specialist Neurosurgery 06/07/22 Haley Huang PA-C [address] [address] Specialist Neurosurgery 01/11/23 Aidan Joseph PA-C [address] [address] Specialist Neurosurgery 01/11/23 documented as of this encounter
--- OUTSIDE RECORDS SUMMARY | 2024-09-23 10:56 | XMS_ITS | Encounter Summary ---
Author Organization [facility] Address [address] [place] [address] Care Team Providers Care Cranberry Bog Supervisor Name Role Phone Maximino Campbell MD Primary Care Provider Aidan Dorantes MD Unavailable Unavailable Eamon Gentile MD Unavailable Unavailable Rahat Matta NP Unavailable [phone] Esther Ramon MD Unavailable [phone] Haley Huang PA-C Unavailable Aidan JosephC Unavailable [phone] Reason for Visit * Reason Onset Date Comments Jig Grinder Set Up Operator Feedback 10/23/2021 Dr. Carlson Encounter Details Date Type Department Care Team Description 10/23/2021 Pt. Non Urgent Medic al Question Medicine/Pediatrics - [address] [id number] Emmie Alberts MD Social History Tobacco Use Types Packs/Day [...] suspected to have Coronavirus/COVID-19? No / Unsure 10/25/2021 7:03 AM EDT documented as of this encounter Miscellaneous Notes * Telephone Encounter - Irasema Schultz L.P.N. - 10/23/2021 8:47 AM EDTFrom: Quentin Grossman To: Aaron Alberts Sent: 10/23/2021 12:25 AM EDT Subject: I have not received any response about seeing neurologist How are you making out about me seeing a neurologist my last appointment you were going to reach out to [facility] and try to find out about the neurologist who looked at me real quick before being discharged. You had mentioned about possibly a neurologist to see if the one from [facility] di d not w ork out. Seems like a run around just to get an appointment with someone that can help me in the right direction. I know you are trying to help me and I really do appreciate that but with everyone understaffed it makes it harder for getting help. I would like to switch over to you if it's possible I know quite a few doctors have left from [place] and I would feel comfortable seeing you. So if youcan help steer me in the right di rection about seeing neurologist I would be grateful. documented in this encounter Plan of Treatment Not on file documented as of this encounter Visit Diagnoses Not on filedocumented in this encounter Care Teams Cranberry Bog Supervisor Relationship Specialty Start Date End Date Maximino Campbell MD [address] [place] [address] PCP - General Internal Medicine 02/29/20 Aidan Dorantes MD [address] [place] [address] 02/29/20 Eamon Gentile MD [address] [place] [address] Employee Relations Consultant Cardiovascular Disease 05/17/21 Rahat Matta NP [address] [place] [address] Nurse Practitioner Cardiology 11/28/21 Esther Ramon MD [address] [place] [address] Specialist Neurosurgery 06/07/22 Haley Huang PA-C [address] [address] Specialist Neurosurgery 01/11/23 Aidan Joseph PA-C [address] [facility] [address] [place] [address] Specialist Neurosurgery 01/11/23 documented as of this encounter
--- OUTSIDE RECORDS SUMMARY | 2024-09-23 10:56 | XMS_ITS | Encounter Summary ---
Author Organization [facility] Address [address] [place] [address] Care Team Providers Care Computer Networking Instructor Adjunct Name Role Phone Aidan Dorantes MD Primary Care Provider Unavail able Maximino Campbell MD Primary Care Provider [phone] Aidan Dorantes MD Unavailable Unavailable Aidan Dorantes MD Unavailable Unavailable Eamon Gentile MD Unavailable Unavailable Rahat Matta NP Unavailable [phone] Esther Ramon MD Unavailable [phone] Haley Huang PA-C Unavailable [phone] Aidan Joseph PA-C Unavailable [phone] Reason for Visit * Reason Comments E-prescribe Rx Request Encounter Details Date Type Department Care Team Description 08/22/2017 Refill Adult Medicine [address] [phone] Pardeep Plasencia PA-C E-prescribe Rx Request Social History Tobacco Use [...] encounter Miscellaneous Notes * Telephone Encounter - Sukumar Acuna C.M.A. - 08/22/2017 11:28 AM EST Pharmacy requesting levothyroxine, pt is over due for f/u appt. Message left for patient to return my call. * Telephone Encounter - Serena Muñoz - 08/22/2017 11:26 AM EST Patient would like script to be: E-PRESCRIBED/FAXED TO PHARMACY WHEN WAS THE PATIENT'S LAST APPOINTMENT IN ADULT MEDICINE? 4.13.17 WHEN WAS THE LAST TIME THE PATIENT SAW THEIR PCP? Same as above Does patient have an upcoming appointment? Patient was sent a My Chart request to set up an appointment as they are due. (THE MEDICATION REQUESTED IS ON THE MED LIST ABOVE) All of the medications requested were on the CURRENT MEDS list Did you check the Pharmacy information above?: YES Patient wants: 90 -day supply Is this a mail order prescription request ? NO Patients current insurance carrier is: Payor: [employer] / Plan: INDEMNITY $0 [employer] [id number] / Product Type: INDEMNITY documented in this encounter Plan of Treatment Not on file documented as of this encounter Visit Diagnoses Diagnosis Hypothyroidism Unspecified hypothyroidism documented in this encounter Care Teams Computer Networking Instructor Adjunct Relationship Specialty Start Date End Date Aidan Dorantes MD PCP - General 06/26/14 02/28/20 Maximino Campbell MD [address] [place] [address] PCP - General Internal Medicine 02/29/20 Aidan Dorantes MD 06/26/14 02/28/20 Aidan Dorantes MD 02/29/20 Eamon Gentile MD Inbound Call Center Agent Cardiovascular Disease 05/17/21 Rahat Matta NP Nurse Practitioner Cardiology 11/28/21 Esther Ramon MD [address] [id number] Specialist Neurosurgery 06/07/22 Haley Huang PA-C [address] [address] Specialist Neurosurgery 01/11/23 Aidan Joseph PA-C 175 [facility] [address] [place] [address] Specialist Neurosurgery 01/11/23 documented as of this encounter
--- OUTSIDE RECORDS SUMMARY | 2024-09-23 10:56 | XMS_ITS | Encounter Summary ---
Author Organization [facility] Address [address] [place] [address] Care Team Providers Care Motor Runner Name Role Phone Aidan Dorantes MD Primary Care Provider Unavail able Maximino Campbell MD Primary Care Provider [phone] Aidan Dorantes MD Unavailable Unavailable Aidan Dorantes MD Unavailable Unavailable Eamon Gentile MD Unavailable Unavailable Rahat Matta NP Unavailable [phone] Esther Ramon MD Unavailable [phone] Haley Huang PA-C Unavailable [phone] Aidan Joseph PA-C Unavailable [phone] Encounter Details Date Type Department Care Team Description 12/11/2018 Hand Surgeon Report Medical Records [address] [place] [address] Juan Francisco Reid MD Social History Tobacco Use Types Packs/Day [...] on filedocumented in this encounter Care Teams Motor Runner Relationship Specialty Start Date End Date Aidan Dorantes MD PCP - General 06/26/14 02/28/20 Maximino Campbell MD [address] [place] [address] [phone] PCP - General Internal Medicine 02/29/20 Aidan Dorantes MD 06/26/14 02/28/20 Aidan Dorantes MD 02/29/20 Eamon Gentile MD Grain Drier Cardiovascular Disease 05/17/21 Rahat Matta NP Nurse Practitioner Cardiology 11/28/21 Esther Ramon MD [address] [phone] Specialist Neurosurgery 06/07/22 Haley Huang PA-C [address] [address] Specialist Neurosurgery 01/11/23 Aidan Joseph PA-C 175 [facility] [address] [place] [address] Specialist Neurosurgery 01/11/23 documented as of this encounter
--- OUTSIDE RECORDS SUMMARY | 2024-09-23 10:56 | XMS_ITS | Encounter Summary ---
Author Organization [facility] Address [address] [place] [address] Care Team Providers Care Studio Potter Name Role Phone Aidan Dorantes MD Primary Care Provider Unavail able Aidan Dorantes MD Primary Care Provider Unavail able Maximino Campbell MD Primary Care Provider Aidan Dorantes MD Unavailable Unavailable Aidan Dorantes MD Unavailable Unavailable Eamon Gentile MD Unavailable Unavailable Rahat Matta NP Unavailable [phone] Esther Ramon MD Unavailable [phone] Haley Haung PA-C Unavailable [phone] Aidan Joseph PA-C Unavailable [phone] Encounter Details Date Type Department Care Team Description 05/06/2012 Pt. Non Urgent Medic al Question Adult Medicine [address] [phone] Aidan Dorantes MD Social History Tobacco Use [...] as of this encounter Progress Notes * Winter Al L.P.N. - 05/07/2012 9:01 AM EDTFrom: QUENTIN GROSSMAN To: Aidan Dorantes MD Sent: Puma May 06, 2012 7:02 PM Subject: Thyroid Test No one contact me about the test levels. Compared to my history the levels look low. I would like someone to call me and discuss this. I have been feeling worse as time go's bye. Have no energy and feel like nodding out during the day. It's getting tougher bye the week. Do you want me to stop in and leave another blood sample. documented in this encounter Plan of Treatment Not on file documented as of this encounter Visit Diagnoses Not on filedocumented in this encounter Care Teams Studio Potter Relationship Specialty Start Date End Date Aidan Dorantes MD PCP - General 09/24/03 06/25/14 Aidan Dorantes MD PCP - General 06/26/14 02/28/20 Maximino Campbell MD [address] [place] [address] PCP - General Internal Medicine 02/29/20 Aidan Dorantes MD 06/26/14 02/28/20 Aidan Dorantes MD 02/29/20 Eamon Gentile MD [address] [place] [address] Senior Mechanical Design Engineer Cardiovascular Disease 05/17/21 Rahat Matta NP [address] [place] [address] Nurse Practitioner Cardiology 11/28/21 Esther Ramon MD [address] [place] [address] Specialist Neurosurgery 06/07/22 Haley Huang PA-C [address] [address] Specialist Neurosurgery 01/11/23 Aidan Joseph PA-C [address] [address] Specialist Neurosurgery 01/11/23 documented as of this encounter
--- OUTSIDE RECORDS SUMMARY | 2024-09-23 10:56 | XMS_ITS | Encounter Summary ---
Author Organization [facility] Address [address] [place] [address] Care Team Providers Care Plant Tour Guide Name Role Phone Maximino Campbell MD Primary Care Provider [phone] Aidan Dorantes MD Unavailable Unavailable Eamon Gentile MD Unavailable Unavailable Rahat Matta NP Unavailable [phone] Esther Ramon MD Unavailable [phone] Haley Huang PA-C Unavailable [phone] Aidan Joseph PA-C Unavailable [phone] Encounter Details Date Type Department Care Team Description 10/03/2021 Hospital Medical Records [address] [place] [address] [address] [facility] Social History Tobacco Use Types Packs/Day Years [...] on filedocumented in this encounter Care Teams Plant Tour Guide Relationship Specialty Start Date End Date Maximino Campbell MD [address] [place] [address] PCP - General Internal Medicine 02/29/20 Aidan Dorantes MD [address] [place] [address] 02/29/20 Eamon Gentile MD [address] [place] [address] Forest Fire Prevention Manager Cardiovascular Disease 05/17/21 Rahat Matta NP [address] [place] [address] Nurse Practitioner Cardiology 11/28/21 Esther Ramon MD [address] [address] Specialist Neurosurgery 06/07/22 Haley Huang PA-C [address] [address] Specialist Neurosurgery 01/11/23 Aidan Joseph PA-C [address] [address] Specialist Neurosurgery 01/11/23 documented as of this encounter
--- OUTSIDE RECORDS SUMMARY | 2024-09-23 10:56 | XMS_ITS | Encounter Summary ---
Author Organization [facility] Address [address] [place] [address] Care Team Providers Care Dredge Master Name Role Phone Maixmino Campbell MD Primary Care Provider [phone] Aidan Dorantes MD Unavailable Unavailable Eamon Gentile MD Unavailable Unavailable Rahat Matta NP Unavailable [phone] Esther Ramon MD Unavailable [phone] Haley Huang-C Unavailable [phone] Aidan Joseph PA-C Unavailable Reason for Visit * Reason Onset Date Comments DME Request 11/14/2021 Encounter Details Date Type Department Care Team Description 11/14/2021 Telephone Pulmonology [facility] [address] [facility] [address] [place] [address] Padmini Heard FNP [address] [place], [place] [id number] DME Request Social History Tobacco Use Types [...] encounter Miscellaneous Notes * Telephone Encounter - Bri Arreola - 11/14/2021 3:30 PM EDT Faxed order received from [facility]. Please review, sign, date and return. LALY-12/08/2020 NOV-left message to schedule documented in this encounter Plan of Treatment Not on file documented as of this encounter Visit Diagnoses Not on filedocumented in this encounter Care Teams Dredge Master Relationship Specialty Start Date End Date Maximino Campbell MD [address] [place] [address] PCP - General Internal Medicine 02/29/20 Aidan Dorantes MD [address] [place] [address] 02/29/20 Eamon Gentile MD [address] [place], [place] [phone] Pattern Chain Maker Supervisor Cardiovascular Disease 05/17/21 Rahat Matta NP [address] [place] [address] Nurse Practitioner Cardiology 11/28/21 Esther Ramon MD [address] [address] Specialist Neurosurgery 06/07/22 Haley Huang PA-C [address] [address] Specialist Neurosurgery 01/11/23 Aidan Joseph PA-C [address] [address] Specialist Neurosurgery 01/11/23 documented as of this encounter
--- OUTSIDE RECORDS SUMMARY | 2024-09-23 10:56 | XMS_ITS | Encounter Summary ---
Author Organization [facility] Address [address] [place] [address] Care Team Providers Care Washhouse Worker Name Role Phone Maximino Campbell MD Primary Care Provider [phone] Aidan Dorantes MD Unavailable Unavailable Eamon Gentile MD Unavailable Unavailable Rahat Matta NP Unavailable [phone] Esther Ramon MD Unavailable [phone] Haley Huang-C Unavailable [phone] Aidan Joseph PA-C Unavailable [phone] Encounter Details Date Type Department Care Team Description 02/14/2023 Delphi Developer Report Medical Records [address] [place] [address] Scout Miller Social History Tobacco Use Types [...] suspected to have Coronavirus/COVID-19? No / Unsure 02/07/2023 3:02 PM EDT documented as of this encounter Plan of Treatment Not on file documented as of this encounter Visit Diagnoses Not on filedocumented in this encounter Care Teams Washhouse Worker Relationship Specialty Start Date End Date Maximino Campbell MD [address] [place] [address] PCP - General Internal Medicine 02/29/20 Aidan Dorantes MD [address] [place] [address] 02/29/20 Eamon Gentile MD [address] [place] [address] Lens Coating Technician Cardiovascular Disease 05/17/21 Rahat Matta NP [address] [place] [address] Nurse Practitioner Cardiology 11/28/21 Esther Ramon MD [address] [address] Specialist Neurosurgery 06/07/22 Haley Huagn PA-C [address] [address] Specialist Neurosurgery 01/11/23 Aidan Joseph PA-C [address] [address] Specialist Neurosurgery 01/11/23 documented as of this encounter
--- OUTSIDE RECORDS SUMMARY | 2024-09-23 10:56 | XMS_ITS | Encounter Summary ---
Author Organization [facility] Address [address] [place] [address] Care Team Providers Care Clinic Lpn Name Role Phone Aidan Dorantes MD Primary Care Provider Unavail able Maximino Campbell MD Primary Care Provider Aidan Dorantes MD Unavailable Unavailable Aidan Dorantes MD Unavailable Unavailable Eamon Gentile MD Unavailable Unavailable Rahat Matta NP Unavailable [phone] Esther Ramon MD Unavailable [phone] Haley Huang PA-C Unavailable [phone] Aidan Joseph PA-C Unavailable [phone] Encounter Details Date Type Department Care Team Description 01/15/2019 Linotyper Report Medical Records [address] [place] [address] Eamon Gentile MD Social History Tobacco Use [...] on filedocumented in this encounter Care Teams Clinic Lpn Relationship Specialty Start Date End Date Aidan Dorantes MD PCP - General 06/26/14 02/28/20 Maximino Campbell MD [address] [place] [address] [id number] PCP - General Internal Medicine 02/29/20 Aidan Dorantes MD 06/26/14 02/28/20 Aidan Dorantes MD 02/29/20 Eamon Gentile MD Battery Test Engineer Cardiovascular Disease 05/17/21 Rahat Matta NP Nurse Practitioner Cardiology 11/28/21 Esther Ramon MD 175 [facility] [address] [place] [address] [id number] Specialist Neurosurgery 06/07/22 Haley Huang PA-C [address] [address] Specialist Neurosurgery 01/11/23 Aidan Joseph PA-C 175 [facility] [address] [place] [address] Specialist Neurosurgery 01/11/23 documented as of this encounter
--- OUTSIDE RECORDS SUMMARY | 2024-09-23 10:56 | XMS_ITS | Encounter Summary ---
Author Organization [facility] Address [address] [place] [address] Care Team Providers Care Hat Model Name Role Phone Aidan oDrantes MD Primary Care Provider Unavail able Maximino Campbell MD Primary Care Provider Aidan Dorantes MD Unavailable Unavailable Aidan Dorantes MD Unavailable Unavailable Eamon Gentile MD Unavailable Unavailable Rahat Matta NP Unavailable [phone] Esther Ramon MD Unavailable [phone] Haley Huang PA-C Unavailable [phone] Aidan Joseph PA-C Unavailable [phone] Encounter Details Date Type Department Care Team Description 09/25/2017 Orders Only Medical Records [address] [place] [address] Aidan Dorantes MD Social History Tobacco Use [...] Name Priority Date/Time Associated Diagnosis Comments OUTSIDE VASCULAR STUDY Routine 09/20/2017 documented in this encounter Results * OUTSIDE VASCULAR STUDY (09/20/2017) Aidan Dorantes MD CARDIOLOGY documented in this encounter Visit Diagnoses Not on filedocumented in this encounter Care Teams Hat Model Relationship Specialty Start Date End Date Aidan Dorantes MD PCP - General 06/26/14 02/28/20 Maximino Campbell MD [address] [place] [address] PCP - General Internal Medicine 02/29/20 Aidan Dorantes MD 06/26/14 02/28/20 Aidan Dorantes MD 02/29/20 Eamon Gentile MD Privacy Director Cardiovascular Disease 05/17/21 Rahat Matta NP Nurse Practitioner Cardiology 11/28/21 Esther Ramon MD [address] [address] Specialist Neurosurgery 06/07/22 Haley Huang PA-C [address] [address] Specialist Neurosurgery 01/11/23 Aidan Joseph PA-C 175 [facility] [address] [place] [address] Specialist Neurosurgery 01/11/23 documented as of this encounter
--- OUTSIDE RECORDS SUMMARY | 2024-09-23 10:56 | XMS_ITS | Encounter Summary ---
Author Organization [facility] Address [address] [place] [address] Care Team Providers Care Band Manager Name Role Phone Maximino Campbell MD Primary Care Provider [phone] Aidan Dorantes MD Unavailable Unavailable Eamon Gentile MD Unavailable Unavailable Rahat Matta NP Unavailable [phone] Esther Ramon MD Unavailable [phone] Haley Huang-C Unavailable Aidan Joseph PA-C Unavailable Encounter Details Date Type Department Care Team Description 10/03/2021 Hospital Medical Records [address] [place] [address] Venecia Rhodes, LAWN AND GARDEN TECHNICIAN [address] [address] Social History Tobacco Use Types Packs/Day Years [...] on filedocumented in this encounter Care Teams Band Manager Relationship Specialty Start Date End Date Maximino Campbell MD [address] [place] [address] PCP - General Internal Medicine 02/29/20 Aidan Dorantes MD [address] [place] [address] 02/29/20 Eamon Gentile MD [address] [place], [place] [id number] Tire Care Manager Cardiovascular Disease 05/17/21 Rahat Matta NP [address] [place] [address] Nurse Practitioner Cardiology 11/28/21 Esther Ramon MD [address] [address] Specialist Neurosurgery 06/07/22 Haley Huang PA-C [address] [address] Specialist Neurosurgery 01/11/23 Aidan Joseph PA-C [address] [address] Specialist Neurosurgery 01/11/23 documented as of this encounter
--- OUTSIDE RECORDS SUMMARY | 2024-09-23 10:56 | XMS_ITS | Clinical Summary ---
Author Organization [facility] Address [address] [place] [address] Care Team Providers Care Reproducer Name Role Phone Unavailable Primary Care Provider Unavailabl e Social History Tobacco Use Types Packs/Day Years Used Date Smoking Tobacco: Never Assessed Sex and Gender Information Value Date Recorded Sex Assigned at Not on file Gender Identity Not on file Sexual Orientation Not on file Job Start Date Occupation Industry Not on file Not on file Not on file Plan of Treatment Health Maintenance Due Date Last Done Comments Hepatitis C Screening 1959 Depression Screening 1971 Preventative Health Evaluation 12/22/1977 Colon Cancer Screening (Colonoscopy) 12/22/2004 Shingrix-Zoster Vaccine (1 of 2) 12/22/2009 DTap / Tdap / Td (2 - Td or Tdap) 06/11/2017 06/11/2007 COVID-19 Vaccine ( season) 2024 11/21/2020, 10/24/2020 Influenza Vaccine (#1) 2024 2, 08/11/2021, 04/14/2020, Additional history exists Pneumococcal Vaccine (2 of 2 - PCV) 12/22/2024 11/15/2016 RSV Adult > 60+ Yrs or (1 - 1-dose 75+ series) 12/22/2034 Pneumococcal Vaccine Aged Out 11/15/2016 No long er eligible based on patient's age to complete this topic Hepatitis B Vaccines Aged Out No long er eligible based on patient's age to complete this topic RSV Ped < 20 months Aged Out No longe r eligible based on patient's age to complete this topic
--- OUTSIDE RECORDS SUMMARY | 2024-09-23 10:56 | XMS_ITS | Encounter Summary ---
Author Organization [facility] Address [address] [place] [address] Care Team Providers Care Elect Equip Maint Eng Name Role Phone Aidan Dorantes MD Primary Care Provider Unavail able Maximino Campbell MD Primary Care Provider [phone] Aidan Dorantes MD Unavailable Unavailable Aidan Dorantes MD Unavailable Unavailable Eamon Gentile MD Unavailable Unavailable Rahat Matta NP Unavailable [phone] Esther Ramon MD Unavailable [phone] Haley Huang PA-C Unavailable [phone] Aidan Joseph PA-C Unavailable [phone] Encounter Details Date Type Department Care Team Description 04/12/2017 Simulation Engineer Report Medical Records [address] [place] [address] Jacey Lackey MD Social History Tobacco Use Types Packs/Day [...] on filedocumented in this encounter Care Teams Elect Equip Maint Eng Relationship Specialty Start Date End Date Aidan Dorantes MD PCP - General 06/26/14 02/28/20 Maximino Campbell MD [address] [place] [address] PCP - General Internal Medicine 02/29/20 Aidan Dorantes MD 06/26/14 02/28/20 Aidan Dorantes MD 02/29/20 Eamon Gentile MD Wool Spotter Cardiovascular Disease 05/17/21 Rahat Matta NP Nurse Practitioner Cardiology 11/28/21 Esther Ramon MD 175 [facility] [address] [place] [address] [phone] Specialist Neurosurgery 06/07/22 Haley Huang PA-C [address] [address] Specialist Neurosurgery 01/11/23 Aidan Joseph PA-C 175 [facility] [address] [place] [address] Specialist Neurosurgery 01/11/23 documented as of this encounter
--- OUTSIDE RECORDS SUMMARY | 2024-09-23 10:57 | XMS_ITS | Encounter Summary ---
Author Organization [facility] Address [address] [place] [address] Care Team Providers Care Tie Tape Machine Operator Name Role Phone Maximino Campbell MD Primary Care Provider [phone] Aidan Dorantes MD Unavailable Unavailable Eamon Gentile MD Unavailable Unavailable Rahat Matta NP Unavailable [phone] Esther Ramon MD Unavailable [phone] Haley Huang PA-C Unavailable [phone] Aidan Joseph PA-C Unavailable [phone] Encounter Details Date Type Department Care Team Description 06/13/2022 [facility] Medical Records [address] [place] [id number] [place] [address] Social History Tobacco Use Types Packs/Day Years [...] suspected to have Coronavirus/COVID-19? No / Unsure 05/25/2022 1:14 PM EDT documented as of this encounter Plan of Treatment Not on file documented as of this encounter Procedures Procedure Name Priority Date/Time Associated Diagnosis Comments OUTSIDE MRI/MRA Routine 06/13/2022 documented in this encounter Results * OUTSIDE MRI/MRA (06/13/2022) Provider Default RADIOLOGY documented in this encounter Visit Diagnoses Not on filedocumented in this encounter Care Teams Tie Tape Machine Operator Relationship Specialty Start Date End Date Maximino Campbell MD [address] [place] [address] PCP - General Internal Medicine 02/29/20 Aidan Dorantes MD [address] [place] [address] 02/29/20 Eamon Gentile MD [address] [place] [address] Appliance Servicer Cardiovascular Disease 05/17/21 Rahat Matta NP [address] [place] [address] Nurse Practitioner Cardiology 11/28/21 Esther Ramon MD [address] [address] Specialist Neurosurgery 06/07/22 Haley Huang PA-C [address] [address] Specialist Neurosurgery 01/11/23 Aidan Joseph PA-C [address] [address] Specialist Neurosurgery 01/11/23 documented as of this encounter
--- OUTSIDE RECORDS SUMMARY | 2024-09-23 10:57 | XMS_ITS | Encounter Summary ---
Author Organization [facility] Address [address] [place] [address] Care Team Providers Care Junior Systems Administrator Name Role Phone Aidan Dorantes MD Primary Care Provider Unavail able Maximino Campbell MD Primary Care Provider Aidan Dorantes MD Unavailable Unavailable Aidan Dorantes MD Unavailable Unavailable Eamon Gentile MD Unavailable Unavailable Rahat Matta NP Unavailable [phone] Esther Ramon MD Unavailable [phone] Haley Huang PA-C Unavailable Aidan Joseph PA-C Unavailable [phone] Reason for Referral * EXTERNAL (Routine) - Authorized/Booked Specialty Diagnoses / Procedures Referred By Contac t Referred To Contact Cardiology Diagnoses Bilateral carotid artery stenosis Procedures REFERRAL TO CARDIOLOGY Graciela Hummel PA-C [address] [place] [address] Juan Francisco Reid MD [address] [place] [address] Referral ID Status Reason Start Date Expiration Date V isits Requested Visits Authorized SEE NOTE Authorized/B ooked 10/23/2018 01/24/2019 1 1 Encounter Details Date Type Department Care Team Description 10/18/2018 Pt. Non Urgent Medical Question Cardiology - [address] [address] Graciela Hummel PA-C [address] [place] [address] Bilateral carotid artery stenosis (Primary Dx) Social History Tobacco Use Types [...] as of this encounter Progress Notes * Delaney Wellington L.P.N. - 10/20/2018 2:09 PM EDTFrom: Quentin Grossman To: Graciela Hummel PA-C Sent: 10/18/2018 9:47 AM EDT Subject: Juan Francisco Owens I checked my future medical insurance I will be switching over to ([employer]) Dr. Juan Francisco Lindo is onthe list. I will be coming in for my stress test 10/20 it is schedule with you we can talk more about it. Quentin Grossman documented in this encounter Plan of Treatment Not on file documented as of this encounter Visit Diagnoses Diagnosis Bilateral carotid artery stenosis- Primary Occlusion and stenosis of multiple and bilateral precerebral arteries without mention of cerebral infarction documented in this encounter Care Teams Junior Systems Administrator Relationship Specialty Start Date End Date Aidan Dorantes MD PCP - General 06/26/14 02/28/20 Maximino Campbell MD [address] [place] [address] PCP - General Internal Medicine 02/29/20 Aidan Dorantes MD 06/26/14 02/28/20 Aidan Dorantes MD 02/29/20 Eamon Gentile MD Cam Milling Machine Operator Cardiovascular Disease 05/17/21 Rahat Matta NP Nurse Practitioner Cardiology 11/28/21 Esther Ramon MD [address] [address] Specialist Neurosurgery 06/07/22 Haley Huang PA-C [address] [address] Specialist Neurosurgery 01/11/23 Aidan Joseph PA-C [address] [address] Specialist Neurosurgery 01/11/23 documented as of this encounter
--- OUTSIDE RECORDS SUMMARY | 2024-09-23 10:57 | XMS_ITS | Encounter Summary ---
Author Organization [facility] Address [address] [place] [address] Care Team Providers Care Almond Grinder Name Role Phone Aidan Dorantes MD Primary Care Provider Unavail able Maximino Campbell MD Primary Care Provider [phone] Aidan Dorantes MD Unavailable Unavailable Aidan Dorantes MD Unavailable Unavailable Eamon Gentile MD Unavailable Unavailable Rahat Matta NP Unavailable [phone] Esther Ramon MD Unavailable [phone] Haley Huang PA-C Unavailable [phone] Aidan Joseph PA-C Unavailable [phone] Encounter Details Date Type Department Care Team Description 11/11/2018 [facility] Medical Records [address] [place] [address] Lottie Tobar MD [address] [place] [address] Social History Tobacco Use Types Packs/Day Years [...] Name Priority Date/Time Associated Diagnosis Comments OUTSIDE NUCLEAR STRESS TEST Routine 11/11/2018 documented in this encounter Results * OUTSIDE NUCLEAR STRESS TEST (11/11/2018) Provider Default CARDIOLOGY documented in this encounter Visit Diagnoses Not on filedocumented in this encounter Care Teams Almond Grinder Relationship Specialty Start Date End Date Aidan Dorantes MD PCP - General 06/26/14 02/28/20 Maximino Campbell MD [address] [place] [address] PCP - General Internal Medicine 02/29/20 Aidan Dorantes MD 06/26/14 02/28/20 Aidan Dorantes MD 02/29/20 Eamon Gentile MD Arborist Climber Cardiovascular Disease 05/17/21 Rahat Matta NP Nurse Practitioner Cardiology 11/28/21 Esther Ramon MD [address] [address] Specialist Neurosurgery 06/07/22 Haley Huang PA-C [address] [address] Specialist Neurosurgery 01/11/23 Aidan Joseph PA-C [address] [address] Specialist Neurosurgery 01/11/23 documented as of this encounter
--- OUTSIDE RECORDS SUMMARY | 2024-09-23 10:57 | XMS_ITS | Encounter Summary ---
Author [facility] Address [address] [place] [address] Care Team Providers Care Application Consultant Name Role Phone Aidan Dorantes MD Primary Care Provider Unavail able Maximino Campbell MD Primary Care Provider [phone] Aidan Dorantes MD Unavailable Unavailable Aidan Dorantes MD Unavailable Unavailable Eamon Gentile MD Unavailable Unavailable Rahat Matta NP Unavailable [phone] Esther Ramon MD Unavailable [phone] Haley Huang PA-C Unavailable [phone] Aidan Joseph PA-C Unavailable [phone] Encounter Details Date Type Department Care Team Description 10/20/2018 [facility] Medical Records [address] [place] [address] Graciela Hummel PA-C [address] [place] [address] Social History Tobacco Use Types Packs/Day Years [...] Name Priority Date/Time Associated Diagnosis Comments OUTSIDE STRESS TEST Routine 10/20/2018 documented in this encounter Results * OUTSIDE STRESS TEST (10/20/2018) Provider Default CARDIOLOGY documented in this encounter Visit Diagnoses Not on filedocumented in this encounter Care Teams Application Consultant Relationship Specialty Start Date End Date Aidan Dorantes MD PCP - General 06/26/14 02/28/20 Maximino Campbell MD [address] [place] [address] PCP - General Internal Medicine 02/29/20 Aidan Dorantes MD 06/26/14 02/28/20 Aidan Dorantes MD 02/29/20 Eamon Gentile MD Mental Health Program Director Cardiovascular Disease 05/17/21 Rahat Matta NP Nurse Practitioner Cardiology 11/28/21 Esther Ramon MD [address] [address] Specialist Neurosurgery 06/07/22 Haley Huang PA-C [address] [address] Specialist Neurosurgery 01/11/23 Aidan Joseph PA-C [address] [address] Specialist Neurosurgery 01/11/23 documented as of this encounter
--- OUTSIDE RECORDS SUMMARY | 2024-09-23 10:57 | XMS_ITS | Encounter Summary ---
Author Organization [facility] Address [address] [place] [address] Care Team Providers Care Industrial Maintenance Repairer Helper Name Role Phone Maximino aCmpbell MD Primary Care Provider [phone] Aidan Dorantes MD Unavailable Unavailable Eamon Gentile MD Unavailable Unavailable Rahat Matta NP Unavailable [phone] Esther Ramon MD Unavailable [phone] Haley Huang PA-C Unavailable [phone] Aidan Joseph PA-C Unavailable Reason for Visit * Reason Onset Date Comments Medication 08/30/2022 Encounter Details Date Type Department Care Team Description 08/30/2022 Telephone Cardio [facility] [address] [place] [address] [address] [place] [id number] Eamon Gentile MD Medication Social History Tobacco Use Types Packs/Day [...] encounter Miscellaneous Notes * Telephone Encounter - Christie Oneal R.N. - 08/30/2022 11:33 AM EST Lvm for pt to return my call. * Telephone Encounter - Roscoe Urbina - 08/30/2022 11:14 AM EST Lorelei from [facility] pharmacy is calling from [phone], stating patient medication Repatha 140mg, auto injector under skin every two weeks is not contracted with their pharmacy and itspossible that a new prescription will have to be sent to a new pharmacy that take patients [facility] . documented in this encounter Plan of Treatment Not on file documented as of this encounter Visit Diagnoses Not on filedocumented in this encounter Care Teams Industrial Maintenance Repairer Helper Relationship Specialty Start Date End Date Maximino Campbell MD [address] [place] [address] PCP - General Internal Medicine 02/29/20 Aidan Dorantes MD [address] [place] [address] 02/29/20 Eamon Gentile MD [address] [place] [address] Cube Cutter Cardiovascular Disease 05/17/21 Rahat Matta NP [address] [place] [address] Nurse Practitioner Cardiology 11/28/21 Esther Ramon MD [address] [address] Specialist Neurosurgery 06/07/22 Haley Huang PA-C [address] [address] Specialist Neurosurgery 01/11/23 Aidan Joseph PA-C [address] [address] Specialist Neurosurgery 01/11/23 documented as of this encounter
--- OUTSIDE RECORDS SUMMARY | 2024-09-23 10:57 | XMS_ITS | Encounter Summary ---
Author Organization [facility] Address [address] [place] [address] Care Team Providers Care Admitting Supervisor Name Role Phone Aidan Dorantes MD Primary Care Provider Unavail able Maximino Campbell MD Primary Care Provider [phone] Aidan Dorantes MD Unavailable Unavailable Aidan Dorantes MD Unavailable Unavailable Eamon Gentile MD Unavailable Unavailable Rahat Matta NP Unavailable [phone] Esther Ramon MD Unavailable [phone] Haley Huang PA-C Unavailable [phone] Aidan Joseph PA-C Unavailable [phone] Encounter Details Date Type Department Care Team Description 10/06/2018 Orders Only Radiology - [address] [phone] Aidan Dorantes MD Social History Tobacco Use [...] on filedocumented in this encounter Care Teams Admitting Supervisor Relationship Specialty Start Date End Date Aidan Dorantes MD PCP - General 06/26/14 02/28/20 Maximino Campbell MD [address] [place] [address] [phone] PCP - General Internal Medicine 02/29/20 Aidan Dorantes MD 06/26/14 02/28/20 Aidan Dorantes MD 02/29/20 Eamon Gentile MD Raised Printer Cardiovascular Disease 05/17/21 Rahat Matta NP Nurse Practitioner Cardiology 11/28/21 Esther Ramon MD 175 [facility] [address] [place] [address] [id number] Specialist Neurosurgery 06/07/22 Haley Huang PA-C 175 [facility] [address] [place] [address] Specialist Neurosurgery 01/11/23 Aidan Joseph PA-C 175 [facility] [address] [place] [address] Specialist Neurosurgery 01/11/23 documented as of this encounter
--- OUTSIDE RECORDS SUMMARY | 2024-09-23 10:57 | XMS_ITS | Encounter Summary ---
Author Organization [facility] Address [address] [place] [address] Care Team Providers Care Project Structural Engineer Name Role Phone Maximino Campbell MD Primary Care Provider [phone] Aidan Dorantes MD Unavailable Unavailable Eamon Gentile MD Unavailable Unavailable Rahat Matta NP Unavailable [phone] Esther Ramon MD Unavailable [phone] Haley Huang PA-C Unavailable [phone] Aidan Joseph PA-C Unavailable Encounter Details Date Type Department Care Team Description 06/14/2022 Pt. Non Urgent Medical Question [facility] Neurosurgery [facility] [place] [address] [address] Esther Ramon MD [address] [address] Social History Tobacco Use Types Packs/Day [...] PM EDT documented as of this encounter Miscellaneous Notes * Telephone Encounter - Lora Huang - 06/15/2022 7:50 AM ESTFrom: Quentin Grossman To: Douglas Ramon Sent: 06/14/2022 7:11 PM EST Subject: MRI results Dr. Ramon did you have a chance to go over my MRI I had done the other night for my back? Waiting to see what the next step is If there is procedures to be done I would like to get it done in 2021 soI don't have to pay my deductible all over again, money is really tight due to the economy so we are trying to stay on top of our finanical situation. Thank you Quentin (Skip) Chauncey documented in this encounter Plan of Treatment Not on file documented as of this encounter Visit Diagnoses Not on filedocumented in this encounter Care Teams Project Structural Engineer Relationship Specialty Start Date End Date Maximino Campbell MD [address] [place] [address] PCP - General Internal Medicine 02/29/20 Aidan Dorantes MD [address] [place] [address] 02/29/20 Eamon Gentile MD [address] [place] [address] Theatre Instructor Cardiovascular Disease 05/17/21 Rahat Matta NP [address] [place] [address] Nurse Practitioner Cardiology 11/28/21 Esthre Ramon MD [address] [place] [address] Specialist Neurosurgery 06/07/22 Haley Huang PA-C [address] [address] Specialist Neurosurgery 01/11/23 Aidan Joseph PA-C [address] [address] Specialist Neurosurgery 01/11/23 documented as of this encounter
--- OUTSIDE RECORDS SUMMARY | 2024-09-23 10:57 | XMS_ITS | Encounter Summary ---
Author Organization [facility] Address [address] [place] [address] Care Team Providers Care Progressive Care Unit Registered Nurse Name Role Phone Maximino Campbell MD Primary Care Provider [phone] Aidan Dorantes MD Unavailable Unavailable Eamon Gentile MD Unavailable Unavailable Rahat Matta NP Unavailable [phone] Esther Ramon MD Unavailable [phone] Haley Huang PA-C Unavailable [phone] Aidan Joseph PA-C Unavailable [phone] Encounter Details Date Type Department Care Team Description 06/14/2022 Release of Information Medical Records [address] [place] [address] Abstract, Provider Social History Tobacco Use Types [...] on filedocumented in this encounter Care Teams Progressive Care Unit Registered Nurse Relationship Specialty Start Date End Date Maximino Campbell MD [address] [place] [address] PCP - General Internal Medicine 02/29/20 Aidan Dorantes MD [address] [place] [address] 02/29/20 Eamon Gentile MD [address] [place] [address] Senior Asset Manager Cardiovascular Disease 05/17/21 Rahat Matta NP [address] [place] [address] Nurse Practitioner Cardiology 11/28/21 Esther Ramon MD [address] [address] Specialist Neurosurgery 06/07/22 Haley Huang PA-C [address] [address] Specialist Neurosurgery 01/11/23 Aidan Joseph PA-C [address] [address] Specialist Neurosurgery 01/11/23 documented as of this encounter
--- OUTSIDE RECORDS SUMMARY | 2024-09-23 10:57 | XMS_ITS | Encounter Summary ---
Author Organization [facility] Address [address] [place] [address] Care Team Providers Care Academic Affairs Vice President Name Role Phone Maximino Campbell MD Primary Care Provider [phone] Aidan Dorantes MD Unavailable Unavailable Eamon Gentile MD Unavailable Unavailable Rahat Matta NP Unavailable [phone] Esther Ramon MD Unavailable [phone] Haley HuangC Unavailable [phone] Aidan Joseph PA-C Unavailable [phone] Encounter Details Date Type Department Care Team Description 04/10/2022 Ergonomics Technician Report Medical Records [address] [place] [address] Jay Costello Social History Tobacco Use Types Packs/Day Years Used Date Smoking Tobacco: Every Day Cigarettes Smokeless Tobacco: Never Alcohol Use Standard Drinks/Week [...] suspected to have Coronavirus/COVID-19? No / Unsure 03/26/2022 10:51 AM EDT documented as of this encounter Plan of Treatment Not on file documented as of this encounter Visit Diagnoses Not on filedocumented in this encounter Care Teams Academic Affairs Vice President Relationship Specialty Start Date End Date Maximino Campbell MD [address] [place] [address] PCP - General Internal Medicine 02/29/20 Aidan Dorantes MD [address] [place] [address] 02/29/20 Eamon Gentile MD [address] [place] [address] Bus Info Consultant Cardiovascular Disease 05/17/21 Rahat Matta NP [address] [place] [address] Nurse Practitioner Cardiology 11/28/21 Esther Ramon MD [address] [address] Specialist Neurosurgery 06/07/22 Haley Huang PA-C [address] [address] Specialist Neurosurgery 01/11/23 Aidan Joseph PA-C [address] [address] Specialist Neurosurgery 01/11/23 documented as of this encounter
== END 2024-09-23 10:54 | disposition home or self-care (01) ==
PROVIDERS: PCP Internal Medicine; Visit Provider Psychiatry & Neurology Neurology
DX: Z45.42 Encounter for adjustment and management of neurostimulator (principal); G47.33 Obstructive sleep apnea (adult) (pediatric); Z96.82 Presence of neurostimulator
CPT/HCPCS: 95977; 99214

== ENCOUNTER → 2024-09-23 10:18 | Outpatient (BNVA) | payer MEDICARE, SELFPAY | PROVIDERS: PCP Internal Medicine; Visit Provider Psychiatry & Neurology Neurology | DX: G47.33 Obstructive sleep apnea (adult) (pediatric) (principal); Z45.42 Encounter for adjustment and management of neurostimulator | CPT/HCPCS: 95977; 99212 ==

== ENCOUNTER 2024-11-26 09:25 | Outpatient (AMB) | payer MEDICARE, SELFPAY ==
[2024-11-26 09:26] VITALS: BMI 31.9
--- NOTE | 2024-11-26 09:26 | MHC.OFFVIS ---
Vital Signs 11/26/24 09:26 Height 5 ft 9 in Weight 216 lb BMI 31.9 Intake Visit Reasons: 4 mo follow up-Conf Intake Note: Patient following up sleep apnea. patient has stimulator Allergies Wwjpxvv-WZB-MiJ Reductase Inhibitor [FEODDMD-DAK-UYT REDUCTASE INHIBITOR] Allergy (Unknown, Verified 11/26/24 09:28) INCREASED LFTS Statin Allergy (Unknown, Uncoded 11/26/24 09:28) Unknown HPI Comments Details: 63 y/o male patient comes for follow up.. He had INSPIRE implantation on Jun 25 2024 He denies any difficulty with INSpire .He is doing well with 1.7 His sleep has improved and daytime sleepiness has improved. His recent visit with Cardiology- his BP was low and they are reducing his meds Usage hrs 5 hrs He also has knee pain and that is affecting his sleep. 04/2023-The baseline portion of the sleep study was significant for a severe degree of sleep apnea. The AHI was 35/hr and oxygen devyn was 81%. Pt was trialed on CPAP 4 and 6 but patient unable to tolerate CPAP titration study and the study was discontinued. He denies any discomfort now. [facility] Medical History History of deviated nasal septum Surgical History S/P insertion of hypoglossal nerve stimulator Hx of tonsillectomy S/p bilateral carpal tunnel release History of knee surgery H/O elbow surgery Hx of shoulder surgery H/O sinus surgery History of placement of ear tubes Family History Sister Breast cancer Heart disease Kidney disease Father Aneurysm Heart disease Sister Lupus Addisons disease Social History Alcohol intake: current Patient Tobacco Use Status: Never used Tobacco Review of Systems ENT Reports Normal hearing present Neuro Reports Normal hearing present Physical Exam Vital Signs: BMI result Body Mass Index 31.9 Const General: cooperative and tired appearing Nutritional Appearance: overweight Orientation/consciousness: patient oriented x3 Neck Neck: Yes full ROM and Yes supple Resp Effort & Inspection: normal respiratory effort and able to speak in complete sentences Neuro Other: Tongue exam , scars- normal . No evidence of infection General: patient oriented x3, gait normal and moves all extremities Cranial nerves: Yes Normal facial strength present, Yes Midline tongue present, Yes Symmetric palate elevation present, Yes Normal hearing present, Yes Ability to bilaterally rotate head present and Yes Ability to bilaterally elevate shoulders present Cognition (Neuro): normal cognition Gait exam (Neuro): Normal gait present Motor exam (neuro): no tremor noted Psych Appearance: grossly normal Mental Status: mental status grossly normal Affect: normal affect Assessment & Plan Assessment & Plan (1) FREDY (obstructive sleep apnea): Comment: Severe degree of sleep apnea and not tolerated CPAP. Code(s): G47.33 - Obstructive sleep apnea (adult) (pediatric) Category: Medical (2) S/P insertion of hypoglossal nerve stimulator: Comment: INSPIRE 05/21/2024 Code(s): Z96.82 - Presence of neurostimulator Category: Surgical Plan Discussed sleep hygiene in detail Stimulation at 1.7 Instructions on use of his remote was given with written instructions. Stimulation settings today - Lower limit 1.1- Upper limit 2.1 V functional level 0.7 sensation level 0.5V Start delay 30min pause time 15 minutes Therapy duration 8 hrs Pramipexole dose was increased to 3.75 mg qhs SLeep study for Inspire titration Orders: Orders RT PSG in-lab sleep study Today G47.33 - Obstructive sleep apnea (adult) (pediatric), Z96.82 - Presence of neurostimulator Coding Level of Care Code Est Pt Level 4 (59827) Inspire Program Smpl 3 or less Diagnoses FREDY (obstructive sleep apnea) G47.33 S/P insertion of hypoglossal nerve stimulator Z96.82
--- OUTSIDE RECORDS SUMMARY | 2024-11-26 10:20 | XMS_ITS | Encounter Summary ---
Author Organization [facility] Address [address] [place] [address] Care Team Providers Care Piece Goods Packer Name Role Phone Aidan Dorantes MD Primary Care Provider Unavail able Maximino Campbell MD Primary Care Provider [phone] Aidan Dorantes MD Unavailable Unavailable Aidan Dorantes MD Unavailable Unavailable Eamon Gentile MD Unavailable Unavailable Rahat Matta NP Unavailable Esther Ramon MD Unavailable [phone] Haley Huang PA-C Unavailable [phone] Aidan Joseph PA-C Unavailable [phone] Encounter Details Date Type Department Care Team Description 02/22/2016 Glass Technologist Report Medical Records [address] [place] [address] Rahat Matta NP [address] [place] [address] [id number] Social History Tobacco Use Types Packs/Day Years [...] on filedocumented in this encounter Care Teams Piece Goods Packer Relationship Specialty Start Date End Date Aidan Dorantes MD PCP - General 06/26/14 02/28/20 Maximino Campbell MD [address] [place] [address] PCP - General Internal Medicine 02/29/20 Aidan Dorantes MD 06/26/14 02/28/20 Aidan Dorantes MD 02/29/20 Eamon Gentile MD Weatherization Technician Cardiovascular Disease 05/17/21 Rahat Matta NP Nurse Practitioner Cardiology 11/28/21 Esther Ramon MD [address] [address] Specialist Neurosurgery 06/07/22 Haley Huang PA-C [address] [address] Specialist Neurosurgery 01/11/23 Aidan Joseph PA-C [address] [address] Specialist Neurosurgery 01/11/23 documented as of this encounter
--- OUTSIDE RECORDS SUMMARY | 2024-11-26 10:20 | XMS_ITS | Encounter Summary ---
Author Organization [facility] Address [address] [place] [address] Care Team Providers Care Echocardiologist Name Role Phone Aidan Dorantes MD Primary Care Provider Unavail able Maximino Campbell MD Primary Care Provider [phone] Aidan Dorantes MD Unavailable Unavailable Aidan Dorantes MD Unavailable Unavailable Eamon Gentile MD Unavailable Unavailable Rahat Matta NP Unavailable [phone] Esther Ramon MD Unavailable [phone] Haley Huang PA-C Unavailable [phone] Aidan Joseph PA-C Unavailable [phone] Encounter Details Date Type Department Care Team Description 03/15/2015 Sql Tech Report Medical Records [address] [place] [address] Social History Tobacco Use Types Packs/Day Years [...] on filedocumented in this encounter Care Teams Echocardiologist Relationship Specialty Start Date End Date Aidan Dorantes MD PCP - General 06/26/14 02/28/20 Maximino Campbell MD [address] [place] [address] PCP - General Internal Medicine 02/29/20 Aidan Dorantes MD 06/26/14 02/28/20 Aidan Dorantes MD 02/29/20 Eamon Gentile MD Car Designer Cardiovascular Disease 05/17/21 Rahat Matta NP Nurse Practitioner Cardiology 11/28/21 Esther Ramon MD [address] [address] Specialist Neurosurgery 06/07/22 Haley Huang PA-C [address] [address] Specialist Neurosurgery 01/11/23 Aidan Joseph PA-C [address] [address] Specialist Neurosurgery 01/11/23 documented as of this encounter
--- OUTSIDE RECORDS SUMMARY | 2024-11-26 10:20 | XMS_ITS | Encounter Summary ---
Author Organization [facility] Address [address] [place] [address] Care Team Providers Care Scrap Sawyer Name Role Phone Aidan Dorantes MD Primary Care Provider Unavail able Aidan Dorantes MD Primary Care Provider Unavail able Maximino Campbell MD Primary Care Provider [phone] Aidan Dorantes MD Unavailable Unavailable Aidan Dorantes MD Unavailable Unavailable Eamon Gentile MD Unavailable Unavailable Rahat Matta NP Unavailable [phone] Esther Ramon MD Unavailable [phone] Haley Huang PA-C Unavailable [phone] Aidan Joseph PA-C Unavailable [phone] Reason for Referral * Specialist (Urgent) - Authorized/Booked Specialty Diagnoses / Procedures Referred By Contac t Referred To Contact Gastroenterology Diagnoses Abdominal pain, other specified site Hepatomegaly Procedures REFERRAL TO GASTROENTEROLOGY Pardeep Plasencia PA-C [address] [place] [address] [facility] [address] [place] [address] Referral ID Status Reason Start Date Expiration Date V isits Requested Visits Authorized NOT REQUIRED Authorized/ Booked 03/05/2013 03/05/2014 1 1 Encounter Details Date Type Department Care Team Description 03/04/2013 Pt. Non Urgent Medical Question Adult Medicine [address] [id number] Pardeep Plasencia PA-C Abdominal pain, other specified site (Primary Dx); Hepatomegaly Social History Tobacco Use Types Packs/Day Years [...] Progress Notes * Winter Al L.P.N. - 03/04/2013 11:49 AM EDTFrom: QUENTIN GROSSMAN To: Pardeep Plasencia PA-C Sent: SatMar 04, 2013 11:42 AM Subject: Scheduled Appointment Could you get a early appointment for. Dept: Gastroenterology Provider: Marvin Myers Date: 05/21/2013 Time: 2:20 PM Length: 20 alejandro If you can send me some where else that would be good. My side is getting more sore and I do not want to wait that long. documented in this encounter Plan of Treatment Not on file documented as of this encounter Visit Diagnoses Diagnosis Abdominal pain, other specified site- Primary Hepatomegaly documented in this encounter Care Teams Scrap Sawyer Relationship Specialty Start Date End Date Aidan Dorantes MD PCP - General 09/24/03 06/25/14 Aidan Dorantes MD PCP - General 06/26/14 02/28/20 Maximino Campbell MD [address] [place] [address] PCP - General Internal Medicine 02/29/20 Aidan Dorantes MD 06/26/14 02/28/20 Aidan Dorantes MD 02/29/20 Eamon Gentile MD [address] [place] [address] Window Assembler Cardiovascular Disease 05/17/21 Rahat Matta NP [address] [place] [address] Nurse Practitioner Cardiology 11/28/21 Esther Ramon MD [address] [place] [address] Specialist Neurosurgery 06/07/22 Haley Huang PA-C [address] [id number] Specialist Neurosurgery 01/11/23 Aidan Joseph PA-C [address] [address] Specialist Neurosurgery 01/11/23 documented as of this encounter
--- OUTSIDE RECORDS SUMMARY | 2024-11-26 10:20 | XMS_ITS | Encounter Summary ---
Author Organization [facility] Address [address] [place] [address] Care Team Providers Care Circulation Director Name Role Phone Aidan Dorantes MD Primary Care Provider Unavail able Maximino Campbell MD Primary Care Provider [phone] Aidan Dorantes MD Unavailable Unavailable Aidan Dorantes MD Unavailable Unavailable Eamon Gentile MD Unavailable Unavailable Rahat Matta NP Unavailable [phone] Esther Ramon MD Unavailable [phone] Haley Huang PA-C Unavailable [phone] Aidan Joseph PA-C Unavailable [phone] Reason for Visit * Reason Comments E-prescribe Rx Request Encounter Details Date Type Department Care Team Description 12/20/2014 Refill Adult Medicine [address] [id number] Aidan Dorantes MD E-prescribe Rx Request Social [...] an upcoming appointment? No-[facility]able to [facility] for [facility] due to [...] NO Patients current insurance carrier is: Payor: [email or web address] / Plan: INDEMNISatoris $0 Skout [id number] / Product Type: INDEMNISatoris documented in this encounter Plan of Treatment Not on file documented as of this encounter Visit Diagnoses Not on filedocumented in this encounter Care Teams Circulation Director Relationship Specialty Start Date End Date Aidan Dorantes MD PCP - General 06/26/14 02/28/20 Maximino Campbell MD [address] [place] [address] PCP - General Internal Medicine 02/29/20 Aidan Dorantes MD 06/26/14 02/28/20 Aidan Dorantes MD 02/29/20 Emaon Gentile MD Lockstitch Front Edge Tape Sewer Cardiovascular Disease 05/17/21 Rahat Matta NP Nurse Practitioner Cardiology 11/28/21 Esther Ramon MD [address] [address] Specialist Neurosurgery 06/07/22 Haley Huang PA-C [address] [address] Specialist Neurosurgery 01/11/23 Aidan Joseph PA-C [address] [address] Specialist Neurosurgery 01/11/23 documented as of this encounter
--- OUTSIDE RECORDS SUMMARY | 2024-11-26 10:20 | XMS_ITS | Encounter Summary ---
Author Organization [facility] Address [address] [place] [address] Care Team Providers Care Relationship Advisor Name Role Phone Aidan Dorantes MD Primary Care Provider Unavail able Maximino Campbell MD Primary Care Provider [phone] Aidan Dorantes MD Unavailable Unavailable Aidan Dorantes MD Unavailable Unavailable Eamon Gentile MD Unavailable Unavailable Rahat Matta NP Unavailable [phone] Esther Ramon MD Unavailable [phone] Haley Huang PA-C Unavailable [phone] Aidan Joseph PA-C Unavailable [phone] Encounter Details Date Type Department Care Team Description 2014 Telegraph Inspector Report Medical Records [address] [place] [address] Debra Guardado MD Social History Tobacco Use [...] on filedocumented in this encounter Care Teams Relationship Advisor Relationship Specialty Start Date End Date Aidan Dorantes MD PCP - General 06/26/14 02/28/20 Maximino Campbell MD [address] [place] [address] [id number] PCP - General Internal Medicine 02/29/20 Aidan Dorantes MD 06/26/14 02/28/20 Aidan Dorantes MD 02/29/20 Eamon Gentile MD Licensed Embalmer Cardiovascular Disease 05/17/21 Rahat Matta NP Nurse Practitioner Cardiology 11/28/21 Esther Ramon MD [address] [id number] Specialist Neurosurgery 06/07/22 Haley Huang PA-C [address] [address] Specialist Neurosurgery 01/11/23 Aidan Joseph PA-C [address] [address] Specialist Neurosurgery 01/11/23 documented as of this encounter
--- OUTSIDE RECORDS SUMMARY | 2024-11-26 10:20 | XMS_ITS | Encounter Summary ---
Author Organization [facility] Address [address] [place] [address] Care Team Providers Care Astrobiologist Name Role Phone Aidan Dorantes MD Primary Care Provider Unavail able Maximino Campbell MD Primary Care Provider [phone] Aidan Dorantes MD Unavailable Unavailable Aidan Dorantes MD Unavailable Unavailable Eamon Gentile MD Unavailable Unavailable Rahat Matta NP Unavailable [phone] Esther Ramon MD Unavailable [phone] Haley Huang PA-C Unavailable [phone] Aidan Joseph PA-C Unavailable [phone] Encounter Details Date Type Department Care Team Description 08/11/2014 Software Verification Engineer Report Medical Records [address] [place] [address] Debra Guardado MD Social History Tobacco Use [...] on filedocumented in this encounter Care Teams Astrobiologist Relationship Specialty Start Date End Date Aidan Dorantes MD PCP - General 06/26/14 02/28/20 Maximino Campbell MD [address] [place] [address] [id number] PCP - General Internal Medicine 02/29/20 Aidan Dorantes MD 06/26/14 02/28/20 Aidan Dorantes MD 02/29/20 Eamon Gentile MD Director River Restoration Cardiovascular Disease 05/17/21 Rahat Matta NP Nurse Practitioner Cardiology 11/28/21 Esther Ramon MD [address] [phone] Specialist Neurosurgery 06/07/22 Haley Huang PA-C [address] [address] Specialist Neurosurgery 01/11/23 Aidan Joseph PA-C [address] [address] Specialist Neurosurgery 01/11/23 documented as of this encounter
--- OUTSIDE RECORDS SUMMARY | 2024-11-26 10:20 | XMS_ITS | Encounter Summary ---
Author Organization [facility] Address [address] [place] [address] Care Team Providers Care Upkeep Mechanic Name Role Phone Aidan Dorantes MD Primary Care Provider Unavail able Aidan Dorantes MD Primary Care Provider Unavail able Maximino Campbell MD Primary Care Provider [phone] Aidan Dorantes MD Unavailable Unavailable Aidan Dorantes MD Unavailable Unavailable Eamon Gentile MD Unavailable Unavailable Rahat Matta NP Unavailable [phone] Esther Ramon MD Unavailable [phone] Haley Huang PA-C Unavailable [phone] Aidan Joseph PA-C Unavailable [phone] Encounter Details Date Type Department Care Team Description 04/20/2014 Coil Connector Repairer Report Medical Records [address] [place] [address] Social History Tobacco Use Types Packs/Day Years [...] on filedocumented in this encounter Care Teams Upkeep Mechanic Relationship Specialty Start Date End Date Aidan Dorantes MD PCP - General 09/24/03 06/25/14 Aidan Dorantes MD PCP - General 06/26/14 02/28/20 Maximino Campbell MD [address] [place] [address] PCP - General Internal Medicine 02/29/20 Aidan Dorantes MD 06/26/14 02/28/20 Aidan Dorantes MD 02/29/20 Eamon Gentile MD [address] [place] [address] Rejogger Cardiovascular Disease 05/17/21 Rahat Matta NP [address] [place] [address] Nurse Practitioner Cardiology 11/28/21 Esther Ramon MD [address] [address] Specialist Neurosurgery 06/07/22 Haley Huang PA-C [address] [address] Specialist Neurosurgery 01/11/23 Aidan Joseph PA-C [address] [address] Specialist Neurosurgery 01/11/23 documented as of this encounter
--- OUTSIDE RECORDS SUMMARY | 2024-11-26 10:20 | XMS_ITS | Encounter Summary ---
Author Organization [facility] Address [address] [place] [address] Care Team Providers Care Software Integrator Name Role Phone Aidan Dorantes MD Primary Care Provider Unavail able Maximino Campbell MD Primary Care Provider [phone] Aidan Dorantes MD Unavailable Unavailable Aidan Dorantes MD Unavailable Unavailable Eamon Gentile MD Unavailable Unavailable Rahat Matta NP Unavailable [phone] Esther Ramon MD Unavailable [phone] Haley Huang PA-C Unavailable [phone] Aidan Joseph PA-C Unavailable [phone] Encounter Details Date Type Department Care Team Description 06/08/2015 Quality Assurance Director Report Medical Records [address] [place] [address] José Miguel Gates MD Social History Tobacco [...] on filedocumented in this encounter Care Teams Software Integrator Relationship Specialty Start Date End Date Aidan Dorantes MD PCP - General 06/26/14 02/28/20 Maximino Campbell MD [address] [place] [address] [id number] PCP - General Internal Medicine 02/29/20 Aidan Doranets MD 06/26/14 02/28/20 Aidan Dorantes MD 02/29/20 Eaomn Gentile MD Poultice Machine Operator Cardiovascular Disease 05/17/21 Rahat Matta NP Nurse Practitioner Cardiology 11/28/21 Esther Ramon MD 175 [facility] [address] [place] [address] [id number] Specialist Neurosurgery 06/07/22 Haley Huang PA-C [address] [address] Specialist Neurosurgery 01/11/23 Aidan Joseph PA-C 175 [facility] [address] [place] [address] Specialist Neurosurgery 01/11/23 documented as of this encounter
--- OUTSIDE RECORDS SUMMARY | 2024-11-26 10:20 | XMS_ITS | Encounter Summary ---
Author Organization [facility] Address [address] [place] [address] Care Team Providers Care Graduate Studies Dean Name Role Phone Aidan Dorantes MD Primary Care Provider Unavail able Maximino Campbell MD Primary Care Provider [phone] Aidan Dorantes MD Unavailable Unavailable Aidan Dorantes MD Unavailable Unavailable Eamon Gentile MD Unavailable Unavailable Rahat Matta NP Unavailable [phone] Esther Ramon MD Unavailable [phone] Haley Huang PA-C Unavailable [phone] Aidan Joseph PA-C Unavailable [phone] Encounter Details Date Type Department Care Team Description 03/07/2016 Director Statistical Programming Report Medical Records [address] [place] [address] José Miguel Gates MD Social History Tobacco [...] on filedocumented in this encounter Care Teams Graduate Studies Dean Relationship Specialty Start Date End Date Aidan Dorantes MD PCP - General 06/26/14 02/28/20 Maximino Campbell MD [address] [place], [place] [phone] PCP - General Internal Medicine 02/29/20 Aidan Dorantes MD 06/26/14 02/28/20 Aidan Dorantes MD 02/29/20 Eamon Gentile MD River[employer] Assault Craft Crewman Cardiovascular Disease 05/17/21 Rahat Matta NP Nurse Practitioner Cardiology 11/28/21 Esther Ramon MD 175 [facility] [address] [place] [address] Specialist Neurosurgery 06/07/22 Haley Huang PA-C 175 [facility] [address] [place] [address] Specialist Neurosurgery 01/11/23 Aidan Joseph PA-C 175 [facility] [address] [place] [address] Specialist Neurosurgery 01/11/23 documented as of this encounter
--- OUTSIDE RECORDS SUMMARY | 2024-11-26 10:20 | XMS_ITS | Encounter Summary ---
Author Organization [facility] Address [address] [place] [address] Care Team Providers Care Vice Admiral Name Role Phone Maximino Campbell MD Primary Care Provider [phone] Aidan Dorantes MD Unavailable Unavailable Eamon Gentile MD Unavailable Unavailable Rahat Matta NP Unavailable [phone] Esther Ramon MD Unavailable [phone] Haley Huang PA-C Unavailable Aidan Joseph PA-C Unavailable Encounter Details Date Type Department Care Team Description 07/04/2023 Incoming Correspondence [facility] Neurosurgery [place] [address] [address] Aidan Joseph PA-C [address] [address] Social History Tobacco Use Types [...] on filedocumented in this encounter Care Teams Vice Admiral Relationship Specialty Start Date End Date Maximino Campbell MD [address] [place] [address] PCP - General Internal Medicine 02/29/20 Aidan Dorantes MD [address] [place] [address] 02/29/20 Eamon Gentile MD [address] [place] [address] Bail Bonding Agent Cardiovascular Disease 05/17/21 Rahat Matta NP [address] [place] [address] Nurse Practitioner Cardiology 11/28/21 Esther Ramon MD [address] [address] Specialist Neurosurgery 06/07/22 Haely Huang PA-C [address] [address] Specialist Neurosurgery 01/11/23 Aidan Joseph PA-C [address] [address] Specialist Neurosurgery 01/11/23 documented as of this encounter
--- OUTSIDE RECORDS SUMMARY | 2024-11-26 10:20 | XMS_ITS | Encounter Summary ---
Author Organization [facility] Address [address] [place] [address] Care Team Providers Care Property Valuer Name Role Phone Aidan Dorantes MD Primary Care Provider Unavail able Aidan Dorantes MD Primary Care Provider Unavail able Maximino Campbell MD Primary Care Provider [phone] Aidan Dorantes MD Unavailable Unavailable Aidan Dorantes MD Unavailable Unavailable Eamon Gentile MD Unavailable Unavailable Rahat Matta NP Unavailable [phone] Esther Ramon MD Unavailable [phone] Haley Huang PA-C Unavailable [phone] Aidan Joseph PA-C Unavailable Reason for Visit * Reason Onset Date Comments Faxed Order 04/20/2014 Encounter Details Date Type Department Care Team Description 04/20/2014 Telephone Adult Medicine [address] [address] Aidan Dorantes MD Faxed Order Social History [...] encounter Miscellaneous Notes * Telephone Encounter - Carrie Moore - 04/20/2014 3:17 PM EDT Progress notes for Dr Dorantes's signature documented in this encounter Plan of Treatment Not on file documented as of this encounter Visit Diagnoses Not on filedocumented in this encounter Care Teams Property Valuer Relationship Specialty Start Date End Date Aidan Dorantes MD PCP - General 09/24/03 06/25/14 Aidan Dorantes MD PCP - General 06/26/14 02/28/20 Maximino Campbell MD [address] [place] [address] PCP - General Internal Medicine 02/29/20 Aidan Dorantes MD 06/26/14 02/28/20 Aidan Dorantes MD 02/29/20 Eamon Gentile MD [address] [place] [address] Archivist [employer] Cardiovascular Disease 05/17/21 Rahat Matta NP [address] [place] [address] Nurse Practitioner Cardiology 11/28/21 Esther Ramon MD [address] [address] Specialist Neurosurgery 06/07/22 Haley Huang PA-C [address] [address] Specialist Neurosurgery 01/11/23 Aidan Joseph PA-C [address] [address] Specialist Neurosurgery 01/11/23 documented as of this encounter
--- OUTSIDE RECORDS SUMMARY | 2024-11-26 10:20 | XMS_ITS | Encounter Summary ---
Author Organization [facility] Address [address] [place] [address] Care Team Providers Care Food Tester Name Role Phone Aidan Dorantes MD Primary Care Provider Unavail able Aidan Dorantes MD Primary Care Provider Unavail able Maximino Campbell MD Primary Care Provider [phone] Aidan Dorantes MD Unavailable Unavailable Aidan Dorantes MD Unavailable Unavailable Eamon Gentile MD Unavailable Unavailable Rahat Matta NP Unavailable Esther Ramon MD Unavailable [phone] Haley Huang PA-C Unavailable [phone] Aidan Joseph PA-C Unavailable Encounter Details Date Type Department Care Team Description 05/27/2014 Biztalk Consultant Report Medical Records [address] [place] [address] Social History Tobacco Use Types Packs/Day Years [...] on filedocumented in this encounter Care Teams Food Tester Relationship Specialty Start Date End Date Aidan Dorantes MD PCP - General 09/24/03 06/25/14 Aidan Dorantes MD PCP - General 06/26/14 02/28/20 Maximino Campbell MD [address] [place] [address] PCP - General Internal Medicine 02/29/20 Aidan Dorantes MD 06/26/14 02/28/20 Aidan Dorantes MD 02/29/20 Eamon Gentile MD [address] [place] [address] Toolroom Clerk Cardiovascular Disease 05/17/21 Rahat Matta NP [address] [place] [address] Nurse Practitioner Cardiology 11/28/21 Esther Ramon MD [address] [address] Specialist Neurosurgery 06/07/22 Haley Huang PA-C [address] [address] Specialist Neurosurgery 01/11/23 Aidan Joseph PA-C [address] [address] Specialist Neurosurgery 01/11/23 documented as of this encounter
--- OUTSIDE RECORDS SUMMARY | 2024-11-26 10:20 | XMS_ITS | Encounter Summary ---
Author Organization [facility] Address [address] [place] [address] Care Team Providers Care Antenna Specialist Name Role Phone Aidan Dorantes MD Primary Care Provider Unavail able Maximino Campbell MD Primary Care Provider [phone] Aidan Dorantes MD Unavailable Unavailable Aidan Dorantes MD Unavailable Unavailable Eamon Gentile MD Unavailable Unavailable Rahat Matta NP Unavailable [phone] Esther Ramon MD Unavailable [phone] Haley Huang PA-C Unavailable [phone] Aidan Joseph PA-C Unavailable Reason for Visit * Reason Comments E-prescribe Rx Request Encounter Details Date Type Department Care Team Description 12/16/2019 Refill Pulmonology [address] [place], [place] [id number] Arturo Cantor MD 175 [facility] [address] [place] [address] E-prescribe Rx Request Social History [...] CXR documented in this encounter Care Teams Antenna Specialist Relationship Specialty Start Date End Date Aidan Dorantes MD PCP - General 06/26/14 02/28/20 Maximino Campbell MD [address] [place] [address] PCP - General Internal Medicine 02/29/20 Aidan Dorantes MD 06/26/14 02/28/20 Aidan Dorantes MD 02/29/20 Eamon Gentile MD Design Teacher Cardiovascular Disease 05/17/21 Rahat Matta NP Nurse Practitioner Cardiology 11/28/21 Esther Ramon MD [address] [address] Specialist Neurosurgery 06/07/22 Haley Huang PA-C [address] [address] Specialist Neurosurgery 01/11/23 Aidan Joseph PA-C [address] [address] Specialist Neurosurgery 01/11/23 documented as of this encounter
--- OUTSIDE RECORDS SUMMARY | 2024-11-26 10:20 | XMS_ITS | Encounter Summary ---
Author Organization [facility] Address [address] [place] [address] Care Team Providers Care Mica Machine Operator Name Role Phone Aidan Dorantes MD Primary Care Provider Unavail able Aidan Dorantes MD Primary Care Provider Unavail able Maximino Campbell MD Primary Care Provider [phone] Aidan Dorantes MD Unavailable Unavailable Aidan Dorantes MD Unavailable Unavailable Eamon Gentile MD Unavailable Unavailable Rahat Matta NP Unavailable [phone] Esther Ramon MD Unavailable [phone] Haley Huang PA-C Unavailable [phone] Aidan Joseph PA-C Unavailable [phone] Encounter Details Date Type Department Care Team Description 10/22/2006 Hospital Medical Records [address] [place] [address] Dean Arnold Social History Tobacco Use Types [...] on filedocumented in this encounter Care Teams Mica Machine Operator Relationship Specialty Start Date End Date Aidan Dorantes MD PCP - General 09/24/03 06/25/14 Aidan Dorantes MD PCP - General 06/26/14 02/28/20 Maximino Campbell MD [address] [place] [address] PCP - General Internal Medicine 02/29/20 Aidan Dorantes MD 06/26/14 02/28/20 Aidan Dorantes MD 02/29/20 Eamon Gentile MD [address] [place] [address] Room Service [employer] Cardiovascular Disease 05/17/21 Rahat Matta NP [address] [place] [address] Nurse Practitioner Cardiology 11/28/21 Esther Ramon MD [address] [address] Specialist Neurosurgery 06/07/22 Haley Huang PA-C [address] [address] Specialist Neurosurgery 01/11/23 Aidan Joseph PA-C [address] [address] Specialist Neurosurgery 01/11/23 documented as of this encounter
--- OUTSIDE RECORDS SUMMARY | 2024-11-26 10:20 | XMS_ITS | Encounter Summary ---
Author Organization [facility] Address [address] [place] [address] Care Team Providers Care Molder Machine Name Role Phone Aidan Dorantes MD Primary Care Provider Unavail able Maximino Campbell MD Primary Care Provider [phone] Aidan Dorantes MD Unavailable Unavailable Aidan Dorantes MD Unavailable Unavailable Eamon Gentile MD Unavailable Unavailable Rahat Matta NP Unavailable [phone] Esther Ramon MD Unavailable [phone] Haley Huang PA-C Unavailable [phone] Aidan Joseph PA-C Unavailable [phone] Encounter Details Date Type Department Care Team Description 01/20/2016 Debeaker Report Medical Records [address] [place] [address] Rahat Matta NP [address] [place] [address] [id number] Social History Tobacco Use Types Packs/Day Years [...] on filedocumented in this encounter Care Teams Molder Machine Relationship Specialty Start Date End Date Aidan Dorantes MD PCP - General 06/26/14 02/28/20 Maximino Campbell MD [address] [place] [address] PCP - General Internal Medicine 02/29/20 Aidan Dorantes MD 06/26/14 02/28/20 Aidan Dorantes MD 02/29/20 Eamon Gentile MD Business Case Analyst Cardiovascular Disease 05/17/21 Rahat Matta NP Nurse Practitioner Cardiology 11/28/21 Esther Ramon MD [address] [address] Specialist Neurosurgery 06/07/22 Haley Huang PA-C [address] [address] Specialist Neurosurgery 01/11/23 Aidan Joseph PA-C [address] [address] Specialist Neurosurgery 01/11/23 documented as of this encounter
--- OUTSIDE RECORDS SUMMARY | 2024-11-26 10:20 | XMS_ITS | Encounter Summary ---
Author Organization [facility] Address [address] [place] [address] Care Team Providers Care Chemical Dependency Attendant Name Role Phone Maximino Campbell MD Primary Care Provider [phone] Aidan Dorantes MD Unavailable Unavailable Eamon Gentile MD Unavailable Unavailable Rahat Matta NP Unavailable [phone] Esther Ramon MD Unavailable [phone] Haley HuangC Unavailable [phone] Aidan Joseph PA-C Unavailable [phone] Encounter Details Date Type Department Care Team Description 07/19/2023 Water Quality Tester Report Medical Records [address] [place] [address] Keagan Hidalgo MD Social History Tobacco Use [...] on filedocumented in this encounter Care Teams Chemical Dependency Attendant Relationship Specialty Start Date End Date Maximino Campbell MD [address] [place] [address] PCP - General Internal Medicine 02/29/20 Aidan Dorantes MD [address] [place], [place] [phone] 02/29/20 Eamon Gentile MD [address] [place] [address] Paper Sales Manager Cardiovascular Disease 05/17/21 Rahat Matta NP [address] [place] [address] Nurse Practitioner Cardiology 11/28/21 Esther Ramon MD [address] [address] Specialist Neurosurgery 06/07/22 Haley Huang PA-C [address] [address] Specialist Neurosurgery 01/11/23 Aidan Joseph PA-C [address] [address] Specialist Neurosurgery 01/11/23 documented as of this encounter
--- OUTSIDE RECORDS SUMMARY | 2024-11-26 10:20 | XMS_ITS | Encounter Summary ---
Author Organization [facility] Address [address] [place] [address] Care Team Providers Care Information Systems Audit Manager Name Role Phone Aidan Dorantes MD Primary Care Provider Unavail able Maximino Campbell MD Primary Care Provider [phone] Aidan Dorantes MD Unavailable Unavailable Aidan Dorantes MD Unavailable Unavailable Eamon Gentile MD Unavailable Unavailable Rahat Matta NP Unavailable [phone] Esther Ramon MD Unavailable [phone] Haley Huang PA-C Unavailable Aidan Joseph PA-C Unavailable [phone] Encounter Details Date Type Department Care Team Description 08/21/2019 Telephone Adult Medicine [address] [id number] Thi Rivera PA-C Social History Tobacco Use Types Packs/Day Years [...] encounter Miscellaneous Notes * Telephone Encounter - Thi Rivera PA-C - 08/21/2019 11:37 AM EST Left voicemail for patient to call us back. If he calls back today and I am not in the office, please tell him that his chest CT does not show any malignancies. They saw an area of fat on the CT scanwhich was originally noted as a density seen on the x-ray. There is some scarring on his lungs however there is nothing suspicious and this all appears benign. I see that he has an appointment schedul ed for PFTs and the electric hoist operator, I still would like him to go to these. Thank you documented in this encounter Plan of Treatment Not on file documented as of this encounter Visit Diagnoses Not on filedocumented in this encounter Care Teams Information Systems Audit Manager Relationship Specialty Start Date End Date Aidan Dorantes MD PCP - General 06/26/14 02/28/20 Maximino Campbell MD [address] [place] [address] PCP - General Internal Medicine 02/29/20 Aidan Dorantes MD 06/26/14 02/28/20 Aidan Dorantes MD 02/29/20 Eamon Gentile MD Asphalt Plant Laborer Cardiovascular Disease 05/17/21 Rahat Matta NP Nurse Practitioner Cardiology 11/28/21 Esther Ramon MD [address] [address] Specialist Neurosurgery 06/07/22 Haley Huang PA-C [address] [address] Specialist Neurosurgery 01/11/23 Aidan Joseph PA-C [address] [address] Specialist Neurosurgery 01/11/23 documented as of this encounter
--- OUTSIDE RECORDS SUMMARY | 2024-11-26 10:20 | XMS_ITS | Encounter Summary ---
Author Organization [facility] Address [address] [place] [address] Care Team Providers Care Bulk Truck Driver Name Role Phone Aidan Dorantes MD Primary Care Provider Unavail able Maximino Campbell MD Primary Care Provider [phone] Aidan Dorantes MD Unavailable Unavailable Aidan Dorantes MD Unavailable Unavailable Eamon Gentile MD Unavailable Unavailable Rahat Matta NP Unavailable [phone] Esther Ramon MD Unavailable [phone] Haley Huang PA-C Unavailable [phone] Aidan Joseph PA-C Unavailable [phone] Encounter Details Date Type Department Care Team Description 10/06/2019 Slag Production Worker Report Medical Records [address] [place] [address] Eamon Gentile MD Social History Tobacco Use [...] on filedocumented in this encounter Care Teams Bulk Truck Driver Relationship Specialty Start Date End Date Aidan Dorantes MD PCP - General 06/26/14 02/28/20 Maximino Campbell MD [address] [place] [address] [id number] PCP - General Internal Medicine 02/29/20 Aidan Dorantes MD 06/26/14 02/28/20 Aidan Dorantes MD 02/29/20 Eamon Gentile MD Nut Sorter Cardiovascular Disease 05/17/21 Rahat Matta NP Nurse Practitioner Cardiology 11/28/21 Esther Ramon MD 175 [facility] [address] [place] [address] [id number] Specialist Neurosurgery 06/07/22 Haley Huang PA-C [address] [address] Specialist Neurosurgery 01/11/23 Aidan Joseph PA-C 175 [facility] [address] [place] [address] Specialist Neurosurgery 01/11/23 documented as of this encounter
--- OUTSIDE RECORDS SUMMARY | 2024-11-26 10:20 | XMS_ITS | Encounter Summary ---
Author Organization [facility] Address [address] [place] [address] Care Team Providers Care Cloth Folder Hand Name Role Phone Maximino Campbell MD Primary Care Provider [phone] Aidan Dorantes MD Unavailable Unavailable Eamon Gentile MD Unavailable Unavailable Rahat Matta NP Unavailable [phone] Esther Ramon MD Unavailable [phone] Haley Huang PA-C Unavailable Aidan Joseph PA-C Unavailable Reason for Visit * Reason Comments E-prescribe Rx Request Encounter Details Date Type Department Care Team Description 04/30/2023 Refill Endocrinology - [address] [phone] Gaviota Valles PA-C [address] [place] [address] [phone] E-prescribe Rx Request Social History Tobacco Use [...] encounter Miscellaneous Notes * Telephone Encounter - Taty Kyle - 04/30/2023 10:59 AM EDT Last office visit 03/11/23 Lab Results Component Value Date HGBA1C 10.6 02/04/2023 MALBUR 29.6 10/29/2022 MALBCR 25.9 10/29/2022 CHOL 268 10/29/2022 LDL TNP 10/29/2022 HDL 40 10/29/2022 TRIG 730 10/29/2022 GLU 126 03/11/2023 CREAT 1.02 10/29/2022 documented in this encounter Plan of Treatment Not on file documented as of this encounter Visit Diagnoses Diagnosis Type 2 diabetes mellitus with diabetic nephropathy, without long-term current use of insulin (HCC) documented in this encounter Care Teams Cloth Folder Hand Relationship Specialty Start Date End Date Maximino Campbell MD [address] [place] [address] PCP - General Internal Medicine 02/29/20 Aidan Dorantes MD [address] [place] [address] 02/29/20 Eamon Gentile MD [address] [place] [address] Refrigeration Insulator Cardiovascular Disease 05/17/21 Rahat Matta NP [address] [place] [address] Nurse Practitioner Cardiology 11/28/21 Esther Ramon MD [address] [address] Specialist Neurosurgery 06/07/22 Haley Huang PA-C [address] [address] Specialist Neurosurgery 01/11/23 Aidan Joseph PA-C [address] [address] Specialist Neurosurgery 01/11/23 documented as of this encounter
--- OUTSIDE RECORDS SUMMARY | 2024-11-26 10:20 | XMS_ITS | Encounter Summary ---
Author Organization [facility] Address [address] [place] [address] Care Team Providers Care Hog Counter Name Role Phone Aidan Dorantes MD Primary Care Provider Unavail able Aidan Dorantes MD Primary Care Provider Unavail able Maximino Campbell MD Primary Care Provider [phone] Aidan Dorantes MD Unavailable Unavailable Aidan Dorantes MD Unavailable Unavailable Eamon Gentile MD Unavailable Unavailable Rahat Matta NP Unavailable [phone] Esther Ramon MD Unavailable [phone] Haley Huang PA-C Unavailable [phone] Aidan Joseph PA-C Unavailable [phone] Encounter Details Date Type Department Care Team Description 06/11/2013 Hothouse Worker Report Medical Records [address] [place] [address] José Miguel Gaets MD Social History Tobacco Use Types Packs/Day [...] on filedocumented in this encounter Care Teams Hog Counter Relationship Specialty Start Date End Date Aidan Dorantes MD PCP - General 09/24/03 06/25/14 Aidan Dorantes MD PCP - General 06/26/14 02/28/20 Maximino Campbell MD [address] [place] [address] PCP - General Internal Medicine 02/29/20 Aidan Dorantes MD 06/26/14 02/28/20 Aidan Dorantes MD 02/29/20 Eamon Gentile MD [address] [place] [address] Manager Reimbursement Cardiovascular Disease 05/17/21 Rahat Matta NP [address] [place] [address] Nurse Practitioner Cardiology 11/28/21 Esther Ramon MD [address] [address] Specialist Neurosurgery 06/07/22 Haley Huang PA-C [address] [address] Specialist Neurosurgery 01/11/23 Aidan Joseph PA-C [address] [address] Specialist Neurosurgery 01/11/23 documented as of this encounter
--- OUTSIDE RECORDS SUMMARY | 2024-11-26 10:20 | XMS_ITS | Encounter Summary ---
Author Organization [facility] Address [address] [place] [address] Care Team Providers Care Puller Out Name Role Phone Aidan Dorantes MD Primary Care Provider Unavail able Maximino Campbell MD Primary Care Provider [phone] Aidan Dorantes MD Unavailable Unavailable Aidan Dorantes MD Unavailable Unavailable Eamon Gentile MD Unavailable Unavailable Rahat Matta NP Unavailable [phone] Esther Ramon MD Unavailable [phone] Haley Huang PA-C Unavailable [phone] Aidan Joseph PA-C Unavailable [phone] Encounter Details Date Type Department Care Team Description 10/27/2015 Release of Information Medical Records [address] [place] [address] Abstract, Provider Social History Tobacco Use Types [...] on filedocumented in this encounter Care Teams Puller Out Relationship Specialty Start Date End Date Aidan Dorantes MD PCP - General 06/26/14 02/28/20 Maximino Campbell MD [address] [place] [address] PCP - General Internal Medicine 02/29/20 Aidan Dorantes MD 06/26/14 02/28/20 Aidan Dorantes MD 02/29/20 Eamon Gentile MD Clinical Fellow Cardiovascular Disease 05/17/21 Rahat Matta NP Nurse Practitioner Cardiology 11/28/21 Esther Ramon MD [address] [phone] Specialist Neurosurgery 06/07/22 Haley Huang PA-C [address] [address] Specialist Neurosurgery 01/11/23 Aidan Joseph PA-C [address] [address] Specialist Neurosurgery 01/11/23 documented as of this encounter
--- OUTSIDE RECORDS SUMMARY | 2024-11-26 10:20 | XMS_ITS | Encounter Summary ---
Author Organization [facility] Address [address] [place] [address] Care Team Providers Care Sales And Training Specialist Name Role Phone Aidan Dorantes MD Primary Care Provider Unavail able Maximino Campbell MD Primary Care Provider [phone] Aidan Dorantes MD Unavailable Unavailable Aidan Dorantes MD Unavailable Unavailable Eamon Gentile MD Unavailable Unavailable Rahat Matta NP Unavailable [phone] Esther Ramon MD Unavailable [phone] Haley Huang PA-C Unavailable [phone] Aidan Joseph PA-C Unavailable [phone] Encounter Details Date Type Department Care Team Description 10/20/2014 Aircraft Engine Assembler Report Medical Records [address] [place] [address] Debra Guardado MD Social History Tobacco Use [...] filedocumented in this encounter Care Teams Sales And Training Specialist Relationship Specialty Start Date End Date Aidan Dorantes MD PCP - General 06/26/14 02/28/20 Maximino Campbell MD [address] [place] [id number] PCP - General Internal Medicine 02/29/20 Aidan Dorantes MD 06/26/14 02/28/20 Aidan Dorantes MD 02/29/20 Eamon Gentile MD Gas Engine Operator Generators Cardiovascular Disease 05/17/21 Rahat Matta NP Nurse Practitioner Cardiology 11/28/21 Esther Ramon MD [address] [id number] Specialist Neurosurgery 06/07/22 Haley Huang PA-C [address] [address] Specialist Neurosurgery 01/11/23 Aidan Joseph PA-C [address] [address] Specialist Neurosurgery 01/11/23 documented as of this encounter
--- OUTSIDE RECORDS SUMMARY | 2024-11-26 10:20 | XMS_ITS | Encounter Summary ---
Author Organization [facility] Address [address] [place] [address] Care Team Providers Care Senior Software Qa Analyst Name Role Phone Aidan Dorantes MD Primary Care Provider Unavail able Maximino Campbell MD Primary Care Provider [phone] Aidan Dorantes MD Unavailable Unavailable Aidan Dorantes MD Unavailable Unavailable Eamon Gentile MD Unavailable Unavailable Rahat Matta NP Unavailable Esther Ramon MD Unavailable [phone] Haley Huang PA-C Unavailable [phone] Aidan Joseph PA-C Unavailable [phone] Encounter Details Date Type Department Care Team Description 05/24/2015 Shipping Lead Person Report Medical Records [address] [place] [address] Social History Tobacco Use Types Packs/Day Years [...] on filedocumented in this encounter Care Teams Senior Software Qa Analyst Relationship Specialty Start Date End Date Aidan Dorantes MD PCP - General 06/26/14 02/28/20 Maximino Campbell MD [address] [place] [address] PCP - General Internal Medicine 02/29/20 Aidan Dorantes MD 06/26/14 02/28/20 Aidan Dorantes MD 02/29/20 Eamon Gentile MD Detonator Maker Cardiovascular Disease 05/17/21 Rahat Matta NP Nurse Practitioner Cardiology 11/28/21 Esther Ramon MD [address] [address] Specialist Neurosurgery 06/07/22 Haley Huang PA-C [address] [address] Specialist Neurosurgery 01/11/23 Aidan Joseph PA-C [address] [address] Specialist Neurosurgery 01/11/23 documented as of this encounter
--- OUTSIDE RECORDS SUMMARY | 2024-11-26 10:20 | XMS_ITS | Encounter Summary ---
Author Organization [facility] Address [address] [place] [address] Care Team Providers Care Receiving And Processing Supervisor Name Role Phone Aidan Dorantes MD Primary Care Provider Unavail able Maximino Campbell MD Primary Care Provider [phone] Aidan Dorantes MD Unavailable Unavailable Aidan Dorantes MD Unavailable Unavailable Eamon Gentile MD Unavailable Unavailable Rahat Matta NP Unavailable [phone] Esther Ramon MD Unavailable [phone] Haley Huang PA-C Unavailable [phone] Aidan Joseph PA-C Unavailable [phone] Encounter Details Date Type Department Care Team Description 06/17/2015 Business Development Professional Report Medical Records [address] [place] [address] Social History Tobacco Use Types Packs/Day Years [...] on filedocumented in this encounter Care Teams Receiving And Processing Supervisor Relationship Specialty Start Date End Date Aidan Dorantes MD PCP - General 06/26/14 02/28/20 Maximino Campbell MD [address] [place] [address] PCP - General Internal Medicine 02/29/20 Aidan Dorantes MD 06/26/14 02/28/20 Aidan Dorantes MD 02/29/20 Eamon Gentile MD Lithographed Plate Inspector Cardiovascular Disease 05/17/21 Rahat Matta NP Nurse Practitioner Cardiology 11/28/21 Esther Ramon MD [address] [address] Specialist Neurosurgery 06/07/22 Haley Huang PA-C [address] [address] Specialist Neurosurgery 01/11/23 Aidan Joseph PA-C [address] [address] Specialist Neurosurgery 01/11/23 documented as of this encounter
--- OUTSIDE RECORDS SUMMARY | 2024-11-26 10:21 | XMS_ITS | Encounter Summary ---
Author Organization [facility] Address [address] [place] [address] Care Team Providers Care Negative Spotter Name Role Phone Maximino Campbell MD Primary Care Provider [phone] Aidan Dorantes MD Unavailable Unavailable Eamon Gentile MD Unavailable Unavailable Rahat Matta NP Unavailable [phone] Esther Ramon MD Unavailable [phone] Haley Huang PA-C Unavailable [phone] Aidan Joseph PA-C Unavailable [phone] Encounter Details Date Type Department Care Team Description 05/10/2020 Front End Developer Report Medical Records [address] [place] [address] Jay Costello Social History Tobacco Use Types [...] on filedocumented in this encounter Care Teams Negative Spotter Relationship Specialty Start Date End Date Maximino Campbell MD [address] [place] [address] PCP - General Internal Medicine 02/29/20 Aidan Dorantes MD [address] [place] [address] 02/29/20 Eamon Gentile MD [address] [place] [address] Transplant Surgeon Cardiovascular Disease 05/17/21 Rahat Matta NP [address] [place] [address] Nurse Practitioner Cardiology 11/28/21 Esther Ramon MD [address] [address] Specialist Neurosurgery 06/07/22 Haley Huang PA-C [address] [address] Specialist Neurosurgery 01/11/23 Aidan Joseph PA-C [address] [address] Specialist Neurosurgery 01/11/23 documented as of this encounter
--- OUTSIDE RECORDS SUMMARY | 2024-11-26 10:21 | XMS_ITS | Encounter Summary ---
Author Organization [facility] Address [address] [place] [address] Care Team Providers Care Damper Maker Name Role Phone Aidan Dorantes MD Primary Care Provider Unavail able Maximino Campbell MD Primary Care Provider [phone] Aidan Dorantes MD Unavailable Unavailable Aidan Dorantes MD Unavailable Unavailable Eamon Gentile MD Unavailable Unavailable Rahat Matta NP Unavailable [phone] Esther Ramon MD Unavailable [phone] Haley Huang PA-C Unavailable [phone] Aidan Joseph PA-C Unavailable [phone] Encounter Details Date Type Department Care Team Description 10/03/2016 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 Medical Records [address] [place] [address] Abstract, Provider Social History Tobacco Use Types [...] on filedocumented in this encounter Care Teams Damper Maker Relationship Specialty Start Date End Date Aidan Dorantes MD PCP - General 06/26/14 02/28/20 Maximino Campbell MD [address] [place] [address] [id number] PCP - General Internal Medicine 02/29/20 Aidan Dorantes MD 06/26/14 02/28/20 Aidan Dorantes MD 02/29/20 Eamon Gentile MD Telecommunication Engineer Cardiovascular Disease 05/17/21 Rahat Matta NP Nurse Practitioner Cardiology 11/28/21 Esther Ramon MD [address] [phone] Specialist Neurosurgery 06/07/22 Haley Huang PA-C [address] [address] Specialist Neurosurgery 01/11/23 Aidan Joseph PA-C [address] [address] Specialist Neurosurgery 01/11/23 documented as of this encounter
--- OUTSIDE RECORDS SUMMARY | 2024-11-26 10:21 | XMS_ITS | Encounter Summary ---
Author Organization [facility] Address [address] [place] [address] Care Team Providers Care Telegraph Installer Name Role Phone Maximino Campbell MD Primary Care Provider [phone] Aidan Dorantes MD Unavailable Unavailable Eamon Gentile MD Unavailable Unavailable Rahat Matta NP Unavailable [phone] Esther Ramon MD Unavailable [phone] Haley Huang-C Unavailable [phone] Aidan Joseph PA-C Unavailable Encounter Details Date Type Department Care Team Description 02/11/2024 Pt. Non Urgent Medical Question Cardio [facility] [address] [facility] [address] [place] [address] Rahat Matta NP [address] [place] [address] [id number] Social History Tobacco Use Types Packs/Day Years [...] on filedocumented in this encounter Care Teams Telegraph Installer Relationship Specialty Start Date End Date Maximino Campbell MD [address] [place] [address] PCP - General Internal Medicine 02/29/20 Aidan Dorantes MD [address] [place] [address] 02/29/20 Eamon Gentile MD [address] [place] [address] Government Program Manager Cardiovascular Disease 05/17/21 Rahat Matta NP [address] [place] [address] Nurse Practitioner Cardiology 11/28/21 Esther Ramon MD [address] [address] Specialist Neurosurgery 06/07/22 Haley Huang PA-C [address] [address] Specialist Neurosurgery 01/11/23 Aidan Joseph PA-C [address] [address] Specialist Neurosurgery 01/11/23 documented as of this encounter
--- OUTSIDE RECORDS SUMMARY | 2024-11-26 10:21 | XMS_ITS | Encounter Summary ---
Author Organization [facility] Address [address] [place] [address] Care Team Providers Care Pharmacy General Manager Name Role Phone Aidan Dorantes MD Primary Care Provider Unavail able Maximino Campbell MD Primary Care Provider [phone] Aidan Dorantes MD Unavailable Unavailable Aidan Dorantes MD Unavailable Unavailable Eamon Gentile MD Unavailable Unavailable Rahat Matta NP Unavailable [phone] Esther Ramon MD Unavailable [phone] Haley Huang PA-C Unavailable [phone] Aidan Joseph PA-C Unavailable [phone] Encounter Details Date Type Department Care Team Description 07/31/2018 Senior Technical Writer Report Medical Records [address] [place] [address] Scout Miller Social History Tobacco Use Types [...] on filedocumented in this encounter Care Teams Pharmacy General Manager Relationship Specialty Start Date End Date Aidan Dorantes MD PCP - General 06/26/14 02/28/20 Maximino Campbell MD [address] [place] [address] [phone] PCP - General Internal Medicine 02/29/20 Aidan Dorantes MD 06/26/14 02/28/20 Aidan Dorantes MD 02/29/20 Eamon Gentile MD Route Relief Driver Cardiovascular Disease 05/17/21 Rahat Matta NP Nurse Practitioner Cardiology 11/28/21 Esther Ramon MD [address] [phone] Specialist Neurosurgery 06/07/22 Haley Huang PA-C [address] [address] Specialist Neurosurgery 01/11/23 Aidan Joseph PA-C 175 [facility] [address] [place] [address] Specialist Neurosurgery 01/11/23 documented as of this encounter
--- OUTSIDE RECORDS SUMMARY | 2024-11-26 10:21 | XMS_ITS | Encounter Summary ---
Author Organization [facility] Address [address] [place] [address] Care Team Providers Care Spot Facer Name Role Phone Aidan Dorantes MD Primary Care Provider Unavail able Maximino Campbell MD Primary Care Provider [phone] Aidan Dorantes MD Unavailable Unavailable Aidan Dorantes MD Unavailable Unavailable Eamon Gentile MD Unavailable Unavailable Rahat Matta NP Unavailable [phone] Esther Ramon MD Unavailable [phone] Haley Huang PA-C Unavailable Aidan Joseph PA-C Unavailable [phone] Encounter Details Date Type Department Care Team Description 08/24/2016 Lab Support Tech Report Medical Records [address] [place] [address] Dolores Villasenor [address] [place] [address] Social History Tobacco Use Types Packs/Day Years [...] on filedocumented in this encounter Care Teams Spot Facer Relationship Specialty Start Date End Date Aidan Dorantes MD PCP - General 06/26/14 02/28/20 Maximino Campbell MD [address] [place] [address] PCP - General Internal Medicine 02/29/20 Aidan Dorantes MD 06/26/14 02/28/20 Aidan Dorantes MD 02/29/20 Eamon Gentile MD Mobile Ui Developer Cardiovascular Disease 05/17/21 Rahat Matta NP Nurse Practitioner Cardiology 11/28/21 Esther Ramon MD 175 [facility] [address] [place] [phone] Specialist Neurosurgery 06/07/22 Haley Huang PA-C 175 [facility] [address] [place] [address] Specialist Neurosurgery 01/11/23 Aidan Joseph PA-C 175 [facility] [address] [place] [address] Specialist Neurosurgery 01/11/23 documented as of this encounter
--- OUTSIDE RECORDS SUMMARY | 2024-11-26 10:21 | XMS_ITS | Clinical Summary ---
Author Organization [address] [place] [address] Address [address] [place] [address] Phone Care Team Providers Care Assembler Seat Name Role Phone Maximino Campbell MD Primary Care Provider [phone] Allergies Active Allergy Reactions Criticality Noted Date Comments Zhgfmfm-Kpg-Pxm Reductase Inhibitors Other,Unknown 10/03/2015 Elevated LFTs Elevated liver enzymes Product containing 7-ezzvqjm-7-methylglutar yl-coenzyme A reductase inhibitor (product) Medications semaglutide (Ozempic) 0.25 mg or 0.5 mg(2 mg/1.5 mL) injection pen 0.25 mg every 7 (seven) days. Active metFORMIN (GLUCOPHAGE) 500 mg tablet Take 1 tablet (500 mg total) by mouth 2 (two) times a day with meals. 180 tablet 2 5 Active pramipexole (MIRAPEX) 1.5 mg tablet Take 1 tablet (1.5 mg total) by mouth at bedtime. Take 1 Tablet by mouth 2 times daily for 360 days 180 tablet 2 5 Active amLODIPine (NORVASC) 5 mg tablet Take 1 tablet (5 mg total) by mouth 2 (two) times a day. 180 tablet 2 5 Active pregabalin (LYRICA) 150 mg capsule Take 1 capsule (150 mg total) by mouth at bedtime. Max Daily Amount: 150 mg 90 each 2 5 Active acetaminophen (TYLENOL) 500 mg tablet Take 2 tablets (1,000 mg total) by mouth every 8 (eight) hours if needed for mild pain. 60 each 5 Active oxyCODONE (ROXICODONE) 5 mg immediate release tablet Take 1-2 tablets (5-10 mg total) by mouth every 4 (four) hours if needed for severe pain. Max Daily Amount: 60 mg 20 each 5 Active ondansetron ODT (ZOFRAN-ODT) 8 mg disintegrating tablet Dissolve 1 tablet (8 mg total) on top of the tongue every 8 (eight) hours if needed for nausea or vomiting. 20 tablet 5 Active multivit with minerals/lutein (MULTIVITAMIN 50 PLUS ORAL) Take 1 tablet by mouth 1 (one) time each day. Active lisinopriL (PRINIVIL,ZESTRIL) 5 mg tablet Take 1 tablet (5 mg total) by mouth 1 (one) time each day. Active aspirin 81 mg chewable tablet Chew 1 tablet (81 mg total) 1 (one) time each day. Active levothyroxine (SYNTHROID, LEVOTHROID) 150 mcg tablet Take 1 tablet (150 mcg total) by mouth. Five days a week does not take on Saturday and Saturday Active alirocumab (Praluent Pen) 75 mg/mL pen injectorIndication s:Mixed hyperlipidemia Inject 1 mL (75 mg total) under the skin every 14 (fourteen) days. 6 mL 3 5 Active ezetimibe (ZETIA) 10 mg tabletIndications: Mixed hyperlipidemia Take 1 tablet (10 mg total) by mouth 1 (one) time each day. 90 tablet 3 5 Active alirocumab (Praluent Pen) 75 mg/mL pen injector Inject 1 mL into the skin every 14 days. 025 Discontin ued(Reord er) levothyroxine (SYNTHROID, LEVOTHROID) 150 mcg tablet Take 1 tablet (150 mcg total) by mouth 5 (five) times a week. 90 tablet 2 5 025 Discontin ued(Dupli scout order) lisinopriL (PRINIVIL,ZESTRIL) 5 mg tablet Take 1 tablet (5 mg total) by mouth 1 (one) time each day. 90 tablet 2 5 025 Discontin ued(Dupli scout order) ezetimibe (ZETIA) 10 mg tablet Take 1 tablet (10 mg total) by mouth 1 (one) time each day. 90 tablet 1 5 025 Discontin ued(Reord er) aspirin 325 mg EC tablet Take 1 tablet (325 mg total) by mouth 1 (one) time each day for 21 days. 21 tablet 5 025 Discontin ued(Dupli scout order) ibuprofen (ADVIL,MOTRIN) 600 mg tablet Take 1 tablet (600 mg total) by mouth every 8 (eight) hours if needed for moderate pain. 60 tablet 5 025 Discontin ued(Ineff ective) senna-docusate (PERICOLACE) 8.6-50 mg per tablet Take 2 tablets by mouth at bedtime as needed for constipation . 30 each 5 025 Discontin ued(Presc riber Discontin ued) celecoxib (CeleBREX) 200 mg capsule Take 1 capsule (200 mg total) by mouth 2 (two) times a day. 60 each 2 5 025 Discontin ued(Presc riber Discontin ued) Active Problems Problem Noted Date Diagnosed Date S/P arthroscopic partial medial meniscectomy 11/2024 Stress fracture of left tibia 08/07/2024 Acute medial meniscus tear of left knee 08/07/19 25 Primary osteoarthritis of left knee 08/07/2024 Known medical problems 05/12/2024 Overview (05/12/2024): AAA family hx Bilateral sacroiliitis ([facility] V24) 04/30/2023 Low back pain due to bilateral sciatica 06/07/20 22 Thoracic compression fractur e, closed, initial encounter ([facility] V24, [facility] V28) 05/04/2022 Overview (11/16/2024): 04/26 fell, compression fx T 8, 9, 10 Bradycardia 12/21/2021 Assessment & Plan (11/16/2024 11:26 AM EDT): Improved with treatment of sleep apnea. Orders: ECG 12 lead CTS (carpal tunnel syndrome) 05/01/2021 Overview (05/12/2024): Right Cervical spondylolysis 12/11/2019 DDD (degenerative disc disease), lumbar 12/11/19 20 Nephrolithiasis 07/17/2019 Microalbuminuria 09/29/2018 Sleep apnea 10/29/2017 Overview (11/16/2024): [facility] Home Sleep Apnea Test: Date 10/06/2014; Wt 195#; BMI 29; AHI 11, Unclassified apneas 0; Obstructive apneas 9; Central apneas 0; Mixed apneas 0; hypopneas 49; average oxygen saturation 93% (lowest 88% without saturations <88% for 5% or more of study) - Obstructive Sleep Apnea - mild; mostly hypopneas; without sleep related hypoventilation by 2018 home sleep apnea test 2024 - Inspire implantation Assessment & Plan (11/16/2024 11:26 AM EDT): Status post Inspire. The patient feels much better and is sleeping 5-6 hours up from 2 hours a night. Great result! Hypertension 09/17/2017 Assessment & Plan (11/16/2024 11:26 AM EDT): Well controlled. Likely labile in setting of untreated sleep apnea, which is now treated. Continue with amlodipine and lisinopril. Consider reducing amlodipine to 5mg daily as blood pressure decreases with continued sleep apnea treatment and weight loss. Obesity (BMI 30.0-34.9) 12/10/2016 Assessment & Plan (11/16/2024 11:26 AM EDT): BMI 33.12. Weight is up due to inactivity related to recent knee surgery and overeating. He is increasing his activities and reducing nighttime snacking. We discussed risk reduction through lifestyle choices including healthy diet, routine exercise and weight management. Consider increasing dose of GLP1. Bilateral carotid artery stenosis 07/17/2016 Overview (05/12/2024): 50-69%, 07/17/2016 Assessment & Plan (11/16/2024 11:26 AM EDT): October 2018 - known moderate bilateral carotid artery disease. Continue with aspirin, alirocumab and ezetimibe. Consider repeat carotid ultrasound next year. Type II diabetes mellitus wi th renal manifestations (CMS/HCC V24, CMS/HCC V28) 06/29/2016 Depression 01/11/2014 Insomnia 01/11/2014 Fatty liver disease, nonalcoholic 04/07/2013 Mixed hyperlipidemia 02/08/2011 Overview (11/16/2024): 2021 stress echocardiogram showed normal resting echo with preserved ejection fraction no regional wall motion abnormalities with normal augmented response to exercise with no regional wall motion abnormalities observed, no exercise EKG changes consistent with ischemia and no chest pain; size for 7 minutes and 36 seconds to and MPHR of 99% Assessment & Plan (11/16/2024 11:26 AM EDT): April 2024 - LDL 39 HDL 51. Continue with alirocumab and ezetimibe. Orders: alirocumab (Praluent Pen) 75 mg/mL pen injector; Inject 1 mL (75 mg total) under the skin every 14 (fourteen) days. ezetimibe (ZETIA) 10 mg tablet; Take 1 tablet (10 mg total) by mouth 1 (one) time each day. Diverticulitis of colon without hemorrhage 01/20 Overview (05/12/2024): Identified on CT scan examination. Hemorrhage of gastrointestinal tract 01/21/2008 Overview (05/12/2024): History of small volume rectal bleeding. Negative colonoscopy 03/06/2006, performed by Dr. Michael Salgado. IMO update IBS (irritable bowel syndrome) 01/02/2008 Restless legs syndrome (RLS) 12/20/2007 Hypothyroidism 07/06/2005 Encounters Date Type Department Care Team Description 11/25/2024 8:30 AM EDT Treatment Outpatient [address] [phone] Miladys, Rivas, PT Acute medial meniscus tear of left knee, subsequent encounter (Primary Dx) 11/20/2024 8:00 AM EDT Treatment Outpatient [facility] - [address] [phone] Benita Collins, EXAMINATION PROCTOR Stress fracture of left tibia with delayed healing, subsequent encounter (Primary Dx); Arthritis of left knee; Acute medial meniscus tear of left knee, subsequent encounter 11/18/2024 8:00 AM EDT Treatment Outpatient [facility] - [address] [phone] Benita Collins, EXAMINATION PROCTOR Stress fracture of left tibia with delayed healing, subsequent encounter (Primary Dx); Arthritis of left knee 11/16/2024 10:10 AM EDT Office Visit [facility] - [address] [place] [phone] Rahat Matta NP Mixed hyperlipidemia (Primary Dx); Bradycardia; Obesity (BMI 30.0-34.9); Bilateral carotid artery stenosis; Primary hypertension; Sleep apnea, unspecified type 11/13/2024 11:30 AM EDT Treatment Outpatient [facility] - [address] [phone] Benita Collins, EXAMINATION PROCTOR Stress fracture of left tibia with delayed healing, subsequent encounter (Primary Dx); Arthritis of left knee 11/11/2024 8:00 AM EDT Treatment Outpatient [address] [phone] Benita Collins, EXAMINATION PROCTOR Stress fracture of left tibia with delayed healing, subsequent encounter (Primary Dx); Arthritis of left knee 11/06/2024 11:30 AM EDT Office Visit Orthopedic Surgery - [place] [address] [place] [address] [address] [place] [phone] Kenzie Conner PA S/P arthroscopic partial medial meniscectomy (Primary Dx); Primary osteoarthritis of left knee; Stress fracture of left tibia with delayed healing, subsequent encounter; Post-operative state 11/05/2024 12:00 PM EDT Treatment Outpatient Rehabilitation - [address] [phone] Miladys Rivas, PT Stress fracture of left tibia with delayed healing, subsequent encounter (Primary Dx) 11/03/2024 2:00 PM EDT Treatment Outpatient Rehabilitation - [address] [phone] Benita Collins, EXAMINATION PROCTOR Stress fracture of left tibia with delayed healing, subsequent encounter (Primary Dx); Acute medial meniscus tear of left knee, subsequent encounter 10/30/2024 Telephone [facility] - [facility] [address] [place] [phone] Rahat Matta NP Appointment 10/29/2024 10:30 AM EDT Evaluation Outpatient Rehabilitation - [address] [phone] Miladys Rivas, PT Stress fracture of left tibia with delayed healing, subsequent encounter (Primary Dx); Acute medial meniscus tear of left knee, subsequent encounter; Arthritis of left knee 10/29/2024 Plan of Care Documentation Outpatient Rehabilitation - [address] [phone] 10/22/2024 9:39 AM EDT Anesthesia Event [facility] [place] [address] [place] [phone] Kendra Serrano MD Malone, Brody, SRNA 10/22/2024 9:30 AM EDT - 10/22/2024 11:[address] [facility] [place] [address] [place] [phone] Marvin Quan MD ARTHROSCOPY LEFT KNEE,percutaneous injection proximal medial tibia stress fracture under fluoroscopic guidance. [35344 (CPT??) +1 more] 10/22/2024 7:59 AM EDT - 10/22/2024 1:50 PM EDT Hospital Encounter [facility] [place] [address] [place] [phone] Marvin Quan MD Discharge Disposition: Home or Self Care 10/22/2024 7:10 AM EDT - 10/22/2024 11:59 PM EDT Hospital Encounter [facility] [address] [place] [phone] Pain Discharge Disposition: Home or Self Care 10/06/2024 10:00 AM EST Consult Adult Medicine [address] [phone] Maximino Campbell MD Preop examination (Primary Dx); Hypothyroidism, unspecified type; Restless legs syndrome (RLS); Mixed hyperlipidemia; Type 2 diabetes mellitus with other diabetic kidney complication, without long-term current use of insulin ([facility] V24, [facility] V28); Primary hypertension; Bilateral carotid artery stenosis; Arthritis of left knee; FREDY (obstructive sleep apnea) 09/25/2024 Telephone Adult Medicine [address] [phone] Radha Lopez LPN Fitting for DME (Faxed form from [employer]) from Last 3 Months Immunizations Name Administration [...] PROCEDURE: HISTORICAL TONSILLECTOMY OTHER SURGICAL HISTORY PROCEDURE: MO HEMORRHOIDECTOMY NTRNL & XTRNL 1 COLUMN/GROUP SINUS SURGERY PROCEDURE: MO UNLISTED PROCEDURE ACCESSORY SINUSES; COMMENT: times three CARPAL TUNNEL RELEASE 2005 Bilateral PROCEDURE: HISTORICAL CARPAL TUNNEL REL; COMMENT: bilateral TYMPANOSTOMY TUBE PLACEMENT PROCEDURE: HISTORICAL PE TUBES COLONOSCOPY 10/03/2015 PROCEDURE: HISTORICAL COLONOSCOPY; COMMENT: 1 cm polyp and 3 small polyps-> tub. adenomas UPPER GASTROINTESTINAL ENDOSCOPY 07/12/2009 PROCEDURE: MO UPPER GI ENDOSCOPY PERFORMED; COMMENT: SB biopsy: Normal. Gastric biopsy mijnimal reactive changes (Hpylori-) COLONOSCOPY 03/06/2006 PROCEDURE: HISTORICAL COLONOSCOPY; COMMENT: Negative examination, [facility] Michael Salgado, [facility]ONOSCOPY 02/11/2019 PROCEDURE: HISTORICAL COLONOSCOPY; COMMENT: no polyps. OTHER SURGICAL HISTORY PROCEDURE: HISTORY OTHER; COMMENT: right elbow surgery, ulnar transposition, chronic neuropathy; multiple surgeries SHOULDER SURGERY 2007 Bilateral PROCEDURE: HISTORICAL SHOULDER SURGERY KNEE SURGERY Bilateral PROCEDURE: HISTORICAL KNEE SURGERY; COMMENT: x2, most recent 2017 OTHER SURGICAL HISTORY INSPIRE IMPLANT KNEE ARTHROSCOPY 10/22/2024 Left Left knee arthroscopy; plica resection; partial medial meniscectomy; Percutaneous calcium phosphate bone substitute injected left proximal tibia for treatment of stress fracture Medical History Medical History Date Comments Other [...] needed for 5 years. Sleep apnea Arthritis Colon polyp Family History Medical History Relation Name Comments Hyperlipidemia Father in f all Heart attack Mother 2010, kidney failure, breast cancer, DM, cholesterol Colon cancer Neg Hx Relation Name Status Comments Father (Age 80) Mother (Age 78) Social History Tobacco Use Types Packs/Day Years Used Date Smoking Tobacco: Never Smokeless Tobacco: Never Tobacco Cessation:Counseling Given: Not Answered Alcohol Use Standard Drinks/Week Comments Yes 0 (1 standard drink = 0.6 oz pur e alcohol) OCCASIONAL Housing Instability Answer Date Recorde d Are you worried that in the next 2 months you may not have stable housing? Patient declined 10/05/2024 Food Access & Nutrition Answer Date Rec orded Do you have access to a vari ety of food including fruits and vegetables? Patient declined 10/05/2024 Financial Risk Answer Date Recorded How hard is it for you to pa y for the very basics like food, housing, medical care, and air conditioning / heating? Patient declined 10/05/2024 Transportation Answer Date Recorded Has the lack of transportati on kept you from meetings, work, or from getting things needed for daily living? Patient declined 10/05/2024 Has the lack of transportati on kept you from medical appointments or from getting medications? Patient declined 10/05/2024 Social Isolation Answer Date Recorded How often do you feel lonely or isolated from those around you? Patient declined 10/05/2024 Food Risk Answer Date Recorded Within the past 12 months we worried whether our food would run out before we got money to buy more. Patient declined 025 Within the past 12 months th e food we bought just didn't last and we didn't have money to get more. Patient declined 10/2024 Dependent Care Answer Date Recorded Do you need help finding or paying for care for your loved ones. For example, manager child or elderly care for an older adult? Patient declined 10/05/2024 Education Answer Date Recorded Do you think completing more education or training, like finishing a GED, going to college, or learning a trade, would be helpful for you? Patient declined 10/05/2024 Employment and Income Answer Date Recor ded During the last four weeks, have you been actively looking for work? Patient declined 10/05/2024 Living Situation Answer Date Recorded What is your living situation? 0 10/05/2024 Interpersonal Safety Answer Date Record ed Physical Abuse 10/22/2024 Verbal Abuse 10/22/2024 Sex and Gender Information Value Date Recorded Sex Assigned at Male 07/20/2024 10:34 AM EST Legal Sex Male 6:46 AM EST Gender Identity Male 07/20/2024 10:34 AM EST Sexual Orientation Straight 10/22/2024 7: 58 AM EDT Obstetrics History Last Filed Vital Signs Vital Sign Reading Time Taken Comments Blood Pressure 128/70 11/16/2024 10:05 AM EDT Pulse 77 11/16/2024 10:05 AM EDT Temperature 36.7 ??C (98.1 ??F) 10/22/2024 12:10 PM E DT Respiratory Rate 20 10/22/2024 12:10 PM EDT Oxygen Saturation 98% 11/16/2024 10:05 AM EDT Inhaled Oxygen Concentration - - Weight 102 kg (224 lb 4.8 oz) 11/16/2024 10:05 A M EDT Height 175.3 cm (5' 9 ) 11/16/2024 10:05 AM EDT Body Mass Index 33.12 11/16/2024 10:05 AM EDT Plan of Treatment Upcoming Encounters Date Type Department Care Team (Late st Contact Info) Description 12/04/2024 12:30 PM EDT Treatment Outpatient Rehabilitation [address] [phone] Rivas Hook, SRIDHAR 12/16/2024 9:45 AM EDT Office Visit Adult Medicine [address] [phone] Maximino Campbell MD [address] [place] [address] 01/20/2025 9:15 AM EDT Office Visit Orthopedic Surgery - [place] [address] [phone] Marvin Quan MD [address] [address] 02/24/2025 9:00 AM EDT Office Visit Adult Medicine [address] [phone] Maximino Campbell MD [address] [place] [address] 06/03/2025 3:10 PM EDT Office Visit [facility] - [facility] [address] [place] [phone] CycRahat de guzman NP [address] [place] [address] [address] [place] [address] Health Maintenance Due Date Last Done Comments Diabetes: Annual Retina Eye Exam 12/22/1969 Pneumococcal Vaccine: 50+ Years (2 of 2 - PCV) 11/15/2017 11/15/2016 Pneumococcal Vaccine: Pediatrics (0 to 5 Years) and At-Risk Patients (6 to 64 Years) (2 of 2 - PCV) 11/15/2017 11/15/2016 RSV Immunization Adult Patients (1 - Risk 60-74 years 1-dose series) 2019 HIV Screening 07/14/2022 Medicare Annual Wellness Visit 07/14/2022 COVID-19 Vaccine ( season) 2024 08/11/2021, 11/21/2020, 10/24/2020 Diabetes: Annual Foot Exam 05/13/2024 05/13/2023 Diabetes: Blood Sugar Control Test (HGBA1C) 10/11/2024 04/13/2024, 04/13/2024 Influenza Vaccine (Season Ended) 2025 05/04/2022, 08/11/2021, 04/14/2020, Additional history exists Diabetes: Annual Urine Albumin-Creatinine Ratio (uACR) 04/13/2025 04/13/2024 Depression Screening 10/05/2025 10/05/2024, 04/13/20 24 Social Influencers of Health Screening 10/05/2025 10/05/2024 Diabetes: Annual GFR (Glomerular Filtration Rate) 10/14/2025 10/14/2024, 04/13/2024, 04/13/2024 Hypertension/CHF/CAD Annual BMP Blood Test 10/14/2025 10/14/2024, 04/13/2024, 04/13/2024 Colorectal Cancer Screening: Colonoscopy 01/01/2029 01/02/2024 Cholesterol Screening (Lipid Panel) 04/13/2029 04/13/2024, 04/13/2024 DTaP,Tdap,and Td Vaccines (5 - Td or Tdap) 10/08/2032 10/08/2022, 06/05/2021, 09/07/2017, Additional history exists Hepatitis C Screening Completed 07/12/2009 Zoster Vaccines Completed 11/17/2024, 03/31/2024 HIB Vaccines Aged Out No longer eligi [...] age to complete this topic Meningococcal B Vaccine Aged Out No l onger eligible based on patient's age to complete this topic RSV Immunization Patients Under 20 months Aged Out No longer eligible based on patient's age to complete this topic Varicella Vaccines Aged Out No longer eligible based on patient's age to complete this topic Goals Goal Patient Goal Type Associated Problems Recent Progress Patient-Stated? Author STG's 6 visits General Yes Rivas Hook, PT Note: Pt will demonstrate full L knee extension to improve tolerance to walking. Pt will report being able to reciprocally ascend stairs w/ use of hand railing. Pt is Independent and compliant with initial HEP. Pt will demonstrate L knee flexion of 115 degrees or better for safe stair negotiation. LTG's 12 visits General Yes Rivas Hook, PT Note: Pt will demonstrate L LE strength of 4+/5 or better to enable pt to return to his level of function prior to his injury. Pt will report being able to reciprocally negotiate stairs w/ use of hand railing. Pt is Independent and compliant with final HEP. Pt will demonstrate L knee flexion of 125 degrees or better for safe stair negotiation and squatting to retrieve objects off floor.. Medical Devices Implanted Type Area Emotional Disabilities Teacher Device Identifier Shelf Expiration Date Model / Serial / Lot Implants Implants N/A: Throat [employer] Bone Graft Delivery Knee Kit - Sn/A - [id number] Implanted:Qty: 1 on 10/22/2024 by Marvin Quan MD at [facility] [employer] Bone Left: Knee [employer] [id number] / N/A / [id number] Procedures Procedure Name Priority Date/Time Associated Diagnosis Comments ECG 12-LEAD Routine 11/16/2024 11:13 AM EDT Bradycardia XR KNEE 1-2 VIEWS LEFT Routine 11:34 AM EDT Post-operative state OXYGEN THERAPY, ADULT Routine 10/22/2024 11:10 AM EDT OXYGEN THERAPY, ADULT Routine 10/22/2024 11:10 AM EDT XR KNEE 1-2 VIEWS LEFT Routine 10:45 AM EDT Pain TH AN ENDOTRACHEAL(NO CHARGE) Routine 10/22/2024 10:04 AM EDT MO ARTHROSCOPICALLY AIDED TX TIBIAL FX PRX UNICONDYLAR INCL INTERNAL FIXN 10/22/2024 9:39 AM EDT Stress fracture of left tibia with delayed healing, subsequent encounter Acute medial meniscus tear of left knee, subsequent encounter Arthritis of left knee Case Notes C-Arm, Radioloucent Keystone. Valgus bar. Knee scope first , then injection under Fluoro (Fluoroscopic Guided Percutaneous injection Calcium Phosphate bone substitute), [employer] REP Special Needs percutaneous injection of the proximal medial tibia stress fracture under fluoroscopic guidance. MO ARTHROSCOPY KNEE SURG W/ MENISCECTOMY INCL DEBR/SHVI ARTC CARTILAGE 10/22/2024 9:39 AM EDT Stress fracture of left tibia with delayed healing, subsequent encounter Acute medial meniscus tear of left knee, subsequent encounter Arthritis of left knee Case Notes C-Arm, Radioloucent Keystone. Valgus bar. Knee scope first , then injection under Fluoro (Fluoroscopic Guided Percutaneous injection Calcium Phosphate bone substitute), [employer] REP Special Needs percutaneous injection of the proximal medial tibia stress fracture under fluoroscopic guidance. POCT GLUCOSE BLOOD Routine 10/22/2024 8:24 AM EDT TH AN NERVE BLOCK ADDUCTOR CANAL (NO CHARGE) Routine 10/22/2024 7:24 AM EDT TH AN NERVE BLOCK ADDUCTOR CANAL (CHARGE) Routine 10/22/2024 7:24 AM EDT BASIC METABOLIC PANEL Routine 10/14/2024 8:00 AM EDT Preoperative examination CBC WITH AUTO DIFFERENTIAL Routine 10/06/2024 10:36 AM EST Preop examination CBC AND DIFFERENTIAL Routine 10/06/2024 10:36 AM EST Preop examination ECG 12-LEAD TRACING ONLY Routine 10/06/2024 10:32 AM EST Preop examination HM DEPRESSION SCREENING Routine 04/13/2024 URINE ALBUMIN CREATININE RATIO Routine 04/13/2024 HEMOGLOBIN A1C Routine 04/13/2024 LIPID PANEL Routine 04/13/2024 COLONOSCOPY Routine 01/02/2024 DIABETES FOOT EXAM Routine 05/13/2023 HEPATITIS C SCREENING Routine 07/12/2009 from Last 3 Months or Most Recently Relevant to Health Maintenance Results * ECG 12 lead (11/16/2024 11:13 AM EDT) Ventricular Rate ECG 77 BPM GEMUSE Atrial Rate 77 BPM GEMUSE P-R Interval 162 ms GEMUSE QRS Duration 100 ms GEMUSE Q-T Interval 372 ms GEMUSE QTc 420 ms GEMUSE P Wave [place] 64 degrees GEMUSE R [place] 12 degrees GEMUSE T [place] 17 degrees GEMUSE ECG Interpretation Normal sinus rhythm Incomplete right bundle branch block Borderline ECG When compared with ECG of 02-OCT-2021 14:56, No significant change was found Confirmed by CAITLYN CRANE ([id number]) on 11/16/2024 5:13:42 PM GEMUSE 11/16/2024 10:0 9 AM EDT 11/16/2024 5:13 PM EDT us Rahat Matta FRENCH TRANSLATOR ECG ORDERABLES Edited Resu lt - Final GEMUSE * XR Knee 1-2 Views Left (11/06/2024 11:34 AM EDT) Only the most recent of2 resultswithin the time period is included. Anatomical Region Laterality Modality Lower Extremities, Knee Left Computed Radiography Narrative 11/06/2024 11:43 AM EDT Date of Visit: 11/06/2024 Reason for visit: ?? Left knee post-op Views: AP and Lateral left knee Comparison: 04/13/24 ?? Findings: Joint space of the medial compartment mildly narrowed. ?? Joint space of the lateral compartments maintained. No acute bony pathology Post surgical changes Anteromedial tibial plateau noted and expected. ?? Impression: Appropriate postop changes as noted above. No acute osseous pathology noted Left ??knee Read by: Kenzie Conner PA-C us Kenzie BOLIVAR IMG XR PROCEDURES Final Resul t * TH AN ENDOTRACHEAL(NO CHARGE) (10/22/2024 10:04 AM EDT) Narrative Mayela Santana CRNA - 10/22/2024 10:04 AM EDT Mayela Santana CRNA ? 10/22/2024 10:05 AM General Information and Staff Patient location during procedure: OR Resident/UPSET WELDING MACHINE OPERATOR: Mayela Santana CRNA Performed by: Mayela Santana CRNA Authorized by: Kendra Serrano MD ?? Intubation Difficult airway Urgency: elective Final Airway Details Successful intubation technique: video laryngoscopy Endotracheal tube insertion site: oral Blade size: #4 Cormack-Lehane Classification: grade I - full view of glottis Placement verified by: chest auscultation and capnometry Measured from: teeth ETT to teeth (cm): 22 Number of attempts at approach: 1 Ventilation between attempts: none Number of other approaches attempted: 0Final airway type: endotracheal airway Indications and Patient Condition Indications for airway management: anesthesia and airway protection Spontaneous ventilation: present Sedation level: Yes Preoxygenated: yes Soft Tissue Damage: Yes Dentition Unchanged: No Patient position: neutral MILS maintained throughout Mask difficulty assessment: 3 - difficult mask (inadequate, unstable or two providers) +/- NMBA us Kendra Serrano MD ANESTHESIA ORDERABLES Final Resu lt * (ABNORMAL) POCT Glucose, blood (10/22/2024 8:24 AM EDT) Glucose POCT 130(H) 70 - 100 mg/dL 10/22/2024 8:27 AM EDT [facility] Blood Capillary blood specimen / Unknown 10/22/2024 8:24 AM EDT 10/22/2024 8:28 AM EDT us Marvin Quan MD LAB POINT OF CARE TE ST DOCKED DEVICE UNSOLICITED RESULTS Final Result [facility] [address] [place] [address], [place] [phone] * TH AN NERVE BLOCK ADDUCTOR CANAL (CHARGE), TH AN NERVE BLOCK ADDUCTOR CANAL (NO CHARGE) (57:24 AM EDT) Narrative Kendra Serrano MD - 10/22/2024 7:24 AM EDT Kendra Serrano MD ? 10/22/2024 10:00 AM Peripheral Block Patient location during procedure: pre-op Start time: 10/22/2024 7:24 AM End time: 10/22/2024 7:27 AM Reason for block: post-op pain management Staffing Performed: anesthesiologist Anesthesiologist: Kendra Serrano MD Preanesthetic Checklist Completed: patient identified, IV checked, site marked, risks and benefits discussed, surgical consent, monitors and equipment checked, pre-op evaluation and timeout performed Peripheral Block Patient position: supine Prep: ChloraPrep Patient monitoring: continuous pulse ox and heart rate (NIBP) Block type: adductor canal block Laterality: left Injection technique: single-shot Guidance: ultrasound guided and Ultrasound image saved to chart Local infiltration: lidocaine Infiltration strength: 1 % Dose: 5 mL Needle Needle type: nerve stimulator Needle gauge: 20 G Needle length: 5 cm Needle localization: ultrasound guidance and nerve stimulator (Ultrasound with tip visualized throughout) Medications Administered fentaNYL (SUBLIMAZE) injection 50 mcg/mL - intravenous 100 mcg - 10/22/2024 7:24:00 AM midazolam (VERSED) PF injection 1 mg/mL - intravenous 2 mg - 10/22/2024 7:24:00 AM Assessment Injection assessment: negative aspiration for heme, no paresthesia on injection, incremental injection with negative aspiration q 5ml and local visualized surrounding nerve on ultrasound Paresthesia pain: none Heart rate change: no Slow fractionated injection: yes Additional Notes Timeout performed with bedside RN. Anesthesia and surgical consent on chart. Standard aseptic technique: hat, mask, sterile gloves, eye protection. Monitors: NIBP, SpO2, EKG Sedation with meaningful contact. ChloraPrep to peripheral nerve block site. Ultrasound guidance throughout. Injectate: Ropivacaine 0.5% ?? Volume: 20 mL Clonidine 100 mcg mixed with local anesthetic. Rossana-neural/fascial plane visualization of local anesthetic spread. Ultrasound image saved to chart. Block performed per surgeon request (ordered on chart). us Kendra Serrano MD ANESTHESIA ORDERABLES Final Resu lt * (ABNORMAL) Basic metabolic panel (10/14/2024 8:00 AM EDT) Sodium 135 133 - 145 mmol/L LAB CHEMISTRY METHOD 10/14/2024 10:15 AM [facility] Potassium 4.4 3.5 - 5.5 mmol/L LAB CHEMISTRY METHOD 10/14/2024 10:15 AM [facility] Chloride 105 96 - 110 mmol/L LAB CHEMISTRY METHOD 10/14/2024 10:15 AM [facility] CO2 25 21 - 32 mmol/L LAB CHEMISTRY METHOD 10/14/2024 10:15 AM [facility] Anion Gap 5 3 - 11 LAB CHEMISTRY METHOD 10/14/2024 10:[address] [facility] Glucose 213(H) 70 - 100 mg/dL LAB CHEMISTRY METHOD 10/14/2024 10:[address] [facility] Comment:Lipemia present BUN 12 5 - 25 mg/dL LAB CHEMISTRY METHOD 10/14/2024 10:15 AM [facility] Creatinine 1.02 0.70 - 1.30 mg/dL LAB CHEMISTRY METHOD [facility] eGFR 82 >=60 mL/min/1. 73m2 LAB CHEMISTRY METHOD 10/14/2024 10:15 AM [facility] Comment:Calculation based on the??Chronic Kidney Disease Epidemiology Collaboration (CKD-EPI) equation refit??without adjustment for race. BUN/Creatinine Ratio 11.8 LAB CHEMISTRY METHOD 10/14/2024 10:15 AM [facility] Calcium 8.7 8.5 - 10.5 mg/dL LAB CHEMISTRY METHOD 10/14/2024 10:15 AM [facility] Blood Venous blood specimen / Unknown Venipuncture / Unknown 10/14/2024 8:00 AM EDT 10/14/2024 8:00 AM EDT us Maximino Campbell MD LAB BLOOD ORDERABLES Final Resu lt [facility] [address] [place] [address], * (ABNORMAL) CBC auto differential (10/06/2024 10:36 AM EST) WBC 8.9 4.8 - 10.8 K/mcL LAB HEMETOLOGY METHOD 10/06/2024 12:[address] [facility] RBC 5.00 4.50 - 5.50 M/mcL LAB HEMETOLOGY METHOD 10/06/2024 12:[address] [facility] Hemoglobin 14.7 13.5 - 17.5 g/dL LAB HEMETOLOGY METHOD 10/06/2024 12:19 PM [facility] Hematocrit 43.6 42.0 - 54.0 % LAB HEMETOLOGY METHOD 10/06/2024 12:19 PM [facility] MCV 87.9 79.0 - 98.0 FL LAB HEMETOLOGY METHOD 10/06/2024 12:19 PM [facility] MCH 29.6 27.0 - 32.0 pcg LAB HEMETOLOGY METHOD 10/06/2024 12:19 PM [facility] MCHC 33.7 32.0 - 37.0 g/dL LAB HEMETOLOGY METHOD 10/06/2024 12:19 PM [facility] RDW 14.3 11.0 - 15.0 % LAB HEMETOLOGY METHOD 10/06/2024 12:19 PM [facility] Platelets 215 130 - 400 K/mcL LAB HEMETOLOGY METHOD 10/06/2024 12:19 PM [facility] MPV 11.3(H) 7.0 - 11.0 FL LAB HEMETOLOGY METHOD 10/06/2024 12:19 PM [facility] NRBC 0.0 <1.0 % LAB HEMETOLOGY METHOD 10/06/2024 12:19 PM [facility] NRBC Absolute 0.00 <0.10 K/mcL LAB HEMETOLOGY METHOD 10/06/2024 12:19 PM [facility] Neutrophils Relative 64.2 % LAB HEMETOLOGY METHOD 10/06/2024 12:19 PM [facility] Lymphocytes Relative 25.4 % LAB HEMETOLOGY METHOD 10/06/2024 12:19 PM [facility] Monocytes Relative 6.5 % LAB HEMETOLOGY METHOD 10/06/2024 12:19 PM [facility] Eosinophils Relative 1.9 % LAB HEMETOLOGY METHOD 10/06/2024 12:19 PM [facility] Basophils Relative 0.9 % LAB HEMETOLOGY METHOD 10/06/2024 12:19 PM [facility] Immature Granulocytes Relative 1.1 % LAB HEMETOLOGY METHOD 10/06/2024 12:19 PM [facility] Neutrophils Absolute 5.69 1.50 - 7.00 K/mcL LAB HEMETOLOGY METHOD 10/06/2024 12:19 PM [facility] Lymphocytes Absolute 2.25 1.00 - 5.00 K/mcL LAB HEMETOLOGY METHOD 10/06/2024 12:19 PM [facility] Monocytes Absolute 0.58 0.20 - 1.00 K/mcL LAB HEMETOLOGY METHOD 10/06/2024 12:19 PM [facility] Eosinophils Absolute 0.17 0.00 - 0.50 K/mcL LAB HEMETOLOGY METHOD 10/06/2024 12:19 PM [facility] Basophils Absolute 0.08 0.00 - 0.20 K/mcL LAB HEMETOLOGY METHOD 10/06/2024 12:19 PM [facility] Immature Granulocytes Absolute 0.10(H) 0.00 - 0.03 K/mcL LAB HEMETOLOGY METHOD 10/06/2024 12:19 PM [facility] Blood Venous blood specimen / Unknown Venipuncture / Unknown 10/06/2024 10:36 AM EST 10/06/2024 10:36 AM EST us Maximino Campbell MD LAB BLOOD ORDERABLES Final Resu lt [facility] [address] [place] [address], * ECG 12 lead Tracing Only (10/06/2024 10:32 AM EST) Result [facility] Maximino Campbell MD ECG ORDERABLES Final Result * Urine Albumin Creatinine Ratio (04/13/2024) [facility] Urine Albumin Creatinine Ratio abstracted Result [facility] Provider HEALTH MAINTENANCE Final Result * Depression Screening (04/13/2024) [facility] Depression Screening abstracted Result [facility] Provider HEALTH MAINTENANCE Final Result * Hemoglobin A1c (04/13/2024) [facility] Hemoglobin A1C 6.4 <=6.5 % Blood Venous blood specimen / Unknown Result [facility] Provider LAB BLOOD ORDERABLES Yun l Result * (ABNORMAL) Lipid panel (04/13/2024) [facility] LDL/HDL Ratio 3 0 - 4 Triglycerides 258(A) 0 - 150 mg/dL Cholesterol 141 0 - 200 mg/dL HDL 51 >=40 mg/dL LDL Cholesterol 39 0 - 100 mg/dL Blood Venous blood specimen / Unknown Result [facility] Provider LAB BLOOD ORDERABLES Yun l Result * Colonoscopy (01/02/2024) [facility] Colonoscopy no interpretation abstracted Anatomical Region Laterality Modality Other Result [facility] Provider HEALTH MAINTENANCE Final Result * Diabetes Foot Exam (05/13/2023) [facility] Diabetes: Annual Foot Exam abstracted Result [facility] Provider HEALTH MAINTENANCE Final Result * Hepatitis C Screening (07/12/2009) [facility] Hepatitis C Screening abstracted Result [facility] Provider HEALTH MAINTENANCE Final Result from Last 3 Months or Most Recently Relevant to Health Maintenance Insurance MEDICARE [facility] Advance Directives * Full Code - Default (Latest Code Status on File) Date Activated Date Inactivated Comments 10/22/2024 8:45 AM 10/22/2024 3:55 PM This is orde r is used when code status has not been discussed with the patient, or code status is otherwise unknown/unconfirmed To update the patient's code status, place a code status order. Do not modify or discontinue any currently active code status orders. Care Teams Assembler Seat Relationship Specialty Start Date End Date Maximino Campbell MD [address] [place] [address] PCP - General Internal Medicine 02/29/20
--- OUTSIDE RECORDS SUMMARY | 2024-11-26 10:21 | XMS_ITS | Encounter Summary ---
Author Organization [facility] Address [address] [place] [address] Care Team Providers Care Plant Science Professor Name Role Phone Aidan Dorantes MD Primary Care Provider Unavail able Maximino Campbell MD Primary Care Provider [phone] Aidan Dorantes MD Unavailable Unavailable Aidan Dorantes MD Unavailable Unavailable Eamon Gentile MD Unavailable Unavailable Rahat Matta NP Unavailable [phone] Esther Ramon MD Unavailable [phone] Haley Huang PA-C Unavailable [phone] Aidan Joseph PA-C Unavailable [phone] Encounter Details Date Type Department Care Team Description 01/03/2018 Director Marketing Analytics Report Medical Records [address] [place] [address] Marichuy Laureano PA-C [address] [place] [address] Social History Tobacco Use Types Packs/Day Years [...] filedocumented in this encounter Care Teams Plant Science Professor Relationship Specialty Start Date End Date Aidan Dorantes MD PCP - General 06/26/14 02/28/20 Maximino Campbell MD [address] [place] [address] PCP - General Internal Medicine 02/29/20 Aidan Dorantes MD 06/26/14 02/28/20 Aidan Dorantes MD 02/29/20 Eamon Gentile MD Extension Course Coordinator Cardiovascular Disease 05/17/21 Rahat Matta NP Nurse Practitioner Cardiology 11/28/21 Esther Ramon MD [address] [address] Specialist Neurosurgery 06/07/22 Haley Huang PA-C [address] [address] Specialist Neurosurgery 01/11/23 Aidan Jsoeph PA-C [address] [address] Specialist Neurosurgery 01/11/23 documented as of this encounter
--- OUTSIDE RECORDS SUMMARY | 2024-11-26 10:21 | XMS_ITS | Encounter Summary ---
Author Organization [facility] Address [address] [place] [address] Care Team Providers Care Painter And Decorator Apprentice Name Role Phone Maximino Campbell MD Primary Care Provider [phone] Aidan Dorantes MD Unavailable Unavailable Eamon Gentile MD Unavailable Unavailable Rahat Matta NP Unavailable [phone] Esther Ramon MD Unavailable [phone] Haley Huang-C Unavailable [phone] Aidan Joseph PA-C Unavailable Encounter Details Date Type Department Care Team Description 10/30/2021 Pt. Non Urgent Medic al Question Medicine/Pediatrics - [address] [id number] Emmie Alberts MD Social History Tobacco Use [...] encounter Miscellaneous Notes * Telephone Encounter - Noe Kyle - 10/30/2021 9:07 AM EDTFrom: Quentin Grossman To: Aaron Alberts Sent: 10/30/2021 7:53 AM EDT Subject: Change doctor I would like to change from Dr. Campbell over to Jacob Alberts how do I do this? Quentin Grossman documented in this encounter Plan of Treatment Not on file documented as of this encounter Visit Diagnoses Not on filedocumented in this encounter Care Teams Painter And Decorator Apprentice Relationship Specialty Start Date End Date Maximino Campbell MD [address] [place] [address] PCP - General Internal Medicine 02/29/20 Aidan Dorantes MD [address] [place] [address] 02/29/20 Eamon Gentile MD [address] [place], [place] [phone] Frame Cleaner Cardiovascular Disease 05/17/21 Rahat Matta NP [address] [place] [address] Nurse Practitioner Cardiology 11/28/21 Esther Ramon MD [address] [address] Specialist Neurosurgery 06/07/22 Haley Huang PA-C [address] [address] Specialist Neurosurgery 01/11/23 Aidan Joseph PA-C [address] [address] Specialist Neurosurgery 01/11/23 documented as of this encounter
--- OUTSIDE RECORDS SUMMARY | 2024-11-26 10:21 | XMS_ITS | Encounter Summary ---
Author Organization [facility] Address [address] [place] [address] Care Team Providers Care Ed Teacher Name Role Phone Maximino Campbell MD Primary Care Provider [phone] Aidan Dorantes MD Unavailable Unavailable Eamon Gentile MD Unavailable Unavailable Rahat Matta NP Unavailable [phone] Esther Ramon MD Unavailable [phone] Haley HuangC Unavailable Aidan Joseph PA-C Unavailable Reason for Visit * Reason Onset Date Comments DME Request 09/09/2020 Encounter Details Date Type Department Care Team Description 09/09/2020 Telephone Pulmonology [facility] 175 [facility] [address] [place] [address] Padmini Heard FNP [address] [place], [place] [phone] DME Request Social History Tobacco Use Types [...] 09/13/2020 8:58 AM EST Spoke to the career services representative at [facility] and the will add the patient to [facility] now, also wanted me toinform you that [...] on filedocumented in this encounter Care Teams Ed Teacher Relationship Specialty Start Date End Date Maximino Campbell MD [address] [place] [address] PCP - General Internal Medicine 02/29/20 Aidan Dorantes MD [address] [place] [address] 02/29/20 Eamon Gentile MD [address] [place], [place] [phone] Child Psychologist Cardiovascular Disease 05/17/21 Rahat Matta NP [address] [place] [address] Nurse Practitioner Cardiology 11/28/21 Esther Ramon MD [address] [address] Specialist Neurosurgery 06/07/22 Haley Huang PA-C [address] [address] Specialist Neurosurgery 01/11/23 Aidan Joseph PA-C [address] [address] Specialist Neurosurgery 01/11/23 documented as of this encounter
--- OUTSIDE RECORDS SUMMARY | 2024-11-26 10:21 | XMS_ITS | Encounter Summary ---
Author Organization [facility] Address [address] [place] [address] Care Team Providers Care Shoe Fitter Name Role Phone Maximino Campbell MD Primary Care Provider [phone] Aidan Dorantes MD Unavailable Unavailable Eamon Gentile MD Unavailable Unavailable Rahat Matta NP Unavailable [phone] Esther Ramon MD Unavailable [phone] Haley Huang-C Unavailable [phone] Aidan Joseph PA-C Unavailable [phone] Encounter Details Date Type Department Care Team Description 06/11/2023 Advertising Statistical Clerk Report Medical Records [address] [place] [address] Brittny Reilly NP Social History Tobacco Use [...] on filedocumented in this encounter Care Teams Shoe Fitter Relationship Specialty Start Date End Date Maximino Campbell MD [address] [place] [address] PCP - General Internal Medicine 02/29/20 Aidan Dorantes MD [address] [place] [address] 02/29/20 Eamon Gentile MD [address] [place] [address] Lightning Protection Installer Cardiovascular Disease 05/17/21 Rahat Matta NP [address] [place] [address] Nurse Practitioner Cardiology 11/28/21 Esther Ramon MD [address] [address] Specialist Neurosurgery 06/07/22 Haley Huang PA-C [address] [address] Specialist Neurosurgery 01/11/23 Aidan Joseph PA-C [address] [address] Specialist Neurosurgery 01/11/23 documented as of this encounter
--- OUTSIDE RECORDS SUMMARY | 2024-11-26 10:21 | XMS_ITS | Encounter Summary ---
Author Organization [facility] Address [address] [place] [address] Care Team Providers Care Stock Ranch Supervisor Name Role Phone Aidan Dorantes MD Primary Care Provider Unavail able Maximino Campbell MD Primary Care Provider [phone] Aidan Dorantes MD Unavailable Unavailable Aidan Dorantes MD Unavailable Unavailable Eamon Gentile MD Unavailable Unavailable Rahat Matta NP Unavailable [phone] Esther Ramon MD Unavailable [phone] Haley Huang PA-C Unavailable [phone] Aidan Joseph PA-C Unavailable [phone] Reason for Visit * Reason Onset Date Comments Faxed Refill 06/04/2018 Encounter Details Date Type Department Care Team Description 06/04/2018 Refill Adult Medicine [address] [address] Aidan Dorantes MD Faxed Refill Social History Tobacco Use Types Packs/Day Years [...] encounter Miscellaneous Notes * Telephone Encounter - Sally Chavira - 06/04/2018 4:39 PM EDT Patient would like script to be: E-PRESCRIBED/FAXED TO PHARMACY ?? WHEN WAS THE PATIENT'S LAST APPOINTMENT IN ADULT MEDICINE? 12/09/2017 ?? WHEN WAS THE LAST TIME THE PATIENT SAW THEIR PCP? 11/15/2016 ?? Does patient have an upcoming appointment? No-patient refused appointment, will call back to book appointment ?? (THE MEDICATION REQUESTED IS ON THE MED LIST ABOVE) All of the medications requested were on the CURRENT MEDS list ?? Did you check the Pharmacy information above?: YES ?? Patient wants: 90 -day supply ?? Is this a mail order prescription request ? NO ?? If the refill is from a FAXED refill request what is the RX # listed on the fax? N/A ?? Patients current insurance carrier is: Payor: [employer] / Plan: INDEMNITY $0 [facility] [id number] / Product Type: INDEMNITY ?? documented in this encounter Plan of Treatment Not on file documented as of this encounter Visit Diagnoses Not on filedocumented in this encounter Care Teams Stock Ranch Supervisor Relationship Specialty Start Date End Date Aidan Dorantes MD PCP - General 06/26/14 02/28/20 Maximino Campbell MD [address] [place] [address] PCP - General Internal Medicine 02/29/20 Aidan Dorantes MD 06/26/14 02/28/20 Aidan Dorantes MD 02/29/20 Eamon Gentile MD Drupal Web Developer Cardiovascular Disease 05/17/21 Rahat Matta NP Nurse Practitioner Cardiology 11/28/21 Esther Ramon MD [address] [place] [address] Specialist Neurosurgery 06/07/22 Haley Huang PA-C [address] [phone] Specialist Neurosurgery 01/11/23 Aidan Joseph PA-C [address] [address] Specialist Neurosurgery 01/11/23 documented as of this encounter
--- OUTSIDE RECORDS SUMMARY | 2024-11-26 10:21 | XMS_ITS | Encounter Summary ---
Author Organization [facility] Address [address] [place] [address] Care Team Providers Care Sales Special Agent Name Role Phone Maximino Campbell MD Primary Care Provider [phone] Aidan Dorantes MD Unavailable Unavailable Eamon Gentile MD Unavailable Unavailable Rahat Matta NP Unavailable [phone] Esther Ramon MD Unavailable [phone] Haley Huang-C Unavailable Aidan JosephC Unavailable Encounter Details Date Type Department Care Team Description 03/24/2024 Pt. Non Urgent Medical Question Adult Medicine [address] [phone] Maximino Campbell MD [address] [place] [phone] Social History Tobacco Use Types Packs/Day Years [...] paying is good they said I would picker / packer the 500 dollar bill every time we'll see how that turns out. Parminder Grossman documented in this encounter Plan of Treatment Not on file documented as of this encounter Visit Diagnoses Not on filedocumented in this encounter Care Teams Sales Special Agent Relationship Specialty Start Date End Date Maximino Campbell MD [address] [place] [address] PCP - General Internal Medicine 02/29/20 Aidan Dorantes MD [address] [place] [address] 02/29/20 Eamon Gentile MD [address] [place], [place] [phone] Net Web Application Developer Cardiovascular Disease 05/17/21 Rahat Matta NP [address] [place] [address] Nurse Practitioner Cardiology 11/28/21 Esther Ramon MD [address] [address] Specialist Neurosurgery 06/07/22 Haley Huang PA-C [address] [address] Specialist Neurosurgery 01/11/23 Aidan Joseph PA-C [address] [address] Specialist Neurosurgery 01/11/23 documented as of this encounter
--- OUTSIDE RECORDS SUMMARY | 2024-11-26 10:21 | XMS_ITS | Encounter Summary ---
Author Organization [facility] Address [address] [place] [address] Care Team Providers Care Clin Asst Name Role Phone Aidan Dorantes MD Primary Care Provider Unavail able Maximino Campbell MD Primary Care Provider [phone] Aidan Dorantes MD Unavailable Unavailable Aidan Dorantes MD Unavailable Unavailable Eamon Gentile MD Unavailable Unavailable Rahat Matta NP Unavailable [phone] Esther Ramon MD Unavailable [phone] Haley Huang PA-C Unavailable [phone] Aidan Joseph PA-C Unavailable [phone] Encounter Details Date Type Department Care Team Description 07/05/2016 Environmental Services Project Manager Report Medical Records [address] [place] [address] Eamon Gentile MD Social History Tobacco Use [...] on filedocumented in this encounter Care Teams Clin Asst Relationship Specialty Start Date End Date Aidan Dorantes MD PCP - General 06/26/14 02/28/20 Maximino Campbell MD [address] [place] [address] [phone] PCP - General Internal Medicine 02/29/20 Aidan Dorantes MD 06/26/14 02/28/20 Aidan Dorantes MD 02/29/20 Eamon Gentile MD Bottling Supervisor Cardiovascular Disease 05/17/21 Rahat Matta NP Nurse Practitioner Cardiology 11/28/21 Esther Ramon MD 175 [facility] [address] [place] [address] [phone] Specialist Neurosurgery 06/07/22 Haley Huang PA-C [address] [address] Specialist Neurosurgery 01/11/23 Aidan Joseph PA-C 175 [facility] [address] [place] [address] Specialist Neurosurgery 01/11/23 documented as of this encounter
--- OUTSIDE RECORDS SUMMARY | 2024-11-26 10:21 | XMS_ITS | Encounter Summary ---
Author Organization [facility] Address [address] [place] [address] Care Team Providers Care Pit Worker Power Shovel Name Role Phone Aidan Dorantes MD Primary Care Provider Unavail able Maximino Campbell MD Primary Care Provider [phone] Aidan Dorantes MD Unavailable Unavailable Aidan Dorantes MD Unavailable Unavailable Eamon Gentile MD Unavailable Unavailable Rahat Matta NP Unavailable [phone] Esther Ramon MD Unavailable [phone] Haley Huang PA-C Unavailable [phone] Aidan Joseph PA-C Unavailable [phone] Reason for Visit * Reason Onset Date Comments Prior Authorization 08/03/2016 Encounter Details Date Type Department Care Team Description 08/03/2016 Telephone Cardiology - [address] [phone] Aidan Dorantes MD Prior Authorization Social History [...] on filedocumented in this encounter Care Teams Pit Worker Power Shovel Relationship Specialty Start Date End Date Aidan Dorantes MD PCP - General 06/26/14 02/28/20 Maximino Campbell MD [address] [place] [address] PCP - General Internal Medicine 02/29/20 Aidan Dorantes MD 06/26/14 02/28/20 Aidan Dorantes MD 02/29/20 Eamon Gentile MD Zoning Administrator Cardiovascular Disease 05/17/21 Rahat Matta NP Nurse Practitioner Cardiology 11/28/21 Esther Ramon MD [address] [address] Specialist Neurosurgery 06/07/22 Haley Huang PA-C [address] [address] Specialist Neurosurgery 01/11/23 Aidan Joseph PA-C [address] [address] Specialist Neurosurgery 01/11/23 documented as of this encounter
--- OUTSIDE RECORDS SUMMARY | 2024-11-26 10:21 | XMS_ITS | Encounter Summary ---
Author Organization [facility] Address [address] [place] [address] Care Team Providers Care Straw Hat Brusher Name Role Phone Maximino Campbell MD Primary Care Provider [phone] Aidan Dorantes MD Unavailable Unavailable Eamon Gentile MD Unavailable Unavailable Rahat Matta NP Unavailable [phone] Esther Ramon MD Unavailable [phone] Haley Huang PA-C Unavailable [phone] Aidan JosephC Unavailable [phone] Reason for Visit * Reason Onset Date Comments refill request 08/01/2020 Encounter Details Date Type Department Care Team Description 08/01/2020 Pt. Non Urgent Medical Question Adult Medicine [address] [phone] Maximino Campbell MD [address] [place] [address] [phone] Social History Tobacco Use Types Packs/Day Years [...] PM EST documented as of this encounter Progress Notes * Taty Murillo M.A. - 08/01/2020 4:21 PM ESTFrom: Quentin Grossman To: Maximino Campbell MD Sent: 08/01/2020 10:02 AM EST Subject: Both feet hurting/numb and Medication increase Dr Campbell your my replacement for Dr. Dorantes I have been experiencing pain and numbness in both feet been going on for many months and it???s affecting me where I cant stand it anymore could you or someone talk to me about what to do I really can???t go on much more like this. Also I been taking1.5mg Pramipexole for years for restless legs it???s not working anymore so I been taking 2.0mg a day but now I ran out of pills. My Refill is not due till 08/24/20 and I need them today without them I can???t sleep then I keep nodding out all day witch affects my driving and daily life I sent a message to nurse about refill could you check into this MATILDA. documented in this encounter Miscellaneous Notes * Telephone Encounter - Sukumar Acuna C.M.A. - 08/01/2020 4:15 PM ESTFrom: Quentin Grossman To: Maximino Campbell MD Sent: 08/01/2020 10:02 AM EST Subject: Both feet hurting/numb and Medication increase Dr Campbell your my replacement for Dr. Dorantes I have been experiencing pain and numbness in both feet been going on for many months and it???s affecting me where I cant stand it anymore could you or someone talk to me about what to do I really can???t go on much more like this. Also I been taking1.5mg Pramipexole for years for restless legs it???s not working anymore so I been taking 2.0mg a day but now I ran out of pills. My Refill is not due till 08/24/20 and I need them today without them I can???t sleep then I keep nodding out all day witch affects my driving and daily life I sent a message to nurse about refill could you check into this MATILDA. documented in this encounter Plan of Treatment Not on file documented as of this encounter Visit Diagnoses Not on filedocumented in this encounter Care Teams Straw Hat Brusher Relationship Specialty Start Date End Date Maximino Campbell MD [address] [place] [address] PCP - General Internal Medicine 02/29/20 Aidan Dorantes MD [address] [place] [address] 02/29/20 Eamon Gentile MD [address] [place] [address] Hospital Superintendent Cardiovascular Disease 05/17/21 Rahat Matta NP [address] [place] [address] Nurse Practitioner Cardiology 11/28/21 Esther Ramon MD [address] [address] Specialist Neurosurgery 06/07/22 Haley Huang PA-C [address] [address] Specialist Neurosurgery 01/11/23 Aidan Joseph PA-C [address] [address] Specialist Neurosurgery 01/11/23 documented as of this encounter
--- OUTSIDE RECORDS SUMMARY | 2024-11-26 10:21 | XMS_ITS | Data Portability ---
Author Organization [place] [facility] Address [address] [place] [address] Assessment Encounter Date Assessment Date Assessment LastModified [...] c lisao n referr al 2023 024 [email or web address] Benito Verma MD Mph, [address] [place] [address], [place], [address], 4 10:26:05 Procedures None record ed. Surgeries None record ed. Imaging CT, sinuse s, w/o contra st 2023 024 maged [facility], [address] [facility], [place], [address], 4 12:43:13 Medication Orders None record ed. Patient TargetsNo targets recorded. Patient InstructionsNo instructions recorded. 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 [facility] [address], [address], 12/20/2023 12:43:12 12/26/19 24 12/19/2023 CT, sinus es, w/o contr ast No observ ation record ed. [facility] [place] [address], [place], [address], 12/26/2023 07:48:55 03/25/20 24 04/01/2023 imagi ng/di [...] Organization Details Recorded Time Nasal congestio n 85354794 Active 2022 Nasal congestion ; Note: Date Diagnosed: 07/19/2023 9:31 AM (R09.81) Not Available [facility] 4 02:59:45 Body mass index 30+ - obesity 558339673 Active 2022 Body mass index [BMI] 31.0-31.9, adult; Note: Date Diagnosed: 07/22/2023 6:26 AM (Z68.31) MITA CAMARA MD [address] [place] [address], [place], [address] , [place] [facility] 4 13:17:06 Obstructi ve sleep apnea syndrome 62497489 Active 2022 Obstructiv e sleep apnea (adult) (pediatric ); Note: Date Diagnosed: 07/19/2023 9:31 AM (G47.33) MITA CAMARA MD [address] [place] [address], [place], [address] , [facility] - [facility] 4 13:17:10 Obesity 962770764 Active 2022 Other obesity; Note: Date Diagnosed: 07/19/2023 9:31 AM (E66.8) Not Available [facility] 4 02:59:44 Disorder of smell 975104811 Active 2022 Other disturbanc es of smell and taste; Note: Date Diagnosed: 07/19/2023 9:31 AM (R43.8) Not Available [facility] 4 02:59:48 Disorder of taste 310769001 Active 2022 Other disturbanc es of smell and taste; Note: Date Diagnosed: 07/19/2023 9:31 AM (R43.8) Not Available [facility] 4 02:59:48 Loss of sense of smell 05656504 Active 2023 KEAGAN ARTIS MD [address] [place] [address],[place] [address], [place], [address] , [facility] - [facility] 4 09:08:59 Chronic rhinitis 73852207 Active 2023 KEAGAN ARTIS MD [address] [place] [address],[place] [address], [place], [address] , [facility] - [facility] [place] 4 09:09:05 Disorder of the nose 69079494 Active 2023 KEAGAN ARTIS MD [address] [place] [address],[place] [address], [place], [address] , [facility] - [facility] [place] 4 09:09:24 Problem Notes None recorded. Procedures Surgical History Date Name Laterality Status Provider Name and Address Organization Details Recorded Time 05/21/20 24 Opn mpltj hpglsl nstm josefina pg completed MITA CAMARA MD [address] [facility],[place] [address], [place], [address], [facility] - [facility] [place] 05/21/2024 13:20:04 operation on nasal turbinate completed Jing Corcoran [place] - [facility] 12/20/2023 08:41:18 open reduction of nasal fracture completed Jing Corocran [place] [facility] 12/20/2023 08:41:28 nasal septoplasty completed Jing Corcoran [place] [facility] 12/20/2023 08:41:37 Carpal tunnel surgery completed Jing Corcoran [place] - [facility] 12/20/2023 08:41:44 Remove tonsils and adenoids completed Jing Corcoran [place] [facility] 12/20/2023 08:41:53 procedure on shoulder completed Jing Corcoran [place] - [facility] 12/20/2023 08:42:08 procedure on elbow completed Jing Corcoran [place] - [facility] 12/20/2023 08:42:17 Imaging Results Imaging Date Name Status LastModified by [facility] Details LastModified Time 12/20/2023 CT, sinuses, w/o contrast completed [facility] [address], [address], 12/20/2023 12:43:12 12/19/2023 CT, sinuses, w/o contrast completed [facility] [address], [address], 12/26/2023 07:48:55 04/01/2023 imaging/diagn ostic result completed Information not available 03/25/2024 05:01:25 04/01/2023 imaging/diagn ostic result completed Information not available 03/25/2024 05:01:32 Procedure Notes None recorded. Medical Equipment None Reported. Allergies Allergen ID Allergen Name Allergen Category Reaction Reaction Severity Criticality Documentation Date Start Date Code Code System Note Provider Name and Address Organization Details Recorded Time 904780 Product containin g 3-hydroxy -3-methyl glutaryl- coenzyme A reductase inhibitor (product) medicatio n other Not available Not available 12/17/2023 30209 009 SNOMED React ion: Unkno wn; Not [...] 7.5 mg tablet active Medicati on ID: [id number] B rand Name: meloxica m Send Method: E-Prescr ibed Sub s Allowed: subs OK Medic ationGen ericName : meloxica m Not Available Not Available Not Available oxycodone -acetamin ophen 5 mg-325 mg tablet active Medicati on ID: [id number] B rand Name: oxycodon e-acetam inophen Send [...] 15 mg tablet active Medicati on ID: [id number] B rand Name: mirtazap ine Send Method: E-Prescr ibed Sub s Allowed: subs OK Medic ationGen ericName : mirtazap ine Not Available Not Available Not Available albuterol sulfate HFA 90 mcg/actua tion aerosol inhaler active Not Available Not Available Not Available fluticaso ne propionat e 50 mcg/actua tion nasal spray,wil pension 2 puff once a day 2023 active Medicati on ID: [id number] D uration Value: 30 Brand Name: fluticas one propiona te Send Method: E-Prescr ibed Sub s Allowed: subs OK Medic ationGen ericName : fluticas one propiona te Not Available Not Available Not Available pramipexo le 1.5 mg tablet TAKE 1 TABLET BY MOUTH TWICE A DAY active Not Available Not Available No t Available glipizide 5 mg tablet 12/19 completed Medicati on ID: [id number] B rand Name: glipizid e Send Method: E-Prescr ibed Sub s Allowed: subs OK Medic ationGen ericName : glipizid e Medica tion ID: [id number] B rand Name: glipizid e Send Method: [...] release 24 hr active Medicati on ID: [id number] B rand Name: pramipex ole Send Method: [...] Updated DateTime 05/29/2024 175.26 cm 31 kg/m2 23982.4 g Meg Zarate [place] - [facility] [place] 05/29/2024 10:02:06 Social History None recorded. Functional Status None recorded. Mental Status None recorded. Family History Nothing Reported. Medical History Condition Response High Cholesterol Y Past Encounters Encounter ID Performer Location Encounter Start Date Encounter Closed Date Diagnosis/Indication Diagnosis SNOMED-CT Code Diagnosis ICD10 Code Diagnosis Note [id number] KEAGAN ARTIS MD [facility] [address] [address] 12/20/2023 08:18:13 12/20/2023 09:15:36 Loss of sense of smell 93205703 R43.0 No significan t sinus disease Post antrostomy /septo and turb reduction Chronic rhinitis 4383468 6 J31.0 Disorder of the nose 894 [address] Verma for nasal valve procedure. Neg CT scan [id number] MITA CAMARA MD [facility] [address] [address] 05/29/2024 09:24:56 05/29/2024 10:16:13 Obstructive sleep apnea syndrome 59215711 G47.33 Health Concerns Section Related Observation LastModified by Organization Detai ls LastModified Time None Recorded Concern Status LastModified by Organization Details LastModified Time None Recorded Advance Directives Directive None Recorded Payers Encounter Date Sequence Insurance Name Policy Number Policy Mistry Covered Member ID Mistry Member ID Guarantor Name 12/20/2023 1 [facility] [id number] Quentin Grossman [id number] Quentin Grossman 05/29/2024 2 [place] [id number] Quentin Grossman Jr [id number] Quentin Grossman 05/29/2024 1 [place] [employer] Quentin Grossman Jr [id number] Quentin Grossman Notes Date Note Type Note [...] sense of smell KEAGAN HERNANDEZ MD [address] [facility],[place] [address], [place], [address], [facility] - [facility] [place] 12/20/2023 12:43:28 4 text/html Patient of Dr HernandezOSASplit night [facility] [place] 04/01/23BMI 31AHI 34.7central & mixed - non recordedCPAP trial - intolerant of mask and CPAP 05/21/24 INSPIRE placementfeels some right face tenderness MITA CAMARA MD [address] [facility], [place], [address], [facility] - [facility] [place] 05/29/2024 10:18:30
--- OUTSIDE RECORDS SUMMARY | 2024-11-26 10:21 | XMS_ITS | Encounter Summary ---
Author Organization [facility] Address [address] [place] [address] Care Team Providers Care Chemistry Technical Officer Name Role Phone Maximino Campbell MD Primary Care Provider [phone] Aidan Dorantes MD Unavailable Unavailable Eamon Gentile MD Unavailable Unavailable Rahat Matta NP Unavailable [phone] Esther Ramon MD Unavailable [phone] Haley HuangC Unavailable [phone] Aidan JosephC Unavailable [phone] Encounter Details Date Type Department Care Team Description 06/15/2020 Healthcare Prof Report Medical Records [address] [place] [address] Abstract, Provider Social History Tobacco Use Types [...] on filedocumented in this encounter Care Teams Chemistry Technical Officer Relationship Specialty Start Date End Date Maximino Campbell MD [address] [place] [address] [phone] PCP - General Internal Medicine 02/29/20 Aidan Dorantes MD [address] [place] [address] 02/29/20 Eamon Gentile MD [address] [place] [address] Missile Facilities Repairer Cardiovascular Disease 05/17/21 Rahat Matta NP [address] [place] [address] Nurse Practitioner Cardiology 11/28/21 Esther Ramon MD [address] [address] Specialist Neurosurgery 06/07/22 Haley Huang PA-C [address] [address] Specialist Neurosurgery 01/11/23 Aidan Joseph PA-C [address] [address] Specialist Neurosurgery 01/11/23 documented as of this encounter
--- OUTSIDE RECORDS SUMMARY | 2024-11-26 10:21 | XMS_ITS | Encounter Summary ---
Author Organization [facility] Address [address] [place] [address] Care Team Providers Care Manager Cancer Name Role Phone Aidan Dorantes MD Primary Care Provider Unavail able Maximino Campbell MD Primary Care Provider [phone] Aidan Dorantes MD Unavailable Unavailable Aidan Dorantes MD Unavailable Unavailable Eamon Gentile MD Unavailable Unavailable Rahat Matta NP Unavailable Esther Ramon MD Unavailable [phone] Haley Huang PA-C Unavailable [phone] Aidan Joseph PA-C Unavailable [phone] Encounter Details Date Type Department Care Team Description 09/27/2018 Pt. Non Urgent Medic al Question Adult Medicine [address] [address] Aidan Dorantes MD Social History Tobacco Use [...] on filedocumented in this encounter Care Teams Manager Cancer Relationship Specialty Start Date End Date Aidan Dorantes MD PCP - General 06/26/14 02/28/20 Maximino Campbell MD [address] [place] [address] PCP - General Internal Medicine 02/29/20 Aidan Dorantes MD 06/26/14 02/28/20 Aidan Dorantes MD 02/29/20 Eamon Gentile MD Quality Improvement Manager Cardiovascular Disease 05/17/21 Rahat Matta NP Nurse Practitioner Cardiology 11/28/21 Esther Ramon MD [address] [address] Specialist Neurosurgery 06/07/22 Haley Huang PA-C [address] [address] Specialist Neurosurgery 01/11/23 Aidan Joseph PA-C [address] [address] Specialist Neurosurgery 01/11/23 documented as of this encounter
--- OUTSIDE RECORDS SUMMARY | 2024-11-26 10:21 | XMS_ITS | Encounter Summary ---
Author Organization [facility] Address [address] [place] [address] Care Team Providers Care Scoop Filler Name Role Phone Maximino Campbell MD Primary Care Provider [phone] Aidan Dorantes MD Unavailable Unavailable Eamon Gentile MD Unavailable Unavailable Rahat Matta NP Unavailable [phone] Esther Ramon MD Unavailable [phone] Haley Huang PA-C Unavailable [phone] Aidan Joseph PA-C Unavailable [phone] Encounter Details Date Type Department Care Team Description 10/07/2020 Old Medical Records Medical Records [address] [place] [address] Abstract, Provider Social History Tobacco Use Types [...] on filedocumented in this encounter Care Teams Scoop Filler Relationship Specialty Start Date End Date Maximino Campbell MD [address] [place] [address] [phone] PCP - General Internal Medicine 02/29/20 Aidan Dorantes MD [address] [place] [address] 02/29/20 Eamon Gentile MD [address] [place] [address] Machine Clipper Cardiovascular Disease 05/17/21 Rahat Matta NP [address] [place] [address] Nurse Practitioner Cardiology 11/28/21 Esther Ramon MD [address] [address] Specialist Neurosurgery 06/07/22 Haley Huang PA-C [address] [address] Specialist Neurosurgery 01/11/23 Aidan Joseph PA-C [address] [address] Specialist Neurosurgery 01/11/23 documented as of this encounter
--- OUTSIDE RECORDS SUMMARY | 2024-11-26 10:21 | XMS_ITS | Encounter Summary ---
Author Organization [facility] Address [address] [place] [address] Care Team Providers Care Splunk Developer Name Role Phone Aidan Dorantes MD Primary Care Provider Unavail able Maximino Campbell MD Primary Care Provider Aidan Dorantes MD Unavailable Unavailable Aidan Dorantes MD Unavailable Unavailable Eamon Gentile MD Unavailable Unavailable Rahat Matta NP Unavailable [phone] Esther Ramon MD Unavailable [phone] Haley Huang PA-C Unavailable [phone] Aidan Joseph PA-C Unavailable [phone] Reason for Referral * Non MARY (Routine) - Authorized/Booked Specialty Diagnoses / Procedures Referred By Contolivier t Referred To Contact Cardiology Diagnoses Carotid stenosis, asymptomatic, bilateral Procedures REFERRAL TO CARDIOLOGY Aidan Dorantes MD [facility] [address] [place] [address] Referral ID Status Reason Start Date Expiration Date V isits Requested Visits Authorized 08/24 ECHO [id number] Authorized/ Booked 07/17/2016 07/17/2017 1 1 Reason for Visit * Reason Onset Date Comments TEST RESULTS 07/17/2016 Encounter Details Date Type Department Care Team Description 07/17/2016 Telephone Adult Medicine [address] [address] Aidan Dorantes MD TEST RESULTS Social History Tobacco Use Types Packs/Day Years [...] encounter Miscellaneous Notes * Telephone Encounter - Aidan Dorantes MD - 07/17/2016 5:52 PM EST The patient has 50-69% carotid stenosis. The patient is referred to Dr. Starr for further evaluation. documented in this encounter Plan of Treatment Not on file documented as of this encounter Visit Diagnoses Diagnosis Carotid stenosis, asymptomatic, bilateral- Primary Bilateral carotid artery stenosis Occlusion and stenosis of multiple and bilateral precerebral arteries without mention of cerebral infarction documented in this encounter Care Teams Splunk Developer Relationship Specialty Start Date End Date Aidan Dorantes MD PCP - General 06/26/14 02/28/20 Maximino Campbell MD [address] [place] [address] PCP - General Internal Medicine 02/29/20 Aidan Dorantes MD 06/26/14 02/28/20 Aidan Dorantes MD 02/29/20 Eamon Gentile MD Telephone Operator Chief Cardiovascular Disease 05/17/21 Rahat Matta NP Nurse Practitioner Cardiology 11/28/21 Esther Ramon MD [address] [address] Specialist Neurosurgery 06/07/22 Haley Huang PA-C [address] [address] Specialist Neurosurgery 01/11/23 Aidan Joseph PA-C [address] [address] Specialist Neurosurgery 01/11/23 documented as of this encounter
--- OUTSIDE RECORDS SUMMARY | 2024-11-26 10:21 | XMS_ITS | Encounter Summary ---
Author Organization [facility] Address [address] [place] [address] Care Team Providers Care Electric Fan Assembler Name Role Phone Aidan Dorantes MD Primary Care Provider Unavail able Maximino Campbell MD Primary Care Provider [phone] Aidan Dorantes MD Unavailable Unavailable Aidan Dorantes MD Unavailable Unavailable Eamon Gentile MD Unavailable Unavailable Rahat Matta NP Unavailable [phone] Esther Ramon MD Unavailable [phone] Haley Huang PA-C Unavailable [phone] Aidan Joseph PA-C Unavailable [phone] Reason for Visit * Reason Onset Date Comments REFERRAL 08/13/2016 cardiiology Encounter Details Date Type Department Care Team Description 08/13/2016 Telephone Cardiology - [address] [id number] Aidan Dorantes MD REFERRAL (cardiiology) Social History Tobacco Use Types Packs/Day Years [...] Telephone Encounter - Aidan Dorantes MD - 08/13/2016 5:04 PM EST Thank you. * Telephone Encounter - Kenzie Carmichael Juan J - 08/13/2016 2:08 PM EST Pt is booked again w/ [facility] He will have LE [id number] * Telephone Encounter - Aidan Dorantes MD - 08/13/2016 10:36 AM EST Kenzie Elam, patient has carotid stenosis and will need to see vascular cardiology, thank you, * Telephone Encounter - Yenny Higgins - 08/13/2016 8:48 AM EST FYI You referred this pt to cardiology, He tells me he is being seen at [facility] by Dr Gentile and had his echo there as well. Thankyou, Kenzie Carmichael Cardiology documented in this encounter Plan of Treatment Not on file documented as of this encounter Visit Diagnoses Not on filedocumented in this encounter Care Teams Electric Fan Assembler Relationship Specialty Start Date End Date Aidan Dorantes MD PCP - General 06/26/14 02/28/20 Maximino Campbell MD [address] [place] [address] PCP - General Internal Medicine 02/29/20 Aidan Dorantes MD 06/26/14 02/28/20 Aidan Dorantes MD 02/29/20 Eamon Gentile MD Event Technician Cardiovascular Disease 05/17/21 Rahat Matta NP Nurse Practitioner Cardiology 11/28/21 Esther Ramon MD [address] [address] Specialist Neurosurgery 06/07/22 Haley Huang PA-C [address] [address] Specialist Neurosurgery 01/11/23 Aidan Joseph PA-C 175 [facility] [address] [place] [address] Specialist Neurosurgery 01/11/23 documented as of this encounter
--- OUTSIDE RECORDS SUMMARY | 2024-11-26 10:21 | XMS_ITS | Encounter Summary ---
Author Organization [facility] Address [address] [place] [address] Care Team Providers Care Wardrobe Mistress Name Role Phone Maximino Campbell MD Primary Care Provider [phone] Aidan Dorantes MD Unavailable Unavailable Eamon Gentile MD Unavailable Unavailable Rahat Matta NP Unavailable [phone] Esther Ramon MD Unavailable [phone] Haley Huang PA-C Unavailable [phone] Aidan JosephC Unavailable Reason for Visit * Reason Onset Date Comments VNA Call 04/04/2021 Encounter Details Date Type Department Care Team Description 04/04/2021 Telephone Adult Medicine [address] [phone] Maximino Campbell MD [address] [place] [address] [phone] VNA Call Social History Tobacco Use Types Packs/Day Years [...] encounter Miscellaneous Notes * Telephone Encounter - Goran Ray L.P.N. - 04/07/2021 10:50 AM EDT This is a med refill not a VNA call * Telephone Encounter - Marcos Muniz - 04/07/2021 8:48 AM EDT Sent script to [facility] in [place] fax # [phone] * Telephone Encounter - Goran Ray L.P.N. - 04/04/2021 10:06 AM EDT Can you look into this It about mediation * Telephone Encounter - Marcos Muniz - 04/04/2021 9:52 AM EDT VNA CALL Which VNA office is calling? [facility] Full name of caller: Angelita The caller is A nurse Is the caller at the patients home?: NO Reason for call: Called to confirm if fax form had arrived yet , it still hasnt when viewed on patients chart , would like a call to confirm when it arrives Does caller need an urgent call back? NO Was CONTACT Telephone # obtained above?: YES Fax #: [phone] documented in this encounter Plan of Treatment Not on file documented as of this encounter Visit Diagnoses Not on filedocumented in this encounter Care Teams Wardrobe Mistress Relationship Specialty Start Date End Date Maximino Campbell MD [address] [place] [address] PCP - General Internal Medicine 02/29/20 Aidan Dorantes MD [address] [place] [address] 02/29/20 Eamon Gentile MD [address] [place] [address] Chief Of Service Cardiovascular Disease 05/17/21 Rahat Matta NP [address] [place] [address] Nurse Practitioner Cardiology 11/28/21 Esther Ramon MD [address] [address] Specialist Neurosurgery 06/07/22 Haley Huang PA-C [address] [address] Specialist Neurosurgery 01/11/23 Aidan Joseph PA-C [address] [address] Specialist Neurosurgery 01/11/23 documented as of this encounter
--- OUTSIDE RECORDS SUMMARY | 2024-11-26 10:21 | XMS_ITS | Encounter Summary ---
Author Organization [facility] Address [address] [place] [address] Care Team Providers Care Wire Mesh Gate Assembler Name Role Phone Maximino Campbell MD Primary Care Provider [phone] Aidan Dorantes MD Unavailable Unavailable Eamon Gentile MD Unavailable Unavailable Rahat Matta NP Unavailable [phone] Esther Ramon MD Unavailable [phone] Haley Huang PA-C Unavailable [phone] Aidan Joseph PA-C Unavailable [phone] Encounter Details Date Type Department Care Team Description 07/15/2020 Early Childhood Associate Report Medical Records [address] [place] [address] Mike Brumfield Social History Tobacco Use Types Packs/Day Years [...] on filedocumented in this encounter Care Teams Wire Mesh Gate Assembler Relationship Specialty Start Date End Date Maximino Campbell MD [address] [place] [address] PCP - General Internal Medicine 02/29/20 Aidan Dorantes MD [address] [place] [address] 02/29/20 Eamon Gentile MD [address] [place] [address] Delivery Driver/Customer Service Cardiovascular Disease 05/17/21 Rahat Matta NP [address] [place] [address] Nurse Practitioner Cardiology 11/28/21 Esther Ramon MD [address] [address] Specialist Neurosurgery 06/07/22 Haley Huang PA-C [address] [address] Specialist Neurosurgery 01/11/23 Aidan Joseph PA-C [address] [address] Specialist Neurosurgery 01/11/23 documented as of this encounter
--- OUTSIDE RECORDS SUMMARY | 2024-11-26 10:21 | XMS_ITS | Encounter Summary ---
Author Organization [facility] Address [address] [place] [address] Care Team Providers Care Underwear Welter Name Role Phone Maximino Campbell MD Primary Care Provider [phone] Aidan Dorantes MD Unavailable Unavailable Eamon Gentile MD Unavailable Unavailable Rahat Matta NP Unavailable [phone] Esther Ramon MD Unavailable [phone] Haley HuangC Unavailable [phone] Aidan Joseph PA-C Unavailable [phone] Encounter Details Date Type Department Care Team Description 12/05/2023 Zinc Chloride Operator Report Medical Records [address] [place] [address] Marcos Ahmadi MD Social History Tobacco Use Types Packs/Day [...] on filedocumented in this encounter Care Teams Underwear Welter Relationship Specialty Start Date End Date Maximino Campbell MD [address] [place] [address] PCP - General Internal Medicine 02/29/20 Aidan Dorantes MD [address] [place] [address] 02/29/20 Eamon Gentile MD [address] [place] [address] Angiography Nurse Cardiovascular Disease 05/17/21 Rahat Matta NP [address] [place] [address] Nurse Practitioner Cardiology 11/28/21 Esther Ramon MD [address] [address] Specialist Neurosurgery 06/07/22 Haley Huang PA-C [address] [address] Specialist Neurosurgery 01/11/23 Aidan Joseph PA-C [address] [address] Specialist Neurosurgery 01/11/23 documented as of this encounter
--- OUTSIDE RECORDS SUMMARY | 2024-11-26 10:21 | XMS_ITS | Encounter Summary ---
Author Organization [facility] Address [address] [place] [address] Care Team Providers Care Picker Packer Name Role Phone Aidan Dorantes MD Primary Care Provider Unavail able Aidan Dorantes MD Primary Care Provider Unavail able Maximino Campbell MD Primary Care Provider Aidan Dorantes MD Unavailable Unavailable Aidan Dorantes MD Unavailable Unavailable Eamon Gentile MD Unavailable Unavailable Rahat Matta NP Unavailable [phone] Esther Ramon MD Unavailable [phone] Haley Huang PA-C Unavailable [phone] Aidan Joseph PA-C Unavailable [phone] Encounter Details Date Type Department Care Team Description 10/25/2006 Hospital Medical Records [address] [place] [address] Marvin Myers MD Social History Tobacco Use Types Packs/Day [...] on filedocumented in this encounter Care Teams Picker Packer Relationship Specialty Start Date End Date Aidan Dorantes MD PCP - General 09/24/03 06/25/14 Aidan Dorantes MD PCP - General 06/26/14 02/28/20 Maximino Campbell MD [address] [place] [address] PCP - General Internal Medicine 02/29/20 Aidan Dorantes MD 06/26/14 02/28/20 Aidan Dorantes MD 02/29/20 Eamon Gentile MD [address] [place] [address] Physical Therapist Technician Cardiovascular Disease 05/17/21 Rahat Matta NP [address] [place] [address] Nurse Practitioner Cardiology 11/28/21 Esther Ramon MD [address] [address] Specialist Neurosurgery 06/07/22 Haley Huang PA-C [address] [address] Specialist Neurosurgery 01/11/23 Aidan Joseph PA-C 175 [facility] [address] [place] [address] Specialist Neurosurgery 01/11/23 documented as of this encounter
--- OUTSIDE RECORDS SUMMARY | 2024-11-26 10:21 | XMS_ITS | Encounter Summary ---
Author Organization [facility] Address [address] [place] [address] Care Team Providers Care Credit Union Field Examiner Name Role Phone Maximino Campbell MD Primary Care Provider [phone] Aidan Dorantes MD Unavailable Unavailable Eamon Gentile MD Unavailable Unavailable Rahat Matta NP Unavailable [phone] Esther Ramon MD Unavailable [phone] Haley Huang PA-C Unavailable Aidan Joseph PA-C Unavailable Reason for Visit * Reason Onset Date Comments Medication 12/19/2023 Encounter Details Date Type Department Care Team Description 12/19/2023 Refill Gastroenterology - [place] 175 [facility] [address] [place] [address] Nehemias Carbajal MD 175 [facility] [address] [place], [place] [phone] Medication Social History Tobacco Use Types Packs/Day [...] on filedocumented in this encounter Care Teams Credit Union Field Examiner Relationship Specialty Start Date End Date Maximino Campbell MD [address] [place] [address] PCP - General Internal Medicine 02/29/20 Aidan Dorantes MD [address] [place] [address] 02/29/20 Eamon Gentile MD [address] [place] [address] Paint Laboratory Technician Cardiovascular Disease 05/17/21 Rahat Matta NP [address] [place] [address] Nurse Practitioner Cardiology 11/28/21 Esther Ramon MD [address] [address] Specialist Neurosurgery 06/07/22 Haley Huang PA-C [address] [address] Specialist Neurosurgery 01/11/23 Aidan Joseph PA-C [address] [address] Specialist Neurosurgery 01/11/23 documented as of this encounter
--- OUTSIDE RECORDS SUMMARY | 2024-11-26 10:21 | XMS_ITS | Encounter Summary ---
Author Organization [facility] Address [address] [place] [address] Care Team Providers Care Crossbow Maker Name Role Phone Aidan Dorantes MD Primary Care Provider Unavail able Maixmino Campbell MD Primary Care Provider [phone] Aidan Dorantes MD Unavailable Unavailable Aidan Dorantes MD Unavailable Unavailable Eamon Gentile MD Unavailable Unavailable Rahat Matta NP Unavailable [phone] Esther Ramon MD Unavailable [phone] Haley Huang PA-C Unavailable [phone] Aiadn Joseph PA-C Unavailable [phone] Encounter Details Date Type Department Care Team Description 04/04/2018 Psychotherapist Social Worker Report Medical Records [address] [place] [address] Valentín Starr MD Social History Tobacco Use Types Packs/Day [...] on filedocumented in this encounter Care Teams Crossbow Maker Relationship Specialty Start Date End Date Aidan Dorantes MD PCP - General 06/26/14 02/28/20 Maximino Campbell MD [address] [place] [address] PCP - General Internal Medicine 02/29/20 Aidan Dorantes MD 06/26/14 02/28/20 Aidna Dorantes MD 02/29/20 Eamon Gentile MD Edm Operator Cardiovascular Disease 05/17/21 Rahat Matta NP Nurse Practitioner Cardiology 11/28/21 Esther Ramon MD [address] 6609404 Specialist Neurosurgery 06/07/22 Haley Huang PA-C [address] [address] Specialist Neurosurgery 01/11/23 Aidan Joseph PA-C 175 [facility] [address] [place] [address] Specialist Neurosurgery 01/11/23 documented as of this encounter
--- OUTSIDE RECORDS SUMMARY | 2024-11-26 10:21 | XMS_ITS | Encounter Summary ---
Author Organization [facility] Address [address] [place] [address] Care Team Providers Care Mobility Engineer Name Role Phone Maximino Campbell MD Primary Care Provider [phone] Aidan Dorantes MD Unavailable Unavailable Eamon Gentile MD Unavailable Unavailable Rahat Matta NP Unavailable [phone] Esther Ramon MD Unavailable [phone] Haley Huang-C Unavailable [phone] Aidan Joseph PA-C Unavailable [phone] Encounter Details Date Type Department Care Team Description 09/02/2023 Pt. Non Urgent Medical Question Cardio P[facility] [address] [facility] [address] [place] [address] Rahat Matta NP [address] [place] [address] [phone] Social History Tobacco Use Types Packs/Day Years [...] on filedocumented in this encounter Care Teams Mobility Engineer Relationship Specialty Start Date End Date Maximino Campbell MD [address] [place] [address] PCP - General Internal Medicine 02/29/20 Aidan Dorantes MD [address] [place] [address] 02/29/20 Eamon Gentile MD [address] [place] [address] Motion Picture Printer Cardiovascular Disease 05/17/21 Rahat Matta NP 444 [place] [address] Nurse Practitioner Cardiology 11/28/21 Esther Ramon MD [address] [address] Specialist Neurosurgery 06/07/22 Haley Huang PA-C [address] [address] Specialist Neurosurgery 01/11/23 Aidan Joseph PA-C [address] [address] Specialist Neurosurgery 01/11/23 documented as of this encounter
--- OUTSIDE RECORDS SUMMARY | 2024-11-26 10:21 | XMS_ITS | Encounter Summary ---
Author Organization [facility] Address [address] [place] [address] Care Team Providers Care Braid Maker Name Role Phone Aidan Dorantes MD Primary Care Provider Unavail able Maximino Campbell MD Primary Care Provider Aidan Dorantes MD Unavailable Unavailable Aidan Dorantes MD Unavailable Unavailable Eamon Gentile MD Unavailable Unavailable Rahat Matta NP Unavailable Esther Ramon MD Unavailable [phone] Haley Huang PA-C Unavailable [phone] Aidan Joseph PA-C Unavailable [phone] Encounter Details Date Type Department Care Team Description 10/02/2018 Pt. Non Urgent Medical Question Adult Medicine [address] [phone] Michelle Morrison PA-C [address] [place] [address] [phone] Social History Tobacco Use Types Packs/Day Years [...] ? I picked up my medications at [facility] on [address] and the Lisinopril was [...] your answer before I go back and grain picker medication. Javi Grossman documented in this encounter Plan of Treatment Not on file documented as of this encounter Visit Diagnoses Not on filedocumented in this encounter Care Teams Braid Maker Relationship Specialty Start Date End Date Aidan Dorantes MD PCP - General 06/26/14 02/28/20 Maximino Campbell MD [address] [place] [address] PCP - General Internal Medicine 02/29/20 Aidan Dorantes MD 06/26/14 02/28/20 Aidan Dorantes MD 02/29/20 Eamon Gentile MD Director Of Informatics Cardiovascular Disease 05/17/21 Rahat Matta NP Nurse Practitioner Cardiology 11/28/21 Esther Ramon MD [address] [address] Specialist Neurosurgery 06/07/22 Haley Huang PA-C [address] [address] Specialist Neurosurgery 01/11/23 Aidan Joseph PA-C [address] [address] Specialist Neurosurgery 01/11/23 documented as of this encounter
--- OUTSIDE RECORDS SUMMARY | 2024-11-26 10:21 | XMS_ITS | Encounter Summary ---
Author Organization [facility] Address [address] [place] [address] Care Team Providers Care Barrel Repairer Name Role Phone Maximino Campbell MD Primary Care Provider [phone] Aidan Dorantes MD Unavailable Unavailable Eamon Gentile MD Unavailable Unavailable Rahat Matta NP Unavailable [phone] Esther Ramon MD Unavailable [phone] Haley Huang PA-C Unavailable [phone] Aidan Joseph PA-C Unavailable Encounter Details Date Type Department Care Team Description 09/02/2023 [facility] Medical Records [address] [place] [address] Social History Tobacco Use Types Packs/Day Years [...] on filedocumented in this encounter Care Teams Barrel Repairer Relationship Specialty Start Date End Date Maximino Campbell MD [address] [place] [address] PCP - General Internal Medicine 02/29/20 Aidan Dorantes MD [address] [place] [address] 02/29/20 Eamon Gentile MD [address] [place], [place] [phone] Validation Intern Cardiovascular Disease 05/17/21 Rahat Matta NP 444 [place] [address] Nurse Practitioner Cardiology 11/28/21 Esther Ramon MD [address] [address] Specialist Neurosurgery 06/07/22 Haley Huang PA-C [address] [address] Specialist Neurosurgery 01/11/23 Aidan Joseph PA-C [address] [address] Specialist Neurosurgery 01/11/23 documented as of this encounter
--- OUTSIDE RECORDS SUMMARY | 2024-11-26 10:21 | XMS_ITS | Encounter Summary ---
Author Organization [facility] Address [address] [place] [address] Care Team Providers Care Crester Name Role Phone Aidan Dorantes MD Primary Care Provider Unavail able Maximino Campbell MD Primary Care Provider [phone] Aidan Dorantes MD Unavailable Unavailable Aidan Dorantes MD Unavailable Unavailable Eamon Gentile MD Unavailable Unavailable Rahat Matta NP Unavailable [phone] Esther Ramon MD Unavailable [phone] Haley Huang PA-C Unavailable [phone] Aidan Joseph PA-C Unavailable [phone] Encounter Details Date Type Department Care Team Description 07/27/2016 [employer] Financial Developer Report Medical Records [address] [place] [address] Dolores Villasenor [address] [place] [address] Social History Tobacco Use Types Packs/Day Years [...] on filedocumented in this encounter Care Teams Crester Relationship Specialty Start Date End Date Aidan Dorantes MD PCP - General 06/26/14 02/28/20 Maximino Campbell MD [address] [place] [address] PCP - General Internal Medicine 02/29/20 Aidan Dorantes MD 06/26/14 02/28/20 Aidan Dorantes MD 02/29/20 Eamon Gentile MD Freight Checker Cardiovascular Disease 05/17/21 Rahat Matta NP Nurse Practitioner Cardiology 11/28/21 Esther Ramon MD 175 [facility] [address] [place] [address] [phone] Specialist Neurosurgery 06/07/22 Haley Huang PA-C 175 [facility] [address] [place] [address] Specialist Neurosurgery 01/11/23 Aidan Joseph PA-C 175 [facility] [address] [place] [address] Specialist Neurosurgery 01/11/23 documented as of this encounter
--- OUTSIDE RECORDS SUMMARY | 2024-11-26 10:21 | XMS_ITS | Encounter Summary ---
Author Organization [facility] Address [address] [place] [address] Care Team Providers Care Vp Integration Name Role Phone Maximino Campbell MD Primary Care Provider [phone] Aidan Dorantes MD Unavailable Unavailable Eamon Gentile MD Unavailable Unavailable Rahat Matta NP Unavailable [phone] Esther Ramon MD Unavailable [phone] Haley Huang-C Unavailable [phone] Aidan Joseph PA-C Unavailable [phone] Encounter Details Date Type Department Care Team Description 10/10/2023 Pt. Non Urgent Medical Question Cardio PVC [facility] [address] [facility] [address] [place] [address] Rahat Matta NP [address] [place] [address] [phone] Social History Tobacco Use Types Packs/Day Years [...] on filedocumented in this encounter Care Teams Vp Integration Relationship Specialty Start Date End Date Maximino Campbell MD [address] [place] [address] PCP - General Internal Medicine 02/29/20 Aidan Dorantes MD [address] [place] [address] 02/29/20 Eamon Gentile MD [address] [place] [address] Market Superintendent Cardiovascular Disease 05/17/21 Rahat Matta NP 444 [place] [address] Nurse Practitioner Cardiology 11/28/21 Esther Ramon MD [address] [address] Specialist Neurosurgery 06/07/22 Haley Huang PA-C [address] [address] Specialist Neurosurgery 01/11/23 Aidan Joseph PA-C [address] [address] Specialist Neurosurgery 01/11/23 documented as of this encounter
--- OUTSIDE RECORDS SUMMARY | 2024-11-26 10:22 | XMS_ITS | Clinical Summary ---
Author Organization [facility] Address [address] [place] [address] Care Team Providers Care Soils Analyst Name Role Phone Unavailable Primary Care Provider [...]
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
--- OUTSIDE RECORDS SUMMARY | 2024-11-26 10:22 | XMS_ITS | Encounter Summary ---
Author Organization [facility] Address [address] [place] [address] Care Team Providers Care Glass Grinder Name Role Phone Maximino Campbell MD Primary Care Provider [phone] Aidan Dorantes MD Unavailable Unavailable Eamon Gentile MD Unavailable Unavailable Rahat Matta NP Unavailable [phone] Esther Ramon MD Unavailable [phone] Haley Huang PA-C Unavailable [phone] Aidan Joseph PA-C Unavailable [phone] Encounter Details Date Type Department Care Team Description 10/03/2021 Hospital Medical Records [address] [place] [address] [facility] Social History Tobacco Use Types Packs/Day [...] on filedocumented in this encounter Care Teams Glass Grinder Relationship Specialty Start Date End Date Maximino Campbell MD [address] [place] [address] PCP - General Internal Medicine 02/29/20 Aidan Dorantes MD [address] [place] [address] 02/29/20 Eamon Gentile MD [address] [place] [address] Fieldwork Coordinator Cardiovascular Disease 05/17/21 Rahat Matta NP [address] [place] [address] Nurse Practitioner Cardiology 11/28/21 Esther Ramon MD [address] [address] Specialist Neurosurgery 06/07/22 Haley Huang PA-C [address] [address] Specialist Neurosurgery 01/11/23 Aidan Joseph PA-C [address] [address] Specialist Neurosurgery 01/11/23 documented as of this encounter
--- OUTSIDE RECORDS SUMMARY | 2024-11-26 10:22 | XMS_ITS | Encounter Summary ---
Author Organization [facility] Address [address] [place] [address] Care Team Providers Care Sand Shoveler Name Role Phone Aidan Dorantes MD Primary Care Provider Unavail able Maximino Campbell MD Primary Care Provider [phone] Aidan Dorantes MD Unavailable Unavailable Aidan Dorantes MD Unavailable Unavailable Eamon Gentile MD Unavailable Unavailable Rahat Matta NP Unavailable [phone] Esther Ramon MD Unavailable [phone] Haley Huang PA-C Unavailable [phone] Aidan Joseph PA-C Unavailable [phone] Encounter Details Date Type Department Care Team Description 10/06/2018 Orders Only Radiology - [address] [phone] Aidan Dorantes MD Social History Tobacco Use [...] on filedocumented in this encounter Care Teams Sand Shoveler Relationship Specialty Start Date End Date Aidan Dorantes MD PCP - General 06/26/14 02/28/20 Maximino Campbell MD [address] [place] [address] [id number] PCP - General Internal Medicine 02/29/20 Aidan Dorantes MD 06/26/14 02/28/20 Aidan Dorantes MD 02/29/20 Eamon Gentile MD Harness Cleaner Cardiovascular Disease 05/17/21 Rahat Matta NP Nurse Practitioner Cardiology 11/28/21 Esther Ramon MD 175 [facility] [address] [place] [address] Specialist Neurosurgery 06/07/22 Haley Huang PA-C 175 [facility] [address] [place] [address] Specialist Neurosurgery 01/11/23 Aidan Joseph PA-C 175 [facility] [address] [place] [address] Specialist Neurosurgery 01/11/23 documented as of this encounter
--- OUTSIDE RECORDS SUMMARY | 2024-11-26 10:22 | XMS_ITS | Encounter Summary ---
Author Organization [facility] Address [address] [place] [address] Care Team Providers Care Batching Operator Name Role Phone Aidan Dorantes MD Primary Care Provider Unavail able Maximino Campbell MD Primary Care Provider [phone] Aidan Dorantes MD Unavailable Unavailable Aidan Dorantes MD Unavailable Unavailable Eamon Gentile MD Unavailable Unavailable Rahat Matta NP Unavailable [phone] Esther Ramon MD Unavailable [phone] Haley Huang PA-C Unavailable [phone] Aidan Joseph PA-C Unavailable [phone] Encounter Details Date Type Department Care Team Description 10/20/2018 [facility] Medical Records [address] [place] [address] Graciela Hummel PA-C [address] [place] [address] Social History Tobacco Use Types Packs/Day Years [...] on filedocumented in this encounter Care Teams Batching Operator Relationship Specialty Start Date End Date Aidan Dorantes MD PCP - General 06/26/14 02/28/20 Maximino Campbell MD [address] [place] [address] PCP - General Internal Medicine 02/29/20 Aidan Dorantes MD 06/26/14 02/28/20 Aidan Dorantes MD 02/29/20 Eamon Gentile MD Senior Brand Manager Cardiovascular Disease 05/17/21 Rahat Matta NP Nurse Practitioner Cardiology 11/28/21 Esther Ramon MD [address] [address] Specialist Neurosurgery 06/07/22 Haley Huang PA-C [address] [address] Specialist Neurosurgery 01/11/23 Aidan Joseph PA-C [address] [address] Specialist Neurosurgery 01/11/23 documented as of this encounter
--- OUTSIDE RECORDS SUMMARY | 2024-11-26 10:22 | XMS_ITS | Encounter Summary ---
Author Organization [facility] Address [address] [place] [address] Care Team Providers Care Roofing Machine Tender Name Role Phone Aidan Dorantes MD Primary Care Provider Unavail able Maximino Campbell MD Primary Care Provider Aidan Dorantes MD Unavailable Unavailable Aidan Dorantes MD Unavailable Unavailable Eamon Gentile MD Unavailable Unavailable Rahat Matta NP Unavailable Esther Ramon MD Unavailable [phone] Haley Huang PA-C Unavailable [phone] Aidan Joseph PA-C Unavailable Encounter Details Date Type Department Care Team Description 03/13/[address] [facility] [address] [place] [address] [phone] Michelle Morrison PA-C [address] [place] [address] [phone] Type 2 diabetes mellitus with microalbuminuria, without [...] EDT [facility] Comment: If patient is -Egyptian, multiply result by 1.21 Chronic Kidney Disease: < 60 ml/min/1.73 square meters Kidney Failure: < 15 ml/min/1.73 square meters NA 140 133 - 145 mmol/L 03/13/2019 2:10 PM EDT [facility] K 4.5 3.5 - 5.5 mmol/L 03/13/2019 2:10 PM EDT [facility] CL 107 96 - 110 mmol/L 03/13/2019 2:10 PM EDT [facility] CARBON DIOXIDE (CO2) 27 21 - 32 mmol/L 03/13/2019 2:10 PM EDT [facility] ANION GAP 6 3 - 11 03/13/2019 2:10 PM EDT [facility] CALCIUM 9.2 8.5 - 10.5 mg/dL 03/13/2019 2:10 PM EDT [facility] 03/13/2019 10:1 4 AM EDT 03/13/2019 10:14 AM EDT Michelle Morrison PA-C LAB [facility] * HEMOGLOBIN A1C (03/13/2019 10:14 AM EDT) GLYCATED HEMOGLOBIN A1C 5.9 <6.5 % 03/13/2019 4:11 PM EDT [facility] ESTIMATED AVERAGE GLUCOSE 123 mg/dL 03/13/2019 4:11 PM EDT [facility] 03/13/2019 10:1 4 AM EDT 03/13/2019 10:14 AM EDT Michelle Morrison PA-C LAB [facility] documented in this encounter Visit Diagnoses Diagnosis Type 2 diabetes mellitus with microalbuminuria, without long-term current use of insulin (HCC)- Primary Essential hypertension Unspecified essential hypertension documented in this encounter Care Teams Roofing Machine Tender Relationship Specialty Start Date End Date Aidan Dorantes MD PCP - General 06/26/14 02/28/20 Maximino Campbell MD [address] [place] [address] PCP - General Internal Medicine 02/29/20 Aidan Dorantes MD 06/26/14 02/28/20 Aidan Dorantes MD 02/29/20 Eamon Gentile MD Chute Greaser Cardiovascular Disease 05/17/21 Rahat Matta NP Nurse Practitioner Cardiology 11/28/21 Esther Ramon MD [address] [address] Specialist Neurosurgery 06/07/22 Haley Huang PA-C [address] [address] Specialist Neurosurgery 01/11/23 Aidan Joseph PA-C [address] [address] Specialist Neurosurgery 01/11/23 documented as of this encounter
--- OUTSIDE RECORDS SUMMARY | 2024-11-26 10:22 | XMS_ITS | Encounter Summary ---
Author Organization [facility] Address [address] [place] [address] Care Team Providers Care Cnc Machine Operator Name Role Phone Maximino Campbell MD Primary Care Provider [phone] Aidan Dorantes MD Unavailable Unavailable Eamon Gentile MD Unavailable Unavailable Rahat Matta NP Unavailable [phone] Esther Ramon MD Unavailable [phone] Haley Huang PA-C Unavailable Aidan Joseph PA-C Unavailable Encounter Details Date Type Department Care Team Description 01/26/2023 Pt. Non Urgent Medical Question [facility] Medical [facility] Neurosurgery [place] [address] [address] Esther Ramon MD [address] [address] Social History Tobacco Use Types [...] on filedocumented in this encounter Care Teams Cnc Machine Operator Relationship Specialty Start Date End Date Maximino Campbell MD [address] [place] [address] PCP - General Internal Medicine 02/29/20 Aidan Dorantes MD [address] [place] [address] 02/29/20 Eamon Gentile MD [address] [place] [address] Senior It Assistant Cardiovascular Disease 05/17/21 Rahat Matta NP [address] [place] [address] Nurse Practitioner Cardiology 11/28/21 Esther Ramon MD [address] [address] Specialist Neurosurgery 06/07/22 Haley Huang PA-C [address] [address] Specialist Neurosurgery 01/11/23 Aidan Joseph PA-C [address] [address] Specialist Neurosurgery 01/11/23 documented as of this encounter
--- OUTSIDE RECORDS SUMMARY | 2024-11-26 10:22 | XMS_ITS | Encounter Summary ---
Author Organization [facility] Address [address] [place] [address] Care Team Providers Care Transcribing Machine Mechanic Name Role Phone Maximino Campbell MD Primary Care Provider [phone] Aidan Dorantes MD Unavailable Unavailable Eamon Gentile MD Unavailable Unavailable Rahat Matta NP Unavailable [phone] Esther Ramon MD Unavailable [phone] Haley Huang PA-C Unavailable Aidan JosephC Unavailable Encounter Details Date Type Department Care Team Description 06/01/2024 Pt. Non Urgent Medical Question Adult Medicine [address] [phone] Maximino Campbell MD [address] [place] [address] [phone] Social History Tobacco Use Types Packs/Day Years [...] you to [facility] located [address] [place] [address] saying you did a [facility] for my [...] on filedocumented in this encounter Care Teams Transcribing Machine Mechanic Relationship Specialty Start Date End Date Maximino Campbell MD [address] [place] [address] PCP - General Internal Medicine 02/29/20 Aidan Dorantes MD [address] [place] [address] 02/29/20 Eamon Gentile MD [address] [place] [address] Brass And Wind Instrument Repairer Cardiovascular Disease 05/17/21 Rahat Matta NP [address] [place] [address] Nurse Practitioner Cardiology 11/28/21 Esther Ramon MD [address] [place] [address] Specialist Neurosurgery 06/07/22 Haley Huang PA-C [address] [address] Specialist Neurosurgery 01/11/23 Aidan Joseph PA-C [address] [address] Specialist Neurosurgery 01/11/23 documented as of this encounter
--- OUTSIDE RECORDS SUMMARY | 2024-11-26 10:22 | XMS_ITS | Encounter Summary ---
Author Organization [facility] Address [address] [place] [address] Care Team Providers Care Director Of Patient Safety Name Role Phone Aidan Dorantes MD Primary Care Provider Unavail able Maximino Campbell MD Primary Care Provider [phone] Aidan Dorantes MD Unavailable Unavailable Aidan Dorantes MD Unavailable Unavailable Eamon Gentile MD Unavailable Unavailable Rahat Matta NP Unavailable [phone] Esther Ramon MD Unavailable [phone] Haley Huang PA-C Unavailable [phone] Aidan Joseph PA-C Unavailable [phone] Encounter Details Date Type Department Care Team Description 01/15/2019 Instructor Extension Work Report Medical Records [address] [place] [address] Eamon Gentile MD Social History Tobacco Use [...] on filedocumented in this encounter Care Teams Director Of Patient Safety Relationship Specialty Start Date End Date Aidan Dorantes MD PCP - General 06/26/14 02/28/20 Maximino Campbell MD [address] [place] [address] [phone] PCP - General Internal Medicine 02/29/20 Aidan Dorantes MD 06/26/14 02/28/20 Aidan Dorantes MD 02/29/20 Eamon Gentile MD Solutions Sales Executive Cardiovascular Disease 05/17/21 Rahat Matta NP Nurse Practitioner Cardiology 11/28/21 Esther Ramon MD 175 [facility] [address] [place] [address] [phone] Specialist Neurosurgery 06/07/22 Haley Huang PA-C [address] [address] Specialist Neurosurgery 01/11/23 Aidan Joseph PA-C 175 [facility] [address] [place] [address] Specialist Neurosurgery 01/11/23 documented as of this encounter
--- OUTSIDE RECORDS SUMMARY | 2024-11-26 10:22 | XMS_ITS | Encounter Summary ---
Author Organization [facility] Address [address] [place] [address] Care Team Providers Care Building Inspector Name Role Phone Maximino Campbell MD Primary Care Provider [phone] Aidan Dorantes MD Unavailable Unavailable Eamon Gentile MD Unavailable Unavailable Rahat Matta NP Unavailable [phone] Esther Ramon MD Unavailable [phone] Haley Huang PA-C Unavailable [phone] Aidan Joseph PA-C Unavailable Encounter Details Date Type Department Care Team Description 06/11/2022 [facility] Medical [facility] Neurosurgery [place] [address] [address] Esther Ramon MD [address] [address] Social History Tobacco Use Types [...] on filedocumented in this encounter Care Teams Building Inspector Relationship Specialty Start Date End Date Maximino Campbell MD [address] [place] [address] PCP - General Internal Medicine 02/29/20 Aidan Dorantes MD [address] [place] [address] 02/29/20 Eamon Gentile MD [address] [place], [place] [address] Shirt Sewer Cardiovascular Disease 05/17/21 Rahat Matta NP [address] [place] [address] Nurse Practitioner Cardiology 11/28/21 Esther Ramon MD [address] [place] [address] Specialist Neurosurgery 06/07/22 Haley Huang PA-C [address] [address] Specialist Neurosurgery 01/11/23 Aidan Joseph PA-C [address] [address] Specialist Neurosurgery 01/11/23 documented as of this encounter
--- OUTSIDE RECORDS SUMMARY | 2024-11-26 10:22 | XMS_ITS | Encounter Summary ---
Author Organization [facility] Address [address] [place] [address] Care Team Providers Care Abap Developer Name Role Phone Aidan Dorantes MD Primary Care Provider Unavail able Aidan Dorantes MD Primary Care Provider Unavail able Maximino Campbell MD Primary Care Provider [phone] Aidan Dorantes MD Unavailable Unavailable Aidan Dorantes MD Unavailable Unavailable Eamon Gentile MD Unavailable Unavailable Rahat Matta NP Unavailable [phone] Esther Ramon MD Unavailable [phone] Haley Huang PA-C Unavailable Aidan Joseph PA-C Unavailable [phone] Encounter Details Date Type Department Care Team Description 10/27/2012 Guard [facility] Report Medical Records [address] [place] [address] Mike Reed PA-C Social History Tobacco Use Types Packs/Day [...] on filedocumented in this encounter Care Teams Abap Developer Relationship Specialty Start Date End Date Aidan Dorantes MD PCP - General 09/24/03 06/25/14 Aidan Dorantes MD PCP - General 06/26/14 02/28/20 Maximino Campbell MD [address] [place] [address] PCP - General Internal Medicine 02/29/20 Aidan Dorantes MD 06/26/14 02/28/20 Aidan Dorantes MD 02/29/20 Eamon Gentile MD [address] [place] [address] Mailer Cardiovascular Disease 05/17/21 Rahat Matta NP [address] [place] [address] Nurse Practitioner Cardiology 11/28/21 Esther Ramon MD [address] [address] Specialist Neurosurgery 06/07/22 Haley Huang PA-C [address] [address] Specialist Neurosurgery 01/11/23 Aidan Joseph PA-C [address] [address] Specialist Neurosurgery 01/11/23 documented as of this encounter
--- OUTSIDE RECORDS SUMMARY | 2024-11-26 10:22 | XMS_ITS | Encounter Summary ---
Author Organization [facility] Address [address] [place] [address] Care Team Providers Care Cash Teller Name Role Phone Maximino Campbell MD Primary Care Provider [phone] Aidan Dorantes MD Unavailable Unavailable Eamon Gentile MD Unavailable Unavailable Rahat Matta NP Unavailable [phone] Esther Ramon MD Unavailable [phone] Haley Huang PA-C Unavailable Aidan Joseph PA-C Unavailable [phone] Encounter Details Date Type Department Care Team Description 06/02/2024 SCAN [facility] 175 [facility] [address] [place] [address] Marvin Quan MD 175 [facility] [address] [place] [address] Social History Tobacco Use Types Packs/Day Years [...] on filedocumented in this encounter Care Teams Cash Teller Relationship Specialty Start Date End Date Maximino Campbell MD [address] [place] [address] PCP - General Internal Medicine 02/29/20 Aidan Dorantes MD [address] [place] [address] 02/29/20 Eamon Gentile MD [address] [place] [address] Forge Operator Cardiovascular Disease 05/17/21 Rahat Matta NP [address] [place] [address] Nurse Practitioner Cardiology 11/28/21 Esther Ramon MD [address] [address] Specialist Neurosurgery 06/07/22 Haley Huang PA-C [address] [address] Specialist Neurosurgery 01/11/23 Aidan Joseph PA-C [address] [address] Specialist Neurosurgery 01/11/23 documented as of this encounter
--- OUTSIDE RECORDS SUMMARY | 2024-11-26 10:22 | XMS_ITS | Encounter Summary ---
Author Organization [facility] Address [address] [place] [address] Care Team Providers Care Press Operator Heavy Duty Name Role Phone Maximino Campbell MD Primary Care Provider [phone] Aidan Dorantes MD Unavailable Unavailable Eamon Gentile MD Unavailable Unavailable Rahat Matta NP Unavailable [phone] Esther Ramon MD Unavailable [phone] Haley Huang PA-C Unavailable [phone] Aidan Joseph PA-C Unavailable [phone] Encounter Details Date Type Department Care Team Description 04/17/2023 SCAN Medical Records [address] [place] [address] Abstract, Provider Social History Tobacco Use Types [...] on filedocumented in this encounter Care Teams Press Operator Heavy Duty Relationship Specialty Start Date End Date Maximino Campbell MD [address] [place] [address] [phone] PCP - General Internal Medicine 02/29/20 Aidan Dorantes MD [address] [place] [address] 02/29/20 Eamon Gentile MD [facility] [place] [address] College Or University Registrar Cardiovascular Disease 05/17/21 Rahat Matta NP [address] [place] [address] Nurse Practitioner Cardiology 11/28/21 Esther Ramon MD [address] [address] Specialist Neurosurgery 06/07/22 Haley Huang PA-C [address] [address] Specialist Neurosurgery 01/11/23 Aidan Joseph PA-C [address] [address] Specialist Neurosurgery 01/11/23 documented as of this encounter
--- OUTSIDE RECORDS SUMMARY | 2024-11-26 10:22 | XMS_ITS | Encounter Summary ---
Author Organization [facility] [employer] [facility] Address [address] [place] [address] Care Team Providers Care Sounding Device Operator Name Role Phone Maximino Campbell MD Primary Care Provider [phone] Aidan Dorantes MD Unavailable Unavailable Eamon Gentile MD Unavailable Unavailable Rahat Matta NP Unavailable [phone] Esther Ramon MD Unavailable [phone] Haley Huang PA-C Unavailable [phone] Aidan Joseph PA-C Unavailable Reason for Visit * Reason Onset Date Comments refill request 01/01/2023 Encounter Details Date Type Department Care Team Description 01/01/2023 Telephone Cardio [facility] [address] [place] [address] [address] [place] [phone] Eamon Gentile MD refill request Social History Tobacco Use Types Packs/Day Years [...] Miscellaneous Notes * Telephone Encounter - Christie Morley - 02/06/2023 3:04 PM EDT Images from the original note were not included. Response from [facility] * Telephone Encounter - Christie Morley - 01/15/2023 8:30 AM EDT Appeal received by [facility] we will have a decision by 02/07/2023 * Telephone Encounter - Christie Morley - 01/08/2023 12:47 PM EDT Was denied by insurance due to inconsistant refill history. I have sent an appeal to [facility]. * Telephone Encounter - Christie Morley - 01/01/2023 3:58 PM EDT Pending with insurance * Telephone Encounter - Roscoe Urbina - 01/01/2023 3:05 PM EDT Patient states repatha sureclick 140mg/ml solution auto injector, needs a prior authorization? Pharmacy confirmed. documented in this encounter Plan of Treatment Not on file documented as of this encounter Visit Diagnoses Not on filedocumented in this encounter Care Teams Sounding Device Operator Relationship Specialty Start Date End Date Maximino Campbell MD [address] [place] [address] PCP - General Internal Medicine 02/29/20 Aidan Dorantes MD [address] [place] [address] 02/29/20 Eamon Gentile MD [address] [place] [address] Second Cook And Baker Cardiovascular Disease 05/17/21 Rahat Matta NP [address] [place] [address] Nurse Practitioner Cardiology 11/28/21 Esther Ramon MD [address] [address] Specialist Neurosurgery 06/07/22 aHley Huang PA-C [address] [address] Specialist Neurosurgery 01/11/23 Aidan Joseph PA-C [address] [address] Specialist Neurosurgery 01/11/23 documented as of this encounter
--- OUTSIDE RECORDS SUMMARY | 2024-11-26 10:22 | XMS_ITS | Encounter Summary ---
Author Organization [facility] Address [address] [place] [address] Care Team Providers Care Supervisor Hot Strip Mill Name Role Phone Maximino Campbell MD Primary Care Provider [phone] Aidan Dorantes MD Unavailable Unavailable Eamon Gentile MD Unavailable Unavailable Rahat Matta NP Unavailable [phone] Esther Ramon MD Unavailable [phone] Haley Huang PA-C Unavailable [phone] Aidan Joseph PA-C Unavailable [phone] Encounter Details Date Type Department Care Team Description 06/14/2022 Release of Information Medical Records [address] [place] [address] Abstract, Provider Social History Tobacco Use Types [...] on filedocumented in this encounter Care Teams Supervisor Hot Strip Mill Relationship Specialty Start Date End Date Maximino Campbell MD [address] [place] [address] PCP - General Internal Medicine 02/29/20 Aidan Dorantes MD [address] [place] [address] 02/29/20 Eamon Gentile MD [address] [place] [address] Customs Port Director Cardiovascular Disease 05/17/21 Rahat Matta NP [address] [place] [address] Nurse Practitioner Cardiology 11/28/21 Esther Ramon MD [address] [address] Specialist Neurosurgery 06/07/22 Haley Huang PA-C [address] [address] Specialist Neurosurgery 01/11/23 Aidan Joseph PA-C [address] [address] Specialist Neurosurgery 01/11/23 documented as of this encounter
--- OUTSIDE RECORDS SUMMARY | 2024-11-26 10:22 | XMS_ITS | Encounter Summary ---
Author Organization [facility] Address [address] [place] [address] Care Team Providers Care Electrical Maintenance Technician Name Role Phone Maximino Campbell MD Primary Care Provider Aidan Dorantes MD Unavailable Unavailable Eamon Gentile MD Unavailable Unavailable Rahat Matta NP Unavailable [phone] Esther Ramon MD Unavailable [phone] Haley Huang PA-C Unavailable Aidan JosephC Unavailable Reason for Visit * Reason Onset Date Comments Book Reviewer Feedback 10/23/2021 Dr. Carlson Encounter Details Date Type Department Care Team Description 10/23/2021 Pt. Non Urgent Medic al Question Medicine/Pediatrics - [address] [phone] Emmie Alberts MD Social History Tobacco Use [...] you were going to reach out to [facility] and try to find out about the neurologist who looked at me real quick before being discharged. You had mentioned about possibly a neurologist to see if the one from [facility] di d not w ork out. Seems [...] quite a few doctors have left from [place] and I would feel comfortable seeing you. So if youcan help steer me in the right di rection about seeing neurologist I would be grateful. documented in this encounter Plan of Treatment Not on file documented as of this encounter Visit Diagnoses Not on filedocumented in this encounter Care Teams Electrical Maintenance Technician Relationship Specialty Start Date End Date Maximino Campbell MD [address] [place] [address] PCP - General Internal Medicine 02/29/20 Aidan Dorantes MD [address] [place] [address] 02/29/20 Eamon Gentile MD [address] [place] [address] Car Shakeout Operator Cardiovascular Disease 05/17/21 Rahat Matta NP [address] [place] [address] Nurse Practitioner Cardiology 11/28/21 Esther Ramon MD [address] [place] [address] Specialist Neurosurgery 06/07/22 Haley Huang PA-C [address] [address] Specialist Neurosurgery 01/11/23 Aidan Joseph PA-C 175 [facility] [address] [place] [address] Specialist Neurosurgery 01/11/23 documented as of this encounter
--- OUTSIDE RECORDS SUMMARY | 2024-11-26 10:22 | XMS_ITS | Encounter Summary ---
Author Organization [facility] Address [address] [place] [address] Care Team Providers Care Electrical Prospector Name Role Phone Maximino Campbell MD Primary Care Provider [phone] Aidan Dorantes MD Unavailable Unavailable Eamon Gentile MD Unavailable Unavailable Rahat Matta NP Unavailable [phone] Esther Ramon MD Unavailable [phone] Haley Huang PA-C Unavailable Aidan Joseph PA-C Unavailable Encounter Details Date Type Department Care Team Description 01/25/2023 [facility] Neurosurgery [place] [address] [address] Haley Huang PA-C [address] [phone] Social History Tobacco Use Types Packs/Day Years [...] filedocumented in this encounter Care Teams Electrical Prospector Relationship Specialty Start Date End Date Maximino Campbell MD [address] [place] [address] PCP - General Internal Medicine 02/29/20 Aidan Dorantes MD [address] [place] [address] 02/29/20 Eamon Gentile MD [address] [place] [address] Air Traffic Control Specialist Center Cardiovascular Disease 05/17/21 Rahat Matta NP [address] [place] [address] Nurse Practitioner Cardiology 11/28/21 Esther Ramon MD [address] [address] Specialist Neurosurgery 06/07/22 Haley Huang PA-C [address] [address] Specialist Neurosurgery 01/11/23 Aidan Joseph PA-C [address] [address] Specialist Neurosurgery 01/11/23 documented as of this encounter
--- OUTSIDE RECORDS SUMMARY | 2024-11-26 10:22 | XMS_ITS | Encounter Summary ---
Author Organization [facility] Address [address] [place] [address] Care Team Providers Care Emblem Fuser Tender Name Role Phone Maximino Campbell MD Primary Care Provider [phone] Aidan Dorantes MD Unavailable Unavailable Eamon Gentile MD Unavailable Unavailable Rahat Matta NP Unavailable [phone] Esther Ramon MD Unavailable [phone] Haley Huang-C Unavailable [phone] Aidan Joseph PA-C Unavailable [phone] Encounter Details Date Type Department Care Team Description 02/14/2023 Closer On Report Medical Records [address] [place] [address] Scout Miller Social History Tobacco Use Types [...] on filedocumented in this encounter Care Teams Emblem Fuser Tender Relationship Specialty Start Date End Date Maximino Campbell MD [address] [place] [address] PCP - General Internal Medicine 02/29/20 Aidan Dorantes MD [address] [place] [address] 02/29/20 Eamon Gentile MD [address] [place] [address] Co Founder And President Cardiovascular Disease 05/17/21 Rahat Matta NP [address] [place] [address] Nurse Practitioner Cardiology 11/28/21 Esther Ramon MD [address] [address] Specialist Neurosurgery 06/07/22 Haley Huang PA-C [address] [address] Specialist Neurosurgery 01/11/23 Aidan Joseph PA-C [address] [address] Specialist Neurosurgery 01/11/23 documented as of this encounter
--- OUTSIDE RECORDS SUMMARY | 2024-11-26 10:22 | XMS_ITS | Encounter Summary ---
[facility] Organization [facility] Address [address] [place] [address] Care Team Providers Care Solderer Torch Name Role Phone Aidan Dorantes MD Primary Care Provider Unavail able Maximino Campbell MD Primary Care Provider [phone] Aidan Dorantes MD Unavailable Unavailable Aidan Dorantes MD Unavailable Unavailable Eamon Gentile MD Unavailable Unavailable Rahat Matta NP Unavailable [phone] Esther Ramon MD Unavailable [phone] Haley Huang PA-C Unavailable [phone] Aidan Joseph PA-C Unavailable [phone] Encounter Details Date Type Department Care Team Description 06/30/2019 Hospital Medical Records [address] [place] [address] Liliana Calderon Social History Tobacco Use Types [...] on filedocumented in this encounter Care Teams Solderer Torch Relationship Specialty Start Date End Date Aidan Dorantes MD PCP - General 06/26/14 02/28/20 Maximino Campbell MD [address] [place] [address] PCP - General Internal Medicine 02/29/20 Aidan Dorantes MD 06/26/14 02/28/20 Aidan Dorantes MD 02/29/20 Eamon Gentile MD Chief Station Engineer Cardiovascular Disease 05/17/21 Rahat Matta NP Nurse Practitioner Cardiology 11/28/21 Esther Ramon MD 175 [facility] [address] [place] [address] Specialist Neurosurgery 06/07/22 Haley Huang PA-C [address] [address] Specialist Neurosurgery 01/11/23 Aidan Joseph PA-C 175 [facility] [address] [place] [address] Specialist Neurosurgery 01/11/23 documented as of this encounter
--- OUTSIDE RECORDS SUMMARY | 2024-11-26 10:22 | XMS_ITS | Encounter Summary ---
Author Organization [facility] Address [address] [place] [address] Care Team Providers Care Ship Cleaner Name Role Phone Aidan Dorantes MD Primary Care Provider Unavail able Maximino Campbell MD Primary Care Provider [phone] Aidan Dorantes MD Unavailable Unavailable Aidan Dorantes MD Unavailable Unavailable Eamon Gentile MD Unavailable Unavailable Rahat Matta NP Unavailable Esther Ramon MD Unavailable [phone] Haley Huang PA-C Unavailable [phone] Aidan Joseph PA-C Unavailable [phone] Encounter Details Date Type Department Care Team Description 10/14/2017 SCAN Medical Records [address] [place] [address] Joanna Lombardi DO Social History Tobacco Use Types Packs/Day Years [...] Associated Diagnosis Comments OUTSIDE VASCULAR STUDY Routine 10/14/2017 documented in this encounter Results * OUTSIDE VASCULAR STUDY (10/14/2017) Provider Default CARDIOLOGY documented in this encounter Visit Diagnoses Not on filedocumented in this encounter Care Teams Ship Cleaner Relationship Specialty Start Date End Date Aidan Dorantes MD PCP - General 06/26/14 02/28/20 Maximino Campbell MD [address] [place] [address] PCP - General Internal Medicine 02/29/20 Aidan Dorantes MD 06/26/14 02/28/20 Aidan Dorantes MD 02/29/20 Eamon Gentile MD Community Health Outreach Worker Cardiovascular Disease 05/17/21 Rahat Matta NP Nurse Practitioner Cardiology 11/28/21 Esther Ramon MD [address] [address] Specialist Neurosurgery 06/07/22 Hlaey Huang PA-C [address] [address] Specialist Neurosurgery 01/11/23 Aidan Joseph PA-C [address] [address] Specialist Neurosurgery 01/11/23 documented as of this encounter
--- OUTSIDE RECORDS SUMMARY | 2024-11-26 10:22 | XMS_ITS | Encounter Summary ---
Author Organization [facility] Address [address] [place] [address] Care Team Providers Care Lodge Sales Associate Name Role Phone Maximino Campbell MD Primary Care Provider Aidan Dorantes MD Unavailable Unavailable Eamon Gentile MD Unavailable Unavailable Rahat Matta NP Unavailable [phone] Esther Ramon MD Unavailable [phone] Haley Huang-C Unavailable [phone] Aidan Joseph PA-C Unavailable Encounter Details Date Type Department Care Team Description 10/03/2021 Hospital Medical Records [address] [place] [address] Venecia Rhodes, SEMI DRIVER [address] [address] Social History Tobacco Use Types [...] on filedocumented in this encounter Care Teams Lodge Sales Associate Relationship Specialty Start Date End Date Maximino Campbell MD [address] [place] [address] PCP - General Internal Medicine 02/29/20 Aidan Dorantes MD [address] [place] [address] 02/29/20 Eamon Gentile MD [address] [place], [place] [phone] Assistant Loan Processor Cardiovascular Disease 05/17/21 Rahat Matta NP [address] [place] [address] Nurse Practitioner Cardiology 11/28/21 Esther Ramon MD [address] [address] Specialist Neurosurgery 06/07/22 Haley Huang PA-C [address] [address] Specialist Neurosurgery 01/11/23 Aidan Joseph PA-C [address] [address] Specialist Neurosurgery 01/11/23 documented as of this encounter
--- OUTSIDE RECORDS SUMMARY | 2024-11-26 10:22 | XMS_ITS | Encounter Summary ---
Author Organization [facility] Address [address] [place] [address] Care Team Providers Care Film Masker Name Role Phone Maximino Campbell MD Primary Care Provider [phone] Aidan Dorantes MD Unavailable Unavailable Eamon Gentile MD Unavailable Unavailable Rahat Matta NP Unavailable [phone] Esther Ramon MD Unavailable [phone] Haley HuangC Unavailable [phone] Aidan Joseph PA-C Unavailable [phone] Encounter Details Date Type Department Care Team Description 04/10/2022 Musical Engineer Report Medical Records [address] [place] [address] Jay Costello Social History Tobacco Use Types [...] on filedocumented in this encounter Care Teams Film Masker Relationship Specialty Start Date End Date Maximino Campbell MD [address] [place] [address] PCP - General Internal Medicine 02/29/20 Aidan Dorantes MD [address] [place] [address] 02/29/20 Eamon Gentile MD [address] [place] [address] Yeast Maker Cardiovascular Disease 05/17/21 Rahat Matta NP [address] [place] [address] Nurse Practitioner Cardiology 11/28/21 Esther Ramon MD [address] [address] Specialist Neurosurgery 06/07/22 Haley Huang PA-C [address] [address] Specialist Neurosurgery 01/11/23 Aidan Joseph PA-C [address] [address] Specialist Neurosurgery 01/11/23 documented as of this encounter
--- OUTSIDE RECORDS SUMMARY | 2024-11-26 10:22 | XMS_ITS | Encounter Summary ---
Author Organization [facility] Address [address] [place] [address] Care Team Providers Care Director Clinical Operations Name Role Phone Aidan Dorantes MD Primary Care Provider Unavail able Maximion Campbell MD Primary Care Provider [phone] Aidan Dorantes MD Unavailable Unavailable Aidan Dorantes MD Unavailable Unavailable Eamon Gentile MD Unavailable Unavailable Rahat Matta NP Unavailable [phone] Esther Ramon MD Unavailable [phone] Haley Huang PA-C Unavailable [phone] Aidan Joseph PA-C Unavailable [phone] Reason for Visit * Reason Onset Date Comments Testing 06/21/2017 Encounter Details Date Type Department Care Team Description 06/21/2017 Telephone Adult [address] [phone] Aidan Dorantes MD Testing Social History Tobacco Use Types Packs/Day Years [...] encounter Miscellaneous Notes * Telephone Encounter - Bree Munson M.A. - 06/21/2017 4:15 PM EST Message left asking pt to call our office BACK [phone] when pt calls back please advise him to go to the lab per pcp for vit d lab documented in this encounter Plan of Treatment Not on file documented as of this encounter Visit Diagnoses Not on filedocumented in this encounter Care Teams Director Clinical Operations Relationship Specialty Start Date End Date Aidan Dorantes MD PCP - General 06/26/14 02/28/20 Maximino Campbell MD [address] [place] [address] PCP - General Internal Medicine 02/29/20 Aidan Dorantes MD 06/26/14 02/28/20 Aidan Dorantes MD 02/29/20 Eamon Gentile MD Family Counselor Cardiovascular Disease 05/17/21 Rahta Matta NP Nurse Practitioner Cardiology 11/28/21 Esther Ramon MD [address] [address] Specialist Neurosurgery 06/07/22 Haley Huang PA-C [address] [address] Specialist Neurosurgery 01/11/23 Aidan Joseph PA-C 175 [facility] [address] [place] [address] Specialist Neurosurgery 01/11/23 documented as of this encounter
--- OUTSIDE RECORDS SUMMARY | 2024-11-26 10:22 | XMS_ITS | Encounter Summary ---
Author Organization [facility] Address [address] [place] [address] Care Team Providers Care Supervisor Whipped Topping Name Role Phone Maximino Campbell MD Primary Care Provider [phone] Reason for Visit * Consultation (Routine) - Authorized Specialty Diagnoses / Procedures Referred By Contac t Referred To Contact Physical Therapy Diagnoses Stress fracture of left tibia with delayed healing, subsequent encounter Acute medial meniscus tear of left knee, subsequent encounter Arthritis of left knee Marvin Quan MD [address] [place] [address] Phone: tel: fax: Referral ID Status Reason Start Date Expiration Date Visits Requested Visits Authorized [id number] Authorized Specialty Services Required 08/07/2024 08/07/2025 20 20 Encounter Details Date Type Department Care Team (Late st Contact Info) Description 11/25/2024 8:30 AM EDT Treatment Outpatient Rehabilitation [address] [address] Rivas Hook, PT Acute medial meniscus tear of left knee, subsequent encounter (Primary Dx) Social History Tobacco Use Types [...] care for your loved ones. For example, child daycare worker or elderly care for an older adult? [...] Orientation Straight 10/22/2024 7: 58 AM EDT documented as of this encounter Progress Notes * Rivas Hook, PT - 11/25/2024 8:30 AM EDT [facility] - Outpatient PHYSICAL THERAPY DAILY TREATMENT NOTE - OP Date: 11/25/2024 Visit Number: [id number] Patient Name: Quentin Grossman : 1960 Age: 63 y.o. Gender: male Diagnosis: ICD-10-CM ICD-9-CM 1. Acute medial meniscus tear of left knee, subsequent encounter S83.242D V58.89 836.0 Date of Onset/Surgery: 10/22/2024 Referring Provider: Marvin Quan MD Insurance: Payor: MEDICARE / Plan: MEDICARE PART A & B / Product Type: Medicare / Patient Identified by: Rivas Hook PT Language: Armenian Medications: Current Outpatient Medications on File Prior to Visit Medication Sig Dispense Refill acetaminophen (TYLENOL) 500 mg tablet Take 2 tablets (1,000 mg total) by mouth every 8 (eight) hours if needed for mild pain. 60 each 0 alirocumab (Praluent Pen) 75 mg/mL pen injector Inject 1 mL (75 mg total) under the skin every 14 (fourteen) days. 6 mL 3 amLODIPine (NORVASC) 5 mg tablet Take 1 tablet (5 mg total) by mouth 2 (two) times a day. 180 tablet 2 aspirin 81 mg chewable tablet Chew 1 tablet (81 mg total) 1 (one) time each day. ezetimibe (ZETIA) 10 mg tablet Take 1 tablet (10 mg total) by mouth 1 (one) time each day. 90 tablet 3 levothyroxine (SYNTHROID, LEVOTHROID) 150 mcg tablet Take 1 tablet (150 mcg total) by mouth. Five days a week does not take on Saturday and Saturday lisinopriL (PRINIVIL,ZESTRIL) 5 mg tablet Take 1 tablet (5 mg total) by mouth 1 (one) time each day. metFORMIN (GLUCOPHAGE) 500 mg tablet Take 1 tablet (500 mg total) by mouth 2 (two) times a day withmeals. 180 tablet 2 multivit with minerals/lutein (MULTIVITAMIN 50 PLUS ORAL) Take 1 tablet by mouth 1 (one) time each day. ondansetron ODT (ZOFRAN-ODT) 8 mg disintegrating tablet Dissolve 1 tablet (8 mg total) on top of the tongue every 8 (eight) hours if needed for nausea or vomiting. 20 tablet 0 oxyCODONE (ROXICODONE) 5 mg immediate release tablet Take 1-2 tablets (5-10 mg total) by mouth every 4 (four) hours if needed for severe pain. Max Daily Amount: 60 mg 20 each 0 pramipexole (MIRAPEX) 1.5 mg tablet Take 1 tablet (1.5 mg total) by mouth at bedtime. Take 1 Tabletby mouth 2 times daily for 360 days 180 tablet 2 pregabalin (LYRICA) 150 mg capsule Take 1 capsule (150 mg total) by mouth at bedtime. Max Daily Amount: 150 mg 90 each 2 semaglutide (Ozempic) 0.25 mg or 0.5 mg(2 mg/1.5 mL) injection pen 0.25 mg every 7 (seven) days. No current facility-administered medications on file prior to visit. Allergies: is allergic to kjyhlwk-nwt-dgw reductase inhibitors. Precautions: Fall risk: No Patient/Caregiver Goals: SUBJECTIVE Subjective Report: It's no different. It still hurts right here. Pt pointing at medial aspect of L knee. Chart Reviewed: Yes Pain: 5-6/10 left knee OBJECTIVE TREATMENT INTERVENTION: Procedures: Pt seated for distraction grades 1 and 2 to L knee joint w/ AROM btw bouts as well as patellar glides medially and inferiorly grades as tolerated w/ AROM btw bouts. Held this visit...Pt prone for STM to L gastroc soleus muscles x 10 mins Nustep x 5 min, lvl 5 resistance. (Prior to MT) Lateral walk GTB at knees 3 laps LAQ 3# 3x10 Standing HS curl 3# 3x10 Held this visit...Bridges 2x10 Shuttle SL 3 cords 3x10 Discussed at length need to reach out to orthopedics to discuss continued high levels of pain at L knee joint and continued restrictions. Pt states the option for a TKA has been discussed. Pt wants to wait another 2 weeks prior to reaching out to orthopedics. ASSESSMENT/Response to Treatment Pain unchanged, functional limitations remain unchanged. Patient Education: Education provided: Yes Education Provided To: Patient utilizing Explanation and Demonstration mode(s) of education Response to Education: Applied Knowledge and Verbal Understanding PLAN POC Development/Review: No Change in the Plan of Care; Participants: Patient Total Treatment Time: 40 Modalities: Therapeutic procedures: Manual Therapy Time Entry: 10 Therapeutic Exercise Time Entry: 30 Documentation completed by Rivas Hook PT documented in this encounter Plan of Treatment Upcoming Encounters Date Type Department Care Team (Late st Contact Info) Description 12/04/2024 12:30 PM EDT Treatment Outpatient Rehabilitation [address] [phone] Rivas Hook, PT 12/16/2024 9:45 AM EDT Office Visit [address] [phone] Maximino Campbell MD [address] [place] [address] 01/20/2025 9:15 AM EDT Office Visit Orthopedic Surgery - [place] [address] [address] Marvin Quan MD [address] [address] 02/24/2025 9:00 AM EDT Office Visit [address] [phone] Maximino Campbell MD [address] [place] [address] 06/03/2025 3:10 PM EDT Office Visit [facility] [address] [place] [address] Rahat Matta NP [address] [place] [address] Dr [address] [place] [address] documented as of this encounter Goals Goal Patient Goal Type Associated Problems [...] and squatting to retrieve objects off floor.. documented as of this encounter Visit Diagnoses Diagnosis Acute medial meniscus tear of left knee, subsequent encounter- Primary documented in this encounter Additional Health Concerns Assessment Noted Time PHQ-9 Depression Total Score: 18 10/05/ 025 8:08 AM EST documented as of this encounter Care Teams Supervisor Whipped Topping Relationship Specialty Start Date End Date Maximino Campbell MD [address] [place] [address] PCP - General Internal Medicine 02/29/20 documented as of this encounter
--- OUTSIDE RECORDS SUMMARY | 2024-11-26 10:22 | XMS_ITS | Encounter Summary ---
Author Organization [facility] Address [address] [place] [address] Care Team Providers Care Automatic Coil Machine Operator Name Role Phone Aidan Dorantes MD Primary Care Provider Unavail able Maxmiino Campbell MD Primary Care Provider [phone] Aidan Dorantes MD Unavailable Unavailable Aidan Dorantes MD Unavailable Unavailable Eamon Gentile MD Unavailable Unavailable Rahat Matta NP Unavailable [phone] Esther Ramon MD Unavailable [phone] Haley Huang PA-C Unavailable [phone] Aidan Joseph PA-C Unavailable [phone] Encounter Details Date Type Department Care Team Description 12/11/2018 Director Workers Compensation Report Medical Records [address] [place] [address] Juan Francisco Reid MD Social History Tobacco [...] on filedocumented in this encounter Care Teams Automatic Coil Machine Operator Relationship Specialty Start Date End Date Aidan Dorantes MD PCP - General 06/26/14 02/28/20 Maximino Campbell MD [address] [place] [address] [id number] PCP - General Internal Medicine 02/29/20 Aidan Dorantes MD 06/26/14 02/28/20 Aidan Dorantes MD 02/29/20 Eamon Gentile MD Costume Maker Cardiovascular Disease 05/17/21 Rahat Matta NP Nurse Practitioner Cardiology 11/28/21 Esther Ramon MD [address] [id number] Specialist Neurosurgery 06/07/22 Haley Huang PA-C [address] [address] Specialist Neurosurgery 01/11/23 Aidan Joseph PA-C 175 [facility] [address] [place] [address] Specialist Neurosurgery 01/11/23 documented as of this encounter
--- OUTSIDE RECORDS SUMMARY | 2024-11-26 10:22 | XMS_ITS | Encounter Summary ---
Author Organization [facility] Address [address] [place] [address] Care Team Providers Care Printing Agent Name Role Phone Maximino Campbell MD Primary Care Provider [phone] Aidan Dorantes MD Unavailable Unavailable Eamon Gentile MD Unavailable Unavailable Rahat Matta NP Unavailable [phone] Esther Ramon MD Unavailable [phone] Haley Huang-C Unavailable Aidan Joseph PA-C Unavailable [phone] Reason for Visit * Reason Onset Date Comments DME Request 11/14/2021 Encounter Details Date Type Department Care Team Description 11/14/2021 Telephone Pulmonology [facility] [address] [facility] [address] [place] [address] Padmini Heard FNP [address] [place], [place] [id number] DME Request Social History Tobacco Use Types [...] 3:30 PM EDT Faxed order received from [employer]. Please review, sign, date and return. LALY-12/08/2020 NOV-left message to schedule documented in this encounter Plan of Treatment Not on file documented as of this encounter Visit Diagnoses Not on filedocumented in this encounter Care Teams Printing Agent Relationship Specialty Start Date End Date Maximino Campbell MD [address] [place] [address] PCP - General Internal Medicine 02/29/20 Aidan Dorantes MD [address] [place] [address] 02/29/20 Eamon Gentile MD [address] [place], [place] [phone] Mail Clerk Bills Cardiovascular Disease 05/17/21 Rahat Matta NP [address] [place] [address] Nurse Practitioner Cardiology 11/28/21 Esther Ramon MD [address] [address] Specialist Neurosurgery 06/07/22 Haley Huang PA-C [address] [address] Specialist Neurosurgery 01/11/23 Aidan Joseph PA-C [address] [address] Specialist Neurosurgery 01/11/23 documented as of this encounter
--- OUTSIDE RECORDS SUMMARY | 2024-11-26 10:22 | XMS_ITS | Encounter Summary ---
Author Organization [facility] Address [address] [place] [address] Care Team Providers Care Tanker Service Attendant Name Role Phone Aidan Dorantes MD Primary Care Provider Unavail able Maximino Campbell MD Primary Care Provider Aidan Dorantes MD Unavailable Unavailable Aidan Dorantes MD Unavailable Unavailable Eamon Gentile MD Unavailable Unavailable Rahat Matta NP Unavailable [phone] Esther Ramon MD Unavailable [phone] Haley Huang PA-C Unavailable [phone] Aidan Joseph PA-C Unavailable Reason for Referral * EXTERNAL (Routine) - Authorized/Booked Specialty Diagnoses / Procedures Referred By Contac t Referred To Contact Cardiology Diagnoses Bilateral carotid artery stenosis Procedures REFERRAL TO CARDIOLOGY Graciela Hummel PA-C [address] [place] [address] Juan Francisco Reid MD [address] [place] [address] Referral ID Status Reason Start Date Expiration Date V isits Requested Visits Authorized SEE NOTE Authorized/B ooked 10/23/2018 01/24/2019 1 1 Encounter Details Date Type Department Care Team Description 10/18/2018 Pt. Non Urgent Medical Question Cardiology - [address] [address] Graciela Hummel PA-C [address] [place] [address] Bilateral carotid artery stenosis (Primary Dx) Social [...] infarction documented in this encounter Care Teams Tanker Service Attendant Relationship Specialty Start Date End Date Aidan Dorantes MD PCP - General 06/26/14 02/28/20 Maximino Campbell MD [address] [place] [address] PCP - General Internal Medicine 02/29/20 Aidan Dorantes MD 06/26/14 02/28/20 Aidan Dorantes MD 02/29/20 Eamon Gentile MD Manager Corporate Communications Cardiovascular Disease 05/17/21 Rahat Matta NP Nurse Practitioner Cardiology 11/28/21 Esther Ramon MD [address] [address] Specialist Neurosurgery 06/07/22 Haley Huang PA-C [address] [address] Specialist Neurosurgery 01/11/23 Aidan Joseph PA-C [address] [address] Specialist Neurosurgery 01/11/23 documented as of this encounter
--- OUTSIDE RECORDS SUMMARY | 2024-11-26 10:22 | XMS_ITS | Encounter Summary ---
Author Organization [facility] Address [address] [place] [address] Care Team Providers Care Sports Editor Name Role Phone Aidan Dorantes MD Primary Care Provider Unavail able Maximino Campbell MD Primary Care Provider [phone] Aidan Dorantes MD Unavailable Unavailable Aidan Dorantes MD Unavailable Unavailable Eamon Gentile MD Unavailable Unavailable Rahat Matta NP Unavailable [phone] Esther Ramon MD Unavailable [phone] Haley Huang PA-C Unavailable [phone] Aidan Joseph PA-C Unavailable [phone] Encounter Details Date Type Department Care Team Description 06/23/2019 Hospital Medical Records [address] [place] [address] [facility] Social History Tobacco Use Types Packs/Day [...] on filedocumented in this encounter Care Teams Sports Editor Relationship Specialty Start Date End Date Aidan Dorantes MD PCP - General 06/26/14 02/28/20 Maximino Campbell MD [address] [place] [address] PCP - General Internal Medicine 02/29/20 Aidan Dorantes MD 06/26/14 02/28/20 Aidan Dorantes MD 02/29/20 Eamon Gentile MD Research And Development Researcher Cardiovascular Disease 05/17/21 Rahat Matta NP Nurse Practitioner Cardiology 11/28/21 Esther Rmaon MD 175 [facility] [address] [place] [address] Specialist Neurosurgery 06/07/22 Haley Huang PA-C 175 [facility] [address] [place] [address] Specialist Neurosurgery 01/11/23 Aidan Joseph PA-C 175 [facility] [address] [place] [address] Specialist Neurosurgery 01/11/23 documented as of this encounter
--- OUTSIDE RECORDS SUMMARY | 2024-11-26 10:22 | XMS_ITS | Encounter Summary ---
Author Organization [facility] Address [address] [place] [address] Care Team Providers Care Deckhand Name Role Phone Aidan Dorantes MD Primary Care Provider Unavail able Maximino Campbell MD Primary Care Provider [phone] Aidan Dorantes MD Unavailable Unavailable Aidan Dorantes MD Unavailable Unavailable Eamon Gentile MD Unavailable Unavailable Rahat Matta NP Unavailable [phone] Esther Rmaon MD Unavailable [phone] Haley Huang PA-C Unavailable [phone] Aidan Joseph PA-C Unavailable [phone] Encounter Details Date Type Department Care Team Description 05/07/2019 Commutator Operator Report Medical Records [address] [place] [address] [facility] Social History Tobacco Use Types [...] on filedocumented in this encounter Care Teams Deckhand Relationship Specialty Start Date End Date Aidan Dorantes MD PCP - General 06/26/14 02/28/20 Maximino Campbell MD [address] [place] [phone] PCP - General Internal Medicine 02/29/20 Aidan Dorantes MD 06/26/14 02/28/20 Aidan Dorantes MD 02/29/20 Eamon Gentile MD Glass Cutter Hand Cardiovascular Disease 05/17/21 Rahat Matta NP Nurse Practitioner Cardiology 11/28/21 Esther Ramon MD [address] [phone] Specialist Neurosurgery 06/07/22 Haley Huang PA-C [address] [address] Specialist Neurosurgery 01/11/23 Aidan Joseph PA-C 175 [facility] [address] [place] [address] Specialist Neurosurgery 01/11/23 documented as of this encounter
== END 2024-11-26 09:58 | disposition home or self-care (01) ==
LOC: HO.HSMS 09:25
PROVIDERS: PCP Internal Medicine; Visit Provider Psychiatry & Neurology Neurology
DX: Z45.42 Encounter for adjustment and management of neurostimulator (principal); G47.33 Obstructive sleep apnea (adult) (pediatric); Z96.82 Presence of neurostimulator
CPT/HCPCS: 95976; 99214

== ENCOUNTER → 2024-11-26 09:25 | Outpatient (BNVA) | payer MEDICARE, SELFPAY | PROVIDERS: PCP Internal Medicine; Visit Provider Psychiatry & Neurology Neurology | DX: G47.33 Obstructive sleep apnea (adult) (pediatric) (principal); Z45.42 Encounter for adjustment and management of neurostimulator | CPT/HCPCS: 95976; 99212 ==

== ENCOUNTER → 2025-02-10 20:30 | Outpatient (REF) | payer MEDICARE, SELFPAY ==
--- OUTSIDE RECORDS SUMMARY | 2025-02-10 21:02 | XMS_ITS | Data Portability ---
Author Organization [place] [facility], [facility] Address [address] [place] [address] Assessment Encounter Date Assessment Date Assessment LastModified [...] record ed. Lab None record ed. Referral anahi roman n referr al 2023 024 [email or web address] Benito Verma MD Mph, [address] [place] [address], [place], [address], 4 10:26:05 Procedures None record ed. Surgeries None record ed. Imaging CT, sinuse s, w/o contra st 2023 024 maged [facility], [address] [facility], [place], [address], 4 12:43:13 Medication Orders None record ed. [...] [facility] [address] [place], [address], 12/20/2023 12:43:12 12/26/19 24 12/19/2023 CT, sinus es, w/o contr ast No observ ation record ed. [facility] Of [address], [place], [address], 12/26/2023 07:48:55 03/25/20 24 04/01/2023 imagi ng/di [...] Organization Details Recorded Time Nasal congestio n 41602510 Active 2022 Nasal congestion ; Note: Date Diagnosed: 07/19/2023 9:31 AM (R09.81) Not Available [facility] 4 02:59:45 Body mass index 30+ - obesity 783724570 Active 2022 Body mass index [BMI] 31.0-31.9, adult; Note: Date Diagnosed: 07/22/2023 6:26 AM (Z68.31) MITA CAMARA MD [address] [place] [address], [place], [address] , [facility] - [facility] 4 13:17:06 Obstructi ve sleep apnea syndrome 42519750 Active 2022 Obstructiv e sleep apnea (adult) (pediatric ); Note: Date Diagnosed: 07/19/2023 9:31 AM (G47.33) MITA CAMARA MD [address] [facility],[place] [address], [place], [address] , [place] [facility] 4 13:17:10 Obesity 120329398 Active 2022 Other obesity; Note: Date Diagnosed: 07/19/2023 9:31 AM (E66.8) Not Available [facility] 4 02:59:44 Disorder of smell 879537956 Active 2022 Other disturbanc es of smell and taste; Note: Date Diagnosed: 07/19/2023 9:31 AM (R43.8) Not Available [facility] 4 02:59:48 Disorder of taste 684673356 Active 2022 Other disturbanc es of smell and taste; Note: Date Diagnosed: 07/19/2023 9:31 AM (R43.8) Not Available [facility] 4 02:59:48 Loss of sense of smell 39527793 Active 2023 KEAGAN ARTIS MD [address] [facility],[place] [address], [place], [address] , [place] - [facility] 4 09:08:59 Chronic rhinitis 21390912 Active 2023 KEAGAN ARTIS MD [address] [facility],[place] [address], [place], [address] , [place] - [facility] 4 09:09:05 Disorder of the nose 51847225 Active 2023 KEAGAN ARTIS MD [address] [facility],[place] [address], [place], [address] , [place] - [facility] 4 09:09:24 Problem Notes None recorded. Procedures Surgical History Date Name Laterality Status Provider Name and Address Organization Details Recorded Time 05/21/20 24 Opn mpltj hpglsl nstm josefina pg completed MITA CAMARA MD [address] [facility] [address], [place], [address], [place] - [facility] 05/21/2024 13:20:04 operation on nasal turbinate completed Jing Corcoran [place] - [facility] 12/20/2023 08:41:18 open reduction of nasal fracture completed Jing Corcoran [place] [facility] 12/20/2023 08:41:28 nasal septoplasty completed Jing Corcoran [place] [facility] 12/20/2023 08:41:37 Carpal tunnel surgery completed Jing Corcoran [place] [facility] 12/20/2023 08:41:44 Remove tonsils and adenoids completed Jing Corcoran [place] - [facility] 12/20/2023 08:41:53 procedure on shoulder completed Jing Corcoran [place] - [facility] 12/20/2023 08:42:08 procedure on elbow completed Jing Corcoran [place] - [facility] 12/20/2023 08:42:17 Imaging Results None recorded. Procedure Notes None recorded. Medical Equipment None Reported. Allergies Allergen ID Allergen Name Allergen Category Reaction Reaction Severity Criticality Documentation Date Start Date Code Code System Note Provider Name and Address Organization Details Recorded Time 262851 Product containin g 3-hydroxy -3-methyl glutaryl- coenzyme A reductase inhibitor (product) medicatio n other Not available Not available 12/17/2023 [address]35[address] 009 SNOMED React ion: Unkno wn; Not Available [facility] 01:25:24 Medications Name Sig Start Date Stop [...] 7.5 mg tablet active Medicati on ID: [id number] B rand Name: jose moore Send Method: E-Prescr ibed Sub s Allowed: subs OK Medic ationGen ericName : jose moore Not Available Not Available Not Available oxycodone -acetamin ophen 5 mg-325 mg tablet active Medicati on ID: [id number] B rand Name: oxycodon e-acetam inophen Send [...] 15 mg tablet active Medicati on ID: [id number] B rand Name: mirtazap ine Send Method: E-Prescr ibed Sub s Allowed: subs OK Medic ationGen ericName : mirtazap ine Not Available Not Available Not Available albuterol sulfate HFA 90 mcg/actua tion aerosol inhaler active Not Available Not Available Not Available fluticaso ne propionat e 50 mcg/actua tion nasal spray,wil pension 2 puff once a day 2023 active Medicati on ID: [id number] D uration Value: 30 Brand Name: fluticas one propiona te Send Method: E-Prescr ibed Sub s Allowed: subs OK Medic ationGen ericName : fluticas one propiona te Not Available Not Available Not Available pramipexo le 1.5 mg tablet TAKE 1 TABLET BY MOUTH TWICE A DAY active Not Available Not Available No t Available glipizide 5 mg tablet 12/19 completed Medicati on ID: [id number] B rand Name: glipizid e Send Method: E-Prescr ibed Sub s Allowed: subs OK Medic ationGen ericName : glipizid e Medica tion ID: [id number] B rand Name: glipizid e Send Method: [...] release 24 hr active Medicati on ID: [id number] B rand Name: pramipex ole Send Method: [...] Updated DateTime 05/29/2024 175.26 cm 31 kg/m2 84429.4 g Meg Zarate [place] - [facility] 05/29/2024 10:02:06 Social History None recorded. Functional Status None recorded. Mental Status None recorded. Family History Nothing Reported. Medical History Condition Response High Cholesterol Y Past Encounters Encounter ID Performer Location Encounter Start Date Encounter Closed Date Diagnosis/Indication Diagnosis SNOMED-CT Code Diagnosis ICD10 Code Diagnosis Note [id number] KEAGAN ARTIS MD [facility] [place] [address] [place] [address] 12/20/2023 08:18:13 12/20/2023 09:15:36 Loss of sense of smell 64300923 R43.0 No significan t sinus disease Post antrostomy /septo and turb reduction Chronic rhinitis 8249660 6 J31.0 Disorder of the nose 894 [address] J34[address] Verma for nasal valve procedure. Neg CT scan [id number] TIMBO CARRANZA PA-C [facility] [address] [place] [address] 05/29/2024 09:24:56 05/29/2024 10:16:13 Obstructive sleep apnea syndrome 25826317 G47.33 Health Concerns Section Related Observation LastModified by Organization Detai ls LastModified Time None Recorded Concern Status LastModified by Organization Details LastModified Time None Recorded Advance Directives Directive None Recorded Payers Insurance Date Sequence Insurance Name Policy Number Policy Mistry Covered Member ID Mistry Member ID Guarantor Name 07/14/2024 2 [place] [id number] Quentin Grossman Jr [id number] [place] [facility] 05/29/2024 1 [place] B[place] [employer] SERVICES Quentin Grossman Jr [id number] [facility] 05/29/2024 1 [id number] [id number] [facility] Notes Date Note Type Note Provider Name and Address Organization Details Recorded Time 4 text/html Multiple nasal surgeries. Still notes alar collapse and naso obstruction. Difficulty tolerating Breathe Right strips Has poor dentition and doesn't think he can tolerate mandibular device for FREDY--Saw Dr Foley for DISEReports chronic ear disease and long hx of loss of smell/taste. 2 weeks of doxycycline and trial of FP nasal. No change in sense of smell KEAGAN HERNANDEZ MD [address] [facility],[place] [address], [place], [address], [facility] - [facility] 12/20/2023 12:43:28 4 text/html Patient of Dr HernandezOSASplit night PSG Miramonte 04/01/23BMI 31AHI 34.7central & mixed - non recordedCPAP trial - intolerant of mask and CPAP 05/21/24 INSPIRE placementfeels some right face tenderness MITA CAMARA MD [address] [facility],[place] [address], [place], [address], [place] - [facility] 05/29/2024 10:18:30
--- OUTSIDE RECORDS SUMMARY | 2025-02-10 21:02 | XMS_ITS | Clinical Summary ---
Author Organization [facility] Address [address] [place] [address] Care Team Providers Care Special Education Professional Name Role Phone Unavailable Primary Care Provider [...] COVID-19 Vaccine ( season) 2024 11/21/2020, 10/24/2020 Fall Risk Assessment 12/22/2024 Pneumococcal Vaccine (2 of 2 - PCV) 12/22/2024 11/15/2016 Influenza Vaccine (#1) 2025 2, 08/11/2021, 04/14/2020, Additional history exists RSV Adult > 60+ Yrs or (1 [...] on patient's age to complete this topic Quentin Grossman Personal/Family Self 1960 [address] [place] [address]
--- OUTSIDE RECORDS SUMMARY | 2025-02-10 21:02 | XMS_ITS | Encounter Summary ---
Author Organization [facility] Address [address] [place] [address] Care Team Providers Care Chief Design Drafter Name Role Phone Aidan Dorantes MD Primary Care Provider Unavail able Maximino Campbell MD Primary Care Provider [phone] Aidan Dorantes MD Unavailable Unavailable Aidan Dorantes MD Unavailable Unavailable Eamon Gentile MD Unavailable Unavailable Rahat Matta NP Unavailable [phone] Esther Ramon MD Unavailable [phone] Haley Huang PA-C Unavailable [phone] Aidan Joseph PA-C Unavailable [phone] Encounter Details Date Type Department Care Team Description 10/27/2015 Release of Information Medical Records [address] [place] [address] Abstract, Provider Social History Tobacco Use Types [...] on filedocumented in this encounter Care Teams Chief Design Drafter Relationship Specialty Start Date End Date Aidan Dorantes MD PCP - General 06/26/14 02/28/20 Maximino Campbell MD [address] [place] [address] PCP - General Internal Medicine 02/29/20 Aidan Dorantes MD 06/26/14 02/28/20 Aidan Dorantes MD 02/29/20 Eamon Gentile MD Home Hospice Aide Cardiovascular Disease 05/17/21 Rahat Matta NP Nurse Practitioner Cardiology 11/28/21 Esther Ramon MD [address] [id number] Specialist Neurosurgery 06/07/22 Haley Huang PA-C [address] [address] Specialist Neurosurgery 01/11/23 Aidan Joseph PA-C [address] [address] Specialist Neurosurgery 01/11/23 documented as of this encounter
--- OUTSIDE RECORDS SUMMARY | 2025-02-10 21:02 | XMS_ITS | Clinical Summary ---
Author Organization [address] [place] [address] Address [address] [place] [address] Phone Care Team Providers Care Councilperson Name Role Phone Maximino Campbell MD Primary Care Provider [phone] Allergies Active Allergy Reactions Criticality Noted Date Comments Qbclwda-Fqo-Iek Reductase Inhibitors Other,Unknown 10/03/2015 Elevated LFTs Elevated liver enzymes Product containing 7-ycppkvm-3-methylglutar yl-coenzyme A reductase inhibitor (product) Medications metFORMIN (GLUCOPHAGE) 500 mg tablet Take 1 tablet (500 mg total) by mouth 2 (two) times a day with meals. 180 tablet 2 10/07/19 25 Active pramipexole (MIRAPEX) 1.5 mg tablet Take 1 tablet (1.5 mg total) by mouth at bedtime. Take 1 Tablet by mouth 2 times daily for 360 days 180 tablet 2 10/07/19 25 Active amLODIPine (NORVASC) 5 mg tablet Take 1 tablet (5 mg total) by mouth 2 (two) times a day. 180 tablet 2 10/07/19 25 Active pregabalin (LYRICA) 150 mg capsule Take 1 capsule (150 mg total) by mouth at bedtime. Max Daily Amount: 150 mg 90 each 2 10/07/19 25 Active acetaminophen (TYLENOL) 500 mg tablet Take 2 tablets (1,000 mg total) by mouth every 8 (eight) hours if needed for mild pain. 60 each 10/23/19 25 Active oxyCODONE (ROXICODONE) 5 mg immediate release tablet Take 1-2 tablets (5-10 mg total) by mouth every 4 (four) hours if needed for severe pain. Max Daily Amount: 60 mg 20 each 10/23/19 25 Active ondansetron ODT (ZOFRAN-ODT) 8 mg disintegrating tablet Dissolve 1 tablet (8 mg total) on top of the tongue every 8 (eight) hours if needed for nausea or vomiting. 20 tablet 10/23/19 25 Active Additional Information Patient not taking.Reported on 12/16/2024 multivit with minerals/lutein (MULTIVITAMIN 50 PLUS ORAL) Take 1 tablet by mouth 1 (one) time each day. Active aspirin 81 mg chewable tablet Chew 1 tablet (81 mg total) 1 (one) time each day. Active alirocumab (Praluent Pen) 75 mg/mL pen injectorIndication s:Mixed hyperlipidemia Inject 1 mL (75 mg total) under the skin every 14 (fourteen) days. 6 mL 3 11/17/19 25 Active ezetimibe (ZETIA) 10 mg tabletIndications: Mixed hyperlipidemia Take 1 tablet (10 mg total) by mouth 1 (one) time each day. 90 tablet 3 11/17/19 25 Active levothyroxine (SYNTHROID, LEVOTHROID) 150 mcg tablet Take 1 tablet (150 mcg total) by mouth 1 (one) time each day before breakfast. Five days a week does not take on Saturday and Saturday 90 tablet 2 12/17/19 25 Active lisinopriL (PRINIVIL,ZESTRIL) 5 mg tablet Take 1 tablet (5 mg total) by mouth 1 (one) time each day. 90 tablet 1 12/17/19 25 Active semaglutide (OZEMPIC) 0.25 mg or 0.5 mg (2 mg/3 mL) injection penIndications:Typ e 2 diabetes mellitus with other diabetic kidney complication, without long-term current use of insulin ([facility] V24, [facility] V28) Inject 0.5 mg under the skin every 7 (seven) days. 2 mL 1 12/17/19 25 Active Hospital, Clinic, or Other Facility Administered Medication Ordered Dose Route Frequency Start Date End Date Status lidocaine (PF) (XYLOCAINE-MPF) 1 % injection 1 mLIndications:Coleman' s cyst of knee, left 1 mL inj Once PRN Procedure 01/14/2025 01/14/2025 Ended triamcinolone acetonide (KENALOG-40) 40 mg/mL injection 40 mgIndications:Coleman' s cyst of knee, left 40 mg IAtc Once PRN Procedure 01/14/2025 01/14/2025 Ended Active Problems Problem Noted Date Diagnosed Date S/P arthroscopic partial medial meniscectomy 11/2024 Stress fracture of left tibia 08/07/2024 Acute medial meniscus tear of left knee 08/07/19 25 Primary osteoarthritis of left knee 08/07/2024 Known medical problems 05/12/2024 Overview (05/12/2024): AAA family hx Bilateral sacroiliitis ([facility] V24) 04/30/2023 Low back pain due to bilateral sciatica 06/07/20 Thoracic compression fractur e, closed, initial encounter ([facility] V24, [facility] V28) 05/04/2022 Overview (11/16/2024): 04/26 fell, compression fx T 8, 9, 10 Bradycardia 12/21/2021 Assessment & Plan (11/16/2024 11:26 AM EDT): Improved with treatment of sleep apnea. Orders: ECG 12 lead CTS (carpal tunnel syndrome) 05/01/2021 Overview (05/12/2024): Right Cervical spondylolysis 12/11/2019 DDD (degenerative disc disease), lumbar 12/11/19 20 Nephrolithiasis 07/17/2019 Microalbuminuria 09/29/2018 Sleep apnea 10/29/2017 Overview (11/16/2024): [facility] Home Sleep Apnea Test: Date 10/06/2014; Wt [...] II diabetes mellitus wi th renal manifestations ([facility] V24, [facility] V28) 06/29/2016 Depression 01/11/2014 Insomnia 01/11/2014 Fatty [...] Encounters Date Type Department Care Team Description 01/22/2025 Telephone Orthopedic Surgery [facility] [address] [phone] Marvin Quan MD DME - Food Or Baggage Handling [place] Knee Brace 01/14/2025 9:15 AM EDT Ancillary Procedure Orthopedic Surgery [facility] [address] [phone] 01/14/2025 9:00 AM EDT Procedure visit Orthopedic Surgery [facility] [address] [phone] Darling Peña MD Arthritis of left knee (Primary Dx); Coleman's cyst of knee, left 12/30/2024 3:00 PM EDT Office Visit Orthopedic Surgery [facility] [address] [phone] Marvin Quan MD Arthritis of left knee (Primary Dx) 12/16/2024 9:45 AM EDT Office Visit [address] [phone] Maximino Campbell MD Type 2 diabetes mellitus with other diabetic kidney complication, without long-term current use of insulin ([facility] V24, [facility] V28) (Primary Dx); Hypothyroidism, unspecified type; Primary hypertension; Pure hypercholesterolemia; Diabetic polyneuropathy associated with type 2 diabetes mellitus (CMS/HCC V24, [facility] V28); Other fatigue; Obesity (BMI 30.0-34.9); Weight gain 12/16/2024 Telephone Adult [address] [phone] Maximino Campbell MD Fitting for DME 12/04/2024 12:30 PM EDT Treatment Outpatient [address] [phone] Rivas Hook, PT Acute medial meniscus tear of left knee, subsequent encounter (Primary Dx) 11/27/2024 Telephone Adult [address] [phone] Maximino Campbell MD 11/25/2024 8:30 AM EDT Treatment Outpatient [address] [phone] Rivas Hook, PT Acute medial meniscus tear of left knee, subsequent encounter (Primary Dx) 11/20/2024 8:00 AM EDT Treatment Outpatient [address] [phone] Benita Collins, ENGINEERING MGR Stress fracture of left tibia with delayed healing, subsequent encounter (Primary Dx); Arthritis of left knee; Acute medial meniscus tear of left knee, subsequent encounter 11/18/2024 8:00 AM EDT Treatment Outpatient [address] [phone] Benita Collins, ENGINEERING MGR Stress fracture of left tibia with delayed healing, subsequent encounter (Primary Dx); Arthritis of left knee 11/16/2024 10:10 AM EDT Office Visit [facility] [address] [place] [address] Rahat Matta NP Mixed hyperlipidemia (Primary Dx); Bradycardia; Obesity (BMI 30.0-34.9); Bilateral carotid artery stenosis; Primary hypertension; Sleep apnea, unspecified type 11/13/2024 11:30 AM EDT Treatment Outpatient [address] [phone] Benita Collins, ENGINEERING MGR Stress fracture of left tibia with delayed healing, subsequent encounter (Primary Dx); Arthritis of left knee 11/11/2024 8:00 AM EDT Treatment Outpatient [address] [phone] Benita Collins, ENGINEERING MGR Stress fracture of left tibia with delayed healing, subsequent encounter (Primary Dx); Arthritis of left knee from Last 3 Months Immunizations Name Administration [...] PROCEDURE: HISTORICAL TONSILLECTOMY OTHER SURGICAL HISTORY PROCEDURE: OK HEMORRHOIDECTOMY NTRNL & XTRNL 1 COLUMN/GROUP SINUS SURGERY PROCEDURE: OK UNLISTED PROCEDURE ACCESSORY SINUSES; COMMENT: times three CARPAL TUNNEL RELEASE 2005 Bilateral PROCEDURE: HISTORICAL CARPAL TUNNEL REL; COMMENT: bilateral TYMPANOSTOMY TUBE PLACEMENT PROCEDURE: HISTORICAL PE TUBES COLONOSCOPY 10/03/2015 PROCEDURE: HISTORICAL COLONOSCOPY; COMMENT: 1 cm polyp and 3 small polyps-> tub. adenomas UPPER GASTROINTESTINAL ENDOSCOPY 07/12/2009 PROCEDURE: OK UPPER GI ENDOSCOPY PERFORMED; COMMENT: SB biopsy: Normal. Gastric biopsy mijnimal reactive changes (Hpylori-) COLONOSCOPY 03/06/2006 PROCEDURE: HISTORICAL COLONOSCOPY; COMMENT: Negative examination, [facility]. Michael Salgado, [facility] COLONOSCOPY 02/11/2019 PROCEDURE: HISTORICAL COLONOSCOPY; COMMENT: no [...] months you may not have stable housing? No 12/03/2024 Food Access & Nutrition Answer Date Rec orded Do you have access to a vari ety of food including fruits and vegetables? Yes 12/03/2024 Access to Healthcare Answer Date Record ed Within the last 3 months, ho w many times did you visit the emergency department for your medical care? 0 12/03/2024 Health Literacy Answer Date Recorded How often do you need to hav e someone help you when you read instructions, pamphlets, or other written material from your doctor or pharmacy? Never 12/03/2024 Caregiver: How often do you need to have someone help you when you read instructions, pamphlets, or other written material from your doctor or pharmacy? Not on file 12/03/2024 Financial Risk Answer Date Recorded How hard is it for you to pa y for the very basics like food, housing, medical care, and air conditioning / heating? Not very hard 12/03/2024 Transportation Answer Date Recorded Has the lack of transportati on kept you from meetings, work, or from getting things needed for daily living? No Has the lack of transportati on kept you from medical appointments or from getting medications? No 12/03/2024 Social Isolation Answer Date Recorded How often do you feel lonely or isolated from th ose around you? Never 12/03/2024 Food Risk Answer Date Recorded Within the past 12 months we worried whether our food would run out before we got money to buy more. Never true 12/03/2024 Within the past 12 months th e food we bought just didn't last and we didn't have money to get more. Never true 12/03/2024 Dependent Care Answer Date Recorded Do you need help finding or paying for care for your loved ones. For example, attendant child activity or elderly care for an older adult? No 12/03/2024 Education Answer Date Recorded Do you think completing more education or training, like finishing a GED, going to college, or learning a trade, would be helpful for you? No 12/03/2024 Employment and Income Answer Date Recor ded During the last four weeks, have you been actively looking for work? No 12/03/2024 Living Situation Answer Date Recorded What is your living situation? 0 12/03/2024 Interpersonal Safety Answer Date Record ed Physical Abuse 10/22/2024 Verbal Abuse 10/22/2024 Sex and Gender Information Value Date Recorded Sex Assigned at Male 07/20/2024 10:34 AM EST Legal Sex Male 6:46 AM EST Gender Identity Male 07/20/2024 10:34 AM EST Sexual Orientation Straight 10/22/2024 7: 58 AM EDT Obstetrics History Last Filed Vital Signs Vital Sign Reading Time Taken Comments Blood Pressure 124/70 12/16/2024 9:31 AM EDT Pulse 62 12/16/2024 9:31 AM EDT Temperature 36.4 C (97.6 F) 12/16/2024 9:31 AM EDT Respiratory Rate 23 12/16/2024 9:31 AM EDT Oxygen Saturation 97% 12/16/2024 9:31 AM EDT Inhaled Oxygen Concentration - - Weight 98 kg (216 lb) 01/14/2025 8:59 AM EDT Height 175.3 cm (5' 9.02 ) 01/14/2025 8:59 AM ED T Body Mass Index 31.88 01/14/2025 8:59 AM EDT Plan of Treatment Upcoming Encounters Date Type Department Care Team (Late st Contact Info) Description 03/04/2025 8:00 AM EDT Office Visit Adult Medicine [facility] [address] [place] [phone] Maximino Campbell MD [address] [place] [phone] 03/09/2025 2:00 PM EDT Consult Orthopedic Surgery [facility] [address] [phone] Bijan Saldana DPM [address] [address] 03/17/2025 9:45 AM EDT Office Visit Orthopedic Surgery [facility] 160 175 [facility] 160 [place] [phone] Marvin Quan MD 175 [facility] 160 [place] [address] 06/03/2025 3:10 PM EDT Office Visit [facility] [address] [place] [phone] Rahat Matta NP [address] [place] [address] [address] [place] [address] Health Maintenance Due Date Last Done Comments Diabetes: Annual Retina Eye Exam 12/22/1969 Pneumococcal Vaccine: 50+ Years (2 of 2 - PCV) 11/15/2017 11/15/2016 Pneumococcal Vaccine: Pediatrics (0 to 5 Years) and At-Risk Patients (6 to 49 Years) (2 of 2 - PCV) 11/15/2017 11/15/2016 RSV Immunization Adult Patients (1 - Risk 60-74 years 1-dose series) 2019 Medicare Annual Wellness Visit 07/14/2022 COVID-19 Vaccine ( season) 2024 08/11/2021, 11/21/2020, 10/24/2020 Diabetes: Annual Foot Exam 05/13/2024 05/13/2023 Influenza Vaccine (#1) 2025 , 08/11/2021, 04/14/2020, Additional history exists Diabetes: Blood Sugar Control Test (HGBA1C) 06/18/2025 12/16/2024, 04/13/2024, 04/13/2024 Falls Risk Assessment 10/22/2025 10/22/2024 Depression Screening 12/03/2025 12/03/2024, 04/13/20 24 Social Influencers of Health Screening 12/03/2025 12/03/2024 Diabetes: Annual Urine Albumin-Creatinine Ratio (uACR) 12/16/2025 12/16/2024, 04/13/2024 Diabetes: Annual GFR (Glomerular Filtration Rate) 12/16/2025 12/16/2024, 10/14/2024, 04/13/2024, Additional history exists Hypertension/CHF/CAD Annual BMP Blood Test 12/16/2025 12/16/2024, 10/14/2024, 04/13/2024, Additional history exists Colorectal Cancer Screening: Colonoscopy 01/01/2029 01/02/2024 Cholesterol Screening (Lipid Panel) 12/16/2029 12/16/2024, 04/13/2024, 04/13/2024 DTaP,Tdap,and Td Vaccines (5 - [...] knee extension to improve tolerance to walking. (Not met) Pt will report being able to reciprocally ascend stairs w/ use of hand railing. (Not met) Pt is Independent and compliant with initial HEP. (Inconsistently met) Pt will demonstrate L knee flexion of 115 degrees or better for safe stair negotiation. Minor progress made) LTG's 12 visits General Yes Rivas Hook, [...] off floor.. Medical Devices Implanted Type [employer] Device Identifier Shelf Expiration Date Model / Serial / Lot Implants Implants N/A: Throat [employer] Bone Graft Delivery Knee Kit - Sn/A - [id number] Implanted:Qty: 1 on 10/22/2024 by Marvin Quan MD at [facility] [employer] Bone Left: Knee [employer] [id number] / N/A / [id number] Procedures Procedure Name Priority Date/Time Associated Diagnosis Comments US ARTHROCENTESIS ASP INJ JOINT MAJOR RIGHT Routine 01/14/2025 9:10 AM EDT Coleman's cyst of knee, left OK ARTHROCENTESIS/ASPIRAT ION/INJECTION MAJOR JOINT/BURSA W/O U/S GUIDANCE Routine 01/14/2025 9:00 AM EDT Coleman's cyst of knee, left MICROALBUMIN CREATININE URINE RATIO Routine 12/16/2024 12:51 PM EDT Type 2 diabetes mellitus with other diabetic kidney complication, without long-term current use of insulin (CMS/HCC V24, CMS/HCC V28) TRIIODOTHYRONINE FREE Routine 12/16/2024 10:45 AM EDT Hypothyroidism, unspecified type Other fatigue Weight gain FREE THYROXINE WITH REFLEX TO FREE TRIIODOTHYRONINE Routine 12/16/2024 10:45 AM EDT Hypothyroidism, unspecified type Other fatigue Weight gain CBC WITH AUTO DIFFERENTIAL Routine 12/16/2024 10:45 AM EDT Other fatigue HEMOGLOBIN A1C Routine 12/16/2024 10:45 AM EDT Type 2 diabetes mellitus with other diabetic kidney complication, without long-term current use of insulin (CMS/HCC V24, CMS/HCC V28) LIPID PANEL WITH REFLEX TO DIRECT LDL Routine 12/16/2024 10:45 AM EDT Pure hypercholesterolemia COMPREHENSIVE METABOLIC PANEL Routine 12/16/2024 10:45 AM EDT Type 2 diabetes mellitus with other diabetic kidney complication, without long-term current use of insulin (CMS/HCC V24, CMS/HCC V28) Primary hypertension THYROID STIMULATING HORMONE WITH REFLEX TO FREE T4 AND FREE T3 Routine 12/16/2024 10:45 AM EDT Hypothyroidism, unspecified type Other fatigue Weight gain CBC AND DIFFERENTIAL Routine 12/16/2024 10:45 AM EDT Other fatigue ECG 12-LEAD Routine 11/16/2024 11:13 AM EDT Bradycardia DEPRESSION SCREENING Routine 04/13/2024 COLONOSCOPY Routine 01/02/2024 DIABETES FOOT EXAM Routine 05/13/2023 HEPATITIS C SCREENING Routine 07/12/2009 from Last 3 Months or Most Recently Relevant to Health Maintenance Results * US Arthrocentesis Asp Inj Joint Major Right (01/14/2025 9:10 AM EDT) Anatomical Region Laterality Modality Extremity Right Ultrasound Narrative 01/14/2025 9:34 AM EDT Coleman s cyst aspiration Left knee Coleman's cyst aspiration and injection. Risks, including infection, neurovascular injury, post-injection steriod flare, hypopigmentation, and fat atrophy were thoroughly discussed with the patient. The patient understood the risks and gave verbal consent for the procedure. The patient was positioned prone in the popliteal fossa was prepped with Chloro-Prep after anatomical landmarks where palpated and the Coleman's cyst and vascular structures were visualized on ultrasound.. Ethyle chloride was used as a topical anesthetic. Then a 1-1/2 inch 21-gauge needle was guided into the Coleman's cyst under ultrasound guidance and 25cc of straw-colored fluid was aspirated. Following this Kenalog 1ml and lidocaine 1ml were injected into the neck of the cyst using sterile technique without complications. The patient tolerated the procedure well. Aftercare was thoroughly discussed with the patient. Images were obtained and are permanently stored and retrievable in the patient's record. Darling Peña MD IMG US PROCEDURES Final Result * OK ARTHROCENTESIS/ASPIRATION/INJECTION MAJOR JOINT/BURSA W/O U/S GUIDANCE (01/14/2025 9:00 AM EDT) Narrative Darling Peña MD - 01/14/2025 9:00 AM EDT Darling Peña MD 01/14/2025 9:35 AM L Inj/Asp: L knee (Bakers cyst) Details: 21 G needle, anterolateral approach (guidance: US guided) Medications: 40 mg triamcinolone acetonide 40 mg/mL; 1 mL lidocaine (PF) 1 % Aspirate: 25 mL blood-tinged Outcome: tolerated well, no immediate complications Informed Consent: Laterality: Left Relevant images/test results available and reviewed: yes Health status cleared: Yes Procedure/treatment, purpose, treatment alternatives, risks/potential complications and benefits explained: yes Risk/complications/benefits details: Risks include bleeding, infection, increase in pain Patient questions answered: yes Patient agrees, verbalizes understanding, and wants to proceed: yes Consent given by: Patient Informed consent discussion completed by Physician/MERCED with patient: Verbal Pre-procedure timeout performed: yes Darling Peña MD IN CLINIC/BEDSIDE ORDERABLES F inal Result * Microalbumin creatinine urine ratio (12/16/2024 12:51 PM EDT) Creatinine, Urine 143.0 mg/dL LAB CHEMISTRY METHOD 12/16/2024 5:52 PM EDT [facility] Microalb, Ur 16.7 0.0 - 29.0 mg/L LAB CHEMISTRY METHOD 12/16/2024 5:52 PM EDT [facility] Microalb/Creat Ratio 12 <30 mg/g creat LAB CHEMISTRY METHOD 12/16/2024 5:52 PM EDT [facility] Urine Urine specimen obtained by clean catch procedure / Unknown Non-blood Collection / Unknown 12/16/2024 12:51 PM EDT 12/16/2024 12:51 PM EDT us Maximino Campbell MD LAB URINE ORDERABLES Final Resu lt Performing Organization Address City/[facility]/ZIP Co de Phone Number [facility] [address] [place] [address], [place] [phone] * (ABNORMAL) Thyroid stimulating hormone with reflex to free t4 and free t3 (12/16/2024 10:45 AM EDT) TSH 4.82(H) 0.40 - 4.00 mcIU/mL LAB CHEMISTRY METHOD 12/16/2024 5:30 PM EDT [facility] Blood Venous blood specimen / Unknown Venipuncture / Unknown 12/16/2024 10:45 AM EDT 12/16/2024 10:45 AM EDT us Maximino Campbell MD LAB BLOOD ORDERABLES Final Resu lt Performing Organization Address [facility]/ZIP Co de Phone Number [facility] [address] [place] [address], [place] [phone] * Free thyroxine with reflex to free triiodothyronine (12/16/2024 10:45 AM EDT) Free T4 1.36 0.70 - 1.80 ng/dL LAB CHEMISTRY METHOD 12/16/2024 6:15 PM EDT [facility] Blood Venous blood specimen / Unknown Venipuncture / Unknown 12/16/2024 10:45 AM EDT 12/16/2024 10:45 AM EDT us Maximino Campbell MD LAB BLOOD ORDERABLES Final Resu lt Performing Organization Address City/[facility]/ZIP Co de Phone Number [facility] [address] [place] [address], [place] [phone] * (ABNORMAL) Lipid panel with reflex to direct LDL (12/16/2024 10:45 AM EDT) Pathologist [facility] Cholesterol 163 0 - 200 mg/dL LAB CHEMISTRY METHOD 12/16/2024 4:13 PM EDT [facility] Triglycerides 203(H) 0 - 150 mg/dL LAB CHEMISTRY METHOD 12/16/2024 4:13 PM EDT [facility] HDL 51 >=40 mg/dL LAB CHEMISTRY METHOD 12/16/2024 4:13 PM EDT [facility] LDL Calculated 71 0 - 100 mg/dL LAB CHEMISTRY METHOD 12/16/2024 4:13 PM EDT [facility] VLDL Cholesterol Jonathan 40.6 mg/dL LAB CHEMISTRY METHOD 12/16/2024 4:13 PM EDT [facility] Non HDL Chol. (LDL+VLDL) 112 <145 mg/dL LAB CHEMISTRY METHOD 12/16/2024 4:13 PM EDT [facility] Chol/HDL Ratio 3.2 0.0 - 4.4 LAB CHEMISTRY METHOD 12/16/2024 4:13 PM EDT [facility] Blood Venous blood specimen / Unknown Venipuncture / Unknown 12/16/2024 10:45 AM EDT 12/16/2024 10:45 AM EDT us Maximino Campbell MD LAB BLOOD ORDERABLES Final Resu lt [facility] [address] [place] [address], * (ABNORMAL) CBC auto differential (12/16/2024 10:45 AM EDT) [facility] WBC 8.6 4.8 - 10.8 K/mcL LAB HEMETOLOGY METHOD 12/16/2024 1:18 PM EDT [facility] RBC 4.80 4.50 - 5.50 M/mcL LAB HEMETOLOGY METHOD 12/16/2024 1:18 PM EDT [facility] Hemoglobin 13.8 13.5 - 17.5 g/dL LAB HEMETOLOGY METHOD 12/16[facility]2024 1[facility] Hematocrit 41.4(L) 42.0 - 54.0 % LAB HEMETOLOGY METHOD 12/16/2024 1:18 PM [facility] MCV 87.2 79.0 - 98.0 FL LAB HEMETOLOGY METHOD 12/16/2024 1:18 PM EDT [facility] MCH 29.1 27.0 - 32.0 pcg LAB HEMETOLOGY METHOD 12/16/2024 1:18 PM [facility] MCHC 33.3 32.0 - 37.0 g/dL LAB HEMETOLOGY METHOD 12/16/2024 1:18 PM [facility] RDW 14.2 11.0 - 15.0 % LAB HEMETOLOGY METHOD 12/16/2024 1:18 PM [facility] Platelets 218 130 - 400 K/mcL LAB HEMETOLOGY METHOD 12/16/2024 1:18 PM [facility] MPV 11.4(H) 7.0 - 11.0 FL LAB HEMETOLOGY METHOD 12/16/2024 1:18 PM [facility] NRBC 0.0 <1.0 % LAB HEMETOLOGY METHOD 12/16/2024 1:18 PM [facility] NRBC Absolute 0.00 <0.10 K/mcL LAB HEMETOLOGY METHOD 12/16/2024 1:18 PM [facility] Neutrophils Relative 60.5 % LAB HEMETOLOGY METHOD 12/16/2024 1:18 PM [facility] Lymphocytes Relative 27.9 % LAB HEMETOLOGY METHOD 12/16/2024 1:18 PM EDT [facility] Monocytes Relative 7.3 % LAB HEMETOLOGY METHOD 12/16/2024 1:18 PM EDT [facility] Eosinophils Relative 3.0 % LAB HEMETOLOGY METHOD 12/16/2024 1:18 PM EDT [facility] Basophils Relative 0.7 % LAB HEMETOLOGY METHOD 12/16/2024 1:18 PM EDT [facility] Immature Granulocytes Relative 0.6 % LAB HEMETOLOGY METHOD 12/16/2024 1:18 PM EDT [facility] Neutrophils Absolute 5.23 1.50 - 7.00 K/mcL LAB HEMETOLOGY METHOD 12/16/2024 1:18 PM EDT [facility] Lymphocytes Absolute 2.41 1.00 - 5.00 K/mcL LAB HEMETOLOGY METHOD 12/16/2024 1:18 PM EDT [facility] Monocytes Absolute 0.63 0.20 - 1.00 K/mcL LAB HEMETOLOGY METHOD 12/16/2024 1:18 PM EDT [facility] Eosinophils Absolute 0.26 0.00 - 0.50 K/mcL LAB HEMETOLOGY METHOD 12/16/2024 1:18 PM EDT [facility] Basophils Absolute 0.06 0.00 - 0.20 K/mcL LAB HEMETOLOGY METHOD 12/16/2024 1:18 PM EDT [facility] Immature Granulocytes Absolute 0.05(H) 0.00 - 0.03 K/mcL LAB HEMETOLOGY METHOD 12/16/2024 1:18 PM [facility] Blood Venous blood specimen / Unknown Venipuncture / Unknown 12/16/2024 10:45 AM EDT 12/16/2024 10:45 AM EDT us Maximino Campbell MD LAB BLOOD ORDERABLES Final Resu lt [facility] [address] [place] [address], [place] [phone] * Triiodothyronine free (12/16/2024 10:45 AM EDT) T3, Free 238 230 - 420 pcg/dL LAB CHEMISTRY METHOD 12/16/2024 7:39 PM EDT [facility] Blood Venous blood specimen / Unknown Venipuncture / Unknown 12/16/2024 10:45 AM EDT 12/16/2024 10:45 AM EDT us Maximino Campbell MD LAB BLOOD ORDERABLES Final Resu lt Performing Organization Address [facility] Co de Phone Number [facility] [address] [place] [address], [place] [phone] * (ABNORMAL) Hemoglobin A1c (12/16/2024 10:45 AM EDT) [facility] Hemoglobin A1C 7.0(H) <6.5 % LAB CHEMISTRY METHOD 12/16/2024 8:28 PM EDT [facility] Mean Bld Glu Estim. 154 mg/dL LAB CHEMISTRY METHOD 12/16/2024 8:28 PM EDT [facility] Blood Venous blood specimen / Unknown Venipuncture / Unknown 12/16/2024 10:45 AM EDT 12/16/2024 10:45 AM EDT us Maximino Campbell MD LAB BLOOD ORDERABLES Final Resu lt Performing Organization Address City/[facility]/ZIP Co de Phone Number [facility] [address] [place] [address], [place] [phone] * (ABNORMAL) Comprehensive metabolic panel (12/16/2024 10:45 AM EDT) [facility] Sodium 140 133 - 145 mmol/L LAB CHEMISTRY METHOD 12/16/2024 4:18 PM [facility] Potassium 4.1 3.5 - 5.5 mmol/L LAB CHEMISTRY METHOD 12/16/2024 4:18 PM [facility] Chloride 108 96 - 110 mmol/L LAB CHEMISTRY METHOD 12/16/2024 4:18 PM [facility] CO2 26 21 - 32 mmol/L LAB CHEMISTRY METHOD 12/16/2024 4:18 PM [facility] Anion Gap 6 3 - 11 LAB CHEMISTRY METHOD 12/16/2024 4:18 PM [facility] Glucose 106(H) 70 - 100 mg/dL LAB CHEMISTRY METHOD 12/16/2024 4:18 PM [facility] BUN 17 5 - 25 mg/dL LAB CHEMISTRY METHOD 12/16/2024 4:18 PM [facility] Creatinine 1.00 0.70 - 1.30 mg/dL LAB CHEMISTRY METHOD 12/16/2024 4:18 PM [facility] eGFR 84 >=60 mL/min/1. 73m2 LAB CHEMISTRY METHOD 12/16/2024 4:18 PM [facility] Comment:Calculation based on the Chronic Kidney Disease Epidemiology Collaboration (CKD-EPI) equation refit without adjustment for race. BUN/Creatinine Ratio 17.0 LAB CHEMISTRY METHOD 12/16/2024 4:18 PM [facility] Calcium 9.0 8.5 - 10.5 mg/dL LAB CHEMISTRY METHOD 12/16/2024 4:18 PM [facility] AST (SGOT) 39 10 - 42 unit/L LAB CHEMISTRY METHOD 12/16/2024 4:18 PM [facility] ALT (SGPT) 64(H) 10 - 60 unit/L LAB CHEMISTRY METHOD 12/16/2024 4:18 PM [facility] Alkaline Phosphatase 101 42 - 121 unit/L LAB CHEMISTRY METHOD 12/16/2024 4:18 PM EDT [facility] Total Protein 7.8 6.0 - 8.0 g/dL LAB CHEMISTRY METHOD 12/16/2024 4:18 PM EDT [facility] Albumin 4.2 3.2 - 5.0 g/dL LAB CHEMISTRY METHOD 12/16/2024 4:18 PM EDT [facility] Total Bilirubin 0.8 0.0 - 1.4 mg/dL LAB CHEMISTRY METHOD 12/16/2024 4:18 PM EDT [facility] Blood Venous blood specimen / Unknown Venipuncture / Unknown 12/16/2024 10:45 AM EDT 12/16/2024 10:45 AM EDT us Maximino Campbell MD LAB BLOOD ORDERABLES Final Resu lt [facility] [address] [place] [address], [place] [phone] * ECG 12 lead (11/16/2024 11:13 AM EDT) Ventricular Rate ECG 77 BPM GEMUSE Atrial Rate 77 BPM GEMUSE P-R Interval 162 ms GEMUSE QRS Duration 100 ms GEMUSE Q-T Interval 372 ms GEMUSE QTc 420 ms GEMUSE P Wave [place] 64 degrees GEMUSE R [place] 12 degrees GEMUSE T [place] 17 degrees GEMUSE ECG Interpretation Normal sinus rhythm Incomplete right bundle branch block Borderline ECG When compared with ECG of 02-OCT-2021 14:56, No significant change was found Confirmed by CAITLYN CRANE ([id number]) on 11/16/2024 5:13:42 PM GEMUSE 11/16/2024 10:0 9 AM EDT 11/16/2024 5:13 PM EDT Rahat Matta PIE FILLER ECG ORDERABLES Edited Resu lt - Final GEMUSE * Hm Depression Screening (04/13/2024) Pathologist [facility] Depression Screening abstracted Historical Provider HEALTH MAINTENANCE Final Result * Colonoscopy (01/02/2024) [facility] Colonoscopy no interpretation abstracted Anatomical Region Laterality Modality Other Historical Provider HEALTH MAINTENANCE Final Result * Diabetes Foot Exam (05/13/2023) [facility] Diabetes: Annual Foot Exam abstracted Historical Provider HEALTH MAINTENANCE Final Result * Hepatitis C Screening (07/12/2009) [facility] Hepatitis C Screening abstracted [facility] Provider HEALTH MAINTENANCE Final Result from Last 3 Months or Most Recently Relevant to Health Maintenance Insurance MEDICARE [facility] Advance Directives * Full Code - [...] currently active code status orders. Care Teams Councilperson Relationship Specialty Start Date End Date Maximino Campbell MD [address] [place] [id number] PCP - General Internal Medicine 02/29/20
== END ==
LOC: HO.SL 20:30
PROVIDERS: PCP Internal Medicine; Visit Provider Psychiatry & Neurology Neurology
DX: Z96.82 Presence of neurostimulator (principal); G47.33 Obstructive sleep apnea (adult) (pediatric)
CPT/HCPCS: 95810

== ENCOUNTER → 2025-02-10 22:22 | Outpatient (BNV) | payer MEDICARE, SELFPAY | PROVIDERS: PCP Internal Medicine; Visit Provider Psychiatry & Neurology Neurology | DX: G47.33 Obstructive sleep apnea (adult) (pediatric) (principal) | CPT/HCPCS: 95810 ==

== ENCOUNTER 2025-03-24 14:48 | Outpatient (AMB) | payer MEDICARE, SELFPAY ==
--- NOTE | 2025-03-24 14:50 | A.OFFVIS_ITS ---
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 He had INSPIRE implantation on Jun 25 2024 He denies any difficulty with INSpire .He is doing well with 1.7 His sleep has improved and daytime sleepiness has improved. His INSPIRE titration study was c/w good control at 1.8 V stimulation AHI was o on 1.8 v . He slept 120 min with 30 % REM sleep 04/2023-The baseline portion of the sleep study was significant for a severe degree of sleep apnea. The AHI was 35/hr and oxygen devyn was 81%. Pt was trialed on CPAP 4 and 6 but patient unable to tolerate CPAP titration study and the study was discontinued. He denies any discomfort now. COUNTS INCLUDE 234 BEDS AT THE [facility] Medical History History of deviated nasal septum Surgical History S/P insertion of hypoglossal nerve stimulator Hx of tonsillectomy S/p bilateral carpal tunnel release History of knee surgery H/O elbow surgery Hx of shoulder surgery H/O sinus surgery History of placement of ear tubes Family History Sister Breast cancer Heart disease Kidney disease Father Aneurysm Heart disease Sister Lupus Addisons disease Social History Alcohol intake: current Patient Tobacco Use Status: Never used Tobacco Physical Exam Vital Signs: Last Vital Signs Pulse 70 03/24/25 14:51 BP 128/72 03/24/25 14:51 Pulse Ox 97 03/24/25 14:51 Oxygen Delivery Method Room Air 03/24/25 14:51 BMI result Body Mass Index 30.2 Const General: cooperative and tired appearing Nutritional Appearance: overweight Orientation/consciousness: patient oriented x3 Neck Neck: Yes full ROM and Yes supple Resp Effort & Inspection: normal respiratory effort and able to speak in complete sentences Neuro Other: Tongue exam , scars- normal . No evidence of infection General: patient oriented x3, gait normal and moves all extremities Cognition (Neuro): normal cognition Gait exam (Neuro): Normal gait present Assessment & Plan Assessment & Plan (1) FREDY (obstructive sleep apnea): Comment: Severe degree of sleep apnea and not tolerated CPAP. Code(s): G47.33 - Obstructive sleep apnea (adult) (pediatric) Category: Medical (2) S/P insertion of hypoglossal nerve stimulator: Comment: INSPIRE 05/21/2024 Code(s): Z96.82 - Presence of neurostimulator Category: Surgical Plan Discussed sleep hygiene in detail Stimulation increased to 1.8 Instructions on use of his remote was given with written instructions. Stimulation settings today - Lower limit 1.7- Upper limit 1.9V functional level 0.7 sensation level 0.5V Start delay 30min pause time 15 minutes Therapy duration 8 hrs Coding Level of Care Code Est Pt Level 3 (69253) Inspire Program Smpl 3 or less Diagnoses FREDY (obstructive sleep apnea) G47.33 S/P insertion of hypoglossal nerve stimulator Z96.82
[2025-03-24 14:51] VITALS: BP 128/72; PULSE 70; O2SAT 97; BMI 30.2
--- OUTSIDE RECORDS SUMMARY | 2025-03-24 15:44 | XMS_ITS ---
[facility] Organization Unknown Care Team Organization Name Specialty Phone Email Start Date End Da te [facility] DANIELA EVELYN Primary Care 06/12/2022 4
--- OUTSIDE RECORDS SUMMARY | 2025-03-24 15:44 | XMS_ITS | Clinical Summary ---
Author Organization [facility] Address [address] [place] [address] Care Team Providers Care Harness Cutter Name Role Phone Unavailable Primary Care Provider [...] Personal/Family Self 1960 [address] [place] [address]
--- OUTSIDE RECORDS SUMMARY | 2025-03-24 15:44 | XMS_ITS | Clinical Summary ---
Author Organization [address] [place] [address] Address [address] [place] [address] Phone Care Team Providers Care Drum Barker Operator Name Role Phone Maximino Campbell MD Primary Care Provider [phone] Allergies Active Allergy Reactions Criticality Noted Date Comments Fwjfaut-Nhy-Shu Reductase Inhibitors Other,Unknown 10/03/2015 Elevated LFTs Elevated liver enzymes Product containing 5-bginbzl-1-methylglutar yl-coenzyme A reductase inhibitor (product) Medications metFORMIN [...] complication, without long-term current use of insulin ([facility] V24, [facility] V28) Inject 0.5 mg under the skin every 7 (seven) days. 2 mL 1 12/17/19 25 Active cyclobenzaprine (FLEXERIL) 10 mg tabletIndications: Leg cramping Take 1 tablet (10 mg total) by mouth at bedtime. 30 tablet 5 03/04/20 25 025 Active Active Problems Problem Noted Date Diagnosed Date S/P arthroscopic partial medial meniscectomy 11/2024 Stress fracture of left tibia 08/07/2024 Acute medial meniscus tear of left knee 08/07/19 25 Primary osteoarthritis of left knee 08/07/2024 Known medical problems 05/12/2024 Overview (05/12/2024): AAA family hx Bilateral sacroiliitis ([facility] V24) 04/30/2023 Low back pain due to bilateral sciatica 06/07/20 Thoracic compression fractur e, closed, initial encounter ([facility] V24, [facility] V28) 05/04/2022 Overview (11/16/2024): 04/26 fell, compression fx T 8, 9, 10 Bradycardia 12/21/2021 Assessment & Plan (11/16/2024 11:26 AM EDT): Improved with treatment of sleep apnea. Orders: ECG 12 lead CTS (carpal tunnel syndrome) 05/01/2021 Overview (05/12/2024): Right Cervical spondylolysis 12/11/2019 DDD (degenerative disc disease), lumbar 12/11/19 Nephrolithiasis 07/17/2019 Microalbuminuria 09/29/2018 Assessment & Plan (03/04/2025 9:01 AM EDT): Sleep apnea 10/29/2017 Overview (11/16/2024): [facility] Home Sleep Apnea Test: Date [...] Great result! Hypertension 09/17/2017 Assessment & Plan (03/04/2025 9:01 AM EDT): Orders: Basic metabolic panel; Future Assessment & Plan (11/16/2024 11:26 AM EDT): [...] II diabetes mellitus wi th renal manifestations ([facility] V24, [facility] V28) 06/29/2016 Assessment & Plan (03/04/2025 9:01 AM EDT): Depression 01/11/2014 Insomnia 01/11/2014 Assessment & Plan (03/04/2025 9:01 AM EDT): Fatty liver disease, nonalcoholic 04/07/2013 Mixed hyperlipidemia [...] colonoscopy 03/06/2006, performed by Dr. Michael Salgado. O update IBS (irritable bowel syndrome) 01/02/2008 Restless legs syndrome (RLS) 12/20/2007 Hypothyroidism 07/06/2005 Assessment & Plan (03/04/2025 9:01 AM EDT): Orders: Thyroid stimulating hormone with reflex to free t4 and free t3; Future Encounters Date Type Department Care Team Description 03/17/2025 9:45 AM EDT Office Visit Orthopedic Surgery [facility] [address] [facility] [address] [place] [phone] Marvin Quan MD Primary osteoarthritis of left knee (Primary Dx) 03/09/2025 2:00 PM EDT Consult Orthopedic Surgery [facility] [address] [facility] [address] [place] [phone] Bijan Saldana DPM Diabetic mononeuropathy simplex (CMS/HCC V24, CMS/HCC V28) (Primary Dx); Diabetic polyneuropathy associated with type 2 diabetes mellitus (CMS/HCC V24, CMS/HCC V28) 03/04/2025 8:00 AM EDT Office Visit Adult Medicine [address] [phone] Maximino Campbell MD Welcome to Medicare preventive visit (Primary Dx); Hypothyroidism, unspecified type; Type 2 diabetes mellitus with other diabetic kidney complication, without long-term current use of insulin ([facility] V24, [facility] V28); Primary hypertension; Leg cramping; Bilateral hearing loss, unspecified hearing loss type; Primary insomnia; FREDY (obstructive sleep apnea); Microalbuminuria; Pure hypercholesterolemia 02/11/2025 Telephone Orthopedic Surgery [facility] [address] [phone] Marvin Quan MD 01/22/2025 Telephone Orthopedic Surgery [facility] [address] [phone] Marvin Quan MD DME - Customer Quality Specialist Knee Brace 01/14/2025 9:15 AM EDT Ancillary Procedure Orthopedic Surgery [facility] [address] [phone] 01/14/2025 9:00 AM EDT Procedure visit Orthopedic [facility] [address] [place] [phone] Darling Peña MD Arthritis of left knee (Primary Dx); Coleman's cyst of knee, left 12/30/2024 3:00 PM EDT Office Visit Orthopedic [facility] [address] [place] [phone] Marvin Quan MD Arthritis of left knee (Primary Dx) from Last 3 Months Immunizations Name Administration [...] PROCEDURE: HISTORICAL TONSILLECTOMY OTHER SURGICAL HISTORY PROCEDURE: MD HEMORRHOIDECTOMY NTRNL & XTRNL 1 COLUMN/GROUP SINUS SURGERY PROCEDURE: MD UNLISTED PROCEDURE ACCESSORY SINUSES; COMMENT: times three CARPAL TUNNEL RELEASE 2005 Bilateral PROCEDURE: HISTORICAL CARPAL TUNNEL REL; COMMENT: bilateral TYMPANOSTOMY TUBE PLACEMENT PROCEDURE: HISTORICAL PE TUBES COLONOSCOPY 10/03/2015 PROCEDURE: HISTORICAL COLONOSCOPY; COMMENT: 1 cm polyp and 3 small polyps-> tub. adenomas UPPER GASTROINTESTINAL ENDOSCOPY 07/12/2009 PROCEDURE: MD UPPER GI ENDOSCOPY PERFORMED; COMMENT: SB biopsy: Normal. Gastric biopsy mijnimal reactive changes (Hpylori-) COLONOSCOPY 03/06/2006 PROCEDURE: HISTORICAL COLONOSCOPY; COMMENT: Negative examination, [facility] Michael Salgado, [facility] COLONOSCOPY 02/11/2019 PROCEDURE: HISTORICAL COLONOSCOPY; COMMENT: [...] you may not have stable housing? No 03/04/2025 Food Access & Nutrition Answer Date Rec orded Do you have access to a vari ety of food including fruits and vegetables? Yes 03/04/2025 Access to Healthcare Answer Date Record ed Within the last 3 months, ho nikita many times did you visit the emergency department for your medical care? 0 03/04/2025 Health Literacy Answer Date Recorded How often do you need to hav e someone help you when you read instructions, pamphlets, or other written material from your doctor or pharmacy? Never 03/04/2025 Caregiver: How often do you need to have someone help you when you read instructions, pamphlets, or other written material from your doctor or pharmacy? Not on file 03/04/2025 Financial Risk Answer Date Recorded How hard is it for you to pa y for the very basics like food, housing, medical care, and air conditioning / heating? Not very hard 03/04/2025 Transportation Answer Date Recorded Has the lack of transportati on kept you from meetings, work, or from getting things needed for daily living? No Has the lack of transportati on kept you from medical appointments or from getting medications? No 03/04/2025 Social Isolation Answer Date Recorded How often do you feel lonely or isolated from those around you? Sometimes 03/04/2025 Food Risk Answer Date Recorded Within the past 12 months we worried whether our food would run out before we got money to buy more. Never true 03/04/2025 Within the past 12 months th e food we bought just didn't last and we didn't have money to get more. Never true 03/04/2025 Dependent Care Answer Date Recorded Do you need help finding or paying for care for your loved ones. For example, childcare attendant or elderly care for an older adult? No 03/04/2025 Education Answer Date Recorded Do you think completing more education or training, like finishing a GED, going to college, or learning a trade, would be helpful for you? N/A 03/04/2025 Employment and Income Answer Date Recor ded During the last four weeks, have you been actively looking for work? No 03/04/2025 Living Situation Answer Date Recorded What is your living situation? 0 03/04/2025 Interpersonal Safety Answer Date Record ed Physical Abuse 10/22/2024 Verbal Abuse 10/22/2024 Sex and Gender Information Value Date Recorded Sex Assigned at Male 07/20/2024 10:34 AM EST Legal Sex Male 6:46 AM EST Gender Identity Male 07/20/2024 10:34 AM EST Sexual Orientation Straight 10/22/2024 7: 58 AM EDT Obstetrics History Last Filed Vital Signs Vital Sign Reading Time Taken Comments Blood Pressure 118/68 03/04/2025 8:08 AM EDT Pulse 76 03/04/2025 8:08 AM EDT Temperature 36.6 C (97.8 F) 03/04/2025 8:08 AM EDT Respiratory Rate 14 03/04/2025 8:08 AM EDT Oxygen Saturation 98% 03/04/2025 8:08 AM EDT Inhaled Oxygen Concentration - - Weight 91.2 kg (201 lb) 03/04/2025 8:08 AM EDT Height 175.3 cm (5' 9 ) 03/04/2025 8:08 AM EDT Body Mass Index 29.68 03/04/2025 8:08 AM EDT Plan of Treatment Upcoming Encounters Date Type Department Care Team (Late st Contact Info) Description 06/03/2025 3:10 PM EDT [facility] [address] [facility] [address] [place] [phone] Rahat Matta NP [address] [place] [address] [place] [address] Health Maintenance Due Date Last Done Comments Diabetes: Annual Retina Eye Exam 12/22/1969 Pneumococcal Vaccine: 50+ Years (2 of 2 - PCV) 11/15/2017 11/15/2016 RSV Immunization Adult Patients (1 - Risk 60-74 years 1-dose series) 2019 COVID-19 Vaccine ( season) 2024 08/11/2021, 11/21/2020, 10/24/2020 Diabetes: Annual Foot Exam 05/13/2024 05/13/2023 Influenza Vaccine (#1) 2025 , 08/11/2021, 04/14/2020, Additional history exists Diabetes: Blood Sugar Control Test (HGBA1C) 06/18/2025 12/16/2024, 04/13/2024, 04/13/2024 Diabetes: Annual Urine Albumin-Creatinine Ratio (uACR) 12/16/2025 12/16/2024, 04/13/2024 Diabetes: Annual GFR (Glomerular Filtration Rate) 12/16/2025 12/16/2024, 10/14/2024, 04/13/2024, Additional history exists Hypertension/CHF/CAD Annual BMP Blood Test 12/16/2025 12/16/2024, 10/14/2024, 04/13/2024, Additional history exists Falls Risk Assessment 03/04/2026 03/04/2025, 025 Medicare Annual Wellness Visit 03/04/2026 03/04/2025 Social Influencers of Health Screening 03/04/2026 03/04/2025 Colorectal Cancer Screening: Colonoscopy 01/01/2029 01/02/2024 Cholesterol Screening (Lipid Panel) 12/16/2029 12/16/2024, 04/13/2024, 04/13/2024 DTaP,Tdap,and Td Vaccines (5 - Td or Tdap) 10/08/2032 10/08/2022, 06/05/2021, 09/07/2017, Additional history exists Hepatitis C Screening Completed 07/12/2009 Zoster Vaccines Completed 11/17/2024, 03/31/2024 Depression Screening Completed 12/03/2024, 04/13/20 24 HIB Vaccines Aged Out No longer eligi [...] off floor.. Medical Devices Implanted Type Area Consumer Education Specialist Device Identifier Shelf Expiration Date Model / Serial / Lot Implants Implants N/A: Throat [employer] Bone Graft Delivery Knee Kit - Sn/A - [id number] Implanted:Qty: 1 on 10/22/2024 by Marvin Quan MD at [facility] [employer] Bone Left: Knee [employer] [id number] / N/A / [id number] Procedures Procedure Name Priority Date/Time Associated Diagnosis Comments US ARTHROCENTESIS ASP INJ JOINT MAJOR RIGHT Routine 01/14/2025 9:10 AM EDT Coleman's cyst of knee, left MD ARTHROCENTESIS/ASPIR ATION/INJECTION MAJOR JOINT/BURSA W/O U/S GUIDANCE Routine 01/14/2025 9:00 AM EDT Coleman's cyst of knee, left MICROALBUMIN CREATININE URINE RATIO Routine 12/16/2024 12:51 PM EDT Type 2 diabetes mellitus with other diabetic kidney complication, without long-term current use of insulin (CMS/HCC V24, CMS/HCC V28) COMPREHENSIVE METABOLIC PANEL Routine 12/16/2024 10:45 AM EDT Type 2 diabetes mellitus with other diabetic kidney complication, without long-term current use of insulin (CMS/HCC V24, CMS/HCC V28) Primary hypertension HEMOGLOBIN A1C Routine 12/16/2024 10:45 AM EDT Type 2 diabetes mellitus with other diabetic kidney complication, without long-term current use of insulin (CMS/HCC V24, CMS/HCC V28) LIPID PANEL WITH REFLEX TO DIRECT LDL Routine 12/16/2024 10:45 AM EDT Pure hypercholesterolemia DEPRESSION SCREENING Routine 04/13/2024 COLONOSCOPY Routine 01/02/2024 [...] stored and retrievable in the patient's record. us Darling Peña MD IMG US PROCEDURES Final Result * MD ARTHROCENTESIS/ASPIRATION/INJECTION MAJOR JOINT/BURSA W/O U/S GUIDANCE (01/14/2025 [...] with patient: Verbal Pre-procedure timeout performed: yes us Darling Peña MD IN CLINIC/BEDSIDE ORDERABLES F inal Result * Microalbumin creatinine urine ratio (12/16/2024 12:51 PM EDT) Creatinine, Urine 143.0 mg/dL LAB CHEMISTRY METHOD 12/16/2024 5:[address] [facility] Microalb, Ur 16.7 0.0 - 29.0 mg/L LAB CHEMISTRY METHOD 12/16/2024 5:[address] [facility] Microalb/Creat Ratio 12 <30 mg/g creat LAB CHEMISTRY METHOD 12/16/2024 5:[address] [facility] Urine Urine specimen obtained by clean catch procedure / Unknown Non-blood Collection / Unknown 12/16/2024 12:51 PM EDT 12/16/2024 12:51 PM EDT us Maximino Campbell MD LAB URINE ORDERABLES Final Resu lt [facility] [address] [place] [address], [place] [phone] * (ABNORMAL) Lipid panel with reflex to direct LDL (12/16/2024 10:45 AM EDT) Cholesterol 163 0 - 200 mg/dL LAB CHEMISTRY METHOD 12/16/2024 4:[address] [facility] Triglycerides 203(H) 0 - 150 mg/dL LAB CHEMISTRY METHOD 12/16/2024 4:[address] [facility] HDL 51 >=40 mg/dL LAB CHEMISTRY METHOD 12/16/2024 4:[address] [facility] LDL Calculated 71 0 - 100 mg/dL LAB CHEMISTRY METHOD 12/16/2024 4:[address] [facility] VLDL Cholesterol Jonathan 40.6 mg/dL LAB CHEMISTRY METHOD 12/16/2024 4:[address] [facility] Non HDL Chol. (LDL+VLDL) 112 <145 mg/dL LAB CHEMISTRY METHOD 12/16/2024 4:[address] [facility] Chol/HDL Ratio 3.2 0.0 - 4.4 LAB CHEMISTRY METHOD 12/16/2024 4:[address] [facility] Blood Venous blood specimen / Unknown Venipuncture / Unknown 12/16/2024 10:45 AM EDT 12/16/2024 10:45 AM EDT us Maximino Campbell MD LAB BLOOD ORDERABLES Final Resu lt Performing Organization Address [facility]/ZIP Co de Phone Number [facility] [address] [place] [address], [place] [phone] * (ABNORMAL) Hemoglobin A1c (12/16/2024 10:45 AM EDT) Hemoglobin A1C 7.0(H) <6.5 % LAB CHEMISTRY METHOD 12/16/2024 8:[address] [facility] Mean Bld Glu Estim. 154 mg/dL LAB CHEMISTRY METHOD 12/16/2024 8:[address] [facility] Blood Venous blood specimen / Unknown Venipuncture / Unknown 12/16/2024 10:45 AM EDT 12/16/2024 10:45 AM EDT us Maximino Campbell MD LAB BLOOD ORDERABLES Final Resu lt Performing Organization Address [facility]/ZIP Co de Phone Number [facility] [address] [place] [address], [place] [phone] * (ABNORMAL) Comprehensive metabolic panel (12/16/2024 10:45 AM EDT) Sodium 140 133 - 145 mmol/L LAB CHEMISTRY METHOD 12/16/2024 4:[address] [facility] Potassium 4.1 3.5 - 5.5 mmol/L LAB CHEMISTRY METHOD 12/16/2024 4:18 PM [facility] Chloride 108 96 - 110 mmol/L LAB CHEMISTRY METHOD 12/16/2024 4:18 PM [facility] CO2 26 21 - 32 mmol/L LAB CHEMISTRY METHOD 12/16/2024 4:18 PM [facility] Anion Gap 6 3 - 11 LAB CHEMISTRY METHOD 12/16/2024 4:18 PM [facility] Glucose 106(H) 70 - 100 mg/dL LAB CHEMISTRY METHOD 12/16/2024 4:18 PM [facility] BUN 17 5 - 25 mg/dL LAB CHEMISTRY METHOD 12/16/2024 4:18 PM [facility] Creatinine 1.00 0.70 - 1.30 mg/dL LAB CHEMISTRY METHOD 12/16/2024 4:18 PM [facility] eGFR 84 >=60 mL/min/1. 73m2 LAB CHEMISTRY METHOD 12/16/2024 4:18 PM [facility] Comment:Calculation based on the Chronic Kidney Disease Epidemiology Collaboration (CKD-EPI) equation refit without adjustment for race. BUN/Creatinine Ratio 17.0 LAB CHEMISTRY METHOD 12/16/2024 4:18 PM [facility] Calcium 9.0 8.5 - 10.5 mg/dL LAB CHEMISTRY METHOD 12/16/2024 4:18 PM [facility] AST (SGOT) 39 10 - 42 unit/L LAB CHEMISTRY METHOD 12/16/2024 4:18 PM [facility] ALT (SGPT) 64(H) 10 - 60 unit/L LAB CHEMISTRY METHOD 12/16/2024 4:18 PM [facility] Alkaline Phosphatase 101 42 - 121 unit/L LAB CHEMISTRY METHOD 12/16/2024 4:18 PM EDT [facility] Total Protein 7.8 6.0 - 8.0 g/dL LAB CHEMISTRY METHOD 12/16/2024 4:[address] [facility] Albumin 4.2 3.2 - 5.0 g/dL LAB CHEMISTRY METHOD 12/16/2024 4:[address] [facility] Total Bilirubin 0.8 0.0 - 1.4 mg/dL LAB CHEMISTRY METHOD 12/16/2024 4:18 PM EDT [facility] Blood Venous blood specimen / Unknown Venipuncture / Unknown 12/16/2024 10:45 AM EDT 12/16/2024 10:45 AM EDT Maximino Campbell MD LAB BLOOD ORDERABLES Final Resu lt [facility] [address] [place] [address], * Depression Screening (04/13/2024) [facility] Depression Screening abstracted Historical Provider HEALTH MAINTENANCE Final Result * Colonoscopy (01/02/2024) [facility] Colonoscopy no interpretation abstracted Anatomical Region Laterality Modality Other Historical Provider HEALTH MAINTENANCE Final Result * Diabetes Foot Exam (05/13/2023) [facility] Diabetes: Annual Foot Exam abstracted Historical Provider HEALTH MAINTENANCE Final Result * Hepatitis C Screening (07/12/2009) [facility] Hepatitis C Screening abstracted Historical Provider HEALTH MAINTENANCE Final Result from Last 3 Months or Most Recently Relevant to Health Maintenance Insurance MEDICARE [facility] Advance Directives * Full Code - Confirmed (Latest Code Status on File) Date Activated Date Inactivated Comments 03/04/2025 8:52 AM This code stat us was ascertained in the following way: Code status discussion: discussion with patient To update the patient's code status, place a code status order. Do not modify or discontinue any currently active code status orders. * Full Code - Default Date Activated Date Inactivated Comments 10/22/2024 8:45 AM 10/22/2024 3:55 PM This is orde r is used when code status has not been discussed with the patient, or code status is otherwise unknown/unconfirmed To update the patient's code status, place a code status order. Do not modify or discontinue any currently active code status orders. Care Teams Drum Barker Operator Relationship Specialty Start Date End Date Maximino Campbell MD [address] [place] [id number] PCP - General Internal Medicine 02/29/20
== END 2025-03-24 15:20 | disposition home or self-care (01) ==
LOC: HO.HSMS 14:49
PROVIDERS: PCP Internal Medicine; Visit Provider Psychiatry & Neurology Neurology
DX: Z96.82 Presence of neurostimulator (principal); G47.33 Obstructive sleep apnea (adult) (pediatric)
CPT/HCPCS: 95977; 99213

== ENCOUNTER → 2025-03-24 14:48 | Outpatient (BNVA) | payer MEDICARE, SELFPAY | PROVIDERS: PCP Internal Medicine; Visit Provider Psychiatry & Neurology Neurology | DX: Z45.42 Encounter for adjustment and management of neurostimulator (principal); G47.33 Obstructive sleep apnea (adult) (pediatric); Z96.82 Presence of neurostimulator | CPT/HCPCS: 95977; 99212 ==

== ENCOUNTER 2025-05-12 07:51 | Outpatient (REF) | payer MEDICARE, SELFPAY ==
--- OUTSIDE RECORDS SUMMARY | 2025-05-10 10:30 | XMS_ITS | Encounter Summary ---
Author Organization [facility] Address [address] [place] [address] Care Team Providers Care Amphibious Operations Officer Name Role Phone Maximino Campbell MD Primary Care Provider [phone] Reason for Referral * Consultation (Routine) - Authorized Specialty Diagnoses / Procedures Referred By Contac t Referred To Contact Otolaryngology Diagnoses Dizziness Maximino Campbell MD [address] [place] [address] Phone: tel: fax: Marcos Ahmadi MD [address] [place] [phone] Phone: tel: fax: Referral ID Status Reason Start Date Expiration Date Visits Requested Visits Authorized [id number] Authorized Specialty Services Required 05/10/2025 05/10/2026 1 1 Reason for Visit * Reason Comments Diabetes Encounter Details Date Type Department Care Team (Late st Contact Info) Description 05/10/2025 10:30 AM EDT Office Visit Adult Medicine [address] [phone] Maximino Campbell MD [address] [place] [address] Type 2 diabetes mellitus with other diabetic kidney complication, without long-term current use of insulin ([facility] V24, [facility] V28) (Primary Dx); Hypothyroidism, unspecified type; Primary hypertension; Microalbuminuria; Elevated LFTs; Dizziness; Pure hypercholesterolemia ; Bilateral hearing loss, unspecified hearing loss type; Abnormal ear exam Social History Tobacco Use Types Packs/Day Years [...] Record ed Within the last 3 months, devante w many times did you visit the [...] for your loved ones. For example, child care associate or elderly care for an older adult? [...] Date Recorded What is your living situation? Unrecognized valu e 03/04/2025 Interpersonal Safety Answer Date Record ed Physical Abuse Unrecognized value 10/22/2024 Verbal Abuse Unrecognized value 10/22/2024 Sex and Gender Information Value Date Recorded Sex Assigned at Male 07/20/2024 10:34 AM EST Legal Sex Male 6:46 AM EST Gender Identity Male 07/20/2024 10:34 AM EST Sexual Orientation Straight 10/22/2024 7: 58 AM EDT documented as of this encounter Last Filed Vital Signs Vital Sign Reading Time Taken Comments Blood Pressure 135/62 05/10/2025 10:24 AM EDT Pulse 78 05/10/2025 10:24 AM EDT Temperature 36.1 C (97 F) 05/10/2025 10:24 AM EDT Respiratory Rate 16 05/10/2025 10:24 AM EDT Oxygen Saturation 96% 05/10/2025 10:24 AM EDT Inhaled Oxygen Concentration - - Weight 93.7 kg (206 lb 9.6 oz) 05/10/2025 10:24 AM EDT Height 175.3 cm (5' 9 ) 05/10/2025 10:24 AM EDT Body Mass Index 30.51 05/10/2025 10:24 AM EDT documented in this encounter Ordered Prescriptions Prescription Sig Dispense Quantity Refills Last Filled Start Date End Date pregabalin (LYRICA) 150 mg capsule Take 1 capsule (150 mg total) by mouth at bedtime. Max Daily Amount: 150 mg 90 each 2 pramipexole (MIRAPEX) 1.5 mg tablet Take 1 tablet (1.5 mg total) by mouth at bedtime. Take 1 Tablet by mouth 2 times daily for 360 days 180 tablet 1 lisinopriL (PRINIVIL,ZESTRIL) 5 mg tablet Take 1 tablet (5 mg total) by mouth 1 (one) time each day. 90 tablet 1 5 levothyroxine (SYNTHROID, LEVOTHROID) 150 mcg tablet Take 1 tablet (150 mcg total) by mouth 1 (one) time each day before breakfast. Take 6 days a week hold dose on saturday 78 tablet 1 5 ezetimibe (ZETIA) 10 mg tabletIndications:Pure hypercholesterolemia Take 1 tablet (10 mg total) by mouth 1 (one) time each day. 90 tablet 1 5 amLODIPine (NORVASC) 5 mg tablet Take 1 tablet (5 mg total) by mouth 2 (two) times a day. 180 tablet 1 5 amoxicillin-clavulanate (AUGMENTIN) 875-125 mg per tablet Take 1 tablet by mouth 2 (two) times a day for 10 days. 20 each 5 05/20/20 25 documented in this encounter Progress Notes * Maximino Campbell MD - 05/10/2025 10:30 AM EDT CHIEF COMPLAINT: Diabetes IDENTIFIER: Quentin Grossman is a 64 y.o. old male. HPI: Pt with diabetes Pt is on metformin 500 mg po bid and ozempic .5mg started 02/2024 increased to 0.5 12/2024 Pt has notes weight loss down 20 lbs Pt denies issues no constipation no gi issues Pt last A1c 7.0 12/2024 up from previous value of 6.4 04/2024 Pt notes fasting sugar 100's-130's Pt last ldl 71 12/2024 Pt is on zetia and praluent patient follows with cards has f/u 05/2025 Pt had elevated lft's on statin Alt 64 12/2024 normal ast Pt last microalb/cr ratio < 30 12/2024 Is on acei Gfr 84 12/2024 Patient with low thyroid on replacement with levothyroxine 150mcg Pt last tsh 4.82 12/2024 In response pt now taking levothyroxine sat-sat pt was holding on both Saturday and Saturday pt continues to hold his Saturday dose of the levothyroxine Pt with weight loss on glp1-a Pt notes decreased energy not sleeping well having right knee issues pt to see ortho this week Patient with htn pt is on lisinpril 5mg and norvasc 5mg bid bp today is near goal at 135/62 Pt notes lightheadedness x 2-3 months pt having balance issues pt concerned about ear has hearing test week pt notes sensation of fluid in the ear, pt denies shortness of breath , chest pain, denies lower ext edema pt notes cough on occasional not bothersome ROS: GENERAL: Negative for malaise, significant weight loss and fever HEENT: See HPI RESPIRATORY: No cough, wheezing or shortness of breath CARDIOVASCULAR: Negative for chest pain, leg swelling and palpitations PAST MEDICAL HISTORY: Patient Active Problem List Diagnosis Date Noted S/P arthroscopic partial medial meniscectomy 11/06/2024 Stress fracture of left tibia 08/07/2024 Acute medial meniscus tear of left knee 08/07/2024 Primary osteoarthritis of left knee 08/07/2024 Known medical problems 05/12/2024 Bilateral sacroiliitis ([facility] V24) 04/30/2023 Low back pain due to bilateral sciatica 06/07/2022 Thoracic compression fracture, closed, initial encounter ([facility] V24, [facility] V28) 05/04/2022 Bradycardia 12/21/2021 CTS (carpal tunnel syndrome) 05/01/2021 Cervical spondylolysis 12/11/2019 DDD (degenerative disc disease), lumbar 12/11/2019 Nephrolithiasis 07/17/2019 Microalbuminuria 09/29/2018 Sleep apnea 10/29/2017 Hypertension 09/17/2017 Obesity (BMI 30.0-34.9) 12/10/2016 Bilateral carotid artery stenosis 07/17/2016 Type II diabetes mellitus with renal manifestations ([facility] V24, [facility] V28) 06/29/2016 Depression 01/11/2014 Insomnia 01/11/2014 Fatty liver disease, nonalcoholic 04/07/2013 Mixed hyperlipidemia 02/08/2011 Diverticulitis of colon without hemorrhage 01/21/2008 Hemorrhage of gastrointestinal tract 01/21/2008 IBS (irritable bowel syndrome) 01/02/2008 Restless legs syndrome (RLS) 12/20/2007 Hypothyroidism 07/06/2005 SOCIAL HISTORY: Social History Tobacco Use Smoking status: Never Smokeless tobacco: Never Substance Use Topics Alcohol use: Yes Comment: OCCASIONAL FAMILY HISTORY: Family Status Relation Name Status Mother at age 78 Father at age 80 Neg Hx (Not Specified) No partnership data on file Family History[1] ACTIVE MEDICATIONS: Medications Taking[2] ALLERGIES: Mwhbmoo-kit-hby reductase inhibitors PHYSICAL EXAM: Blood pressure 135/62, pulse 78, temperature 36.1 ??C (97 ??F), temperature source Temporal, resp. rate 16, height 1.753 m (69 ), weight 93.7 kg (206 lb 9.6 oz), SpO2 96%. There is no height or weight on file to calculate BMI. Plan is deferred until next visit APPEARANCE: Alert and in no acute distress EYES: PERRLA, conjunctiva and sclera normal EARS: Positive findings: R TM - bubbles present and membrane looks opaque , L TM - bubbles present and membrane looksopaque HEART: RRR with normal S1 and S2, no murmurs, no gallops, no JVD appreciated LUNG: clear to auscultation bilaterally EXTREMITIES: Extremities warm and well perfused without clubbing, cyanosis, or edema LABS: none IMPRESSION: 1. Type 2 diabetes mellitus with other diabetic kidney complication, without long-term current use of insulin ([facility] V24, [facility] V28) 2. Hypothyroidism, unspecified type 3. Primary hypertension 4. Microalbuminuria 5. Elevated LFTs 6. Dizziness 7. Pure hypercholesterolemia 8. Bilateral hearing loss, unspecified hearing loss type 9. Abnormal ear exam PLAN: Pt with diabetes previously controlled last A1c up to 7.0. will update A1c today, pt will continue current diabetic regimen of meformin and ozemic if A1c not improved would consider adjusting the ozempic. Last microalb/cr ratio <30 has been positive in the past , will update microalbumin today pt is on acei pt with high cholesterol on zetia and praluent will check lipids today last ldl <100 patient with elevated lfts on statin will update lfts today Pt with hypothyroidism no si/sx of high or low thyroid last tsh at goal pt to continue current regimen of levothyroxine, will update tsh today Pt with htn bp acceptable today < 140/90 pt will continue current regimen of lisinopril and norvasc will order bmp to assess renal function and lytes Patient notes poor balance/dizziness 2-3 months having hearing issues to have hearing exam this week. Exam today c/w fluid behind ears will rx augmentin 875- 125 bid x 10 days referral to ENT placed to help with diagnosis given ear finding and balance issues and help with treatment Pt to f/u with me in 6 months Myself and my colleagues have maintained a long-term, longitudinal relationship with this patient, overseeing care of chronic conditions including diabetes, hypertension,high cholesterol and hypothyroidism. This care relationship has significantly influenced my decision making and treatment plans during today's encounter. Orders Placed This Encounter Procedures Hemoglobin A1c Standing Status: Future Expiration Date: 05/10/2026 Release to patient: Immediate [1] Lipid panel with reflex to direct LDL Standing Status: Future Expiration Date: 05/10/2026 Comprehensive metabolic panel Standing Status: Future Expiration Date: 05/10/2026 Release to patient: Immediate [1] Microalbumin creatinine urine ratio Standing Status: Future Expiration Date: 05/10/2026 Release to patient: Immediate [1] Thyroid stimulating hormone with reflex to free t4 and free t3 Standing Status: Future Expiration Date: 05/10/2026 Ambulatory referral to ENT Standing Status: Future Expiration Date: 05/10/2026 Referral Priority: Routine Referral Type: Consultation Referral Reason: Specialty Services Required Referred to Provider: Marcos Ahmadi MD Requested Specialty: Otolaryngology Number of Visits Requested: 1 ADDITIONAL ORDERS: None Maximino Campbell MD on 05/10/2025 at 10:23 AM EDT [1] Family History Problem Relation Name Age of Onset Heart attack Mother 2010, kidney failure, breast cancer, DM, cholesterol Hyperlipidemia Father in fall Colon cancer Neg Hx [2] No outpatient medications have been marked as taking for the 05/10/25 encounter (Appointment) with Maximino Campbell MD. documented in this encounter Plan of Treatment Upcoming Encounters Date Type Department Care Team (Late st Contact Info) Description 06/03/2025 3:10 PM EDT Office Visit [facility] [address] [facility] [address] [place] [phone] Rahat Matta NP [address] [place] [address] [address] [place] [phone] 11/30/2025 8:30 AM EDT Office Visit Adult Medicine [facility] [address] [place] [address] Maximino Campbell MD [address] [place] [address] Scheduled Orders Name Type Priority Associated Diagnoses Orde r Schedule Hemoglobin A1c Lab Routine Type 2 diabetes mellitus with other diabetic kidney complication, without long-term current use of insulin ([facility] V24, [facility] V28) 1 Occurrences starting 05/10/2025 until 05/10/2026 Lipid panel with reflex to direct LDL Lab Routine Pure hypercholesterolemia 1 Occurrences starting 05/10/2025 until 05/10/2026 Comprehensive metabolic panel Lab Routine Type 2 diabetes mellitus with other diabetic kidney complication, without long-term current use of insulin ([facility] V24, [facility] V28) Primary hypertension Elevated LFTs 1 Occurrences starting 05/10/2025 until 05/10/2026 Microalbumin creatinine urine ratio Lab Routine Type 2 diabetes mellitus with other diabetic kidney complication, without long-term current use of insulin ([facility] V24, [facility] V28) Microalbuminuria 1 Occurrences starting 05/10/2025 until 05/10/2026 Thyroid stimulating hormone with reflex to free t4 and free t3 Lab Routine Hypothyroidism, unspecified type 1 Occurrences starting 05/10/2025 until 05/10/2026 Scheduled Referrals Name Type Priority Associated Diagnoses Order Schedule Ambulatory referral to ENT Outpatient Referral Routine Dizziness 1 Occurrences starting 05/10/2025 until 05/10/2026 documented as of this encounter Goals Goal [...] made) LTG's 12 visits General Yes [facility] [place] PT Note: Pt will demonstrate L LE [...] Diagnoses Diagnosis Type 2 diabetes mellitus with other diabetic kidney complication, without long- term current use of insulin ([facility] V24, [facility] V28)- Primary Hypothyroidism, unspecified type Primary hypertension Unspecified essential hypertension Microalbuminuria Proteinuria Elevated LFTs Other abnormal blood chemistry Dizziness Dizziness and giddiness Pure hypercholesterolemia Bilateral hearing loss, unspecified hearing loss type Abnormal ear exam documented in this encounter Discontinued Medications Medication Sig Discontinue Reason Start Date End Da te acetaminophen (TYLENOL) 500 mg tablet Take 2 tablets (1,000 mg total) by mouth every 8 (eight) hours if needed for mild pain. Therapy completed 10/22/2024 05/10/2025 oxyCODONE (ROXICODONE) 5 mg immediate release tablet Take 1-2 tablets (5-10 mg total) by mouth every 4 (four) hours if needed for severe pain. Max Daily Amount: 60 mg Therapy completed 10/22/2024 05/10/2025 ondansetron ODT (ZOFRAN-ODT) 8 mg disintegrating tablet Dissolve 1 tablet (8 mg total) on top of the tongue every 8 (eight) hours if needed for nausea or vomiting. Therapy completed 10/22/2024 05/10/2025 pramipexole (MIRAPEX) 1.5 mg tablet Take 1 tablet (1.5 mg total) by mouth at bedtime. Take 1 Tablet by mouth 2 times daily for 360 days Reorder 10/06/2024 05/10/2025 amLODIPine (NORVASC) 5 mg tablet Take 1 tablet (5 mg total) by mouth 2 (two) times a day. Reorder 10/06/2024 05/10/2025 pregabalin (LYRICA) 150 mg capsule Take 1 capsule (150 mg total) by mouth at bedtime. Max Daily Amount: 150 mg Reorder 10/06/2024 05/10/2025 ezetimibe (ZETIA) 10 mg tabletIndications:Mixed hyperlipidemia Take 1 tablet (10 mg total) by mouth 1 (one) time each day. Reorder 11/16/2024 05/10/2025 levothyroxine (SYNTHROID, LEVOTHROID) 150 mcg tablet Take 1 tablet (150 mcg total) by mouth 1 (one) time each day before breakfast. Five days a week does not take on Saturday and Saturday Reorder 12/16/2024 05/10/2025 lisinopriL (PRINIVIL,ZESTRIL) 5 mg tablet Take 1 tablet (5 mg total) by mouth 1 (one) time each day. Reorder 12/16/2024 05/10/2025 documented as of this encounter Additional Health Concerns Assessment Noted Time PHQ-9 Depression Total Score: 18 10/05/ 025 8:08 AM EST A fall risk assessment has been complete d for the patient 03/04/2025 8:21 AM EDT documented as of this encounter Care Teams Amphibious Operations Officer Relationship Specialty Start Date End Date Maximino Campbell MD [address] [place] [phone] PCP - General Internal Medicine 02/29/20 documented as of this encounter
--- OUTSIDE RECORDS SUMMARY | 2025-05-12 07:55 | XMS_ITS | Data Portability ---
Author Organization [place] - [facility], Allergy Address [address] [place] [phone] Assessment Encounter Date Assessment Date Assessment LastModified [...] anahi roman n referr al 2023 024 [email or web address] Benito Verma MD M[facility], [address] [place] [address], [place], [address], 4 10:26:05 Procedures None record ed. Surgeries None record ed. Imaging CT, sinuse s, w/o contra st 2023 024 maged [facility], [address] [facility], [place], [address], 4 12:43:13 Medication Orders None record ed. Patient TargetsNo targets recorded. Patient InstructionsNo instructions recorded. 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 [facility] [address] [place], [address], 12/20/2023 12:43:12 12/26/19 24 12/19/2023 CT, sinus es, w/o contr ast No observ ation record ed. [facility] [address], [place], [address], 12/26/2023 07:48:55 03/25/20 24 04/01/2023 imagi ng/di [...] Organization Details Recorded Time Nasal congestio n 04301920 Active 2022 Nasal congestion ; Note: Date Diagnosed: 07/19/2023 9:31 AM (R09.81) Not Available [facility] 4 02:59:45 Obstructi ve sleep apnea syndrome 99263634 Active 2022 Obstructiv e sleep apnea (adult) (pediatric ); Note: Date Diagnosed: 07/19/2023 9:31 AM (G47.33) MITA CAMARA MD [address] [place] [address], [place], [address] , [facility] - [facility] 4 13:17:10 Obesity 121896168 Active 2022 Other obesity; Note: Date Diagnosed: 07/19/2023 9:31 AM (E66.8) Not Available [facility] 4 02:59:44 Disorder of smell 775097215 Active 2022 Other disturbanc es of smell and taste; Note: Date Diagnosed: 07/19/2023 9:31 AM (R43.8) Not Available [facility] 4 02:59:48 Disorder of taste 760521144 Active 2022 Other disturbanc es of smell and taste; Note: Date Diagnosed: 07/19/2023 9:31 AM (R43.8) Not Available [facility] 4 02:59:48 Body mass index 30+ - obesity 068632060 Active 2022 Body mass index [BMI] 31.0-31.9, adult; Note: Date Diagnosed: 07/22/2023 6:26 AM (Z68.31) MITA CAMARA MD [address] [facility] [place],[address], [place], [address] , [place] - [facility] 4 13:17:06 Loss of sense of smell 15151873 Active 2023 KEAGAN ARTIS MD [address] [facility],[place] [address], [place], [address] , [place] - [facility] 4 09:08:59 Chronic rhinitis 03509988 Active 2023 KEAGAN ARTIS MD [address] [facility],[place] [address], [place], [address] , [place] - [facility] 4 09:09:05 Disorder of the nose 70416698 Active 2023 KEAGAN ARTIS MD [address] [facility],[address], [place], [address] , [place] - [facility] 4 09:09:24 Problem Notes None recorded. Procedures Surgical History Date Name Laterality Status Provider Name and Address Organization Details Recorded Time 05/21/20 24 Opn mpltj hpglsl nstm josefina pg completed MITA CAMARA MD [address] [facility] [place], [place], [address], [place] - [facility] 05/21/2024 13:20:04 operation on nasal turbinate completed Jing Corcoran [place] - [facility] 12/20/2023 08:41:18 open reduction of nasal fracture completed Jing Corcoran [place] [facility] 12/20/2023 08:41:28 nasal septoplasty completed Jing Corcoran [place] [facility] 12/20/2023 08:41:37 Carpal tunnel surgery completed Jing Corcoran [place] [facility] 12/20/2023 08:41:44 Remove tonsils and adenoids completed Jing Corcoran [place] - [facility] 12/20/2023 08:41:53 procedure on shoulder completed Jing Corcoran [place] - [facility] 12/20/2023 08:42:08 procedure on elbow completed Jing Corcoran [place] - [facility] 12/20/2023 08:42:17 Imaging Results None recorded. Procedure Notes None recorded. Medical Equipment None Reported. Allergies Allergen ID Allergen Name Allergen Category Reaction Reaction Severity Criticality Documentation Date Start Date Code Code System Note Provider Name and Address Organization Details Recorded Time 167052 Product containin g 3-hydroxy -3-methyl glutaryl- coenzyme A reductase inhibitor (product) medicatio n other Not available Not available 12/17/2023 88647 009 SNOMED React ion: Unkno wn; Not Available [facility] 01:25:24 Medications Name Sig Start Date Stop [...] 7.5 mg tablet active Medicati on ID: [id number] B rand Name: jose moore Send Method: E-Prescr ibed Sub s Allowed: subs OK Medic ationGen ericName : jose moore Not Available Not Available Not Available oxycodone -acetamin ophen 5 mg-325 mg tablet active Medicati on ID: [id number] B rand Name: oxycodon e-acetam inophen Send [...] 15 mg tablet active Medicati on ID: [id number] B rand Name: mirtazap ine Send Method: E-Prescr ibed Sub s Allowed: subs OK Medic ationGen ericName : mirtazap ine Not Available Not Available Not Available albuterol sulfate HFA 90 mcg/actua tion aerosol inhaler active Not Available Not Available Not Available fluticaso ne propionat e 50 mcg/actua tion nasal spray,wil pension 2 puff once a day 2023 active Medicati on ID: [id number] D uration Value: 30 Brand Name: fluticas one propiona te Send Method: E-Prescr ibed Sub s Allowed: subs [place] Medic ationGen ericName : fluticas one propiona te Not Available Not Available Not Available pramipexo le 1.5 mg tablet TAKE 1 TABLET BY MOUTH TWICE A DAY active Not Available Not Available No t Available glipizide 5 mg tablet 12/19 completed Medicati on ID: [id number] B rand Name: glipizid e Send Method: E-Prescr ibed Sub s Allowed: subs [place] Medic ationGen ericName : glipizid e Medica tion ID: [id number] B rand Name: glipizid e Send Method: [...] release 24 hr active Medicati on ID: [id number] B rand Name: pramipex ole Send Method: [...] Updated DateTime 05/29/2024 175.26 cm 31 kg/m2 44935.4 g Meg Zarate [place] - [facility] 05/29/2024 10:02:06 Social History None recorded. Functional Status None recorded. Mental Status None recorded. Family History Nothing Reported. Medical History Condition Response High Cholesterol Y Past Encounters Encounter ID Performer Location Encounter Start Date Encounter Closed Date Diagnosis/Indication Diagnosis SNOMED-CT Code Diagnosis ICD10 Code Diagnosis IMO Codes Diagnosis Note [id number] KEAGAN ARTIS MD [facility] [place] [address] [place] [address] 12/20/2023 08:18:13 12/20/2023 09:15:36 Loss of sense of smell 81031652 R43.0 No significan t sinus disease Post antrostomy /septo and turb reduction Chronic rhinitis 5685343 6 J31.0 Disorder of the nose 894 [address] Verma for nasal valve procedure. Neg CT scan [id number] TIMBO CARRANZA PA-C [facility] - [facility] [address] [place] [address] 05/29/2024 09:24:56 05/29/2024 10:16:13 Obstructive sleep apnea syndrome 89226639 G47.33 Health Concerns Section Related Observation LastModified by Organization Detai ls LastModified Time None Recorded Concern Status LastModified by Organization Details LastModified Time None Recorded Advance Directives Directive None Recorded Payers Insurance Date Sequence Insurance Name Policy Number Policy Mistry Covered Member ID Mistry Member ID Guarantor Name 07/14/2024 2 [place] [id number] Quentin Grossman Jr [id number] [facility] 05/29/2024 1 [place] [employer] Quentin Grossman Jr [id number] [facility] 05/29/2024 1 [id number] [id number] [facility] Notes Date Note Type Note Provider Name [...] sense of smell KEAGAN HERNANDEZ MD [address] [facility],[place] [address], [place], [address], [facility] - [facility] 12/20/2023 12:43:28 4 text/html ROS as noted in the HPI Patient of Dr HernandezOSASplit night [facility] [place] 04/01/23BMI 31AHI 34.7central & mixed - non recordedCPAP trial - intolerant of mask and CPAP 05/21/24 INSPIRE placementfeels some right face tenderness MITA CAMARA MD [address] [place] [address],[place] [address], [place], [address], [place] - [facility] 05/29/2024 10:18:30
--- OUTSIDE RECORDS SUMMARY | 2025-05-12 07:55 | XMS_ITS | Clinical Summary ---
Author Organization [facility] Address [address] [place] [address] Care Team Providers Care Senior Sales Representative Name Role Phone Unavailable Primary Care Provider [...] (2 - Td or Tdap) 06/11/2017 06/11/2007 Fall Risk Assessment 12/22/2024 Pneumococcal Vaccine (2 of 2 - PCV) 12/22/2024 11/15/2016 COVID-19 Vaccine (3 - season) 2025 11/21/2020, 10/24/2020 Influenza Vaccine (#1) 2025 2, 08/11/2021, 04/14/2020, [...] Personal/Family Self 1960 [address] [place] [address]
--- OUTSIDE RECORDS SUMMARY | 2025-05-12 07:55 | XMS_ITS | Clinical Summary ---
Author Organization [address] [place] [address] Address [address] [place] [address] Phone Care Team Providers Care Computer Systems Software Engineer Name Role Phone Maximino Campbell MD Primary Care Provider [phone] Allergies Active Allergy Reactions Criticality Noted Date Comments Yrtvknr-Vtv-Ski Reductase Inhibitors Other,Unknown 10/03/2015 Elevated LFTs Elevated liver enzymes Product containing 0-adngllt-4-methylglutar yl-coenzyme A reductase inhibitor (product) Medications metFORMIN (GLUCOPHAGE) 500 mg tablet Take 1 tablet (500 mg total) by mouth 2 (two) times a day with meals. 180 tablet 2 10/07/19 25 Active multivit with minerals/lutein (MULTIVITAMIN 50 PLUS ORAL) Take 1 tablet by mouth 1 (one) time each day. Active aspirin 81 mg chewable tablet Chew 1 tablet (81 mg total) 1 (one) time each day. Active alirocumab (Praluent Pen) 75 mg/mL pen injectorIndications:Mix ed hyperlipidemia Inject 1 mL (75 mg total) under the skin every 14 (fourteen) days. 6 mL 3 11/17/19 25 Active cyclobenzaprine (FLEXERIL) 10 mg tabletIndications:Leg cramping Take 1 tablet (10 mg total) by mouth at bedtime. 30 tablet 5 03/04/20 25 Active Ozempic 0.25 mg or 0.5 mg (2 mg/3 mL) injection penIndications:Type 2 diabetes mellitus with other diabetic kidney complication, without long-term current use of insulin ([facility] V24, [facility] V28) INJECT 0.5 MG UNDER THE SKIN EVERY 7 (SEVEN) DAYS. 6 mL 1 04/08/20 25 Active amoxicillin-clavulanate (AUGMENTIN) 875-125 mg per tablet Take 1 tablet by mouth 2 (two) times a day for 10 days. 20 each 05/10/20 25 2024 Active amLODIPine (NORVASC) 5 mg tablet Take 1 tablet (5 mg total) by mouth 2 (two) times a day. 180 tablet 1 05/10/20 25 Active ezetimibe (ZETIA) 10 mg tabletIndications:Pure hypercholesterolemia Take 1 tablet (10 mg total) by mouth 1 (one) time each day. 90 tablet 1 05/10/20 25 Active levothyroxine (SYNTHROID, LEVOTHROID) 150 mcg tablet Take 1 tablet (150 mcg total) by mouth 1 (one) time each day before breakfast. Take 6 days a week hold dose on saturday 78 tablet 1 05/10/20 25 Active lisinopriL (PRINIVIL,ZESTRIL) 5 mg tablet Take 1 tablet (5 mg total) by mouth 1 (one) time each day. 90 tablet 1 05/10/20 25 Active pramipexole (MIRAPEX) 1.5 mg tablet Take 1 tablet (1.5 mg total) by mouth at bedtime. Take 1 Tablet by mouth 2 times daily for 360 days 180 tablet 1 05/10/20 25 Active pregabalin (LYRICA) 150 mg capsule Take 1 capsule (150 mg total) by mouth at bedtime. Max Daily Amount: 150 mg 90 each 2 05/10/20 25 Active pramipexole (MIRAPEX) 1.5 mg tablet Take 1 tablet (1.5 mg total) by mouth at bedtime. Take 1 Tablet by mouth 2 times daily for 360 days 180 tablet 2 10/07/19 25 2024 Discontin ued(Reord er) amLODIPine (NORVASC) 5 mg tablet Take 1 tablet (5 mg total) by mouth 2 (two) times a day. 180 tablet 2 10/07/19 25 2024 Discontin ued(Reord er) pregabalin (LYRICA) 150 mg capsule Take 1 capsule (150 mg total) by mouth at bedtime. Max Daily Amount: 150 mg 90 each 2 10/07/19 25 2024 Discontin ued(Reord er) acetaminophen (TYLENOL) 500 mg tablet Take 2 tablets (1,000 mg total) by mouth every 8 (eight) hours if needed for mild pain. 60 each 10/23/19 25 2024 Discontin ued(Thera py completed ) oxyCODONE (ROXICODONE) 5 mg immediate release tablet Take 1-2 tablets (5-10 mg total) by mouth every 4 (four) hours if needed for severe pain. Max Daily Amount: 60 mg 20 each 10/23/19 25 2024 Discontin ued(Thera py completed ) ondansetron ODT (ZOFRAN-ODT) 8 mg disintegrating tablet Dissolve 1 tablet (8 mg total) on top of the tongue every 8 (eight) hours if needed for nausea or vomiting. 20 tablet 10/23/19 25 2024 Discontin ued(Thera py completed ) ezetimibe (ZETIA) 10 mg tabletIndications:Mixed hyperlipidemia Take 1 tablet (10 mg total) by mouth 1 (one) time each day. 90 tablet 3 11/17/19 25 2024 Discontin ued(Reord er) levothyroxine (SYNTHROID, LEVOTHROID) 150 mcg tablet Take 1 tablet (150 mcg total) by mouth 1 (one) time each day before breakfast. Five days a week does not take on Saturday and Saturday 90 tablet 2 12/17/19 25 2024 Discontin ued(Reord er) lisinopriL (PRINIVIL,ZESTRIL) 5 mg tablet Take 1 tablet (5 mg total) by mouth 1 (one) time each day. 90 tablet 1 12/17/19 25 2024 Discontin ued(Reord er) acyclovir (ZOVIRAX) 800 mg tablet Take 0.5 tablets (400 mg total) by mouth 5 (five) times a day for 10 days. 25 each 04/06/20 25 2024 Active Problems Problem Noted Date Diagnosed Date S/P arthroscopic partial medial meniscectomy 11/2024 Stress fracture of left tibia 08/07/2024 Acute medial meniscus tear of left knee 08/07/19 Primary osteoarthritis of left knee 08/07/2024 Known medical problems 05/12/2024 Overview (05/12/2024): AAA family hx Bilateral sacroiliitis ([facility] V24) 04/30/2023 Low back pain due to bilateral sciatica 06/07/20 Thoracic compression fractur e, closed, initial encounter ([facility] V24, [facility] V28) 05/04/2022 Overview (11/16/2024): 04/26 fell, compression fx T 8, 9, 10 Bradycardia 12/21/2021 Assessment & Plan (11/16/2024 11:26 AM EDT): Improved with treatment of sleep apnea. Orders: ECG 12 lead CTS (carpal tunnel syndrome) 05/01/2021 Overview (05/12/2024): Right Cervical spondylolysis 12/11/2019 DDD (degenerative disc disease), lumbar 12/11/19 20 Nephrolithiasis 07/17/2019 Microalbuminuria 09/29/2018 Assessment & Plan (03/04/2025 9:01 AM EDT): Sleep apnea 10/29/2017 Overview (11/16/2024): [facility] Home Sleep Apnea Test: Date 10/06/2014; [...] II diabetes mellitus wi th renal manifestations ([facility] V24, [facility] V28) 06/29/2016 Assessment & Plan (03/04/2025 [...] Encounters Date Type Department Care Team Description 05/10/2025 10:30 AM EDT Office Visit Adult Medicine [address] [phone] Maximino Campbell MD Type 2 diabetes mellitus with other diabetic kidney complication, without long-term current use of insulin ([facility] V24, [facility] V28) (Primary Dx); Hypothyroidism, unspecified type; Primary hypertension; Microalbuminuria; Elevated LFTs; Dizziness; Pure hypercholesterolemia; Bilateral hearing loss, unspecified hearing loss type; Abnormal ear exam 03/17/2025 9:45 AM EDT Office Visit Orthopedic Surgery [facility] [address] [facility] [address] [place] [address] Marvin Quan MD Primary osteoarthritis of left knee (Primary Dx) 03/09/2025 2:00 PM EDT Consult Orthopedic Surgery [facility] [address] [facility] [address] [place] [phone] Bijan Saldana DPM Diabetic mononeuropathy simplex ([facility] V24, [facility] V28) (Primary Dx); Diabetic polyneuropathy associated with type 2 diabetes mellitus ([facility] V24, [facility] V28) 03/04/2025 8:00 AM EDT Office Visit Adult Medicine [address] [phone] Maximino Campbell MD Welcome to Medicare preventive visit (Primary Dx); Hypothyroidism, unspecified type; Type 2 diabetes mellitus with other diabetic kidney complication, without long-term current use of insulin ([facility] V24, [facility] V28); Primary hypertension; Leg cramping; Bilateral hearing loss, unspecified hearing loss type; Primary insomnia; FREDY (obstructive sleep apnea); Microalbuminuria; Pure hypercholesterolemia 02/11/2025 Telephone Orthopedic Surgery [facility] [address] [facility] [address] [place] [phone] Marvin Quan MD from Last 3 Months Immunizations Immunization Administration Dates Next Due Influenza Quadravalent, MDCK [...] PROCEDURE: HISTORICAL TONSILLECTOMY OTHER SURGICAL HISTORY PROCEDURE: SD HEMORRHOIDECTOMY NTRNL & XTRNL 1 COLUMN/GROUP SINUS SURGERY PROCEDURE: SD UNLISTED PROCEDURE ACCESSORY SINUSES; COMMENT: times three CARPAL TUNNEL RELEASE 2005 Bilateral PROCEDURE: HISTORICAL CARPAL TUNNEL REL; COMMENT: bilateral TYMPANOSTOMY TUBE PLACEMENT PROCEDURE: HISTORICAL PE TUBES COLONOSCOPY 10/03/2015 PROCEDURE: HISTORICAL COLONOSCOPY; COMMENT: 1 cm polyp and 3 small polyps-> tub. adenomas UPPER GASTROINTESTINAL ENDOSCOPY 07/12/2009 PROCEDURE: SD UPPER GI ENDOSCOPY PERFORMED; COMMENT: SB biopsy: Normal. Gastric biopsy mijnimal reactive changes (Hpylori-) COLONOSCOPY 03/06/2006 PROCEDURE: HISTORICAL COLONOSCOPY; COMMENT: Negative examination, [facility] Michael Salgado, [facility] COLONOSCOPY 02/11/2019 PROCEDURE: HISTORICAL COLONOSCOPY; COMMENT: no [...] for your loved ones. For example, child nutrition assistant or elderly care for an older adult? [...] Mass Index 30.51 05/10/2025 10:24 AM EDT Plan of Treatment Upcoming Encounters Date Type Department Care Team (Late st Contact Info) Description 06/03/2025 3:10 PM EDT Office Visit [facility] [address] [place] [phone] Rahat Matta NP [address] [place] [address] Dr [address] [place] [phone] 11/30/2025 8:30 AM EDT Office Visit Adult Medicine [address] [phone] Maximino Campbell MD [address] [place] [address] Health Maintenance Due Date Last Done Comments Diabetes: Annual Retina Eye Exam 12/22/1969 Pneumococcal Vaccine: 50+ Years (2 of 2 - PCV) 11/15/2017 11/15/2016 RSV Immunization Adult Patients (1 - Risk 60-74 years 1-dose series) 2019 Diabetes: Annual Foot Exam 05/13/2024 05/13/2023 COVID-19 Vaccine ( season) 2025 08/11/2021, 11/21/2020, 10/24/2020 Influenza Vaccine (#1) 2025 , 08/11/2021, 04/14/2020, [...] Vaccines Completed 11/17/2024, 03/31/2024 Depression Screening Completed 05/09/2025, 09/09/20 24 HIB Vaccines Aged Out No longer [...] off floor.. Medical Devices Implanted Type Area Prosthodontist/Owner Device Identifier Shelf Expiration Date Model / Serial / Lot Implants Implants N/A: Throat [employer] Bone Graft Delivery Knee Kit - Sn/A - [id number] Implanted:Qty: 1 on 10/22/2024 by Marvin Quan MD at [facility] [employer] Bone Left: Knee [employer] [id number] / N/A / [id number] Procedures Procedure Name Priority Date/Time Associated Diagnosis Comments MICROALBUMIN CREATININE URINE RATIO Routine 12/16/2024 12:51 PM EDT Type 2 diabetes mellitus with other diabetic kidney complication, without long-term current use of insulin ([facility] V24, [facility] V28) COMPREHENSIVE METABOLIC PANEL Routine 12/16/2024 10:45 AM EDT Type 2 diabetes mellitus with other diabetic kidney complication, without long-term current use of insulin ([facility] V24, [facility] V28) Primary hypertension HEMOGLOBIN A1C Routine 12/16/2024 10:45 AM EDT Type 2 diabetes mellitus with other diabetic kidney complication, without long-term current use of insulin ([facility] V24, [facility] V28) LIPID PANEL WITH REFLEX TO DIRECT LDL Routine 12/16/2024 10:45 AM EDT Pure hypercholesterolemia DEPRESSION SCREENING Routine 04/13/2024 COLONOSCOPY Routine 01/02/2024 DIABETES FOOT EXAM Routine 05/13/2023 HEPATITIS C SCREENING Routine 07/12/2009 from Last 3 Months or Most Recently Relevant to Health Maintenance Results * Microalbumin creatinine urine ratio (12/16/2024 12:51 PM EDT) Creatinine, Urine 143.0 mg/dL LAB CHEMISTRY METHOD 12/16/2024 5:52 PM EDT [facility] Microalb, Ur 16.7 0.0 - 29.0 mg/L LAB CHEMISTRY METHOD 12/16/2024 5:52 PM EDT [facility] Microalb/Creat Ratio 12 <30 mg/g creat LAB CHEMISTRY METHOD 12/16/2024 5:52 PM EDT [facility] Urine Urine specimen obtained by clean catch procedure / Unknown Non-blood Collection / Unknown 12/16/2024 12:51 PM EDT 12/16/2024 12:51 PM EDT us Maximino Campbell MD LAB URINE ORDERABLES Final Resu lt Performing Organization Address City/[facility]/ZIP Co de Phone Number [facility] [address] [place] [address], [place] [phone] * (ABNORMAL) Lipid panel with reflex to direct LDL (12/16/2024 10:45 AM EDT) Cholesterol 163 0 - 200 mg/dL LAB CHEMISTRY METHOD 12/16/2024 4:13 PM EDT [facility] Triglycerides 203(H) 0 - 150 mg/dL LAB CHEMISTRY METHOD 12/16/2024 4:13 PM EDT [facility] HDL 51 >=40 mg/dL LAB CHEMISTRY METHOD 12/16/2024 4:13 PM EDT [facility] LDL Calculated 71 0 - 100 mg/dL LAB CHEMISTRY METHOD 12/16/2024 4:13 PM EDT [facility] VLDL Cholesterol Jonathan 40.6 mg/dL LAB CHEMISTRY METHOD 12/16/2024 4:13 PM T [facility] Non HDL Chol. (LDL+VLDL) 112 <145 mg/dL LAB CHEMISTRY METHOD 12/16/2024 4:13 PM EDT [facility] Chol/HDL Ratio 3.2 0.0 - 4.4 LAB CHEMISTRY METHOD 12/16/2024 4:13 PM EDT [facility] Blood Venous blood specimen / Unknown Venipuncture / Unknown 12/16/2024 10:45 AM EDT 12/16/2024 10:45 AM EDT us Maximino Campbell MD LAB BLOOD ORDERABLES Final Resu lt Performing Organization Address City/[facility]/ZIP Co de Phone Number [facility] [address] [place] [address], [place] [phone] * (ABNORMAL) Hemoglobin A1c (12/16/2024 10:45 AM EDT) [facility] Hemoglobin A1C 7.0(H) <6.5 % LAB CHEMISTRY METHOD 12/16/2024 8:28 PM EDT [facility] Mean Bld Glu Estim. 154 mg/dL LAB CHEMISTRY METHOD 12/16/2024 8:28 PM EDT [facility] Blood Venous blood specimen / Unknown Venipuncture / Unknown 12/16/2024 10:45 AM EDT 12/16/2024 10:45 AM EDT us Maximino Campbell MD LAB BLOOD ORDERABLES Final Resu lt [facility] [address] [place] [address], [place] [phone] * (ABNORMAL) Comprehensive metabolic panel (12/16/2024 10:45 AM EDT) [facility] Sodium 140 133 - 145 mmol/L LAB CHEMISTRY METHOD 12/16/2024 4:18 PM [facility] Potassium 4.1 3.5 - 5.5 mmol/L LAB CHEMISTRY METHOD 12/16/2024 4:18 PM T [facility] Chloride 108 96 - 110 mmol/L LAB CHEMISTRY METHOD 12/16/2024 4:18 PM [facility] CO2 26 21 - 32 mmol/L LAB CHEMISTRY METHOD 12/16/2024 4:18 PM T [facility] Anion Gap 6 3 - 11 LAB CHEMISTRY METHOD 12/16/2024 4:18 PM [facility] Glucose 106(H) 70 - 100 mg/dL LAB CHEMISTRY METHOD 12/16/2024 4:18 PM T [facility] BUN 17 5 - 25 mg/dL LAB CHEMISTRY METHOD 12/16/2024 4:18 PM [facility] Creatinine 1.00 0.70 - 1.30 mg/dL LAB CHEMISTRY METHOD 12/16/2024 4:18 PM [facility] eGFR 84 >=60 mL/min/1. 73m2 LAB CHEMISTRY METHOD 12/16/2024 4:18 PM [facility] Comment:Calculation based on the Chronic Kidney Disease Epidemiology Collaboration (CKD-EPI) equation refit without adjustment for race. BUN/Creatinine Ratio 17.0 LAB CHEMISTRY METHOD 12/16/2024 4:18 PM [facility] Calcium 9.0 8.5 - 10.5 mg/dL LAB CHEMISTRY METHOD 12/16/2024 4:18 PM [facility] AST (SGOT) 39 10 - 42 unit/L LAB CHEMISTRY METHOD 12/16/2024 4:18 PM [facility] ALT (SGPT) 64(H) 10 - 60 unit/L LAB CHEMISTRY METHOD 12/16/2024 4:18 PM [facility] Alkaline Phosphatase 101 42 - 121 unit/L LAB CHEMISTRY METHOD 12/16/2024 4:18 PM [facility] Total Protein 7.8 6.0 - 8.0 g/dL LAB CHEMISTRY METHOD 12/16/2024 4:18 PM [facility] Albumin 4.2 3.2 - 5.0 g/dL LAB CHEMISTRY METHOD 12/16/2024 4:18 PM [facility] Total Bilirubin 0.8 0.0 - 1.4 mg/dL LAB CHEMISTRY METHOD 12/16/2024 4:18 PM [facility] Blood Venous blood specimen / Unknown Venipuncture / Unknown 12/16/2024 10:45 AM EDT 12/16/2024 10:45 AM EDT us Maximino Campbell MD LAB BLOOD ORDERABLES Final Resu lt [facility] [address] [place] [address], * Depression Screening (04/13/2024) [facility] Depression Screening abstracted Historical Provider HEALTH MAINTENANCE Final Result * Colonoscopy (01/02/2024) [facility] Colonoscopy no interpretation abstracted Anatomical Region Laterality Modality Other Historical Provider HEALTH MAINTENANCE Final Result * Diabetes Foot Exam (05/13/2023) [facility] Diabetes: Annual Foot Exam abstracted Historical Provider HEALTH MAINTENANCE Final Result * Hepatitis C Screening (07/12/2009) [facility] Hepatitis C Screening abstracted Historical Provider HEALTH MAINTENANCE Final Result from Last 3 Months or Most Recently Relevant to Health Maintenance Insurance MEDICARE [facility] Advance Directives * Full Code - Confirmed [...] currently active code status orders. Care Teams Computer Systems Software Engineer Relationship Specialty Start Date End Date Maximino Campbell MD [address] [place] [phone] PCP - General Internal Medicine 02/29/20
== END 2025-05-12 07:52 | disposition home or self-care (01) ==
LOC: HO.SH 07:51
PROVIDERS: Visit Provider Internal Medicine
DX: Z01.118 Encounter for examination of ears and hearing with other abnormal findings (principal); H90.3 Sensorineural hearing loss, bilateral
CPT/HCPCS: 92557; 92567

== ENCOUNTER 2025-07-14 16:25 | Outpatient (AMB) | payer MEDICARE, SELFPAY ==
[2025-07-14 16:42] VITALS: BP 120/66; PULSE 85; TEMP 37.2; O2SAT 96; BMI 30.4
--- NOTE | 2025-07-14 16:42 | AM.OFFWIN_ITS ---
Intake Vital Signs 07/14/25 16:42 Height 5 ft 9 in Weight 206 lb BMI 30.4 BP 120/66 Blood Pressure Location Lt brachial Position Sitting Pulse 85 Pulse Source Pulse Oximeter Temp 98.9 F Temp Source Oral Pulse Oximetry (%) 96 Oxygen Delivery Method Room Air Intake Visit Reasons: EP Possible sinus infection Intake Note: pt presents with bilateral ear blockage, coughing for 1 wk Patient Tobacco Use Status: Never used Tobacco Allergies Ylyjxdz-IVH-MnF Reductase Inhibitor (IGTBBVM-WOH-OYB REDUCTASE INHIBITOR) Allergy (Unknown, Verified 07/14/25 16:45) INCREASED LFTS Statin Allergy (Unknown, Uncoded 07/14/25 16:45) Unknown Do you need a note to return to daycare/school/sports/work: No HPI HPI Comments History of Present Illness Details This is a 64-year-old male with a past medical history of coronary artery disease s/p pacemaker placement, diabetes, obstructive sleep apnea, hypothyroidism and hypertension presenting for evaluation of a sore throat, postnasal drip, sinus congestion and cough that he has had since last Saturday. Patient is scheduled to have a total knee replacement on Saturday in his surgeon recommended that he come to urgent care for further evaluation. Patient denies having any fevers, chills, chest pain or shortness for breath. Patient tested negative for COVID-19 and influenza last week and does not need any further testing for the purposes of his scheduled surgery this week. Patient has not taken any medication for treatment of his symptoms. [facility] Medical History History of deviated nasal septum Surgical History S/P insertion of hypoglossal nerve stimulator Hx of tonsillectomy S/p bilateral carpal tunnel release History of knee surgery H/O elbow surgery Hx of shoulder surgery H/O sinus surgery History of placement of ear tubes Family History Sister Breast cancer Heart disease Kidney disease Father Aneurysm Heart disease Sister Lupus Addisons disease Social History Alcohol intake: current Patient Tobacco Use Status: Never used Tobacco Review of Systems Const All systems reviewed & are unremarkable except as noted in HPI and below Denies body aches, Denies chills, Denies fatigue and Denies fever(s) Eyes Reports no additional complaints ENT Denies otalgia, Reports post nasal drip, Denies sinus pain, Reports sinus pressure and Reports sore throat Card Reports no additional complaints, Denies chest pain and Denies dyspnea Resp Reports cough, Denies dyspnea and Denies stridor GI Reports no additional complaints, Denies nausea and Denies vomiting Reports no additional complaints Musc Reports no additional complaints Skin/Breast Reports system reviewed and no additional complaints, except as documented Neuro Reports no additional complaints Psych Reports no additional complaints Endo Reports no additional complaints and Denies fatigue Javi/Lymph Reports no additional complaints Physical Exam Vital Signs: Last Vital Signs Temp 98.9 F 07/14/25 16:42 Pulse 85 07/14/25 16:42 BP 120/66 07/14/25 16:42 Pulse Ox 96 07/14/25 16:42 Oxygen Delivery Method Room Air 07/14/25 16:42 BMI result Body Mass Index 30.4 Patient is afebrile. HEENT Head: Yes normal to inspection and Yes normocephalic Ears: hearing grossly normal bilaterally, external ears normal, right TM abnormal (TM is erythematous), TM normal on the left and EAC's normal General nose exam: Normal external nose present Face and sinus: Yes sinuses nontender Mouth: Normal oral and palatal mucosa present, oropharynx normal and moist mucous membranes Throat: Yes posterior oropharynx normal (There is no edema, erythema or exudates of the posterior oropharynx) and Yes postnasal drainage Eyes General: appearance normal, both eyes and all related structures Visual Horton: normal visual horton by confrontation Alignment and Position: alignment normal Periorbital: periorbital findings normal Eyelids: Yes eyelids normal Conjunctivae: conjunctivae normal Sclerae: sclerae normal Corneas: corneas normal Pupils: Equal, round and reactive pupils present EOM: EOMs intact bilaterally Direct Ophthalmoscopy: normal light reflex and no photophobia Neck Lymphatic: no lymphadenopathy noted Resp Effort & Inspection: normal respiratory effort, no audible wheezes and no cough Auscultation: wheezes (Very mild expiratory wheeze, cleared with cough) Cardio Rate: regular rate Rhythm: regular rhythm Skin General skin exam: no rashes or lesions noted Neuro Cranial nerves: Yes Equal, round and reactive pupils present Psych Appearance: grossly normal Mental Status: mental status grossly normal Insight: Good insight present (Psych) Judgement: Good judgement present (Psych) Assessment & Plan Assessment & Plan (1) Acute upper respiratory infection: Comment: Patient is afebrile and is not hypoxic. Patient has a very mild expiratory wheeze that is cleared with a cough. Patient will be discharged home and instructed to take Mucinex OTC. Code(s): J06.9 - Acute upper respiratory infection, unspecified Plan: Mucinex OTC with increased clear fluids daily. (2) Otitis media of right ear: Code(s): H66.91 - Otitis media, unspecified, right ear Qualifiers: Otitis media type: unspecified Qualified Code(s): H66.91 - Otitis media, unspecified, right ear Plan: Patient will be discharged home with antibiotic therapy. Plan Amoxicillin 500 mg t.i.d. x7 days. Tylenol as needed for discomfort. Medications: New amoxicillin 500 mg PO TID 21 caps 0RF Coding Level of Care Code Est Pt Level 3 (06163) Diagnoses Acute upper respiratory infection J06.9 Right otitis media, unspecified otitis media type H66.91 Otitis media type: unspecified
--- OUTSIDE RECORDS SUMMARY | 2025-07-15 00:51 | XMS_ITS | Clinical Summary ---
Author Organization [facility] Prior to 01/02/[address] [place] [address] Care Team Providers Care Oxygen Tank Filler Name Role Phone Unavailable Primary Care Provider [...] Personal/Family Self 1960 [address] [place] [address]
--- OUTSIDE RECORDS SUMMARY | 2025-07-15 00:51 | XMS_ITS | Clinical Summary ---
Author Organization [address] [place] [address] Address [address] [place] [address] Phone Care Team Providers Care Channel Executive Name Role Phone Maximino Campebll MD Primary Care Provider [phone] Allergies Active Allergy Reactions Criticality Noted Date Comments Nofjffz-Nwr-Ttu Reductase Inhibitors Other,Unknown 10/03/2015 Elevated LFTs Elevated liver enzymes Product containing 3-fczyvdc-2-methylglutar yl-coenzyme A reductase inhibitor (product) Medications metFORMIN [...] days. 6 mL 3 11/17/19 25 Active Ozempic 0.25 mg or 0.5 mg (2 mg/3 mL) injection penIndications:Type 2 diabetes mellitus with other diabetic kidney complication, without long-term current use of insulin (CMS/HCC V24, CMS/HCC V28) INJECT 0.5 MG UNDER THE SKIN EVERY 7 (SEVEN) DAYS. 6 mL 1 04/08/20 25 Active amLODIPine (NORVASC) 5 mg tablet [...] day. 90 tablet 1 05/10/20 25 Active pregabalin (LYRICA) 150 mg capsule Take 1 capsule (150 mg total) by mouth at bedtime. Max Daily Amount: 150 mg 90 each 2 05/10/20 25 Active pramipexole (MIRAPEX) 1.5 mg tablet Take 1 tablet (1.5 mg total) by mouth 2 (two) times a day. Take 1 Tablet by mouth 2 times daily for 360 days 180 tablet 1 06/30/20 25 Active pramipexole (MIRAPEX) 1.5 mg tablet Take 1 tablet (1.5 mg total) by mouth at bedtime. Take 1 Tablet by mouth 2 times daily for 360 days 180 tablet 1 05/10/20 25 025 Discontin ued(Reord er) Active Problems Problem Noted Date Diagnosed Date Preop cardiovascular exam 06/03/2025 Overview (06/03/2025): June 03, 2025 - preop for right knee replacement Assessment & Plan (06/03/2025 4:05 PM EDT): The patient is here for preop cardiovascular examination prior to a right knee replacement. Pre-procedure EKG was completed today and showed no new changes. Per the Childers Cardiac Risk Index the patient is low for this procedure. He is stable from a cardiovascular standpoint and is not recommended for any preoperative testing. Please continue with his amlodipine perioperatively. He may discontinue with aspirin prior to surgery. S/P arthroscopic partial medial meniscectomy 11/2024 Stress fracture of left tibia 08/07/2024 Acute medial meniscus tear of left knee 08/07/19 Primary osteoarthritis of left knee 08/07/2024 Known medical problems 05/12/2024 Overview (05/12/2024): AAA family hx Bilateral sacroiliitis 04/30/2023 Low back pain due to bilateral sciatica 06/07/20 Thoracic compression fracture, closed, initial e ncounter 05/04/2022 Overview (11/16/2024): 04/26 fell, compression fx T 8, 9, 10 Bradycardia 12/21/2021 Assessment & Plan (06/03/2025 4:05 PM EDT): Improved with treatment of sleep apnea. Orders: ECG 12 lead Assessment & Plan (11/16/2024 11:26 AM EDT): Improved with treatment of sleep apnea. Orders: ECG 12 lead CTS (carpal tunnel syndrome) 05/01/2021 Overview (05/12/2024): Right Cervical spondylolysis 12/11/2019 DDD (degenerative disc disease), lumbar 12/11/19 Nephrolithiasis 07/17/2019 Microalbuminuria 09/29/2018 Assessment & Plan (03/04/2025 9:01 AM EDT): Sleep apnea 10/29/2017 Overview (11/16/2024): [facility] Home Sleep Apnea Test: [...] 2024 - Inspire implantation Assessment & Plan (06/03/2025 4:05 PM EDT): Status post Inspire. The patient feels much better and is sleeping 5-6 hours up from 2 hours a night. Great result! Assessment & Plan (11/16/2024 11:26 AM EDT): Status post Inspire. The patient feels much better and is sleeping 5-6 hours up from 2 hours a night. Great result! Hypertension 09/17/2017 Assessment & Plan (06/03/2025 4:05 PM EDT): Well controlled. Likely labile in setting of untreated sleep apnea, which is now treated. Continue with amlodipine and lisinopril. Consider reducing amlodipine to 5mg daily as blood pressure decreases with continued sleep apnea treatment and weight loss. Assessment & Plan (03/04/2025 9:01 AM EDT): Orders: Basic metabolic panel; Future Assessment & Plan (11/16/2024 11:26 AM EDT): Well controlled. Likely labile in setting of untreated sleep apnea, which is now treated. Continue with amlodipine and lisinopril. Consider reducing amlodipine to 5mg daily as blood pressure decreases with continued sleep apnea treatment and weight loss. Obesity (BMI 30.0-34.9) 12/10/2016 Assessment & Plan (06/03/2025 4:05 PM EDT): BMI 30.44. We discussed risk reduction through lifestyle choices including healthy diet, routine exercise and weight management. Continue with GLP1 injection. Assessment & Plan (11/16/2024 11:26 AM EDT): BMI 33.12. Weight is up due to inactivity related to recent knee surgery and overeating. He is increasing his activities and reducing nighttime snacking. We discussed risk reduction through lifestyle choices including healthy diet, routine exercise and weight management. Consider increasing dose of GLP1. Bilateral carotid artery stenosis 07/17/2016 Overview (05/12/2024): 50-69%, 07/17/2016 Assessment & Plan (06/03/2025 4:05 PM EDT): October 2018 - known moderate bilateral carotid artery disease. Continue with aspirin, alirocumab and ezetimibe. Consider repeat carotid ultrasound next year. Assessment & Plan (11/16/2024 11:26 AM EDT): October 2018 - known moderate bilateral carotid artery disease. Continue with aspirin, alirocumab and ezetimibe. Consider repeat carotid ultrasound next year. Type II diabetes mellitus with renal manifestati ons 06/29/2016 Assessment & Plan (03/04/2025 9:01 AM [...] and MPHR of 99% Assessment & Plan (06/03/2025 4:05 PM EDT): April 2024 - LDL 39 HDL 51. Continue with alirocumab and ezetimibe. Assessment & Plan (11/16/2024 11:26 AM EDT): [...] Encounters Date Type Department Care Team Description 06/30/2025 Telephone Adult Medicine [address] [phone] Maximino Campbell MD 06/03/2025 3:10 PM EDT Consult [facility] Cardiology [address] [place] [phone] Rahat Matta NP Preop cardiovascular exam (Primary Dx); Bradycardia; Mixed hyperlipidemia; Obesity (BMI 30.0-34.9); Bilateral carotid artery stenosis; Primary hypertension; Sleep apnea, unspecified type 05/26/2025 9:35 AM EDT - 05/26/2025 2:48 PM EDT Emergency [facility] Emergency [address] [place] [phone] Anna Hale DO Kidney stone (Primary Dx) Discharge Disposition: Home or Self Care 05/25/2025 Results Follow-Up Adult Medicine [address] [phone] Maximino Campbell MD 05/18/2025 Telephone [facility] [address] [facility] [address] [place] [phone] Rahat Matta NP 05/10/2025 10:30 AM EDT Office Visit [address] [phone] Maximino Campbell MD Type 2 diabetes mellitus with other diabetic kidney complication, without long-term current use of insulin ([facility] V24, [facility] V28) (Primary Dx); Hypothyroidism, unspecified type; Primary hypertension; Microalbuminuria; Elevated LFTs; Dizziness; Pure hypercholesterolemia; Bilateral hearing loss, unspecified hearing loss type; Abnormal ear exam from Last 3 Months Immunizations Immunization Administration Dates Next Due Influenza Quadravalent, MDCK , 0.5ml, preservative free (Flucelvax) 6mo and older 05/04/2022 Influenza trivalent, 0.5mL ( Fluad) 65yo and older 05/10/2025 Influenza trivalent, with pr eservative (Fluzone; Afluria) 6mo and older 08/11/2021,04/14/2020,05/18/2019,07/19 Pneumococcal polysaccharide 23 valent (Pneumovax 23) 2yo and older 11/15/2016 Td Tetanus diptheria (Tdvax) 7yo and older 09/07/2017 Tdap Tetanus diptheria acell ular pertussis (Boostrix; Adacel) 7yo and older 06/11/2007 Zoster recombinant (Shingrix ) 19yo and older 11/17/2024,03/31/2024 Surgical History Surgery Date Site/Laterality Comments TONSILLECTOMY PROCEDURE: HISTORICAL TONSILLECTOMY OTHER SURGICAL HISTORY PROCEDURE: PA HEMORRHOIDECTOMY NTRNL & XTRNL 1 COLUMN/GROUP SINUS SURGERY PROCEDURE: PA UNLISTED PROCEDURE ACCESSORY SINUSES; COMMENT: times three CARPAL TUNNEL RELEASE 2005 Bilateral PROCEDURE: HISTORICAL CARPAL TUNNEL REL; COMMENT: bilateral TYMPANOSTOMY TUBE PLACEMENT PROCEDURE: HISTORICAL PE TUBES COLONOSCOPY 10/03/2015 PROCEDURE: HISTORICAL COLONOSCOPY; COMMENT: 1 cm polyp and 3 small polyps-> tub. adenomas UPPER GASTROINTESTINAL ENDOSCOPY 07/12/2009 PROCEDURE: PA UPPER GI ENDOSCOPY PERFORMED; COMMENT: SB biopsy: Normal. Gastric biopsy mijnimal reactive changes (Hpylori-) COLONOSCOPY 03/06/2006 PROCEDURE: HISTORICAL COLONOSCOPY; COMMENT: Negative examination, Dr. Michael Salgado, [facility] COLONOSCOPY 02/11/2019 PROCEDURE: HISTORICAL COLONOSCOPY; COMMENT: no polyps. OTHER SURGICAL HISTORY PROCEDURE: HISTORY OTHER; COMMENT: right elbow surgery, ulnar transposition, chronic neuropathy; multiple surgeries SHOULDER SURGERY 2007 Bilateral PROCEDURE: HISTORICAL SHOULDER SURGERY KNEE SURGERY Bilateral PROCEDURE: HISTORICAL KNEE SURGERY; COMMENT: x2, most recent 2018 OTHER SURGICAL HISTORY INSPIRE IMPLANT KNEE ARTHROSCOPY [...] ed Within the last 3 months, devante shelton many times did you visit the emergency [...] for your loved ones. For example, child support officer or elderly care for an older adult? [...] Orientation Straight 10/22/2024 7: 58 AM EDT Last Filed Vital Signs Vital Sign Reading Time Taken Comments Blood Pressure 138/70 06/03/2025 3:00 PM EDT Pulse 75 06/03/2025 3:00 PM EDT Temperature 36.2 C (97.2 F) 05/26/2025 9:26 AM EDT Respiratory Rate 18 05/26/2025 12:58 PM EDT Oxygen Saturation 98% 06/03/2025 3:00 PM EDT Inhaled Oxygen Concentration - - Weight 93.5 kg (206 lb 1.6 oz) 06/03/2025 3:00 P M EDT Height 175.3 cm (5' 9 ) 06/03/2025 3:00 PM EDT Body Mass Index 30.44 06/03/2025 3:00 PM EDT Plan of Treatment Upcoming Encounters Date Type Department Care Team (Late st Contact Info) Description 11/30/2025 8:30 AM EDT Office Visit Adult Medicine [facility] [address] [place] [address] Maximino Campbell MD [address] [place] [address] Health Maintenance Due Date Last Done Comments Drug Screen 1960 Naloxone Order 1959 Opioid Substance Agreement 1959 Pain Assessment 1959 Diabetes: Annual Retina Eye Exam 12/22/1969 RSV Immunization Adult Patients (1 - Risk 50-74 years 1-dose series) 12/22/2009 Pneumococcal Vaccine: 50+ Years (2 of 2 - PCV) 11/15/2017 11/15/2016 Diabetes: Annual Foot Exam 05/13/2024 05/13/2023 COVID-19 Vaccine ( season) 2025 08/11/2021, 11/21/2020, 10/24/2020 Diabetes: Blood Sugar Control Test (HGBA1C) 11/19/2025 05/21/2025, 12/16/2024, 04/13/2024, Additional history exists Falls Risk Assessment 03/04/2026 03/04/2025, 025 Medicare Annual Wellness Visit 03/04/2026 03/04/2025 Social Influencers of Health Screening 03/04/2026 03/04/2025 Diabetes: Annual Urine Albumin-Creatinine Ratio (uACR) 05/21/2026 05/21/2025, 12/16/2024, 04/13/2024 Diabetes: Annual GFR (Glomerular Filtration Rate) 05/26/2026 05/26/2025, 05/21/2025, 12/16/2024, Additional history exists Hypertension/CHF/CAD Annual BMP Blood Test 05/26/2026 05/26/2025, 05/21/2025, 12/16/2024, Additional history exists Colorectal Cancer Screening: Colonoscopy 01/01/2029 01/02/2024 Cholesterol Screening (Lipid Panel) 05/21/2030 05/21/2025, 12/16/2024, 04/13/2024, Additional history exists DTaP,Tdap,and Td Vaccines (5 - Td or Tdap) 10/08/2032 10/08/2022, 06/05/2021, 09/07/2017, Additional history exists Hepatitis C Screening Completed 07/12/2009 Zoster Vaccines Completed 11/17/2024, 03/31/2024 Depression Screening Completed 05/09/2025, 04/13/20 24 Influenza Vaccine Completed 05/10/2025, , 08/11/2021, Additional history exists HIB Vaccines Aged Out No longer eligi [...] off floor.. Medical Devices Implanted Type Area Paperhanger Apprentice Device Identifier Shelf Expiration Date Model / Serial / Lot Implants Implants N/A: Throat Accuport Bone Graft Delivery Knee Kit - Sn/A - [id number] Implanted:Qty: 1 on 10/22/2024 by Marvin Quan MD at [facility] [employer] Bone Left: Knee [employer]ORES [employer] [id number] / N/A / [id number] Procedures Procedure Name Priority Date/Time Associated Diagnosis Comments ECG 12-LEAD Routine 06/03/2025 4:[address] ABDOMEN PELVIS W CONTRAST STAT 05/26/2025 12:08 PM EDT CARROLL URINE CULTURE TUBE STAT 05/26/2025 11:41 AM EDT URINALYSIS WITH REFLEX MICROSCOPIC AND CULTURE STAT 05/26/2025 11:41 AM EDT URINALYSIS WITH REFLEX MICROSCOPIC AND CULTURE STAT 05/26/2025 11:41 AM EDT CBC WITH AUTO DIFFERENTIAL STAT 05/26/2025 10:15 AM EDT CBC AND DIFFERENTIAL STAT 05/26/2025 10:15 AM EDT HEPATIC FUNCTION PANEL STAT 05/26/2025 10:15 AM EDT LIPASE STAT 05/26/2025 10:15 AM EDT BASIC METABOLIC PANEL STAT 05/26/2025 10:15 AM EDT HEMOGLOBIN A1C Routine 05/21/2025 2:52 PM EDT Type 2 diabetes mellitus with other diabetic kidney complication, without long-term current use of insulin (CMS/HCC V24, CMS/HCC V28) LIPID PANEL WITH REFLEX TO DIRECT LDL Routine 05/21/2025 2:52 PM EDT Pure hypercholesterolemia COMPREHENSIVE METABOLIC PANEL Routine 05/21/2025 2:52 PM EDT Type 2 diabetes mellitus with other diabetic kidney complication, without long-term current use of insulin (CMS/HCC V24, CMS/HCC V28) Primary hypertension Elevated LFTs MICROALBUMIN CREATININE URINE RATIO Routine 05/21/2025 2:52 PM EDT Type 2 diabetes mellitus with other diabetic kidney complication, without long-term current use of insulin (CMS/HCC V24, CMS/HCC V28) Microalbuminuria THYROID STIMULATING HORMONE WITH REFLEX TO FREE T4 AND FREE T3 Routine 05/21/2025 2:52 PM EDT Hypothyroidism, unspecified type DEPRESSION SCREENING Routine 04/13/2024 COLONOSCOPY Routine 01/02/2024 DIABETES FOOT EXAM Routine 05/13/2023 HEPATITIS C SCREENING Routine 07/12/2009 from Last 3 Months or Most Recently Relevant to Health Maintenance Results * ECG 12 lead (06/03/2025 4:00 PM EDT) Ventricular Rate ECG 70 BPM GEMUSE Atrial Rate 70 BPM GEMUSE P-R Interval 182 ms GEMUSE QRS Duration 108 ms GEMUSE Q-T Interval 370 ms GEMUSE QTc 399 ms GEMUSE P Wave Central 16 degrees GEMUSE R Central -9 degrees GEMUSE T Central 25 degrees GEMUSE ECG Interpretation Normal sinus rhythm Incomplete right bundle branch block Septal infarct , age undetermined Abnormal ECG When compared with ECG of 16-NOV-2024 10:09, No significant change was found Confirmed by MD ROSA MARIA, CAITLYN ([id number]) on 06/14/2025 5:49:11 PM GEMUSE 06/03/2025 3:09 PM EDT 06/14/2025 5:49 PM EST us Rahat Matta THERMAL INTELLIGENCE ANALYST ECG ORDERABLES Edited Resu lt - Final GEMUSE * CT Abdomen Pelvis w Contrast (05/26/2025 12:08 PM EDT) Anatomical Region Laterality Modality Body Computed Tomogra phy 05/26/2025 12:2 0 PM EDT Impressions 05/26/2025 12:32 PM EDT Mild left hydronephrosis due to a 5 mm calculus in the mid left ureter. Bilateral nonobstructing renal calculi. -------- FINAL REPORT -------- Dictated By: Karley Muse Dictated Date: 05/26/2025 12:20 ET Assigned Physician: Karley Muse Reviewed and Electronically Signed By: Karley Muse Signed Date: 05/26/2025 12:32 ET Workstation ID: [id number] Transcribed By: Self Edit Transcribed Date: 05/26/2025 12:20 ET Narrative 05/26/2025 12:32 PM EDT PROCEDURE: CT ABDOMEN/PELVIS WITH CONTRAST INDICATION: left flank pain TECHNIQUE: CT of the abdomen and pelvis following the intravenous administration of 90cc Isovue 370. Multiplanar reformats. The examination was performed utilizing dose reduction techniques. Total DLP 1389 COMPARISON: No priors available. FINDINGS: LOWER THORAX: Lung bases are clear. Coronary artery and valvular calcifications. HEPATOBILIARY: No focal liver lesions. No cholelithiasis or biliary duct dilatation. SPLEEN: No focal lesion. PANCREAS: No focal mass or ductal dilatation. ADRENALS: No nodules. KIDNEYS/URETERS: Bilateral nonobstructing renal calculi with mild left hydronephrosis due to a 5 mm calculus in the mid left ureter. There is some perinephric stranding on the left PELVIC ORGANS/BLADDER: . PERITONEUM / RETROPERITONEUM: No ascites or free air. No retroperitoneal lymphadenopathy. VESSELS: Scattered atherosclerotic calcifications throughout the aorta and its major branches. Prominent soft plaque versus mural thrombus of the distal ureters with 50% or less stenosis. No aneurysm. GI TRACT: No bowel distention or wall thickening. Normal appendix. BONES AND SOFT TISSUES: Scattered degenerative changes seen throughout the bones. Soft tissues are unremarkable. Procedure Note Karley Muse MD - 05/26/2025 PROCEDURE: CT ABDOMEN/PELVIS WITH CONTRAST INDICATION: left flank pain TECHNIQUE: CT of the abdomen and pelvis following the intravenousadministration of 90cc Isovue 370. Multiplanar reformats. The examinationwas performed utilizing dose reduction techniques. Total DLP 1389 COMPARISON: No priors available. FINDINGS: LOWER THORAX: Lung bases are clear. Coronary artery and valvularcalcifications. HEPATOBILIARY: No focal liver lesions. No cholelithiasis or biliary ductdilatation. SPLEEN: No focal lesion. PANCREAS: No focal mass or ductal dilatation. ADRENALS: No nodules. KIDNEYS/URETERS: Bilateral nonobstructing renal calculi with mild lefthydronephrosis due to a 5 mm calculus in the mid left ureter. There issome perinephric stranding on the left PELVIC ORGANS/BLADDER: . PERITONEUM / RETROPERITONEUM: No ascites or free air. No retroperitoneallymphadenopathy. VESSELS: Scattered atherosclerotic calcifications throughout the aorta andits major branches. Prominent soft plaque versus mural thrombus of thedistal ureters with 50% or less stenosis. No aneurysm. GI TRACT: No bowel distention or wall thickening. Normal appendix. BONES AND SOFT TISSUES: Scattered degenerative changes seen throughout thebones. Soft tissues are unremarkable. IMPRESSION: Mild left hydronephrosis due to a 5 mm calculus in the mid left ureter. Bilateral nonobstructing renal calculi. -------- FINAL REPORT -------- Dictated By: Karley Muse Dictated Date: 05/26/2025 12:20 ET Assigned Physician: Karley Muse Reviewed and Electronically Signed By: Karley Muse Signed Date: 05/26/2025 12:32 ET Workstation ID: [id number] Transcribed By: Self Edit Transcribed Date: 05/26/2025 12:20 ET Anna Hale DO IMG CT PROCEDURES Final Resul t * Urinalysis with reflex microscopic and culture (05/26/2025 11:41 AM EDT) Specific Marshall Urine 1.023 1.003 - 1.030 LAB URINALYSIS - AUTOMATED METHOD 05/26/2025 12:45 PM [facility] pH, Urine 6.0 5.0 - 8.0 pH LAB URINALYSIS - AUTOMATED METHOD 05/26/2025 12:45 PM [facility] Leukocytes, Urine Negative Negative LAB URINALYSIS - AUTOMATED METHOD 05/26/2025 12:45 PM [facility] Nitrite, Urine Negative Negative LAB URINALYSIS - AUTOMATED METHOD 05/26/2025 12:45 PM [facility] Protein, Urine Negative <=Trace mg/dL LAB URINALYSIS - AUTOMATED METHOD 05/26/2025 12:45 PM [facility] Glucose, Urine Negative Negative mg/dL LAB URINALYSIS - AUTOMATED METHOD 05/26/2025 12:45 PM [facility] Ketones, Urine Negative Negative mg/dL LAB URINALYSIS - AUTOMATED METHOD 05/26/2025 12:45 PM [facility] Urobilinogen, Urine 0.2 0.2 - 1.0 mg/dL LAB URINALYSIS - AUTOMATED METHOD 05/26/2025 12:45 PM [facility] Bilirubin, Urine Negative Negative LAB URINALYSIS - AUTOMATED METHOD 05/26/2025 12:45 PM EDT [facility] Blood, Urine Negative Negative LAB URINALYSIS - AUTOMATED METHOD 05/26/2025 12:45 PM EDT [facility] Urine Urine specimen obtained by clean catch procedure / Unknown Non-blood Collection / Unknown 05/26/2025 11:41 AM EDT 05/26/2025 12:37 PM EDT [facility] URINE ORDERABLES Final Re sult Performing Organization Address [facility]/ZIP Co de Phone Number [facility] [address] [place] [address], [place] [phone] * Carroll urine culture tube (05/26/2025 11:41 AM EDT) Extra Tube Hold for add-ons. 05/26/2025 2:01 PM EDT [facility] Comment:Auto resulted. Urine Urine specimen obtained by clean catch procedure / Unknown Non-blood Collection / Unknown 05/26/2025 11:41 AM EDT 05/26/2025 12:37 PM EDT [facility] URINE ORDERABLES Final Re sult Performing Organization Address [facility]/ZIP Co de Phone Number [facility] [address] [place] [address], [place] [phone] * (ABNORMAL) CBC auto differential (05/26/2025 10:15 AM EDT) WBC 8.7 4.8 - 10.8 K/[facility] LAB HEMETOLOGY METHOD 05/26/2025 11:25 AM EDT [facility] RBC 5.30 4.50 - 5.50 M/mcL LAB HEMETOLOGY METHOD 05/26/2025 11:25 AM EDT [facility] Hemoglobin 15.0 13.5 - 17.5 g/dL LAB HEMETOLOGY METHOD 05/26/2025 11:25 AM [facility] Hematocrit 44.3 42.0 - 54.0 % LAB HEMETOLOGY METHOD 05/26/2025 11:25 AM [facility] MCV 84.1 79.0 - 98.0 FL LAB HEMETOLOGY METHOD 05/26/2025 11:25 AM [facility] MCH 28.5 27.0 - 32.0 pcg LAB HEMETOLOGY METHOD 05/26/2025 11:25 AM [facility] MCHC 33.9 32.0 - 37.0 g/dL LAB HEMETOLOGY METHOD 05/26/2025 11:25 AM [facility] RDW 13.8 11.0 - 15.0 % LAB HEMETOLOGY METHOD 05/26/2025 11:25 AM [facility] Platelets 218 130 - 400 K/mcL LAB HEMETOLOGY METHOD 05/26/2025 11:25 AM [facility] MPV 10.7 7.0 - 11.0 FL LAB HEMETOLOGY METHOD 05/26/2025 11:25 AM [facility] NRBC 0.0 <1.0 % LAB HEMETOLOGY METHOD 05/26/2025 11:25 AM [facility] NRBC Absolute 0.00 <0.10 K/mcL LAB HEMETOLOGY METHOD 05/26/2025 11:25 AM [facility] Neutrophils Relative 73.8 % LAB HEMETOLOGY METHOD 05/26/2025 11:25 AM [facility] Lymphocytes Relative 17.8 % LAB HEMETOLOGY METHOD 05/26/2025 11:25 AM [facility] Monocytes Relative 5.7 % LAB HEMETOLOGY METHOD 05/26/2025 11:25 AM [facility] Eosinophils Relative 1.5 % LAB HEMETOLOGY METHOD 05/26/2025 11:25 AM EDT [facility] Basophils Relative 0.6 % LAB HEMETOLOGY METHOD 05/26/2025 11:25 AM EDT [facility] Immature Granulocytes Relative 0.6 % LAB HEMETOLOGY METHOD 05/26/2025 11:25 AM EDT [facility] Neutrophils Absolute 6.44 1.50 - 7.00 K/mcL LAB HEMETOLOGY METHOD 05/26/2025 11:25 AM EDT [facility] Lymphocytes Absolute 1.55 1.00 - 5.00 K/mcL LAB HEMETOLOGY METHOD 05/26/2025 11:25 AM EDT [facility] Monocytes Absolute 0.50 0.20 - 1.00 K/mcL LAB HEMETOLOGY METHOD 05/26/2025 11:25 AM EDT [facility] Eosinophils Absolute 0.13 0.00 - 0.50 K/mcL LAB HEMETOLOGY METHOD 05/26/2025 11:25 AM EDT [facility] Basophils Absolute 0.05 0.00 - 0.20 K/mcL LAB HEMETOLOGY METHOD 05/26/2025 11:25 AM EDT [facility] Immature Granulocytes Absolute 0.05(H) 0.00 - 0.03 K/mcL LAB HEMETOLOGY METHOD 05/26/2025 11:25 AM EDT [facility] Blood Venous blood specimen / Unknown Venipuncture / Unknown 05/26/2025 10:15 AM EDT 05/26/2025 11:16 AM EDT us Anna Hale DO LAB BLOOD ORDERABLES Final Re sult [facility] [address] [place] [address], * Lipase (05/26/2025 10:15 AM EDT) Pathologist [facility] Lipase 42 13 - 75 unit/L LAB CHEMISTRY METHOD 05/26/2025 11:51 AM T [facility] Blood Venous blood specimen / Unknown Venipuncture / Unknown 05/26/2025 10:15 AM EDT 05/26/2025 11:16 AM EDT us Anna Hale DO LAB BLOOD ORDERABLES Final Re sult [facility] [address] [place] [address], * Hepatic Function Panel (05/26/2025 10:15 AM EDT) [facility] Total Protein 7.9 6.0 - 8.0 g/dL LAB CHEMISTRY METHOD 05/26/2025 11:51 AM [facility] Albumin 4.0 3.2 - 5.0 g/dL LAB CHEMISTRY METHOD 05/26/2025 11:51 AM [facility] Total Bilirubin 1.0 0.0 - 1.4 mg/dL LAB CHEMISTRY METHOD 05/26/2025 11:51 AM [facility] Bilirubin, Direct 0.3 0.0 - 0.3 mg/dL LAB CHEMISTRY METHOD 05/26/2025 11:51 AM [facility] Bilirubin, Indirect 0.7 0.0 - 1.1 mg/dL LAB CHEMISTRY METHOD 05/26/2025 11:51 AM [facility] ALT (SGPT) 43 10 - 60 unit/L LAB CHEMISTRY METHOD 05/26/2025 11:51 AM [facility] AST (SGOT) 29 10 - 42 unit/L LAB CHEMISTRY METHOD 05/26/2025 11:51 AM [facility] Alkaline Phosphatase 100 42 - 121 unit/L LAB CHEMISTRY METHOD 05/26/2025 11:51 AM [facility] Blood Venous blood specimen / Unknown Venipuncture / Unknown 05/26/2025 10:15 AM EDT 05/26/2025 11:16 AM EDT us Anna Hale DO LAB BLOOD ORDERABLES Final Re sult [facility] [address] [place] [address], * (ABNORMAL) Basic Metabolic Panel (BMP) (05/26/2025 10:15 AM EDT) Sodium 138 133 - 145 mmol/L LAB CHEMISTRY METHOD 05/26/2025 11:51 AM [facility] Potassium 3.9 3.5 - 5.5 mmol/L LAB CHEMISTRY METHOD 05/26/2025 11:51 AM [facility] Chloride 109 96 - 110 mmol/L LAB CHEMISTRY METHOD 05/26/2025 11:51 AM [facility] CO2 24 21 - 32 mmol/L LAB CHEMISTRY METHOD 05/26/2025 11:51 AM [facility] Anion Gap 5 3 - 11 LAB CHEMISTRY METHOD 05/26/2025 11:51 AM [facility] Glucose 140(H) 70 - 100 mg/dL LAB CHEMISTRY METHOD 05/26/2025 11:51 AM [facility] BUN 17 5 - 25 mg/dL LAB CHEMISTRY METHOD 05/26/2025 11:51 AM [facility] Creatinine 1.23 0.70 - 1.30 mg/dL LAB CHEMISTRY METHOD 05/26/2025 11:51 AM [facility] eGFR 65 >=60 mL/min/1. 73m2 LAB CHEMISTRY METHOD 05/26/2025 11:51 AM [facility] Comment:Calculation based on the Chronic Kidney Disease Epidemiology Collaboration (CKD-EPI) equation refit without adjustment for race. BUN/Creatinine Ratio 13.8 LAB CHEMISTRY METHOD 05/26/2025 11:51 AM EDT [facility] Calcium 9.1 8.5 - 10.5 mg/dL LAB CHEMISTRY METHOD 05/26/2025 11:51 AM EDT [facility] Blood Venous blood specimen / Unknown Venipuncture / Unknown 05/26/2025 10:15 AM EDT 05/26/2025 11:16 AM EDT Anna Hale DO LAB BLOOD ORDERABLES Final Re sult Performing Organization Address [facility]/ZIP Co de Phone Number [facility] [address] [place] [address], [place] [phone] * Thyroid stimulating hormone with reflex to free t4 and free t3 (05/21/2025 2:52 PM EDT) TSH 0.44 0.40 - 4.00 mcIU/mL LAB CHEMISTRY METHOD 05/21/2025 8:37 PM EDT [facility] Blood Venous blood specimen / Unknown Venipuncture / Unknown 05/21/2025 2:52 PM EDT 05/21/2025 2:52 PM EDT Maximino Campbell MD LAB BLOOD ORDERABLES Final Resu lt Performing Organization Address City/[facility]/ZIP Co de Phone Number [facility] [address] [place] [address], [place] [phone] * (ABNORMAL) Lipid panel with reflex to direct LDL (05/21/2025 2:52 PM EDT) Cholesterol 126 0 - 200 mg/dL LAB CHEMISTRY METHOD 05/21/2025 8:00 PM EDT [facility] Triglycerides 394(H) 0 - 150 mg/dL LAB CHEMISTRY METHOD 05/21/2025 8:00 PM EDT [facility] HDL 51 >=40 mg/dL LAB CHEMISTRY METHOD 05/21/2025 8:00 PM EDT [facility] LDL Calculated <1 0 - 100 mg/dL LAB CHEMISTRY METHOD 05/21/2025 8:00 PM EDT [facility] Comment:Estimated LDL Calcul ated using equation: Total cholesterol - HDL cholesterol - (Triglycerides/5) VLDL Cholesterol Jonathan 78.8 mg/dL LAB CHEMISTRY METHOD 05/21/2025 8:00 PM EDT [facility] Non HDL Chol. (LDL+VLDL) 75 <145 mg/dL LAB CHEMISTRY METHOD 05/21/2025 8:00 PM EDT [facility] Chol/HDL Ratio 2.5 0.0 - 4.4 LAB CHEMISTRY METHOD 05/21/2025 8:00 PM EDT [facility] Blood Venous blood specimen / Unknown Venipuncture / Unknown 05/21/2025 2:52 PM EDT 05/21/2025 2:52 PM EDT us Maximino Campbell MD LAB BLOOD ORDERABLES Final Resu lt [facility] [address] [place] [address], [place] [phone] * Microalbumin creatinine urine ratio (05/21/2025 2:52 PM EDT) Creatinine, Urine 141.0 mg/dL LAB CHEMISTRY METHOD 05/21/2025 7:22 PM EDT [facility] Microalb, Ur 9.8 0.0 - 29.0 mg/L LAB CHEMISTRY METHOD 05/21/2025 7:22 PM EDT [facility] Microalb/Creat Ratio 7 <30 mg/g creat LAB CHEMISTRY METHOD 05/21/2025 7:22 PM EDT [facility] Urine Urine specimen obtained by clean catch procedure / Unknown Non-blood Collection / Unknown 05/21/2025 2:52 PM EDT 05/21/2025 2:52 PM EDT us Maximino Campbell MD LAB URINE ORDERABLES Final Resu lt Performing Organization Address [facility]/ZIP Co de Phone Number [facility] [address] [place] [address], [place] [phone] * Hemoglobin A1c (05/21/2025 2:52 PM EDT) Pathologist [facility] Hemoglobin A1C 6.2 <6.5 % LAB CHEMISTRY METHOD 05/21/2025 9:05 PM EDT [facility] Mean Bld Glu Estim. 131 mg/dL LAB CHEMISTRY METHOD 05/21/2025 9:05 PM EDT [facility] Blood Venous blood specimen / Unknown Venipuncture / Unknown 05/21/2025 2:52 PM EDT 05/21/2025 2:52 PM EDT us Maximino Campbell MD LAB BLOOD ORDERABLES Final Resu lt Performing Organization Address [facility]/ZIP Co de Phone Number [facility] [address] [place] [address], [place] [phone] * (ABNORMAL) Comprehensive metabolic panel (05/21/2025 2:52 PM EDT) [facility] Sodium 139 133 - 145 mmol/L LAB CHEMISTRY METHOD 05/21/2025 7:57 PM EDT [facility] Potassium 3.8 3.5 - 5.5 mmol/L LAB CHEMISTRY METHOD 05/21/2025 7:57 PM EDT [facility] Chloride 104 96 - 110 mmol/L LAB CHEMISTRY METHOD 05/21/2025 7:57 PM EDT [facility] CO2 26 21 - 32 mmol/L LAB CHEMISTRY METHOD 05/21/2025 7:57 PM EDT [facility] Anion Gap 9 3 - 11 LAB CHEMISTRY METHOD 05/21/2025 7:57 PM [facility] Glucose 153(H) 70 - 100 mg/dL LAB CHEMISTRY METHOD 05/21/2025 7:57 PM [facility] BUN 15 5 - 25 mg/dL LAB CHEMISTRY METHOD 05/21/2025 7:57 PM [facility] Creatinine 1.12 0.70 - 1.30 mg/dL LAB CHEMISTRY METHOD 05/21/2025 7:57 PM [facility] eGFR 73 >=60 mL/min/1. 73m2 LAB CHEMISTRY METHOD 05/21/2025 7:57 PM [facility] Comment:Calculation based on the Chronic Kidney Disease Epidemiology Collaboration (CKD-EPI) equation refit without adjustment for race. BUN/Creatinine Ratio 13.4 LAB CHEMISTRY METHOD 05/21/2025 7:57 PM [facility] Calcium 9.4 8.5 - 10.5 mg/dL LAB CHEMISTRY METHOD 05/21/2025 7:57 PM [facility] AST (SGOT) 28 10 - 42 unit/L LAB CHEMISTRY METHOD 05/21/2025 7:57 PM [facility] ALT (SGPT) 51 10 - 60 unit/L LAB CHEMISTRY METHOD 05/21/2025 7:57 PM [facility] Alkaline Phosphatase 102 42 - 121 unit/L LAB CHEMISTRY METHOD 05/21/2025 7:57 PM [facility] Total Protein 7.6 6.0 - 8.0 g/dL LAB CHEMISTRY METHOD 05/21/2025 7:57 PM [facility] Albumin 4.0 3.2 - 5.0 g/dL LAB CHEMISTRY METHOD 05/21/2025 7:57 PM [facility] Total Bilirubin 0.8 0.0 - 1.4 mg/dL LAB CHEMISTRY METHOD 05/21/2025 7:57 PM EDT [facility] Blood Venous blood specimen / Unknown Venipuncture / Unknown 05/21/2025 2:52 PM EDT 05/21/2025 2:52 PM EDT Maximino Campbell MD LAB BLOOD ORDERABLES Final Resu lt [facility] [address] [place] [address], [place] [phone] * Depression Screening (04/13/2024) [facility] Depression Screening abstracted Historical Provider HEALTH MAINTENANCE Final Result * Colonoscopy (01/02/2024) [facility] Colonoscopy no interpretation abstracted Anatomical Region Laterality Modality Other Historical Provider HEALTH MAINTENANCE Final Result * Diabetes Foot Exam (05/13/2023) [facility] Diabetes: Annual Foot Exam abstracted Historical Provider HEALTH MAINTENANCE Final Result * Hepatitis C Screening (07/12/2009) [facility] Hepatitis C Screening abstracted Historical Provider HEALTH MAINTENANCE Final Result from Last 3 Months or Most Recently Relevant to Health Maintenance Insurance [facility]ICARE [facility] Advance Directives * Full Code - Confirmed (Latest Code Status on File) Date Activated Date Inactivated Comments 03/04/2025 8:52 AM 05/26/2025 9:14 AM This code s tatus was ascertained in the following way: Code [...] currently active code status orders. Care Teams Channel Executive Relationship Specialty Start Date End Date Maximino Campbell MD [address] [place] [phone] PCP - General Internal Medicine 02/29/20
--- OUTSIDE RECORDS SUMMARY | 2025-07-15 00:52 | XMS_ITS | Encounter Summary ---
Author Organization [facility] [place] [address] Care Team Providers Care Plant Maintenance Worker Name Role Phone Maximino Campbell MD Primary Care Provider [phone] Encounter Details Date Type Department Care Team ([facility] st Contact Info) Description 05/25/2025 Results Follow-Up Adult Medicine [address] [phone] Maximino Campbell MD [address] [place] [address] Social History Tobacco Use Types Packs/Day Years [...] your loved ones. For example, child care leader or elderly care for an older adult? [...] AM EDT documented as of this encounter Functional Status * Calculated C-SSRS Risk Score (Lifetime/Recent) Answer Date of Assessment Author No Risk Indicated 05/26/2025 9:17 AM EDT Marcelle Vincent RN * [place] Suicide Severity Rating Scale (Screener/Recent Self-Report) Question Answer Date of Assessment Author 1. Wish to be (Past 1 Month) No 025 9:17 AM EDT Marcelle Vincent RN documented as of this encounter Plan of Treatment Upcoming Encounters Date Type Department Care Team (Late st Contact Info) Description 11/30/2025 8:30 AM EDT Office Visit Adult Medicine [address] [phone] Maximino Campbell MD [address] [place] [address] documented as of this encounter Goals Goal [...] Diagnoses Not on filedocumented in this encounter Additional Health Concerns Assessment Noted Time PHQ-9 Depression Total Score: 18 025 8:08 AM EST A fall risk assessment has been complete d for the patient 03/04/2025 8:21 AM EDT documented as of this encounter Care Teams Plant Maintenance Worker Relationship Specialty Start Date End Date Maximino Campbell MD [address] [place] [address] PCP - General Internal Medicine 02/29/20 documented as of this encounter
--- OUTSIDE RECORDS SUMMARY | 2025-07-15 00:52 | XMS_ITS | Data Portability ---
Author Organization [place] - [facility], Allergy Address [address] [place] [phone] Assessment Encounter Date Assessment Date Assessment LastModified [...] anahi roman n referr al 2023 024 [email or web address] Benito Verma MD Mph, [address] [place] [address], [place], [address], 4 10:26:05 Procedures None record ed. Surgeries None record ed. Imaging CT, sinuse s, w/o contra st [address] [facility], [address] [facility], [place], [address], 4 12:43:13 Medication Orders None record ed. Patient TargetsNo targets recorded. Patient InstructionsNo instructions recorded. 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 [facility] [address] [place], [address], 12/20/2023 12:43:12 12/26/19 24 12/19/2023 CT, sinus es, w/o contr ast No observ ation record ed. [facility] [address], [place], [address], 12/26/2023 07:48:55 03/25/20 24 04/01/2023 imagi ng/di [...] Organization Details Recorded Time Nasal congestio n 86910604 Active 2022 Nasal congestion ; Note: Date Diagnosed: 07/19/2023 9:31 AM (R09.81) Not Available [facility] 4 02:59:45 Obstructi ve sleep apnea syndrome 70771337 Active 2022 Obstructiv e sleep apnea (adult) (pediatric ); Note: Date Diagnosed: 07/19/2023 9:31 AM (G47.33) MITA CAMARA MD [address] [place] [address], [place], [address] , [facility] - [facility] 4 13:17:10 Obesity 821383538 Active 2022 Other obesity; Note: Date Diagnosed: 07/19/2023 9:31 AM (E66.8) Not Available [facility] 4 02:59:44 Disorder of smell 122844318 Active 2022 Other disturbanc es of smell and taste; Note: Date Diagnosed: 07/19/2023 9:31 AM (R43.8) Not Available [facility] 4 02:59:48 Disorder of taste 059707365 Active 2022 Other disturbanc es of smell and taste; Note: Date Diagnosed: 07/19/2023 9:31 AM (R43.8) Not Available [facility] 4 02:59:48 Body mass index 30+ - obesity 866152466 Active 2022 Body mass index [BMI] 31.0-31.9, adult; Note: Date Diagnosed: 07/22/2023 6:26 AM (Z68.31) MITA CAMARA MD [address] [facility] [place],[address], [place], [address] , [place] [facility] 4 13:17:06 Loss of sense of smell 29472785 Active 2023 KEAGAN ARTIS MD [address] [facility],[place] [address], [place], [address] , [place] - [facility] 4 09:08:59 Chronic rhinitis 45048743 Active 2023 KEAGAN ARTIS MD [address] [facility],[place] [address], [place], [address] , [place] [facility] 4 09:09:05 Disorder of the nose 48099293 Active 2023 KEAGAN ARTIS MD [address] [facility],[address], [place], [address] , [place] [facility] 4 09:09:24 Problem Notes None recorded. Procedures Surgical History Date Name Laterality Status Provider Name and Address Organization Details Recorded Time 05/21/20 24 Opn mpltj hpglsl nstm josefina pg completed MITA CAMARA MD [address] [facility] [place],[address], [place], [address], [place] - [facility] 05/21/2024 13:20:04 operation on nasal turbinate completed Jing Corcoran [place] - [facility] 12/20/2023 08:41:18 open reduction of nasal fracture completed Jing Corcoran [place] [facility] 12/20/2023 08:41:28 nasal septoplasty completed Jing Corcoran [place] [facility] 12/20/2023 08:41:37 Carpal tunnel surgery completed Jing Corcoran [place] [facility] 12/20/2023 08:41:44 Remove tonsils and adenoids completed Jing Corcoran [place] - [facility] 12/20/2023 08:41:53 procedure on shoulder completed Jing Corcoran [place] - [facility] 12/20/2023 08:42:08 procedure on elbow completed Jing Corcoran CT - [facility] 12/20/2023 08:42:17 Imaging Results None recorded. Procedure Notes None recorded. Medical Equipment None Reported. Allergies Allergen ID Allergen Name Allergen Category Reaction Reaction Severity Criticality Documentation Date Start Date Code Code System Note Provider Name and Address Organization Details Recorded Time 901271 Product containin g 3-hydroxy -3-methyl glutaryl- coenzyme A reductase inhibitor (product) medicatio n other Not available Not available 12/17/2023 13472 009 SNOMED React ion: Unkno wn; Not Available [facility] 01:25[facility] Medications Name Sig Start Date [...] 7.5 mg tablet active Medicati on ID: [id number] B rand Name: jose moore Send Method: E-Prescr ibed Sub s Allowed: subs OK Medic ationGen ericName : jose moore Not Available Not Available Not Available oxycodone -acetamin ophen 5 mg-325 mg tablet active Medicati on ID: [id number] B rand Name: oxycodon e-acetam inophen Send [...] 15 mg tablet active Medicati on ID: [id number] B rand Name: mirtazap ine Send Method: E-Prescr ibed Sub s Allowed: subs OK Medic ationGen ericName : mirtazap ine Not Available Not Available Not Available albuterol sulfate HFA 90 mcg/actua tion aerosol inhaler active Not Available Not Available Not Available fluticaso ne propionat e 50 mcg/actua tion nasal spray,wil pension 2 puff once a day 2023 active Medicati on ID: [id number] D uration Value: 30 Brand Name: fluticas one propiona te Send Method: E-Prescr ibed Sub s Allowed: subs OK Medic ationGen ericName : fluticas one propiona te Not Available Not Available Not Available pramipexo le 1.5 mg tablet TAKE 1 TABLET BY MOUTH TWICE A DAY active Not Available Not Available No t Available glipizide 5 mg tablet 12/19 completed Medicati on ID: [id number] B rand Name: glipizid e Send Method: E-Prescr ibed Sub s Allowed: subs OK Medic ationGen ericName : glipizid e Medica tion ID: [id number] B rand Name: glipizid e Send Method: [...] release 24 hr active Medicati on ID: [id number] B rand Name: pramipex ole Send Method: [...] Updated DateTime 05/29/2024 175.26 cm 31 kg/m2 56101.4 g Meg Zarate [place] - [facility] 05/29/2024 10:02:06 Social History None recorded. Functional Status None recorded. Mental Status None recorded. Family History Nothing Reported. Medical History Condition Response High Cholesterol Y Past Encounters Encounter ID Performer Location Encounter Start Date Encounter Closed Date Diagnosis/Indication Diagnosis SNOMED-CT Code Diagnosis ICD10 Code Diagnosis IMO Codes Diagnosis Note [id number] KEAGAN ARTIS MD [facility] [place] [address] [place] [address] 12/20/2023 08:18:13 12/20/2023 09:15:36 Loss of sense of smell 83827652 R43.0 No significan t sinus disease Post antrostomy /septo and turb reduction Chronic rhinitis 8616298 6 J31.0 Disorder of the nose 894 [address] Verma for nasal valve procedure. Neg CT scan [id number] TIMBO CARRANZA PA-C [facility] [address] [place] [address] 05/29/2024 09:24:56 05/29/2024 10:16:13 Obstructive sleep apnea syndrome 04175599 G47.33 Health Concerns Section Related Observation LastModified by Organization Detai ls LastModified Time None Recorded Concern Status LastModified by Organization Details LastModified Time None Recorded Advance Directives Directive None Recorded Payers Insurance Date Sequence Insurance Name Policy Number Policy Mistry Covered Member ID Mistry Member ID Guarantor Name 05/21/2025 2 [place] [id number] Quentin Grossman Jr [id number] [facility] 05/21/2025 1 [place] [employer] Quentin Grossman Jr [id number] [facility] 05/29/2024 1 [id number] [id number] [facility] Notes Date Note Type Note Provider Name [...] sense of smell KEAGAN HERNANDEZ MD [address] [facility],[place] [address], [place], [address], [facility] 12/20/2023 12:43:28 4 text/html ROS as noted in the HPI Patient of Dr HernandezOSASplit night PSG [place] 04/01/23BMI 31AHI 34.7central & mixed - non recordedCPAP trial - intolerant of mask and CPAP 05/21/24 INSPIRE placementfeels some right face tenderness MITA CAMARA MD [address] [place] [address],[place] [address], [place], [address], [place] - [facility] 05/29/2024 10:18:30
== END 2025-07-14 17:34 | disposition home or self-care (01) ==
PROVIDERS: Visit Provider Physician Assistant
DX: J06.9 Acute upper respiratory infection, unspecified (principal); H66.91 Otitis media, unspecified, right ear

== ENCOUNTER → 2025-07-14 16:25 | Outpatient (BNVA) | payer MEDICARE, SELFPAY | PROVIDERS: Visit Provider Physician Assistant | DX: J06.9 Acute upper respiratory infection, unspecified (principal); H66.91 Otitis media, unspecified, right ear | CPT/HCPCS: 99212 ==

== ENCOUNTER 2025-07-16 14:21 | Outpatient (AMB) | payer MEDICARE, SELFPAY ==
--- NOTE | 2025-07-16 14:34 | MHC.OFFWIV ---
Intake Vital Signs 07/16/25 14:35 Height 5 ft 9 in Weight 206 lb BMI 30.4 BP 132/76 Blood Pressure Location Lt brachial Position Sitting Pulse 64 Pulse Source Pulse Oximeter Pulse Oximetry (%) 98 Oxygen Delivery Method Room Air Intake Visit Reasons: EP throat irritation Intake Note: Patient returns c/o cough that will not get better - seen on 07/14. Patient Tobacco Use Status: Never used Tobacco Allergies Sbaexab-CPK-UtV Reductase Inhibitor (HHOFKLY-HLI-PKX REDUCTASE INHIBITOR) Allergy (Unknown, Verified 07/16/25 14:37) INCREASED LFTS Statin Allergy (Unknown, Uncoded 07/16/25 14:37) Unknown HPI HPI Comments History of Present Illness Details History - The patient is a 64 year old male presenting with a cough and cold symptoms which led to the postponement of a scheduled surgery. - He was evaluated 2 days ago at this [place] and diagnosed with a right ear infection, for which he was prescribed amoxicillin and advised to take Mucinex. - He reports a gurgling and wheezing sounds upon inhalation and experiences severe coughing fits that feel like spasms, making it difficult to breathe. - The cough has been interfering with his sleep. - He has no history of asthma or COPD but has used an inhaler for similar symptoms in the past. - Denies sinus pain or fevers [facility] History History of deviated nasal septum Surgical History S/P insertion of hypoglossal nerve stimulator Hx of tonsillectomy S/p bilateral carpal tunnel release History of knee surgery H/O elbow surgery Hx of shoulder surgery H/O sinus surgery History of placement of ear tubes Family History Sister Breast cancer Heart disease Kidney disease Father Aneurysm Heart disease Sister Lupus Addisons disease Social History Alcohol intake: current Patient Tobacco Use Status: Never used Tobacco Review of Systems Narrative Review of Systems - Respiratory: Reports a hacking cough, gurgling sounds with breathing, and severe coughing spasms. - Constitutional: Denies sinus pain on palpation. - Ears: Reports a recent diagnosis of a right ear infection. - Gastrointestinal: Reports almost vomiting from severe coughing fits. All systems reviewed and are unremarkable except as noted in HPI Physical Exam Exam Exam: Physical Exam General: Cooperative, healthy appearing, comfortable and no acute distress Orientation/consciousness: Patient oriented x3 Limitations: No limitations Head: Normal to inspection Ears: Right ear red, possible infection Nose: Normal external nose present, Normal nares present and No nasal discharge present Face and sinus: Normal facial exam and sinuses nontender Mouth: Normal oral and palatal mucosa present and moist mucous membranes Throat: tonsils normal, no exudates, uvula midline, posterior oropharynx erythema Eyes: Appearance normal, both eyes and all related structures Neck: Normal visual inspection, full ROM Respiratory: insp/exp wheezing noted, clear to auscultation bilaterally. Normal respiratory effort, able to speak in complete sentences, actively coughing, no respiratory distress, not tachypneic, no tripod positioning and no use of accessory muscles Cardiovascular: Regular rate and rhythm. Normal S1 and S2 Skin: No rashes or lesions noted Neuro: Patient oriented x3 Extremities: Normal to inspection and Yes no clubbing, cyanosis or edema Vital Signs: Last Vital Signs Pulse 64 07/16/25 14:35 BP 132/76 07/16/25 14:35 Pulse Ox 98 07/16/25 14:35 Oxygen Delivery Method Room Air 07/16/25 14:35 BMI result Body Mass Index 30.4 Assessment & Plan Assessment & Plan (1) Lower respiratory infection (e.g., bronchitis, pneumonia, pneumonitis, pulmonitis): Code(s): J22 - Unspecified acute lower respiratory infection Plan: Patient was informed and verbally consented to the use of an ambient scribe for clinic note documentation during this visit. - VSS, pt well appearing and PE remarkable for ins/exp wheezes throughout. - The patient's wheezing has worsened and is now pronounced, not clearing with cough, which suggests significant bronchospasm. - A 5-day course of prednisone was prescribed to reduce inflammation and will be started tomorrow morning to avoid causing insomnia. - An inhaler was prescribed to be used every 4 to 6 hours as needed to calm bronchospasms and stop the cough. - Tessalon Perles (benzonatate) were prescribed to be taken at night to numb the throat and suppress the cough reflex. - The patient was advised to inform his surgical team about the prednisone treatment, as it will likely require further postponement of his surgery due to its effect on healing. - While a chest x-ray is not being performed, a possible pneumonia is presumed based on the patient's clinical presentation. He will continue his current amoxicillin prescription and will also start a Z-Clay (azithromycin) today to provide treatment coverage for pneumonia. - If symptoms do not improve by Saturday, the cause is likely viral, and recovery could take one to three weeks. - The patient was diagnosed with a right ear infection during a visit on the preceding visit. - He will continue the course of amoxicillin as previously prescribed. Medications: New azithromycin For 250 mg dose pack: take 500 mg today (day 1), then 250 mg for 4 days (days 2-5) PO 6 tabs 0RF albuterol sulfate 90 mcg/actuation 2 puffs inhalation Q6H PRN 8.5 grams 0RF shortness of breath or wheezing or cough prednisone 40 mg (2 x 20 mg) PO QAM 10 tabs 0RF benzonatate DO NOT ALLOW CHILDREN TO HAVE ACCESS TO THIS MEDICATION IT IS DANGEROUS FOR CHILDREN. 200 mg PO BEDTIME PRN 10 caps 0RF cough Coding Level of Care Code New Pt Level 3 (95480) Diagnoses Lower respiratory infection (e.g., bronchitis, pneumonia, pneumonitis, pulmonitis) J22
[2025-07-16 14:35] VITALS: BP 132/76; PULSE 64; O2SAT 98; BMI 30.4
--- OUTSIDE RECORDS SUMMARY | 2025-07-16 19:35 | XMS_ITS | Data Portability ---
Author Organization [place] - [facility], Allergy Address [address] [place] [id number] Assessment Encounter Date Assessment Date Assessment LastModified [...] anahi roman n referr al 2023 024 Benito Verma MD [facility], [address] [place] [address], [place], [address], 4 10:26:05 Procedures None record ed. Surgeries None record ed. Imaging CT, sinuse s, w/o contra st 2023 024 maged [facility], [address] [facility], [place], [address], 4 12:43:13 Medication Orders None record ed. Patient TargetsNo targets recorded. Patient InstructionsNo instructions recorded. 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 [facility] [address] [place], [address], 12/20/2023 12:43:12 12/26/19 24 12/19/2023 CT, sinus es, w/o contr ast No observ ation record ed. [facility] [address], [place], [address], 12/26/2023 07:48:55 03/25/20 24 04/01/2023 imagi ng/di [...] Organization Details Recorded Time Nasal congestio n 12185154 Active 2022 Nasal congestion ; Note: Date Diagnosed: 07/19/2023 9:31 AM (R09.81) Not Available [facility] 4 02:59:45 Obstructi ve sleep apnea syndrome 18788251 Active 2022 Obstructiv e sleep apnea (adult) (pediatric ); Note: Date Diagnosed: 07/19/2023 9:31 AM (G47.33) MITA CAMARA MD [address] [place] [address], [place], [address] , [facility] - [facility] 4 13:17:10 Obesity 734145285 Active 2022 Other obesity; Note: Date Diagnosed: 07/19/2023 9:31 AM (E66.8) Not Available [facility] 4 02:59:44 Disorder of smell 577539534 Active 2022 Other disturbanc es of smell and taste; Note: Date Diagnosed: 07/19/2023 9:31 AM (R43.8) Not Available [facility] 4 02:59:48 Disorder of taste 798224095 Active 2022 Other disturbanc es of smell and taste; Note: Date Diagnosed: 07/19/2023 9:31 AM (R43.8) Not Available [facility] 4 02:59:48 Body mass index 30+ - obesity 389646590 Active 2022 Body mass index [BMI] 31.0-31.9, adult; Note: Date Diagnosed: 07/22/2023 6:26 AM (Z68.31) MITA CAMARA MD [address] [facility] [place],[address], [place], [address] , [place] [facility] 4 13:17:06 Loss of sense of smell 83951572 Active 2023 KEAGAN ARTIS MD [address] [facility],[place] [address], [place], [address] , [place] [facility] 4 09:08:59 Chronic rhinitis 62306327 Active 2023 KEAGAN ARTIS MD [address] [facility],[place] [address], [place], [address] , [place] [facility] 4 09:09:05 Disorder of the nose 47579569 Active 2023 KEAGAN ARTIS MD [address] [facility],[address], [place], [address] , [place] [facility] 4 09:09:24 Problem Notes None recorded. Procedures Surgical History Date Name Laterality Status Provider Name and Address Organization Details Recorded Time 05/21/20 24 Opn mpltj hpglsl nstm josefina pg completed MITA CAMARA MD [address] [facility] [place],[address], [place], [address], [place] - [facility] 05/21/2024 13:20:04 operation on nasal turbinate completed Jing Corcoran [place] - [facility] 12/20/2023 08:41:18 open reduction of nasal fracture completed Jing Corcoran [place] [facility] 12/20/2023 08:41:28 nasal septoplasty completed Jing Corcoran [place] [facility] 12/20/2023 08:41:37 Carpal tunnel surgery completed Jing Corcoran [place] [facility] 12/20/2023 08:41:44 Remove tonsils and adenoids completed Jing Corcoran [place] - [facility] 12/20/2023 08:41:53 procedure on shoulder completed Jing Corcoran [place] - [facility] 12/20/2023 08:42:08 procedure on elbow completed Jing Corcoran [place] - [facility] 12/20/2023 08:42:17 Imaging Results None recorded. Procedure Notes None recorded. Medical Equipment None Reported. Allergies Allergen ID Allergen Name Allergen Category Reaction Reaction Severity Criticality Documentation Date Start Date Code Code System Note Provider Name and Address Organization Details Recorded Time 146097 Product containin g 3-hydroxy -3-methyl glutaryl- coenzyme A reductase inhibitor (product) medicatio n other Not available Not available 12/17/2023 70731 009 SNOMED React ion: Unkno wn; Not Available [facility] 01:25:24 Medications Name Sig Start Date Stop [...] 7.5 mg tablet active Medicati on ID: [id number] B rand Name: jose moore Send Method: E-Prescr ibed Sub s Allowed: subs OK Medic ationGen ericName : jose moore Not Available Not Available Not Available oxycodone -acetamin ophen 5 mg-325 mg tablet active Medicati on ID: [id number] B rand Name: oxycodon e-acetam inophen Send [...] 15 mg tablet active Medicati on ID: [id number] B rand Name: mirtazap ine Send Method: E-Prescr ibed Sub s Allowed: subs OK Medic ationGen ericName : mirtazap ine Not Available Not Available Not Available albuterol sulfate HFA 90 mcg/actua tion aerosol inhaler active Not Available Not Available Not Available fluticaso ne propionat e 50 mcg/actua tion nasal spray,wil pension 2 puff once a day 2023 active Medicati on ID: [id number] D uration Value: 30 Brand Name: fluticas one propiona te Send Method: E-Prescr ibed Sub s Allowed: subs OK Medic ationGen ericName : fluticas one propiona te Not Available Not Available Not Available pramipexo le 1.5 mg tablet TAKE 1 TABLET BY MOUTH TWICE A DAY active Not Available Not Available No t Available glipizide 5 mg tablet 12/19 completed Medicati on ID: [id number] B rand Name: glipizid e Send Method: E-Prescr ibed Sub s Allowed: subs OK Medic ationGen ericName : glipizid e Medica tion ID: [id number] B rand Name: glipizid e Send Method: [...] release 24 hr active Medicati on ID: [id number] B rand Name: pramipex ole Send Method: [...] Updated DateTime 05/29/2024 175.26 cm 31 kg/m2 23743.4 g Meg Zarate [place] - [facility] 05/29/2024 10:02:06 Social History None recorded. Functional Status None recorded. Mental Status None recorded. Family History Nothing Reported. Medical History Condition Response High Cholesterol Y Past Encounters Encounter ID Performer Location Encounter Start Date Encounter Closed Date Diagnosis/Indication Diagnosis SNOMED-CT Code Diagnosis ICD10 Code Diagnosis IMO Codes Diagnosis Note [id number] KEAGAN ARTIS MD [facility] [address] [place] [address] 12/20/2023 08:18:13 12/20/2023 09:15:36 Loss of sense of smell 08233727 R43.0 No significan t sinus disease Post antrostomy /septo and turb reduction Chronic rhinitis 1849917 6 J31.0 Disorder of the nose 894 [address] Verma for nasal valve procedure. Neg CT scan [address] TIMBO CARRANZA PA-C [facility] - [facility] [address] [place] [address] 05/29/2024 09:24:56 05/29/2024 10:16:13 Obstructive sleep apnea syndrome 50143275 G47.33 Health Concerns Section Related Observation LastModified by Organization Detai ls LastModified Time None Recorded Concern Status LastModified by Organization Details LastModified Time None Recorded Advance Directives Directive None Recorded Payers Insurance Date Sequence Insurance Name Policy Number Policy Mistry Covered Member ID Mistry Member ID Guarantor Name 05/21/2025 2 [place] [id number] Quentin Grossman Jr [id number] [facility] 05/21/2025 1 [place] [employer] Quentin Grossman Jr [id number] [facility] 05/29/2024 1 [id number] [id number] [facility] Notes Date Note Type Note Provider Name [...] sense of smell KEAGAN HERNANDEZ MD [address] [facility],[place] [address], [place], [address], [facility] - [facility] 12/20/2023 12:43:28 4 text/html ROS as noted in the HPI Patient of Dr HernandezOSASplit night [facility] 04/01/23BMI 31AHI 34.7central & mixed - non recordedCPAP trial - intolerant of mask and CPAP 05/21/24 INSPIRE placementfeels some right face tenderness MITA CAMARA MD [address] [place] [address],[place] [address], [place], [address], [place] [facility] 05/29/2024 10:18:30
--- OUTSIDE RECORDS SUMMARY | 2025-07-16 19:35 | XMS_ITS | Clinical Summary ---
Author Organization [facility] Prior to 01/02/[address] [place] [address] Care Team Providers Care Gluer Name Role Phone Unavailable Primary Care Provider [...] Personal/Family Self 1960 [address] [place] [address]
--- OUTSIDE RECORDS SUMMARY | 2025-07-16 19:35 | XMS_ITS | Clinical Summary ---
Author Organization [address] [place] [address] Address [address] [place] [address] Phone Care Team Providers Care Financial Administrative Assistant Name Role Phone Maximino Campbell MD Primary Care Provider [phone] Allergies Active Allergy Reactions Criticality Noted Date Comments Pumgljh-Gfy-Fjl Reductase Inhibitors Other,Unknown 10/03/2015 Elevated LFTs Elevated liver enzymes Product containing 5-cqxkwtp-2-methylglutar yl-coenzyme A reductase inhibitor (product) Medications metFORMIN [...] AM EDT): Sleep apnea 10/29/2017 Overview (11/16/2024): [facility] Home Sleep Apnea Test: Date [...] Care Team Description 06/30/2025 Telephone Adult Medicine [address] [phone] Maximino Campbell MD 06/03/2025 3:10 PM EDT Consult [facility] Cardiology [address] [place] [phone] Rahat Matta NP Preop cardiovascular exam (Primary Dx); Bradycardia; Mixed hyperlipidemia; Obesity (BMI 30.0-34.9); Bilateral carotid artery stenosis; Primary hypertension; Sleep apnea, unspecified type 05/26/2025 9:35 AM EDT - 05/26/2025 2:48 PM EDT Emergency [facility] Emergency [address] [place] [phone] Anna Hale DO Kidney stone (Primary Dx) Discharge Disposition: Home or Self Care 05/25/2025 Results Follow-Up Adult Medicine [address] [phone] Maximino Campbell MD 05/18/2025 Telephone [facility] [address] [facility] [place] [facility] [address] [place] [phone] Rahat Matta NP 05/10/2025 10:30 AM EDT Office Visit [address] [phone] Maximino Campbell MD Type 2 diabetes mellitus with other diabetic kidney complication, without long-term current use of insulin ([facility] V24, [facility] V28) (Primary Dx); Hypothyroidism, unspecified type; [...] PROCEDURE: HISTORICAL TONSILLECTOMY OTHER SURGICAL HISTORY PROCEDURE: IN HEMORRHOIDECTOMY NTRNL & XTRNL 1 COLUMN/GROUP SINUS SURGERY PROCEDURE: IN UNLISTED PROCEDURE ACCESSORY SINUSES; COMMENT: times three CARPAL TUNNEL RELEASE 2005 Bilateral PROCEDURE: HISTORICAL CARPAL TUNNEL REL; COMMENT: bilateral TYMPANOSTOMY TUBE PLACEMENT PROCEDURE: HISTORICAL PE TUBES COLONOSCOPY 10/03/2015 PROCEDURE: HISTORICAL COLONOSCOPY; COMMENT: 1 cm polyp and 3 small polyps-> tub. adenomas UPPER GASTROINTESTINAL ENDOSCOPY 07/12/2009 PROCEDURE: IN UPPER GI ENDOSCOPY PERFORMED; COMMENT: SB biopsy: Normal. Gastric biopsy mijnimal reactive changes (Hpylori-) COLONOSCOPY 03/06/2006 PROCEDURE: HISTORICAL COLONOSCOPY; COMMENT: Negative examination, Dr. Michael Salgado, [facility] COLONOSCOPY 02/11/2019 PROCEDURE: HISTORICAL COLONOSCOPY; COMMENT: no [...] for your loved ones. For example, childcare teacher or elderly care for an older adult? [...] 8:30 AM EDT Office Visit Adult Medicine [facility] [address] [place] [address] Maximino Campbell MD [address] [place] [address] Health Maintenance Due Date Last Done Comments [...] off floor.. Medical Devices Implanted Type Area Drum Reel Cutter Device Identifier Shelf Expiration Date Model / Serial / Lot Implants Implants N/A: Throat [employer]ort Bone Graft Delivery Knee Kit - Sn/A - [id number] Implanted:Qty: 1 on 10/22/2024 by Marvin Quan MD at [facility] [employer] Bone Left: Knee [employer] [id number] / N/A / [id number] Procedures Procedure Name Priority Date/Time Associated [...] GEMUSE QTc 399 ms GEMUSE P Wave [place]art[place] 16 degrees GEMUSE R Warthen -9 degrees GEMUSE T Warthen 25 degrees GEMUSE ECG Interpretation Normal sinus rhythm Incomplete right bundle branch block Septal infarct , age undetermined Abnormal ECG When compared with ECG of 16-NOV-2024 10:09, No significant change was found Confirmed by MD ROSA MARIA, CAITLYN ([id number]) on 06/14/2025 5:49:11 PM GEMUSE 06/03/2025 3:09 PM EDT 06/14/2025 5:49 PM EST us Rahat Matta [employer] ECG ORDERABLES Edited Resu lt - Final [...] Signed Date: 05/26/2025 12:32 ET Workstation ID: [id number] Transcribed By: Self Edit Transcribed Date: 05/26/2025 [...] Signed Date: 05/26/2025 12:32 ET Workstation ID: [id number] Transcribed By: Self Edit Transcribed Date: 05/26/2025 12:20 ET Anna Hale DO IMG CT PROCEDURES Final Resul t * Urinalysis with reflex microscopic and culture (05/26/2025 11:41 AM EDT) Specific [place] Urine 1.023 1.003 - 1.030 LAB URINALYSIS - AUTOMATED METHOD 05/26/2025 12:45 PM [facility] pH, Urine 6.0 5.0 - 8.0 pH LAB URINALYSIS - AUTOMATED METHOD 05/26/2025 12:45 PM [facility] Leukocytes, Urine Negative Negative LAB URINALYSIS - AUTOMATED METHOD 05/26/2025 12:45 PM [facility] Nitrite, Urine Negative Negative LAB URINALYSIS - AUTOMATED METHOD 05/26/2025 12:45 PM [facility] Protein, Urine Negative <=Trace mg/dL LAB URINALYSIS - AUTOMATED METHOD 05/26/2025 12:45 PM [facility] Glucose, Urine Negative Negative mg/dL LAB URINALYSIS - AUTOMATED METHOD 05/26/2025 12:45 PM [facility] Ketones, Urine Negative Negative mg/dL LAB URINALYSIS - AUTOMATED METHOD 05/26/2025 12:45 PM [facility] Urobilinogen, Urine 0.2 0.2 - 1.0 mg/dL LAB URINALYSIS - AUTOMATED METHOD 05/26/2025 12:45 PM [facility] Bilirubin, Urine Negative Negative LAB URINALYSIS - AUTOMATED METHOD 05/26/2025 12:45 PM EDT [facility] Blood, Urine Negative Negative LAB URINALYSIS - AUTOMATED METHOD 05/26/2025 12:45 PM EDT [facility] Urine Urine specimen obtained by clean catch procedure / Unknown Non-blood Collection / Unknown 05/26/2025 11:41 AM EDT 05/26/2025 12:37 PM EDT [facility] URINE ORDERABLES Final Re sult Performing Organization Address [facility]/ZIP Co de Phone Number [facility] [address] [place] [address], [place] [phone] * Carroll urine culture tube (05/26/2025 11:41 AM EDT) Extra Tube Hold for add-ons. 05/26/2025 2:01 PM EDT [facility] Comment:Auto resulted. Urine Urine specimen obtained by clean catch procedure / Unknown Non-blood Collection / Unknown 05/26/2025 11:41 AM EDT 05/26/2025 12:37 PM EDT [facility] URINE ORDERABLES Final Re sult Performing Organization Address [facility]/ZIP Co de Phone Number [facility] [address] [place] [address], [place] [phone] * (ABNORMAL) CBC auto differential (05/26/2025 10:15 AM EDT) WBC 8.7 4.8 - 10.8 K/[facility] LAB HEMETOLOGY METHOD 05/26/2025 11:25 AM EDT [facility] RBC 5.30 4.50 - 5.50 M/mcL LAB HEMETOLOGY METHOD 05/26/2025 11:25 AM EDT [facility] Hemoglobin 15.0 13.5 - 17.5 g/dL LAB HEMETOLOGY METHOD 05/26/2025 11:25 AM [facility] Hematocrit 44.3 42.0 - 54.0 % LAB HEMETOLOGY METHOD 05/26/2025 11:25 AM [facility] MCV 84.1 79.0 - 98.0 FL LAB HEMETOLOGY METHOD 05/26/2025 11:25 AM [facility] MCH 28.5 27.0 - 32.0 pcg LAB HEMETOLOGY METHOD 05/26/2025 11:25 AM [facility] MCHC 33.9 32.0 - 37.0 g/dL LAB HEMETOLOGY METHOD 05/26/2025 11:25 AM [facility] RDW 13.8 11.0 - 15.0 % LAB HEMETOLOGY METHOD 05/26/2025 11:25 AM [facility] Platelets 218 130 - 400 K/mcL LAB HEMETOLOGY METHOD 05/26/2025 11:25 AM [facility] MPV 10.7 7.0 - 11.0 FL LAB HEMETOLOGY METHOD 05/26/2025 11:25 AM [facility] NRBC 0.0 <1.0 % LAB HEMETOLOGY METHOD 05/26/2025 11:25 AM [facility] NRBC Absolute 0.00 <0.10 K/mcL LAB HEMETOLOGY METHOD 05/26/2025 11:25 AM [facility] Neutrophils Relative 73.8 % LAB HEMETOLOGY METHOD 05/26/2025 11:25 AM [facility] Lymphocytes Relative 17.8 % LAB HEMETOLOGY METHOD 05/26/2025 11:25 AM [facility] Monocytes Relative 5.7 % LAB HEMETOLOGY METHOD 05/26/2025 11:25 AM [facility] Eosinophils Relative 1.5 % LAB HEMETOLOGY METHOD 05/26/2025 11:25 AM EDT [facility] Basophils Relative 0.6 % LAB HEMETOLOGY METHOD 05/26/2025 11:25 AM EDT [facility] Immature Granulocytes Relative 0.6 % LAB HEMETOLOGY METHOD 05/26/2025 11:25 AM EDT [facility] Neutrophils Absolute 6.44 1.50 - 7.00 K/mcL LAB HEMETOLOGY METHOD 05/26/2025 11:25 AM EDT [facility] Lymphocytes Absolute 1.55 1.00 - 5.00 K/mcL LAB HEMETOLOGY METHOD 05/26/2025 11:25 AM EDT [facility] Monocytes Absolute 0.50 0.20 - 1.00 K/mcL LAB HEMETOLOGY METHOD 05/26/2025 11:25 AM EDT [facility] Eosinophils Absolute 0.13 0.00 - 0.50 K/mcL LAB HEMETOLOGY METHOD 05/26/2025 11:25 AM EDT [facility] Basophils Absolute 0.05 0.00 - 0.20 K/mcL LAB HEMETOLOGY METHOD 05/26/2025 11:25 AM EDT [facility] Immature Granulocytes Absolute 0.05(H) 0.00 - 0.03 K/mcL LAB HEMETOLOGY METHOD 05/26/2025 11:25 AM EDT [facility] Blood Venous blood specimen / Unknown Venipuncture / Unknown 05/26/2025 10:15 AM EDT 05/26/2025 11:16 AM EDT us Anna Hale DO LAB BLOOD ORDERABLES Final Re sult [facility] [address] [place] [address], * Lipase (05/26/2025 10:15 AM EDT) Pathologist [facility] Lipase 42 13 - 75 unit/L LAB CHEMISTRY METHOD 05/26/2025 11:51 AM T [facility] Blood Venous blood specimen / Unknown Venipuncture / Unknown 05/26/2025 10:15 AM EDT 05/26/2025 11:16 AM EDT us Anna Hale DO LAB BLOOD ORDERABLES Final Re sult [facility] [address] [place] [address], * Hepatic Function Panel (05/26/2025 10:15 AM EDT) [facility] Total Protein 7.9 6.0 - 8.0 g/dL LAB CHEMISTRY METHOD 05/26/2025 11:51 AM [facility] Albumin 4.0 3.2 - 5.0 g/dL LAB CHEMISTRY METHOD 05/26/2025 11:51 AM [facility] Total Bilirubin 1.0 0.0 - 1.4 mg/dL LAB CHEMISTRY METHOD 05/26/2025 11:51 AM [facility] Bilirubin, Direct 0.3 0.0 - 0.3 mg/dL LAB CHEMISTRY METHOD 05/26/2025 11:51 AM [facility] Bilirubin, Indirect 0.7 0.0 - 1.1 mg/dL LAB CHEMISTRY METHOD 05/26/2025 11:51 AM [facility] ALT (SGPT) 43 10 - 60 unit/L LAB CHEMISTRY METHOD 05/26/2025 11:51 AM [facility] AST (SGOT) 29 10 - 42 unit/L LAB CHEMISTRY METHOD 05/26/2025 11:51 AM [facility] Alkaline Phosphatase 100 42 - 121 unit/L LAB CHEMISTRY METHOD 05/26/2025 11:51 AM [facility] Blood Venous blood specimen / Unknown Venipuncture / Unknown 05/26/2025 10:15 AM EDT 05/26/2025 11:16 AM EDT us Anna Hale DO LAB BLOOD ORDERABLES Final Re sult [facility] [address] [place] [address], * (ABNORMAL) Basic Metabolic Panel (BMP) (05/26/2025 10:15 AM EDT) Sodium 138 133 - 145 mmol/L LAB CHEMISTRY METHOD 05/26/2025 11:51 AM [facility] Potassium 3.9 3.5 - 5.5 mmol/L LAB CHEMISTRY METHOD 05/26/2025 11:51 AM [facility] Chloride 109 96 - 110 mmol/L LAB CHEMISTRY METHOD 05/26/2025 11:51 AM [facility] CO2 24 21 - 32 mmol/L LAB CHEMISTRY METHOD 05/26/2025 11:51 AM [facility] Anion Gap 5 3 - 11 LAB CHEMISTRY METHOD 05/26/2025 11:51 AM [facility] Glucose 140(H) 70 - 100 mg/dL LAB CHEMISTRY METHOD 05/26/2025 11:51 AM [facility] BUN 17 5 - 25 mg/dL LAB CHEMISTRY METHOD 05/26/2025 11:51 AM [facility] Creatinine 1.23 0.70 - 1.30 mg/dL LAB CHEMISTRY METHOD 05/26/2025 11:51 AM [facility] eGFR 65 >=60 mL/min/1. 73m2 LAB CHEMISTRY METHOD 05/26/2025 11:51 AM [facility] Comment:Calculation based on the Chronic Kidney Disease Epidemiology Collaboration (CKD-EPI) equation refit without adjustment for race. BUN/Creatinine Ratio 13.8 LAB CHEMISTRY METHOD 05/26/2025 11:51 AM EDT [facility] Calcium 9.1 8.5 - 10.5 mg/dL LAB CHEMISTRY METHOD 05/26/2025 11:51 AM EDT [facility] Blood Venous blood specimen / Unknown Venipuncture / Unknown 05/26/2025 10:15 AM EDT 05/26/2025 11:16 AM EDT Anna Hale DO LAB BLOOD ORDERABLES Final Re sult Performing Organization Address [facility]/ZIP Co de Phone Number [facility] [address] [place] [address], [place] [phone] * Thyroid stimulating hormone with reflex to free t4 and free t3 (05/21/2025 2:52 PM EDT) TSH 0.44 0.40 - 4.00 mcIU/mL LAB CHEMISTRY METHOD 05/21/2025 8:37 PM EDT [facility] Blood Venous blood specimen / Unknown Venipuncture / Unknown 05/21/2025 2:52 PM EDT 05/21/2025 2:52 PM EDT Maximino Campbell MD LAB BLOOD ORDERABLES Final Resu lt Performing Organization Address City/[facility]/ZIP Co de Phone Number [facility] [address] [place] [address], [place] [phone] * (ABNORMAL) Lipid panel with reflex to direct LDL (05/21/2025 2:52 PM EDT) Cholesterol 126 0 - 200 mg/dL LAB CHEMISTRY METHOD 05/21/2025 8:00 PM EDT [facility] Triglycerides 394(H) 0 - 150 mg/dL LAB CHEMISTRY METHOD 05/21/2025 8:00 PM EDT [facility] HDL 51 >=40 mg/dL LAB CHEMISTRY METHOD 05/21/2025 8:00 PM EDT [facility] LDL Calculated <1 0 - 100 mg/dL LAB CHEMISTRY METHOD 05/21/2025 8:00 PM EDT [facility] Comment:Estimated LDL Calcul ated using equation: Total cholesterol - HDL cholesterol - (Triglycerides/5) VLDL Cholesterol Jonathan 78.8 mg/dL LAB CHEMISTRY METHOD 05/21/2025 8:00 PM EDT [facility] Non HDL Chol. (LDL+VLDL) 75 <145 mg/dL LAB CHEMISTRY METHOD 05/21/2025 8:00 PM EDT [facility] Chol/HDL Ratio 2.5 0.0 - 4.4 LAB CHEMISTRY METHOD 05/21/2025 8:00 PM EDT [facility] Blood Venous blood specimen / Unknown Venipuncture / Unknown 05/21/2025 2:52 PM EDT 05/21/2025 2:52 PM EDT us Maximino Campbell MD LAB BLOOD ORDERABLES Final Resu lt [facility] [address] [place] [address], [place] [phone] * Microalbumin creatinine urine ratio (05/21/2025 2:52 PM EDT) Creatinine, Urine 141.0 mg/dL LAB CHEMISTRY METHOD 05/21/2025 7:22 PM EDT [facility] Microalb, Ur 9.8 0.0 - 29.0 mg/L LAB CHEMISTRY METHOD 05/21/2025 7:22 PM EDT [facility] Microalb/Creat Ratio 7 <30 mg/g creat LAB CHEMISTRY METHOD 05/21/2025 7:22 PM EDT [facility] Urine Urine specimen obtained by clean catch procedure / Unknown Non-blood Collection / Unknown 05/21/2025 2:52 PM EDT 05/21/2025 2:52 PM EDT us Maximino Campbell MD LAB URINE ORDERABLES Final Resu lt Performing Organization Address [facility]/ZIP Co de Phone Number [facility] [address] [place] [address], [place] [phone] * Hemoglobin A1c (05/21/2025 2:52 PM EDT) Pathologist [facility] Hemoglobin A1C 6.2 <6.5 % LAB CHEMISTRY METHOD 05/21/2025 9:05 PM EDT [facility] Mean Bld Glu Estim. 131 mg/dL LAB CHEMISTRY METHOD 05/21/2025 9:05 PM EDT [facility] Blood Venous blood specimen / Unknown Venipuncture / Unknown 05/21/2025 2:52 PM EDT 05/21/2025 2:52 PM EDT us Maximino Campbell MD LAB BLOOD ORDERABLES Final Resu lt Performing Organization Address [facility]/ZIP Co de Phone Number [facility] [address] [place] [address], [place] [phone] * (ABNORMAL) Comprehensive metabolic panel (05/21/2025 2:52 PM EDT) [facility] Sodium 139 133 - 145 mmol/L LAB CHEMISTRY METHOD 05/21/2025 7:57 PM EDT [facility] Potassium 3.8 3.5 - 5.5 mmol/L LAB CHEMISTRY METHOD 05/21/2025 7:57 PM EDT [facility] Chloride 104 96 - 110 mmol/L LAB CHEMISTRY METHOD 05/21/2025 7:57 PM EDT [facility] CO2 26 21 - 32 mmol/L LAB CHEMISTRY METHOD 05/21/2025 7:57 PM EDT [facility] Anion Gap 9 3 - 11 LAB CHEMISTRY METHOD 05/21/2025 7:57 PM [facility] Glucose 153(H) 70 - 100 mg/dL LAB CHEMISTRY METHOD 05/21/2025 7:57 PM [facility] BUN 15 5 - 25 mg/dL LAB CHEMISTRY METHOD 05/21/2025 7:57 PM [facility] Creatinine 1.12 0.70 - 1.30 mg/dL LAB CHEMISTRY METHOD 05/21/2025 7:57 PM [facility] eGFR 73 >=60 mL/min/1. 73m2 LAB CHEMISTRY METHOD 05/21/2025 7:57 PM [facility] Comment:Calculation based on the Chronic Kidney Disease Epidemiology Collaboration (CKD-EPI) equation refit without adjustment for race. BUN/Creatinine Ratio 13.4 LAB CHEMISTRY METHOD 05/21/2025 7:57 PM [facility] Calcium 9.4 8.5 - 10.5 mg/dL LAB CHEMISTRY METHOD 05/21/2025 7:57 PM [facility] AST (SGOT) 28 10 - 42 unit/L LAB CHEMISTRY METHOD 05/21/2025 7:57 PM [facility] ALT (SGPT) 51 10 - 60 unit/L LAB CHEMISTRY METHOD 05/21/2025 7:57 PM [facility] Alkaline Phosphatase 102 42 - 121 unit/L LAB CHEMISTRY METHOD 05/21/2025 7:57 PM [facility] Total Protein 7.6 6.0 - 8.0 g/dL LAB CHEMISTRY METHOD 05/21/2025 7:57 PM [facility] Albumin 4.0 3.2 - 5.0 g/dL LAB CHEMISTRY METHOD 05/21/2025 7:57 PM [facility] Total Bilirubin 0.8 0.0 - 1.4 mg/dL LAB CHEMISTRY METHOD 05/21/2025 7:57 PM EDT [facility] Blood Venous blood specimen / Unknown Venipuncture / Unknown 05/21/2025 2:52 PM EDT 05/21/2025 2:52 PM EDT Maximino Campbell MD LAB BLOOD ORDERABLES Final Resu lt [facility] [address] [place] [address], [place] [phone] * Depression Screening (04/13/2024) [facility] Depression Screening abstracted Historical Provider HEALTH MAINTENANCE Final Result * Colonoscopy (01/02/2024) [facility] Colonoscopy no interpretation abstracted Anatomical Region Laterality Modality Other Historical Provider HEALTH MAINTENANCE Final Result * Diabetes Foot Exam (05/13/2023) [facility] Diabetes: Annual Foot Exam abstracted Historical Provider HEALTH MAINTENANCE Final Result * Hepatitis C Screening (07/12/2009) [facility] Hepatitis C Screening abstracted Historical Provider [...] currently active code status orders. Care Teams Financial Administrative Assistant Relationship Specialty Start Date End Date Maximino Campbell MD [address] [place] [phone] PCP - General Internal Medicine 02/29/20
--- OUTSIDE RECORDS SUMMARY | 2025-07-16 19:35 | XMS_ITS | Encounter Summary ---
Author Organization [facility] [place] [address] Care Team Providers Care Nutrition Specialist Name Role Phone Maximino Campbell MD Primary Care Provider [phone] Encounter Details Date Type Department Care Team ([facility] st Contact Info) Description 05/25/2025 Results Follow-Up Adult Medicine [address] [phone] Maximino Campbell MD [address] [place] [address] Social History Tobacco Use Types Packs/Day Years [...] care for your loved ones. For example, school childcare attendant or elderly care for an [...] 9:17 AM EDT Marcelle Vincent RN * [place] Suicide Severity Rating Scale (Screener/Recent Self-Report) Question Answer Date of Assessment Author 1. Wish to be (Past 1 Month) No 025 9:17 AM EDT Marcelle Vincent RN documented as of this encounter Plan of Treatment Upcoming Encounters Date Type Department Care Team (Late st Contact Info) Description 11/30/2025 8:30 AM EDT Office Visit Adult Medicine [address] [phone] Maximino Campbell MD [address] [place] [address] documented as of this encounter Goals Goal [...] documented as of this encounter Care Teams Nutrition Specialist Relationship Specialty Start Date End Date Maximino Campbell MD [address] [place] [address] PCP - General Internal Medicine 02/29/20 documented as of this encounter
== END 2025-07-16 15:03 | disposition home or self-care (01) ==
PROVIDERS: Visit Provider Physician Assistant
DX: J22 Unspecified acute lower respiratory infection (principal)

== ENCOUNTER → 2025-07-16 14:21 | Outpatient (BNVA) | payer MEDICARE, SELFPAY | PROVIDERS: Visit Provider Physician Assistant | DX: J22 Unspecified acute lower respiratory infection (principal) | CPT/HCPCS: 99202 ==